=== PATIENT | female | born 1955 | race Asian ===

== ENCOUNTER 2021-05-02 09:59 | Inpatient (IN) | payer OTHER, MEDICAID ==
[~2021-05-02] VITALS: Ht 160 cm; Wt 80.9 kg
[~2021-05-02 09:59] MED LIST: ACET-1304 PO; ALBUAER3 IN; ALOG25TA PO; AML5T PO; AMLO-496 PO; ASCO10003 PO; ASPI-498 PO; ASPI1TAB91 PO; AZEL0.054 EACHEYE; CAR3125T PO; CHOL500023 PO; DEX4T PO; DOXY-286 PO; ENTE1TAB12 PO; FENO145T27 PO; FURO40TA4 PO; HYDR-4296 PO; ISO60SRT PO; ISOS1TAB28 PO; KET2TP TOP; LEVO125T7 PO; LOSA-39 PO; METF-370 PO; OMEP-263 PO; PIO30T PO; PIOG1TAB51 PO; SIMV-8 PO; TRIP2.5T9 PO; ZINC220T6 PO
[2021-05-02 10:45] LABS: Basophils # (auto) 0 10 ^3/uL (0-0.2); Basophils % (auto) 1.1 % (0.0-2.0); Eosinophils # (auto) 0.2 10 ^3/uL (0-0.8); Hematocrit 31.2 % (36.0-46.0); Hemoglobin 10.6 g/dL (12.2-16.2); Lymphocytes % (auto) 22.8 % (10.0-50.0); Mean Corpuscular Hemoglobin 29.4 pg (28.0-32.0); Mean Corpuscular Hgb Conc. 34.1 g/dL (32.0-36.0); Mean Corpuscular Volume 86.3 fL (80.0-100.0); Monocytes # (auto) 0.3 10 ^3/uL (0-1.3); Monocytes % (auto) 6.6 % (0.0-12.0); Neutrophils # (auto) 2.9 10 ^3/uL (1.6-8.6); Neutrophils % (auto) 64.5 % (37.0-80.0); Nucleated Red Blood Cells % 0.1 %; Red Blood Cells 3.61 10^6/uL (4.0-5.20); Red Cell Distribution Width 17.2 % (11.8-14.3); White Blood Cell 4.5 10^3/uL (4.4-10.8)
[2021-05-02 11:09] LABS: Albumin 2.9 g/dL (3.4-5.0); Anion Gap 6 (5-15); Blood Urea Nitrogen 22 mg/dL (7-18); Calcium 8.1 mg/dL (8.5-10.1); Carbon Dioxide 26 mmol/L (21-32); Chloride 111 mmol/L (98-107); Glucose 100 mg/dL (74-106); Potassium 3.8 mmol/L (3.5-5.1); Sodium 143 mmol/L (136-145)
[2021-05-02 11:14] LABS: Alanine Aminotransferase 12 U/L (13-56); Alkaline Phosphatase 37 U/L (45-117); Aspartate Aminotransferase 16 U/L (15-37); BUN/Creatinine Ratio 12.4; Bilirubin, Total 0.7 mg/dL (0.2-1.0); GFR African American 37 mL/min; GFR Non-African American 31 mL/min; Total Protein 7.8 g/dL (6.4-8.2)
[2021-05-02] MEDS ORDERED: SODIUM CHLORIDE 0.9% 1,000 ML IVB ONE (12:15)
[2021-05-02] MEDS ORDERED: AZITHROMYCIN 500MG/ 250ML 250 ML IV ONE (12:15)
[2021-05-02] MEDS ORDERED: cloNIDine HCL 0.1 MG TAB ONE (13:31)
[2021-05-02] MEDS ORDERED: cloNIDine HCL 0.1 MG TAB PO ONE (13:45)
[2021-05-02] MEDS ORDERED: NITROGLYCERIN 0.4 MG SL TAB SL PRN (15:15)
[2021-05-02] MEDS ORDERED: DEXTROSE (50%) 50ML SYRG IV PRN (15:15)
[2021-05-02] MEDS ORDERED: ONDANSETRON HCL 4 MG/2 ML VIAL IV PRN (15:15)
[2021-05-02] MEDS ORDERED: ACETAMINOPHEN 500 MG TAB PO PRN (15:15)
[2021-05-02] MEDS ORDERED: IPRATROPIUM BROM 0.5 MG/2.5ML INH SOL NEB PRN (15:15)
[2021-05-02] MEDS ORDERED: HYDROcodone-ACET 5/325MG TAB PO PRN (15:15)
[2021-05-02] MEDS ORDERED: ALBUTEROL SULF 2.5 MG/0.5ML(0.5%) NEB SOLN NEB PRN (15:15)
[2021-05-02] MEDS ORDERED: MORPHINE SULF INJ 2 MG/ML SYRINGE 1ML IV PRN ×2 (15:15)
[2021-05-02 15:44] VITALS: BP 160/70
[2021-05-02 17:30] VITALS: BP 193/92
[2021-05-02 17:55] VITALS: BP 193/92
[2021-05-02] MEDS: ACCU-CHEK COMFORT CURVE STRIP VI SCH ×2 (18:37→21:29)
[2021-05-02] MEDS: hydrALAZINE HCL 20 MG/ML VL IV PRN (18:38)
[2021-05-02] MEDS: InsuLIN REG 1unit/0.01ml Soln (100units/ml) SC SCH ×2 (18:46→21:45)
[2021-05-02] MEDS: ATORVASTATIN 20 MG TAB PO SCH (21:29)
[2021-05-02] MEDS: DOCUSATE SOD 100 MG CAP PO SCH (21:29)
[2021-05-02] MEDS: METOPROLOL TARTRATE 25 MG TAB PO SCH (21:37)
[2021-05-02 22:00] VITALS: BP 138/56
[2021-05-03 05:00] VITALS: BP 163/84
[2021-05-03 05:45] LABS: Basophils # (auto) 0 10 ^3/uL (0-0.2); Basophils % (auto) 0.9 % (0.0-2.0); Eosinophils # (auto) 0.2 10 ^3/uL (0-0.8); Eosinophils % (auto) 6.3 % (0.0-7.0); Hematocrit 27.9 % (36.0-46.0); Hemoglobin 9.6 g/dL (12.2-16.2); Lymphocytes # (auto) 1.2 10 ^3/uL (0.4-5.4); Lymphocytes % (auto) 30.6 % (10.0-50.0); Mean Corpuscular Hemoglobin 29.6 pg (28.0-32.0); Mean Corpuscular Hgb Conc. 34.5 g/dL (32.0-36.0); Mean Corpuscular Volume 85.9 fL (80.0-100.0); Monocytes # (auto) 0.3 10 ^3/uL (0-1.3); Monocytes % (auto) 8.3 % (0.0-12.0); Neutrophils # (auto) 2.1 10 ^3/uL (1.6-8.6); Neutrophils % (auto) 53.9 % (37.0-80.0); Red Blood Cells 3.24 10^6/uL (4.0-5.20)
[2021-05-03 06:01] LABS: BUN/Creatinine Ratio 13.8
[2021-05-03] MEDS: InsuLIN REG 1unit/0.01ml Soln (100units/ml) SC SCH ×4 (06:06→21:36)
[2021-05-03] MEDS: ACCU-CHEK COMFORT CURVE STRIP VI SCH ×4 (06:06→21:09)
[2021-05-03] MEDS: hydrALAZINE HCL 20 MG/ML VL IV PRN ×2 (06:11→18:43)
[2021-05-03 09:00] VITALS: BP 156/77
[2021-05-03] MEDS: FAMOTIDINE 20 MG TAB PO SCH (09:16)
[2021-05-03] MEDS: METOPROLOL TARTRATE 25 MG TAB PO SCH ×2 (09:16→22:00)
[2021-05-03] MEDS: DOCUSATE SOD 100 MG CAP PO SCH ×2 (09:16→21:08)
[2021-05-03] MEDS ORDERED: amLODIPine BESYLATE 5 MG TAB PO ONE (12:15)
[2021-05-03] MEDS ORDERED: DOXYCYCLINE 100 MG TAB/CAP PO ONE (12:30)
[2021-05-03] MEDS ORDERED: cefTRIAXone 1GM/50ML D5W 50 ML IV ONE (12:30)
[2021-05-03 13:00] VITALS: BP 146/76
[2021-05-03] MEDS ORDERED: IOHEXOL 350 MG/ML 100ML IJ ONE (16:04)
[2021-05-03] MEDS ORDERED: IODIXANOL 320MG/ML 100ML BTL IV ONE (16:08)
[2021-05-03 16:28] LABS: Hepatitis A Ab IgM Negative; Hepatitis B Core IgM Negative; Hepatitis C Antibody Negative (Negative)
[2021-05-03 16:40] LABS: Hepatitis B Surface Antigen Positive (Negative)
[2021-05-03 17:00] VITALS: BP 166/93
[2021-05-03] MEDS: FUROSEMIDE 20 MG/2 ML VIAL IV SCH (17:40)
[2021-05-03] MEDS ORDERED: BECL40AE11 INH (18:09)
[2021-05-03] MEDS ORDERED: HYDR50TA15 PO (18:10)
[2021-05-03] MEDS ORDERED: CARV6.2551 PO (18:11)
[2021-05-03] MEDS ORDERED: guaiFENesin-DM 100/10mg/5ml SYR PO PRN (21:00)
[2021-05-03] MEDS: ATORVASTATIN 20 MG TAB PO SCH (21:08)
[2021-05-03] MEDS: DOXYCYCLINE 100 MG TAB/CAP PO SCH (21:09)
[2021-05-03 22:00] VITALS: BP 156/77
[2021-05-04 05:00] VITALS: BP 172/85
[2021-05-04] MEDS: FUROSEMIDE 20 MG/2 ML VIAL IV SCH (06:08)
[2021-05-04] MEDS: ACCU-CHEK COMFORT CURVE STRIP VI SCH ×4 (06:08→21:25)
[2021-05-04] MEDS: LEVOTHYROXINE SODIUM 50 MCG TAB PO SCH (06:08)
[2021-05-04] MEDS: InsuLIN REG 1unit/0.01ml Soln (100units/ml) SC SCH ×4 (06:22→21:58)
[2021-05-04 06:55] VITALS: BP 159/91
[2021-05-04] MEDS ORDERED: ADENOSINE 68 MG in GIVE UN-DILUTED 0 ML IV ONE (08:30)
[2021-05-04 09:00] VITALS: BP 165/80
[2021-05-04] MEDS ORDERED: ALBUTEROL SULF 2.5 MG/0.5ML(0.5%) NEB SOLN ONE (09:08)
[2021-05-04] MEDS: ENOXAPARIN SOD 40 MG/0.4 ML SYRINGE SC SCH (09:56)
[2021-05-04] MEDS: DOCUSATE SOD 100 MG CAP PO SCH ×2 (09:56→21:25)
[2021-05-04] MEDS: cefTRIAXone 1GM/50ML D5W 50 ML IV SCH (09:56)
[2021-05-04] MEDS: DOXYCYCLINE 100 MG TAB/CAP PO SCH ×2 (09:57→21:25)
[2021-05-04] MEDS: amLODIPine BESYLATE 5 MG TAB PO SCH (09:57)
[2021-05-04] MEDS: METOPROLOL TARTRATE 25 MG TAB PO SCH ×2 (09:57→22:00)
[2021-05-04] MEDS: FAMOTIDINE 20 MG TAB PO SCH (09:57)
[2021-05-04 10:39] LABS: Basophils # (auto) 0 10 ^3/uL (0-0.2); Eosinophils # (auto) 0.2 10 ^3/uL (0-0.8); Eosinophils % (auto) 5.4 % (0.0-7.0); Hematocrit 31.2 % (36.0-46.0); Hemoglobin 10.4 g/dL (12.2-16.2); Lymphocytes # (auto) 1.2 10 ^3/uL (0.4-5.4); Mean Corpuscular Hemoglobin 28.6 pg (28.0-32.0); Mean Corpuscular Hgb Conc. 33.5 g/dL (32.0-36.0); Mean Corpuscular Volume 85.3 fL (80.0-100.0); Monocytes # (auto) 0.3 10 ^3/uL (0-1.3); Monocytes % (auto) 6.5 % (0.0-12.0); Neutrophils # (auto) 2.6 10 ^3/uL (1.6-8.6); Neutrophils % (auto) 59.1 % (37.0-80.0); Nucleated Red Blood Cells % 0.2 %; Red Blood Cells 3.65 10^6/uL (4.0-5.20); Red Cell Distribution Width 16.8 % (11.8-14.3); White Blood Cell 4.4 10^3/uL (4.4-10.8)
[2021-05-04 10:52] LABS: BUN/Creatinine Ratio 15.2; Calcium 8.4 mg/dL (8.5-10.1); Potassium 3.9 mmol/L (3.5-5.1)
[2021-05-04 13:00] VITALS: BP 147/76
[2021-05-04] MEDS ORDERED: ENOXAPARIN SOD 40 MG/0.4 ML SYRINGE SC ONE (14:00)
[2021-05-04] MEDS: hydrALAZINE HCL 25 MG TAB PO SCH ×2 (15:12→22:00)
[2021-05-04 17:00] VITALS: BP 153/79
[2021-05-04] MEDS: hydrALAZINE HCL 20 MG/ML VL IV PRN (18:35)
[2021-05-04] MEDS: ATORVASTATIN 20 MG TAB PO SCH (21:25)
[2021-05-04 22:00] VITALS: BP 157/87
[2021-05-05 05:00] VITALS: BP 170/69
[2021-05-05] MEDS: LEVOTHYROXINE SODIUM 50 MCG TAB PO SCH (05:56)
[2021-05-05] MEDS: hydrALAZINE HCL 25 MG TAB PO SCH ×3 (05:56→21:26)
[2021-05-05] MEDS: ACCU-CHEK COMFORT CURVE STRIP VI SCH ×4 (05:56→21:31)
[2021-05-05] MEDS: InsuLIN REG 1unit/0.01ml Soln (100units/ml) SC SCH ×4 (06:04→21:31)
[2021-05-05 07:42] LABS: Potassium 4.2 mmol/L (3.5-5.1)
[2021-05-05 07:49] LABS: BUN/Creatinine Ratio 17.9
[2021-05-05 09:00] VITALS: BP 158/80
[2021-05-05] MEDS: cefTRIAXone 1GM/50ML D5W 50 ML IV SCH (09:16)
[2021-05-05] MEDS: METOPROLOL TARTRATE 25 MG TAB PO SCH ×2 (09:18→21:27)
[2021-05-05] MEDS: FUROSEMIDE 20 MG/2 ML VIAL IV SCH (09:18)
[2021-05-05] MEDS: DOCUSATE SOD 100 MG CAP PO SCH ×2 (09:19→21:25)
[2021-05-05] MEDS: DOXYCYCLINE 100 MG TAB/CAP PO SCH ×2 (09:19→21:25)
[2021-05-05] MEDS: amLODIPine BESYLATE 5 MG TAB PO SCH (09:19)
[2021-05-05] MEDS: ENOXAPARIN SOD 40 MG/0.4 ML SYRINGE SC SCH (09:20)
[2021-05-05] MEDS: FAMOTIDINE 20 MG TAB PO SCH (09:20)
[2021-05-05] MEDS ORDERED: ENOXAPARIN SOD 40 MG/0.4 ML SYRINGE SC SCH (10:00)
[2021-05-05] MEDS ORDERED: SODIUM CHLORIDE 0.9% 500 ML IV ONE (10:30)
[2021-05-05 11:51] VITALS: BP 148/78
[2021-05-05] MEDS: Glucerna Carbsteady SHAKE Vanilla 8oz PO SCH ×2 (12:18→18:29)
[2021-05-05 13:00] VITALS: BP 156/74
[2021-05-05] MEDS: cloNIDine HCL 0.1 MG TAB PO PRN (16:48)
[2021-05-05 17:00] VITALS: BP 160/77
[2021-05-05] MEDS: ATORVASTATIN 20 MG TAB PO SCH (21:26)
[2021-05-05 22:56] VITALS: BP 149/69
[2021-05-05] MEDS: hydrALAZINE HCL 20 MG/ML VL IV PRN (23:21)
[2021-05-06] MEDS: LEVOTHYROXINE SODIUM 50 MCG TAB PO SCH (06:15)
[2021-05-06 06:16] LABS: Basophils # (auto) 0 10 ^3/uL (0-0.2); Basophils % (auto) 0.6 % (0.0-2.0); Eosinophils # (auto) 0.3 10 ^3/uL (0-0.8); Eosinophils % (auto) 6.6 % (0.0-7.0); Hematocrit 28.1 % (36.0-46.0); Hemoglobin 9.9 g/dL (12.2-16.2); Lymphocytes # (auto) 1.1 10 ^3/uL (0.4-5.4); Lymphocytes % (auto) 26.3 % (10.0-50.0); Mean Corpuscular Hgb Conc. 35.1 g/dL (32.0-36.0); Mean Corpuscular Volume 85.7 fL (80.0-100.0); Monocytes # (auto) 0.3 10 ^3/uL (0-1.3); Monocytes % (auto) 6.9 % (0.0-12.0); Neutrophils # (auto) 2.5 10 ^3/uL (1.6-8.6); Neutrophils % (auto) 59.6 % (37.0-80.0); Nucleated Red Blood Cells % 0.1 %; Red Blood Cells 3.28 10^6/uL (4.0-5.20); Red Cell Distribution Width 16.7 % (11.8-14.3); White Blood Cell 4.1 10^3/uL (4.4-10.8)
[2021-05-06] MEDS: ACCU-CHEK COMFORT CURVE STRIP VI SCH ×4 (06:17→21:59)
[2021-05-06] MEDS: hydrALAZINE HCL 25 MG TAB PO SCH ×3 (06:17→21:55)
[2021-05-06 06:21] VITALS: BP 160/85
[2021-05-06] MEDS: InsuLIN REG 1unit/0.01ml Soln (100units/ml) SC SCH ×4 (06:21→22:00)
[2021-05-06] MEDS: cloNIDine HCL 0.1 MG TAB PO PRN (06:28)
[2021-05-06 06:48] LABS: Potassium 4.3 mmol/L (3.5-5.1)
[2021-05-06 06:56] LABS: BUN/Creatinine Ratio 21.3; Calcium 7.8 mg/dL (8.5-10.1)
[2021-05-06] MEDS: Glucerna Carbsteady SHAKE Vanilla 8oz PO SCH ×3 (08:00→18:00)
[2021-05-06 09:00] VITALS: BP 143/69
[2021-05-06] MEDS: FAMOTIDINE 20 MG TAB PO SCH (10:58)
[2021-05-06] MEDS: DOXYCYCLINE 100 MG TAB/CAP PO SCH ×2 (10:58→21:55)
[2021-05-06] MEDS: DOCUSATE SOD 100 MG CAP PO SCH ×2 (10:58→21:55)
[2021-05-06] MEDS: ENOXAPARIN SOD 40 MG/0.4 ML SYRINGE SC SCH (11:00)
[2021-05-06] MEDS: FUROSEMIDE 20 MG/2 ML VIAL IV SCH (11:01)
[2021-05-06] MEDS: amLODIPine BESYLATE 5 MG TAB PO SCH (11:02)
[2021-05-06] MEDS: METOPROLOL TARTRATE 25 MG TAB PO SCH ×2 (11:11→21:59)
[2021-05-06] MEDS: cefTRIAXone 1GM/50ML D5W 50 ML IV SCH (11:44)
[2021-05-06 12:55] VITALS: BP 143/70
[2021-05-06 16:45] VITALS: BP 147/76
[2021-05-06] MEDS: ATORVASTATIN 20 MG TAB PO SCH (21:55)
[2021-05-06 22:00] VITALS: BP 148/86
[2021-05-07 05:00] VITALS: BP 165/80
[2021-05-07] MEDS: cloNIDine HCL 0.1 MG TAB PO PRN (05:44)
[2021-05-07] MEDS: hydrALAZINE HCL 25 MG TAB PO SCH (05:44)
[2021-05-07] MEDS: InsuLIN REG 1unit/0.01ml Soln (100units/ml) SC SCH ×2 (05:50→11:30)
[2021-05-07] MEDS: ACCU-CHEK COMFORT CURVE STRIP VI SCH ×2 (05:50→11:40)
[2021-05-07 05:56] LABS: Basophils # (auto) 0 10 ^3/uL (0-0.2); Eosinophils # (auto) 0.3 10 ^3/uL (0-0.8); Eosinophils % (auto) 7.8 % (0.0-7.0); Hematocrit 27.8 % (36.0-46.0); Hemoglobin 9.6 g/dL (12.2-16.2); Mean Corpuscular Hemoglobin 29.6 pg (28.0-32.0); Mean Corpuscular Hgb Conc. 34.7 g/dL (32.0-36.0); Mean Corpuscular Volume 85.2 fL (80.0-100.0); Monocytes # (auto) 0.2 10 ^3/uL (0-1.3); Monocytes % (auto) 6.7 % (0.0-12.0); Neutrophils # (auto) 2.1 10 ^3/uL (1.6-8.6); Neutrophils % (auto) 56.5 % (37.0-80.0); Nucleated Red Blood Cells % 0.1 %; Red Blood Cells 3.26 10^6/uL (4.0-5.20); Red Cell Distribution Width 16.4 % (11.8-14.3); White Blood Cell 3.6 10^3/uL (4.4-10.8)
[2021-05-07 06:13] LABS: Calcium 8.2 mg/dL (8.5-10.1); Potassium 4.1 mmol/L (3.5-5.1)
[2021-05-07 06:14] LABS: BUN/Creatinine Ratio 21.1
[2021-05-07] MEDS: LEVOTHYROXINE SODIUM 50 MCG TAB PO SCH (06:39)
[2021-05-07 09:00] VITALS: BP 123/58
[2021-05-07] MEDS: cefTRIAXone 1GM/50ML D5W 50 ML IV SCH (09:00)
[2021-05-07] MEDS: DOCUSATE SOD 100 MG CAP PO SCH (09:58)
[2021-05-07] MEDS: FUROSEMIDE 20 MG/2 ML VIAL IV SCH (09:58)
[2021-05-07] MEDS: Glucerna Carbsteady SHAKE Vanilla 8oz PO SCH ×2 (09:58→12:51)
[2021-05-07] MEDS: METOPROLOL TARTRATE 25 MG TAB PO SCH (09:59)
[2021-05-07] MEDS: FAMOTIDINE 20 MG TAB PO SCH (09:59)
[2021-05-07] MEDS: amLODIPine BESYLATE 5 MG TAB PO SCH (09:59)
[2021-05-07] MEDS: DOXYCYCLINE 100 MG TAB/CAP PO SCH (09:59)
[2021-05-07] MEDS: ENOXAPARIN SOD 40 MG/0.4 ML SYRINGE SC SCH (10:00)
[2021-05-07 13:00] VITALS: BP 124/64
== END 2021-05-07 13:45 | disposition home or self-care (01) | DRG 291 ==
LOC: ER 09:59 → TELE 15:15 → TELE-WESTW 17:22
PROVIDERS: ADMIT Nurse Practitioner Acute Care; ATTEND Internal Medicine Pulmonary Disease
DX: I11.0 Hypertensive heart disease with heart failure (principal); N17.0 Acute kidney failure with tubular necrosis; J96.21 Acute and chronic respiratory failure with hypoxia; I16.9 Hypertensive crisis, unspecified; E44.0 Moderate protein-calorie malnutrition; I31.3 Pericardial effusion (noninflammatory); B18.1 Chronic viral hepatitis B without delta-agent; I50.43 Acute on chronic combined systolic (congestive) and diastolic (congestive) heart failure; I25.10 Atherosclerotic heart disease of native coronary artery without angina pectoris; J84.10 Pulmonary fibrosis, unspecified; E07.9 Disorder of thyroid, unspecified; N18.32 Chronic kidney disease, stage 3b; D63.8 Anemia in other chronic diseases classified elsewhere; D50.9 Iron deficiency anemia, unspecified; Z20.822 Contact with and (suspected) exposure to COVID-19; E11.22 Type 2 diabetes mellitus with diabetic chronic kidney disease; E66.9 Obesity, unspecified; E78.5 Hyperlipidemia, unspecified; I25.2 Old myocardial infarction; Z79.4 Long term (current) use of insulin; Z68.31 Body mass index [BMI] 31.0-31.9, adult; Z79.51 Long term (current) use of inhaled steroids; Z79.899 Other long term (current) drug therapy; Z80.3 Family history of malignant neoplasm of breast; Z82.49 Family history of ischemic heart disease and other diseases of the circulatory system; Z86.16 Personal history of COVID-19; Z87.01 Personal history of pneumonia (recurrent)
CPT/HCPCS: 36415; 71046; 71250; 71275; 78452; 80048; 80053; 80061; 80074; 82962; 83036; 83605; 83735; 83880; 84439; 84443; 84484; 85025; 85049; 85379; 86141; 87040; 87426; 93005; 93017; 93306; 93970; 96365; G0378; J0153; J0696; J1815; Q9967

== ENCOUNTER → 2021-06-21 | Outpatient (CLI) | payer OTHER ==
[~2021-06-21] MED LIST changes: -AMLO-496 PO; -ASPI-498 PO; +BECL40AE11 INH; -CAR3125T PO; +CARV6.2551 PO; -HYDR-4296 PO; +HYDR50TA15 PO; -ISOS1TAB28 PO; -PIO30T PO
== END | disposition home or self-care (01) ==
LOC: LAB 08:59
PROVIDERS: ATTEND Internal Medicine Pulmonary Disease
DX: Z01.812 Encounter for preprocedural laboratory examination (principal); Z20.822 Contact with and (suspected) exposure to COVID-19
CPT/HCPCS: 36415; 87426

== ENCOUNTER 2021-10-06 07:58 | Inpatient (IN) | payer OTHER, MEDICAID ==
[~2021-10-06] VITALS: Ht 160 cm; Wt 83.3 kg
[2021-10-06 11:04] LABS: Basophils # (auto) 0 10 ^3/uL (0-0.2); Basophils % (auto) 0.6 % (0.0-2.0); Eosinophils # (auto) 0.2 10 ^3/uL (0-0.8); Eosinophils % (auto) 6.1 % (0.0-7.0); Hematocrit 31.7 % (36.0-46.0); Hemoglobin 10.3 g/dL (12.2-16.2); Lymphocytes # (auto) 0.8 10 ^3/uL (0.4-5.4); Lymphocytes % (auto) 23.3 % (10.0-50.0); Mean Corpuscular Hemoglobin 29.8 pg (28.0-32.0); Mean Corpuscular Hgb Conc. 32.4 g/dL (32.0-36.0); Monocytes # (auto) 0.2 10 ^3/uL (0-1.3); Monocytes % (auto) 5.1 % (0.0-12.0); Neutrophils # (auto) 2.1 10 ^3/uL (1.6-8.6); Neutrophils % (auto) 64.9 % (37.0-80.0); Nucleated Red Blood Cells % 0.1 %; Red Blood Cells 3.45 10^6/uL (4.0-5.20); Red Cell Distribution Width 17.2 % (11.8-14.3); White Blood Cell 3.3 10^3/uL (4.4-10.8)
[2021-10-06 11:29] LABS: Potassium 4.3 mmol/L (3.5-5.1)
[2021-10-06 11:40] LABS: Albumin 2.3 g/dL (3.4-5.0); BUN/Creatinine Ratio 9.4; Bilirubin, Total 0.5 mg/dL (0.2-1.0); Calcium 7.9 mg/dL (8.5-10.1)
[2021-10-06 14:06] LABS: Basophils # (auto) 0 10 ^3/uL (0-0.2); Basophils % (auto) 0.8 % (0.0-2.0); Eosinophils # (auto) 0.2 10 ^3/uL (0-0.8); Eosinophils % (auto) 5.9 % (0.0-7.0); Hematocrit 33.1 % (36.0-46.0); Hemoglobin 10.8 g/dL (12.2-16.2); Lymphocytes # (auto) 1.1 10 ^3/uL (0.4-5.4); Lymphocytes % (auto) 26.2 % (10.0-50.0); Mean Corpuscular Hgb Conc. 32.8 g/dL (32.0-36.0); Mean Corpuscular Volume 91.7 fL (80.0-100.0); Monocytes # (auto) 0.2 10 ^3/uL (0-1.3); Monocytes % (auto) 4.7 % (0.0-12.0); Neutrophils # (auto) 2.5 10 ^3/uL (1.6-8.6); Neutrophils % (auto) 62.4 % (37.0-80.0); Nucleated Red Blood Cells % 0.1 %; Red Blood Cells 3.61 10^6/uL (4.0-5.20); Red Cell Distribution Width 16.9 % (11.8-14.3)
[2021-10-06 14:30] LABS: Albumin 2.4 g/dL (3.4-5.0); Calcium 8.1 mg/dL (8.5-10.1); Magnesium 3.1 mg/dL (1.6-2.6); Potassium 4.3 mmol/L (3.5-5.1)
[2021-10-06 14:36] LABS: BUN/Creatinine Ratio 9.5; Bilirubin, Total 0.4 mg/dL (0.2-1.0); Total Protein 7.1 g/dL (6.4-8.2)
[2021-10-06 15:00] LABS: INR 1.11 (0.9-1.15); Partial Thromboplastin Time 28.9 sec (23.6-33.0)
[2021-10-06] MEDS ORDERED: hydrALAZINE HCL 20 MG/ML VL IV ONE ×2 (17:15→18:30)
[2021-10-06] MEDS ORDERED: MORPHINE SULFATE INJECTION 2 MG/ML SYRG IV PRN (18:45)
[2021-10-06] MEDS ORDERED: NITROGLYCERIN 0.4 MG SL TAB SL PRN (18:45)
[2021-10-06] MEDS: FUROSEMIDE 100 MG/10ML VIAL IV SCH (20:01)
[2021-10-06 22:00] VITALS: BP 142/80
[2021-10-06 22:34] VITALS: BP 142/80
[2021-10-06] MEDS ORDERED: BENZ200C64 PO (22:52)
[2021-10-06] MEDS ORDERED: FERR-20 PO (22:58)
[2021-10-06] MEDS ORDERED: ERGO400T PO (22:58)
[2021-10-06] MEDS ORDERED: ASCO500T11 PO (22:58)
[2021-10-07 05:00] VITALS: BP 175/86
[2021-10-07] MEDS: FUROSEMIDE 100 MG/10ML VIAL IV SCH (05:13)
[2021-10-07 05:19] LABS: Basophils # (auto) 0 10 ^3/uL (0-0.2); Basophils % (auto) 0.7 % (0.0-2.0); Eosinophils # (auto) 0.2 10 ^3/uL (0-0.8); Eosinophils % (auto) 6.2 % (0.0-7.0); Hemoglobin 10.4 g/dL (12.2-16.2); Lymphocytes # (auto) 0.9 10 ^3/uL (0.4-5.4); Lymphocytes % (auto) 23.2 % (10.0-50.0); Mean Corpuscular Hemoglobin 30.6 pg (28.0-32.0); Mean Corpuscular Hgb Conc. 33.6 g/dL (32.0-36.0); Mean Corpuscular Volume 90.9 fL (80.0-100.0); Monocytes # (auto) 0.2 10 ^3/uL (0-1.3); Monocytes % (auto) 5.3 % (0.0-12.0); Neutrophils # (auto) 2.5 10 ^3/uL (1.6-8.6); Neutrophils % (auto) 64.6 % (37.0-80.0); Nucleated Red Blood Cells % 0.1 %; Red Blood Cells 3.41 10^6/uL (4.0-5.20); Red Cell Distribution Width 16.9 % (11.8-14.3); White Blood Cell 3.9 10^3/uL (4.4-10.8)
[2021-10-07 05:40] LABS: Calcium 7.8 mg/dL (8.5-10.1); Potassium 3.8 mmol/L (3.5-5.1)
[2021-10-07 05:45] LABS: BUN/Creatinine Ratio 9.3
[2021-10-07] MEDS ORDERED: ASPirin 81 mg TAB PO ONE (10:45)
[2021-10-07] MEDS: BUMETANIDE 2.5mg/10ml (0.25 mg/ml) INJ IV SCH (12:20)
[2021-10-07 12:58] VITALS: BP 173/86
[2021-10-07] MEDS: METOPROLOL TARTRATE 25 MG TAB PO SCH ×2 (13:33→20:51)
[2021-10-07] MEDS ORDERED: BUMETANIDE 2.5mg/10ml (0.25 mg/ml) INJ IV SCH (18:00)
[2021-10-07] MEDS ORDERED: FUROSEMIDE 20 MG/2 ML VIAL IV SCH (18:00)
[2021-10-07 18:13] VITALS: BP 157/84
[2021-10-07 22:00] VITALS: BP 200/97
[2021-10-07] MEDS ORDERED: METOPROLOL TARTRATE 25 MG TAB PO SCH (22:00)
[2021-10-07] MEDS ORDERED: cloNIDine HCL 0.1 MG TAB PO ONE (23:00)
[2021-10-08 00:08] VITALS: BP 168/90
[2021-10-08 05:00] VITALS: BP 169/87
[2021-10-08 05:46] LABS: Basophils # (auto) 0 10 ^3/uL (0-0.2); Basophils % (auto) 0.9 % (0.0-2.0); Eosinophils # (auto) 0.3 10 ^3/uL (0-0.8); Eosinophils % (auto) 6.6 % (0.0-7.0); Hematocrit 30.5 % (36.0-46.0); Hemoglobin 10.1 g/dL (12.2-16.2); Lymphocytes # (auto) 1.3 10 ^3/uL (0.4-5.4); Lymphocytes % (auto) 28.9 % (10.0-50.0); Mean Corpuscular Hemoglobin 30.5 pg (28.0-32.0); Mean Corpuscular Volume 92.3 fL (80.0-100.0); Monocytes # (auto) 0.3 10 ^3/uL (0-1.3); Monocytes % (auto) 6.9 % (0.0-12.0); Neutrophils # (auto) 2.6 10 ^3/uL (1.6-8.6); Neutrophils % (auto) 56.7 % (37.0-80.0); Red Blood Cells 3.31 10^6/uL (4.0-5.20); Red Cell Distribution Width 17.2 % (11.8-14.3); White Blood Cell 4.5 10^3/uL (4.4-10.8)
[2021-10-08 06:21] LABS: BUN/Creatinine Ratio 10.9; Calcium 7.5 mg/dL (8.5-10.1); Potassium 4.7 mmol/L (3.5-5.1)
[2021-10-08 09:00] VITALS: BP 158/72
[2021-10-08] MEDS: METOPROLOL TARTRATE 25 MG TAB PO SCH (09:13)
[2021-10-08] MEDS: ASPirin 81 mg TAB PO SCH (09:26)
[2021-10-08] MEDS: BUMETANIDE 2.5mg/10ml (0.25 mg/ml) INJ IV SCH (09:26)
[2021-10-08] MEDS ORDERED: ALBUTEROL SULF 2.5 MG/0.5ML(0.5%) NEB SOLN NEB PRN (11:45)
[2021-10-08] MEDS ORDERED: IPRATROPIUM BROM 0.5 MG/2.5ML INH SOL NEB PRN (11:45)
[2021-10-08] MEDS: guaiFENesin-DM 100/10mg/5ml SYR PO PRN ×2 (11:54→21:38)
[2021-10-08 13:00] VITALS: BP 164/79
[2021-10-08] MEDS ORDERED: hydrALAZINE HCL 25 MG TAB PO SCH (14:00)
[2021-10-08 16:45] LABS: Protein, Urine 413.3 mg/dL (0.0-11.9)
[2021-10-08 17:00] VITALS: BP 178/85
[2021-10-08] MEDS: hydrALAZINE HCL 20 MG/ML VL IV PRN (19:10)
[2021-10-08] MEDS: hydrALAZINE HCL 25 MG TAB PO SCH (21:32)
[2021-10-08] MEDS: ATORVASTATIN 20 MG TAB PO SCH (21:33)
[2021-10-08] MEDS: CARVEDILOL 3.125 MG TAB PO SCH (21:33)
[2021-10-08 22:00] VITALS: BP 143/73
[2021-10-09] VITALS (7 sets, daily range): BP systolic 143–189; BP diastolic 70–94
[2021-10-09] MEDS: hydrALAZINE HCL 25 MG TAB PO SCH ×3 (05:04→21:13)
[2021-10-09 06:03] LABS: Albumin 2.2 g/dL (3.4-5.0); Calcium 7.7 mg/dL (8.5-10.1); Magnesium 3.1 mg/dL (1.6-2.6); Potassium 4.3 mmol/L (3.5-5.1)
[2021-10-09 06:05] LABS: Basophils # (auto) 0 10 ^3/uL (0-0.2); Basophils % (auto) 0.6 % (0.0-2.0); Eosinophils # (auto) 0.3 10 ^3/uL (0-0.8); Eosinophils % (auto) 7.8 % (0.0-7.0); Hemoglobin 9.6 g/dL (12.2-16.2); Lymphocytes # (auto) 1.1 10 ^3/uL (0.4-5.4); Monocytes # (auto) 0.3 10 ^3/uL (0-1.3); Monocytes % (auto) 6.4 % (0.0-12.0); Neutrophils # (auto) 2.4 10 ^3/uL (1.6-8.6); Neutrophils % (auto) 59.2 % (37.0-80.0); Red Blood Cells 3.15 10^6/uL (4.0-5.20)
[2021-10-09 06:06] LABS: Hematocrit 29.2 % (36.0-46.0); Mean Corpuscular Hemoglobin 30.7 pg (28.0-32.0); Mean Corpuscular Hgb Conc. 33.1 g/dL (32.0-36.0); Mean Corpuscular Volume 92.7 fL (80.0-100.0); Red Cell Distribution Width 17.3 % (11.8-14.3)
[2021-10-09 06:22] LABS: BUN/Creatinine Ratio 13.5; Bilirubin, Total 0.4 mg/dL (0.2-1.0); Total Protein 6.5 g/dL (6.4-8.2)
[2021-10-09] MEDS ORDERED: LEVOTHYROXINE SODIUM 50 MCG TAB PO SCH (07:00)
[2021-10-09] MEDS: PANTOPRAZOLE 40 MG TAB PO SCH (10:00)
[2021-10-09] MEDS ORDERED: ERGOCALCIFEROL 50,000 UNIT(1.25MG) CAP PO SCH (10:30)
[2021-10-09] MEDS ORDERED: LEVOTHYROXINE SODIUM 100 MCG/5 ML INJ IV ONE (10:30)
[2021-10-09] MEDS ORDERED: DOXYCYCLINE 100 MG TAB/CAP PO ONE (10:30)
[2021-10-09] MEDS: guaiFENesin-DM 100/10mg/5ml SYR PO PRN ×2 (10:37→21:12)
[2021-10-09] MEDS: ASPirin 81 mg TAB PO SCH (10:37)
[2021-10-09] MEDS: CHOLECALCIFEROL (VITD3) 2,000 UNIT CAP/TAB PO SCH (10:38)
[2021-10-09] MEDS: BUMETANIDE 2.5mg/10ml (0.25 mg/ml) INJ IV SCH (10:38)
[2021-10-09] MEDS: ENOXAPARIN SOD 30 MG/0.3 ML SYRINGE SC SCH (10:38)
[2021-10-09] MEDS: hydrALAZINE HCL 20 MG/ML VL IV PRN ×2 (10:40→17:57)
[2021-10-09] MEDS: CARVEDILOL 3.125 MG TAB PO SCH ×2 (10:40→21:13)
[2021-10-09] MEDS: IPRATROPIUM BROM 0.5 MG/2.5ML INH SOL NEB SCH ×3 (15:51→22:07)
[2021-10-09] MEDS: ALBUTEROL SULF 2.5 MG/0.5ML(0.5%) NEB SOLN NEB SCH ×3 (15:51→22:07)
[2021-10-09] MEDS: BUDESONIDE (INHALATION) 0.5 MG/2 ML NEB NEB SCH (18:15)
[2021-10-09] MEDS: DOXYCYCLINE 100 MG TAB/CAP PO SCH (21:13)
[2021-10-09] MEDS: ATORVASTATIN 20 MG TAB PO SCH (21:14)
[2021-10-10] MEDS: hydrALAZINE HCL 20 MG/ML VL IV PRN ×4 (00:22→23:24)
[2021-10-10 01:00] VITALS: BP 148/76
[2021-10-10] MEDS: ALBUTEROL SULF 2.5 MG/0.5ML(0.5%) NEB SOLN NEB SCH ×5 (02:00→22:38)
[2021-10-10] MEDS: IPRATROPIUM BROM 0.5 MG/2.5ML INH SOL NEB SCH ×6 (02:00→22:38)
[2021-10-10 05:00] VITALS: BP 147/70
[2021-10-10] MEDS: hydrALAZINE HCL 25 MG TAB PO SCH ×3 (05:46→22:03)
[2021-10-10] MEDS: guaiFENesin-DM 100/10mg/5ml SYR PO PRN (05:47)
[2021-10-10] MEDS: BUDESONIDE (INHALATION) 0.5 MG/2 ML NEB NEB SCH ×2 (06:09→21:04)
[2021-10-10 06:48] LABS: Basophils # (auto) 0 10 ^3/uL (0-0.2); Basophils % (auto) 0.8 % (0.0-2.0); Eosinophils # (auto) 0.3 10 ^3/uL (0-0.8); Eosinophils % (auto) 8.1 % (0.0-7.0); Hematocrit 29.3 % (36.0-46.0); Hemoglobin 9.6 g/dL (12.2-16.2); Lymphocytes # (auto) 0.9 10 ^3/uL (0.4-5.4); Lymphocytes % (auto) 25.8 % (10.0-50.0); Mean Corpuscular Hemoglobin 29.8 pg (28.0-32.0); Mean Corpuscular Hgb Conc. 32.6 g/dL (32.0-36.0); Mean Corpuscular Volume 91.2 fL (80.0-100.0); Monocytes # (auto) 0.2 10 ^3/uL (0-1.3); Monocytes % (auto) 6.4 % (0.0-12.0); Neutrophils # (auto) 2.1 10 ^3/uL (1.6-8.6); Neutrophils % (auto) 58.9 % (37.0-80.0); Nucleated Red Blood Cells % 0.1 %; Red Blood Cells 3.21 10^6/uL (4.0-5.20); Red Cell Distribution Width 16.7 % (11.8-14.3); White Blood Cell 3.6 10^3/uL (4.4-10.8)
[2021-10-10 07:03] LABS: Potassium 4.5 mmol/L (3.5-5.1)
[2021-10-10 07:13] LABS: BUN/Creatinine Ratio 14.7; Magnesium 2.3 mg/dL (1.6-2.6)
[2021-10-10 09:00] VITALS: BP 152/83
[2021-10-10] MEDS: ENOXAPARIN SOD 30 MG/0.3 ML SYRINGE SC SCH (10:20)
[2021-10-10] MEDS: LEVOTHYROXINE SODIUM 100 MCG/5 ML INJ IV SCH (10:20)
[2021-10-10] MEDS: CHOLECALCIFEROL (VITD3) 2,000 UNIT CAP/TAB PO SCH (10:20)
[2021-10-10] MEDS: PANTOPRAZOLE 40 MG TAB PO SCH (10:21)
[2021-10-10] MEDS: ASPirin 81 mg TAB PO SCH (10:21)
[2021-10-10] MEDS: DOXYCYCLINE 100 MG TAB/CAP PO SCH ×2 (10:21→22:05)
[2021-10-10] MEDS: CARVEDILOL 3.125 MG TAB PO SCH ×2 (10:21→22:04)
[2021-10-10] MEDS: BUMETANIDE 2.5mg/10ml (0.25 mg/ml) INJ IV SCH (10:22)
[2021-10-10 13:00] VITALS: BP 164/81
[2021-10-10] MEDS ORDERED: BECL80AE11 PO (15:09)
[2021-10-10] MEDS ORDERED: LEVO25CA3 PO (15:09)
[2021-10-10] MEDS ORDERED: CHOL500021 PO (15:09)
[2021-10-10] MEDS ORDERED: ALOG2.5T PO (15:09)
[2021-10-10 17:20] VITALS: BP 182/90
[2021-10-10] MEDS ORDERED: NIFEdipine ER 30 MG TAB PO ONE (18:45)
[2021-10-10 22:00] VITALS: BP 194/91
[2021-10-10] MEDS: ATORVASTATIN 20 MG TAB PO SCH (22:04)
[2021-10-11] MEDS: ALBUTEROL SULF 2.5 MG/0.5ML(0.5%) NEB SOLN NEB SCH ×5 (02:00→21:52)
[2021-10-11] MEDS: IPRATROPIUM BROM 0.5 MG/2.5ML INH SOL NEB SCH ×5 (02:00→21:51)
[2021-10-11 05:00] VITALS: BP 121/71
[2021-10-11] MEDS: hydrALAZINE HCL 25 MG TAB PO SCH ×3 (05:43→21:28)
[2021-10-11] MEDS: BUDESONIDE (INHALATION) 0.5 MG/2 ML NEB NEB SCH ×2 (06:45→19:13)
[2021-10-11 08:28] LABS: Basophils # (auto) 0 10 ^3/uL (0-0.2); Eosinophils # (auto) 0.3 10 ^3/uL (0-0.8); Eosinophils % (auto) 8.3 % (0.0-7.0); Hematocrit 31.3 % (36.0-46.0); Hemoglobin 10.3 g/dL (12.2-16.2); Lymphocytes # (auto) 0.9 10 ^3/uL (0.4-5.4); Lymphocytes % (auto) 24.9 % (10.0-50.0); Mean Corpuscular Hemoglobin 30.3 pg (28.0-32.0); Mean Corpuscular Volume 91.7 fL (80.0-100.0); Monocytes # (auto) 0.2 10 ^3/uL (0-1.3); Monocytes % (auto) 5.9 % (0.0-12.0); Neutrophils # (auto) 2.1 10 ^3/uL (1.6-8.6); Neutrophils % (auto) 59.9 % (37.0-80.0); Nucleated Red Blood Cells % 0.1 %; Red Blood Cells 3.41 10^6/uL (4.0-5.20); Red Cell Distribution Width 16.8 % (11.8-14.3); White Blood Cell 3.4 10^3/uL (4.4-10.8)
[2021-10-11 09:00] VITALS: BP 126/63
[2021-10-11 09:01] LABS: Potassium 4.4 mmol/L (3.5-5.1)
[2021-10-11 09:06] LABS: BUN/Creatinine Ratio 15.3; Calcium 8.2 mg/dL (8.5-10.1)
[2021-10-11] MEDS: DOXYCYCLINE 100 MG TAB/CAP PO SCH ×2 (10:00→21:27)
[2021-10-11] MEDS: LEVOTHYROXINE SODIUM 100 MCG/5 ML INJ IV SCH (10:55)
[2021-10-11] MEDS: PANTOPRAZOLE 40 MG TAB PO SCH (10:56)
[2021-10-11] MEDS: ASPirin 81 mg TAB PO SCH (10:56)
[2021-10-11] MEDS: ISOSORBIDE MONONITRATE ER 60 MG TAB PO SCH (10:56)
[2021-10-11] MEDS: CHOLECALCIFEROL (VITD3) 2,000 UNIT CAP/TAB PO SCH (10:56)
[2021-10-11] MEDS: ENOXAPARIN SOD 30 MG/0.3 ML SYRINGE SC SCH (10:57)
[2021-10-11] MEDS: CARVEDILOL 3.125 MG TAB PO SCH ×2 (10:57→21:28)
[2021-10-11 13:00] VITALS: BP 153/78
[2021-10-11 17:00] VITALS: BP 135/69
[2021-10-11] MEDS: ATORVASTATIN 20 MG TAB PO SCH (21:27)
[2021-10-11 22:00] VITALS: BP 150/69
[2021-10-12] MEDS: ALBUTEROL SULF 2.5 MG/0.5ML(0.5%) NEB SOLN NEB SCH ×5 (01:34→18:42)
[2021-10-12] MEDS: IPRATROPIUM BROM 0.5 MG/2.5ML INH SOL NEB SCH ×5 (01:34→18:42)
[2021-10-12 05:00] VITALS: BP 154/74
[2021-10-12] MEDS: hydrALAZINE HCL 25 MG TAB PO SCH ×2 (05:31→13:31)
[2021-10-12] MEDS: BUDESONIDE (INHALATION) 0.5 MG/2 ML NEB NEB SCH (06:11)
[2021-10-12] MEDS: hydrALAZINE HCL 20 MG/ML VL IV PRN (08:46)
[2021-10-12 09:00] VITALS: BP 186/90
[2021-10-12] MEDS: ASPirin 81 mg TAB PO SCH (09:45)
[2021-10-12] MEDS: PANTOPRAZOLE 40 MG TAB PO SCH (09:45)
[2021-10-12] MEDS: DOXYCYCLINE 100 MG TAB/CAP PO SCH (09:45)
[2021-10-12] MEDS: CHOLECALCIFEROL (VITD3) 2,000 UNIT CAP/TAB PO SCH (09:45)
[2021-10-12] MEDS: LEVOTHYROXINE SODIUM 100 MCG/5 ML INJ IV SCH (09:45)
[2021-10-12] MEDS: ISOSORBIDE MONONITRATE ER 60 MG TAB PO SCH (09:46)
[2021-10-12] MEDS: CARVEDILOL 3.125 MG TAB PO SCH (09:47)
[2021-10-12] MEDS: ENOXAPARIN SOD 30 MG/0.3 ML SYRINGE SC SCH (09:48)
[2021-10-12] MEDS ORDERED: FUROSEMIDE 20 MG TAB PO SCH (10:00)
[2021-10-12] MEDS ORDERED: NIFEdipine ER 30 MG TAB PO SCH (10:00)
[2021-10-12 10:18] LABS: Calcium 8.2 mg/dL (8.5-10.1); Potassium 4.5 mmol/L (3.5-5.1)
[2021-10-12 10:20] LABS: Basophils # (auto) 0 10 ^3/uL (0-0.2); Basophils % (auto) 0.5 % (0.0-2.0); Eosinophils # (auto) 0.3 10 ^3/uL (0-0.8); Eosinophils % (auto) 7.5 % (0.0-7.0); Hematocrit 30.5 % (36.0-46.0); Lymphocytes # (auto) 0.7 10 ^3/uL (0.4-5.4); Lymphocytes % (auto) 19.8 % (10.0-50.0); Mean Corpuscular Hgb Conc. 32.7 g/dL (32.0-36.0); Mean Corpuscular Volume 91.7 fL (80.0-100.0); Monocytes # (auto) 0.2 10 ^3/uL (0-1.3); Monocytes % (auto) 5.7 % (0.0-12.0); Neutrophils # (auto) 2.4 10 ^3/uL (1.6-8.6); Neutrophils % (auto) 66.5 % (37.0-80.0); Red Blood Cells 3.32 10^6/uL (4.0-5.20); Red Cell Distribution Width 16.9 % (11.8-14.3); White Blood Cell 3.6 10^3/uL (4.4-10.8)
[2021-10-12 10:23] LABS: BUN/Creatinine Ratio 16.2
[2021-10-12 13:00] VITALS: BP 167/84
[2021-10-12] MEDS ORDERED: LEVO125T7 PO (13:30)
[2021-10-12] MEDS ORDERED: FURO1TAB31 PO (13:30)
[2021-10-12] MEDS ORDERED: NIFE1TAB31 PO (13:30)
[2021-10-12] MEDS ORDERED: ISO60SRT PO (13:30)
[2021-10-12] MEDS ORDERED: HYDR50TA15 PO (13:30)
[2021-10-12] MEDS ORDERED: ALBUAER3 IN (13:37)
[2021-10-12] MEDS ORDERED: AZIT500T PO (13:37)
[2021-10-12 18:01] VITALS: BP 158/75
== END 2021-10-12 18:45 | disposition home or self-care (01) | DRG 280 ==
LOC: ER 07:58 → TELE 18:32 → TELE-CENTR 21:25
PROVIDERS: ADMIT Internal Medicine; ATTEND Internal Medicine
DX: I13.0 Hypertensive heart and chronic kidney disease with heart failure and stage 1 through stage 4 chronic kidney disease, or unspecified chronic kidney disease (principal); I21.A1 Myocardial infarction type 2; J18.9 Pneumonia, unspecified organism; I50.33 Acute on chronic diastolic (congestive) heart failure; N17.9 Acute kidney failure, unspecified; J44.0 Chronic obstructive pulmonary disease with (acute) lower respiratory infection; J96.11 Chronic respiratory failure with hypoxia; D63.8 Anemia in other chronic diseases classified elsewhere; Z20.822 Contact with and (suspected) exposure to COVID-19; E88.09 Other disorders of plasma-protein metabolism, not elsewhere classified; D72.819 Decreased white blood cell count, unspecified; E66.9 Obesity, unspecified; E03.9 Hypothyroidism, unspecified; N18.32 Chronic kidney disease, stage 3b; E55.9 Vitamin D deficiency, unspecified; R00.1 Bradycardia, unspecified; E11.22 Type 2 diabetes mellitus with diabetic chronic kidney disease; E78.5 Hyperlipidemia, unspecified; J20.9 Acute bronchitis, unspecified; Z80.3 Family history of malignant neoplasm of breast; Z82.49 Family history of ischemic heart disease and other diseases of the circulatory system; Z86.16 Personal history of COVID-19; Z87.01 Personal history of pneumonia (recurrent)
CPT/HCPCS: 36415; 71045; 71250; 80048; 80053; 82306; 82570; 83036; 83605; 83735; 83880; 84156; 84443; 84481; 84484; 85025; 85610; 85730; 87426; 93005; 94640; 96374; 96375; 97163; G0378; J3490

== ENCOUNTER 2021-12-27 12:04 | Inpatient (IN) | payer OTHER, MEDICAID ==
[~2021-12-27] VITALS: Ht 160 cm; Wt 74.5 kg
[~2021-12-27 12:04] MED LIST changes: -ACET-1304 PO; +ALOG2.5T PO; -ALOG25TA PO; -AML5T PO; -ASCO10003 PO; -ASPI1TAB91 PO; -AZEL0.054 EACHEYE; +AZIT500T PO; -BECL40AE11 INH; +BECL80AE11 PO; +CHOL500021 PO; -CHOL500023 PO; -DEX4T PO; -DOXY-286 PO; -ENTE1TAB12 PO; -FENO145T27 PO; +FURO1TAB31 PO; -FURO40TA4 PO; -KET2TP TOP; -LEVO125T7 PO; -LOSA-39 PO; -METF-370 PO; -OMEP-263 PO; -SIMV-8 PO; -TRIP2.5T9 PO; -ZINC220T6 PO
[2021-12-27 13:25] LABS: Basophils # (auto) 0 10 ^3/uL (0-0.2); Basophils % (auto) 0.6 % (0.0-2.0); Eosinophils # (auto) 0.4 10 ^3/uL (0-0.8); Eosinophils % (auto) 6.7 % (0.0-7.0); Hematocrit 28.9 % (36.0-46.0); Hemoglobin 9.8 g/dL (12.2-16.2); Lymphocytes # (auto) 1.2 10 ^3/uL (0.4-5.4); Lymphocytes % (auto) 22.8 % (10.0-50.0); Mean Corpuscular Hemoglobin 30.2 pg (28.0-32.0); Mean Corpuscular Hgb Conc. 33.9 g/dL (32.0-36.0); Mean Corpuscular Volume 89.1 fL (80.0-100.0); Monocytes # (auto) 0.3 10 ^3/uL (0-1.3); Monocytes % (auto) 4.8 % (0.0-12.0); Neutrophils # (auto) 3.6 10 ^3/uL (1.6-8.6); Neutrophils % (auto) 65.1 % (37.0-80.0); Red Blood Cells 3.25 10^6/uL (4.0-5.20); Red Cell Distribution Width 15.2 % (11.8-14.3); White Blood Cell 5.4 10^3/uL (4.4-10.8)
[2021-12-27 13:35] LABS: Urine Bacteria FEW /hpf (None Seen); Urine Blood TRACE /uL (Negative); Urine Hyaline Cast FEW /lpf (0 - 2); Urine Mucus FEW (None Seen); Urine Specific Gravity 1.018 (1.001-1.035); Urine WBC 3 /hpf (0 - 5)
[2021-12-27 13:42] LABS: Albumin 2.4 g/dL (3.4-5.0); Calcium 8.2 mg/dL (8.5-10.1); Potassium 4.3 mmol/L (3.5-5.1)
[2021-12-27 13:46] LABS: Bilirubin, Total 0.3 mg/dL (0.2-1.0)
[2021-12-27] MEDS ORDERED: NITROGLYCERIN 0.4 MG SL TAB SL PRN (17:00)
[2021-12-27] MEDS ORDERED: MORPHINE SULFATE INJECTION 2 MG/ML SYRG IV PRN (17:00)
[2021-12-27] MEDS ORDERED: FUROSEMIDE 40 MG/4 ML VIAL IV ONE (18:45)
[2021-12-27] MEDS ORDERED: ONDANSETRON HCL 4 MG/2 ML VIAL IV PRN (19:00)
[2021-12-27] MEDS ORDERED: ACETAMINOPHEN 325 MG TAB PO PRN (19:00)
[2021-12-27] MEDS ORDERED: SODIUM CHLORIDE 0.9% 1,000 ML IV SCH (19:00)
[2021-12-27] MEDS ORDERED: DEXTROSE (50%) 50ML SYRG IV PRN (19:30)
[2021-12-27] MEDS: HYDROcodone-ACET 5/325MG TAB PO PRN (19:59)
[2021-12-27 20:45] VITALS: BP 152/76
[2021-12-27] MEDS: ACCU-CHEK COMFORT CURVE STRIP VI SCH (21:36)
[2021-12-27] MEDS: InsuLIN REG 1unit/0.01ml Soln (100units/ml) SC SCH (21:36)
[2021-12-27 22:00] VITALS: BP 152/76
[2021-12-28] VITALS (7 sets, daily range): BP systolic 132–165; BP diastolic 63–91
[2021-12-28] MEDS: HYDROcodone-ACET 5/325MG TAB PO PRN ×2 (01:54→11:10)
[2021-12-28 05:52] LABS: Basophils # (auto) 0 10 ^3/uL (0-0.2); Basophils % (auto) 0.5 % (0.0-2.0); Eosinophils # (auto) 0.4 10 ^3/uL (0-0.8); Eosinophils % (auto) 6.8 % (0.0-7.0); Hematocrit 28.5 % (36.0-46.0); Hemoglobin 9.7 g/dL (12.2-16.2); Lymphocytes # (auto) 1.2 10 ^3/uL (0.4-5.4); Lymphocytes % (auto) 20.4 % (10.0-50.0); Mean Corpuscular Hemoglobin 30.3 pg (28.0-32.0); Mean Corpuscular Hgb Conc. 34.2 g/dL (32.0-36.0); Mean Corpuscular Volume 88.6 fL (80.0-100.0); Monocytes # (auto) 0.4 10 ^3/uL (0-1.3); Monocytes % (auto) 6.6 % (0.0-12.0); Neutrophils # (auto) 3.8 10 ^3/uL (1.6-8.6); Neutrophils % (auto) 65.7 % (37.0-80.0); Nucleated Red Blood Cells % 0.1 %; Red Blood Cells 3.21 10^6/uL (4.0-5.20); Red Cell Distribution Width 15.2 % (11.8-14.3); White Blood Cell 5.7 10^3/uL (4.4-10.8)
[2021-12-28 06:09] LABS: Albumin 2.3 g/dL (3.4-5.0); Calcium 7.6 mg/dL (8.5-10.1); Potassium 4.1 mmol/L (3.5-5.1)
[2021-12-28 06:13] LABS: Bilirubin, Total 0.4 mg/dL (0.2-1.0); CRP High Sensitivity 0.16 mg/dL (< 0.3)
[2021-12-28] MEDS: InsuLIN REG 1unit/0.01ml Soln (100units/ml) SC SCH ×3 (06:41→22:00)
[2021-12-28] MEDS: ACCU-CHEK COMFORT CURVE STRIP VI SCH ×4 (06:41→22:16)
[2021-12-28 10:36] LABS: INR 1.05 (0.9-1.15); Partial Thromboplastin Time 28.5 sec (23.6-33.0)
[2021-12-28] MEDS ORDERED: amLODIPine BESYLATE 5 MG TAB PO ONE (12:30)
[2021-12-28] MEDS ORDERED: cloNIDine HCL 0.1 MG TAB ONE (12:31)
[2021-12-28] MEDS ORDERED: ISOSORBIDE MONONITRATE ER 60 MG TAB PO ONE (12:45)
[2021-12-28] MEDS ORDERED: LEVOTHYROXINE SODIUM 25 MCG TAB PO ONE (12:45)
[2021-12-28] MEDS ORDERED: LEVOTHYROXINE SODIUM 100 MCG TAB PO ONE (12:45)
[2021-12-28] MEDS ORDERED: cloNIDine HCL 0.1 MG TAB PO ONE ×3 (12:45→13:00)
[2021-12-28 14:21] LABS: % Iron Saturation 17.3 % (15-50)
[2021-12-28] MEDS ORDERED: methylPREDNISolone SOD SUCC 40 MG/ML VL IV SCH ×2 (17:00→22:00)
[2021-12-29] VITALS (7 sets, daily range): BP systolic 120–155; BP diastolic 62–72
[2021-12-29] MEDS: LEVOTHYROXINE SODIUM 100 MCG TAB PO SCH (06:05)
[2021-12-29] MEDS: LEVOTHYROXINE SODIUM 25 MCG TAB PO SCH (06:05)
[2021-12-29 06:10] LABS: Calcium 8.4 mg/dL (8.5-10.1); Potassium 5.1 mmol/L (3.5-5.1)
[2021-12-29] MEDS: ACCU-CHEK COMFORT CURVE STRIP VI SCH ×4 (06:17→22:09)
[2021-12-29] MEDS: InsuLIN REG 1unit/0.01ml Soln (100units/ml) SC SCH ×4 (06:18→22:09)
[2021-12-29 09:06] LABS: Immunoglobulin G, Serum 1655 mg/dL (586-1602)
[2021-12-29] MEDS ORDERED: LOSARTAN POTASSIUM 50 MG TAB PO SCH (10:00)
[2021-12-29] MEDS: methylPREDNISolone SOD SUCC 40 MG/ML VL IV SCH ×2 (10:00→21:38)
[2021-12-29] MEDS: HYDROcodone-ACET 5/325MG TAB PO PRN (10:01)
[2021-12-29] MEDS: amLODIPine BESYLATE 5 MG TAB PO SCH (10:10)
[2021-12-29] MEDS: ISOSORBIDE MONONITRATE ER 60 MG TAB PO SCH (10:11)
[2021-12-29] MEDS ORDERED: FUROSEMIDE 40 MG TAB PO ONE (13:00)
[2021-12-29] MEDS ORDERED: SODIUM FERR GLUC 62.5MG/5ML 125 MG in SODIUM CHL 0.9% 100 ML IV ONE (13:00)
[2021-12-30 05:13] VITALS: BP 173/78
[2021-12-30 05:55] LABS: Calcium 7.8 mg/dL (8.5-10.1); Potassium 5.4 mmol/L (3.5-5.1)
[2021-12-30 05:57] LABS: BUN/Creatinine Ratio 19.7
[2021-12-30] MEDS: LEVOTHYROXINE SODIUM 100 MCG TAB PO SCH (06:39)
[2021-12-30] MEDS: LEVOTHYROXINE SODIUM 25 MCG TAB PO SCH (06:39)
[2021-12-30] MEDS: InsuLIN REG 1unit/0.01ml Soln (100units/ml) SC SCH (06:59)
[2021-12-30] MEDS: ACCU-CHEK COMFORT CURVE STRIP VI SCH (07:01)
[2021-12-30 09:00] VITALS: BP 148/70
[2021-12-30] MEDS: ISOSORBIDE MONONITRATE ER 60 MG TAB PO SCH (09:11)
[2021-12-30] MEDS: amLODIPine BESYLATE 5 MG TAB PO SCH (09:11)
[2021-12-30] MEDS: methylPREDNISolone SOD SUCC 40 MG/ML VL IV SCH (09:11)
[2021-12-30] MEDS ORDERED: FUROSEMIDE 40 MG TAB PO SCH (10:00)
[2021-12-30] MEDS ORDERED: AMLO-496 PO (10:50)
[2021-12-30] MEDS ORDERED: FERR-7 PO (10:51)
[2021-12-30] MEDS ORDERED: CLON0.1T PO (10:53)
[2021-12-30] MEDS ORDERED: SODIUM ZIRCONIUM CYCL 10 GM PAK PO ONE (11:00)
[2021-12-30] MEDS ORDERED: SODIUM FERR GLUC 62.5MG/5ML 125 MG in SODIUM CHL 0.9% 100 ML IV SCH (12:00)
[2021-12-30 12:01] VITALS: BP 148/70
== END 2021-12-30 13:30 | disposition home or self-care (01) | DRG 546 ==
LOC: ER 12:04 → TELE 16:52 → TELE-CENTR 20:37
PROVIDERS: ADMIT Internal Medicine; ATTEND Internal Medicine Nephrology
DX: M06.9 Rheumatoid arthritis, unspecified (principal); N17.9 Acute kidney failure, unspecified; N18.4 Chronic kidney disease, stage 4 (severe); B18.1 Chronic viral hepatitis B without delta-agent; I13.0 Hypertensive heart and chronic kidney disease with heart failure and stage 1 through stage 4 chronic kidney disease, or unspecified chronic kidney disease; I50.32 Chronic diastolic (congestive) heart failure; J96.10 Chronic respiratory failure, unspecified whether with hypoxia or hypercapnia; J84.9 Interstitial pulmonary disease, unspecified; E44.0 Moderate protein-calorie malnutrition; E86.0 Dehydration; D63.8 Anemia in other chronic diseases classified elsewhere; E03.9 Hypothyroidism, unspecified; E11.22 Type 2 diabetes mellitus with diabetic chronic kidney disease; Z20.822 Contact with and (suspected) exposure to COVID-19; R00.1 Bradycardia, unspecified; I25.10 Atherosclerotic heart disease of native coronary artery without angina pectoris; Z80.3 Family history of malignant neoplasm of breast; Z82.49 Family history of ischemic heart disease and other diseases of the circulatory system
CPT/HCPCS: 36415; 71045; 73120; 73620; 74176; 76775; 80048; 80053; 81001; 82784; 82962; 83036; 83516; 83520; 83540; 83550; 83883; 84155; 84165; 84484; 85025; 85610; 85652; 85730; 86141; 86160; 86200; 86225; 86235; 86256; 86334; 86431; 93005; 96361; 96374; 97163; G0378; J1815

== ENCOUNTER 2022-06-14 14:50 | Inpatient (IN) | payer OTHER, MEDICAID ==
[~2022-06-14] VITALS: Ht 160 cm; Wt 76.6 kg
[~2022-06-14 14:50] MED LIST changes: -ALOG2.5T PO; +AMLO-496 PO; -AZIT500T PO; -CARV6.2551 PO; +CLON0.1T PO; +FERR-7 PO; +HYDR-4902 PO; -HYDR50TA15 PO; -PIOG1TAB51 PO
[2022-06-14 15:55] LABS: Basophils # (auto) 0 10 ^3/uL (0-0.2); Basophils % (auto) 0.7 % (0.0-2.0); Eosinophils # (auto) 0.4 10 ^3/uL (0-0.8); Eosinophils % (auto) 5.7 % (0.0-7.0); Hematocrit 31.5 % (36.0-46.0); Hemoglobin 10.5 g/dL (12.2-16.2); Lymphocytes # (auto) 1.2 10 ^3/uL (0.4-5.4); Mean Corpuscular Hgb Conc. 33.2 g/dL (32.0-36.0); Mean Corpuscular Volume 87.2 fL (80.0-100.0); Monocytes # (auto) 0.4 10 ^3/uL (0-1.3); Monocytes % (auto) 5.7 % (0.0-12.0); Neutrophils # (auto) 4.7 10 ^3/uL (1.6-8.6); Neutrophils % (auto) 69.9 % (37.0-80.0); Nucleated Red Blood Cells % 0.1 %; Red Blood Cells 3.61 10^6/uL (4.0-5.20); Red Cell Distribution Width 15.2 % (11.8-14.3); White Blood Cell 6.7 10^3/uL (4.4-10.8)
[2022-06-14 16:18] LABS: Albumin 2.6 g/dL (3.4-5.0); Calcium 7.4 mg/dL (8.5-10.1); Magnesium 2.3 mg/dL (1.6-2.6); Potassium 4.5 mmol/L (3.5-5.1)
[2022-06-14 16:23] LABS: BUN/Creatinine Ratio 10.5; Bilirubin, Total 0.3 mg/dL (0.2-1.0); Total Protein 6.8 g/dL (6.4-8.2)
[2022-06-14 16:31] LABS: INR 0.96 (0.9-1.15)
[2022-06-14] MEDS ORDERED: SOD CHL 0.45% 1,000 ML IV ONE (18:30)
[2022-06-14] MEDS ORDERED: SODIUM CHLORIDE 0.9% 500 ML IV ONE (18:30)
[2022-06-14] MEDS ORDERED: NITROGLYCERIN 0.4 MG SL TAB SL PRN (18:30)
[2022-06-14] MEDS ORDERED: MORPHINE SULFATE INJ 2 MG/ml SYRG IV PRN (18:30)
[2022-06-14] MEDS ORDERED: hydrALAZINE HCL 20 MG/ML VL IV ONE (18:30)
[2022-06-14 19:28] LABS: Urine Bacteria FEW /hpf (None Seen); Urine Blood TRACE /uL (Negative); Urine Specific Gravity 1.012 (1.001-1.035); Urine WBC 1 /hpf (0 - 5)
[2022-06-14 19:36] LABS: Cholesterol 241 mg/dL (< 200); HDL Cholesterol 82 mg/dL (40-59); LDL Cholesterol 131 mg/dL (< 100); Triglycerides 305 mg/dL (< 150)
[2022-06-14 23:19] VITALS: BP 181/90
[2022-06-14] MEDS: hydrALAZINE HCL 20 MG/ML VL IV PRN (23:19)
[2022-06-15 04:46] LABS: Basophils # (auto) 0.1 10 ^3/uL (0-0.2); Basophils % (auto) 0.8 % (0.0-2.0); Eosinophils # (auto) 0.5 10 ^3/uL (0-0.8); Eosinophils % (auto) 7.4 % (0.0-7.0); Hematocrit 29.4 % (36.0-46.0); Lymphocytes # (auto) 1.4 10 ^3/uL (0.4-5.4); Lymphocytes % (auto) 23.3 % (10.0-50.0); Mean Corpuscular Hemoglobin 29.5 pg (28.0-32.0); Mean Corpuscular Volume 86.8 fL (80.0-100.0); Monocytes # (auto) 0.4 10 ^3/uL (0-1.3); Monocytes % (auto) 6.3 % (0.0-12.0); Neutrophils # (auto) 3.8 10 ^3/uL (1.6-8.6); Neutrophils % (auto) 62.2 % (37.0-80.0); Nucleated Red Blood Cells % 0.1 %; Red Blood Cells 3.39 10^6/uL (4.0-5.20); Red Cell Distribution Width 15.5 % (11.8-14.3); White Blood Cell 6.2 10^3/uL (4.4-10.8)
[2022-06-15 04:48] LABS: Albumin 2.3 g/dL (3.4-5.0); Calcium 7.3 mg/dL (8.5-10.1); Potassium 4.1 mmol/L (3.5-5.1)
[2022-06-15 04:52] LABS: BUN/Creatinine Ratio 10.6; Bilirubin, Total 0.3 mg/dL (0.2-1.0); Total Protein 6.3 g/dL (6.4-8.2)
[2022-06-15 04:54] VITALS: BP 130/82
[2022-06-15 08:30] VITALS: BP 137/86
[2022-06-15 09:00] VITALS: BP 137/86
[2022-06-15] MEDS ORDERED: ENTE1TAB PO (11:23)
[2022-06-15] MEDS ORDERED: HYDROcodone-ACET 5/325MG TAB PO PRN (12:00)
[2022-06-15] MEDS ORDERED: ISOSORBIDE MONONITRATE ER 60 MG TAB PO ONE (12:00)
[2022-06-15] MEDS ORDERED: FUROSEMIDE 40 MG/4 ML VIAL IV ONE (12:15)
[2022-06-15] MEDS: amLODIPine BESYLATE 5 MG TAB PO SCH (13:32)
[2022-06-15] MEDS ORDERED: PRE5T PO (16:46)
[2022-06-15] MEDS ORDERED: NIFE1TAB31 PO (16:46)
[2022-06-15] MEDS ORDERED: LOSA-69 PO (16:46)
[2022-06-15] MEDS ORDERED: ISOS60TA24 PO (16:46)
[2022-06-15] MEDS ORDERED: SIMV-8 PO (16:46)
[2022-06-15 17:00] VITALS: BP 172/86
[2022-06-15] MEDS: hydrALAZINE HCL 20 MG/ML VL IV PRN (17:30)
[2022-06-15] MEDS: cloNIDine HCL 0.1 MG TAB PO SCH (17:30)
[2022-06-15] MEDS ORDERED: predniSONE 5 MG TAB PO ONE (18:00)
[2022-06-15] MEDS: ATORVASTATIN 20 MG TAB PO SCH (21:35)
[2022-06-15 22:00] VITALS: BP 151/79
[2022-06-16] MEDS: hydrALAZINE HCL 20 MG/ML VL IV PRN ×3 (00:36→12:29)
[2022-06-16 05:00] VITALS: BP 164/84
[2022-06-16 07:55] LABS: BUN/Creatinine Ratio 10.9; Calcium 7.2 mg/dL (8.5-10.1); Potassium 4.4 mmol/L (3.5-5.1)
[2022-06-16 08:30] VITALS: BP 151/66
[2022-06-16 08:31] VITALS: BP 151/66
[2022-06-16] MEDS: ENTECAVIR 0.5 MG PO SCH ×2 (09:30→10:37)
[2022-06-16] MEDS: predniSONE 5 MG TAB PO SCH (10:43)
[2022-06-16] MEDS: FUROSEMIDE 40 MG/4 ML VIAL IV SCH (10:43)
[2022-06-16] MEDS: amLODIPine BESYLATE 5 MG TAB PO SCH (10:44)
[2022-06-16] MEDS: ISOSORBIDE MONONITRATE ER 60 MG TAB PO SCH (10:45)
[2022-06-16] MEDS ORDERED: guaiFENesin-DM 100/10mg/5ml SYR PO PRN (12:15)
[2022-06-16 12:44] VITALS: BP 162/74
[2022-06-16 17:28] VITALS: BP 143/68
[2022-06-16] MEDS: cloNIDine HCL 0.1 MG TAB PO SCH (18:08)
[2022-06-16] MEDS: ATORVASTATIN 20 MG TAB PO SCH (21:20)
[2022-06-16 22:00] VITALS: BP 147/77
[2022-06-17] VITALS (9 sets, daily range): BP systolic 131–177; BP diastolic 71–95
[2022-06-17] MEDS: hydrALAZINE HCL 20 MG/ML VL IV PRN (05:27)
[2022-06-17] MEDS: predniSONE 5 MG TAB PO SCH (09:39)
[2022-06-17] MEDS: ISOSORBIDE MONONITRATE ER 60 MG TAB PO SCH (09:39)
[2022-06-17] MEDS: FUROSEMIDE 40 MG/4 ML VIAL IV SCH (09:39)
[2022-06-17] MEDS: amLODIPine BESYLATE 5 MG TAB PO SCH (09:40)
[2022-06-17 09:53] LABS: BUN/Creatinine Ratio 9.8; Calcium 6.9 mg/dL (8.5-10.1); Potassium 4.5 mmol/L (3.5-5.1)
[2022-06-17 10:18] LABS: Hepatitis B Surface Antibody Negative (Negative)
[2022-06-17] MEDS ORDERED: SODIUM CHL 0.9% 1000 ML BAG XX ONE (10:45)
[2022-06-17 10:46] LABS: Hepatitis A Total Antibody Positive (Negative)
[2022-06-17 12:41] LABS: Hepatitis C Antibody Negative (Negative)
[2022-06-17] MEDS ORDERED: HEPARIN SODIUM (PORCINE) 5000 UNITS/ML 1ML VIAL ONE (15:19)
[2022-06-17] MEDS ORDERED: MIDAZOLAM HCL 2MG/2ML 2ml VIAL (1mg/ml) ONE (15:20)
[2022-06-17] MEDS ORDERED: fentaNYL CITRATE 100 MCG/2 ML VL ONE (15:20)
[2022-06-17] MEDS ORDERED: LIDOCAINE 2%HCL (LOCAL ANESTH.) INJ 20ML MDV ONE (15:20)
[2022-06-17] MEDS ORDERED: IOHEXOL 350 MG/ML 100ML IJ ONE (15:21)
[2022-06-17] MEDS: cloNIDine HCL 0.1 MG TAB PO SCH (18:00)
[2022-06-17] MEDS: ENTECAVIR 0.5 MG PO SCH (18:24)
[2022-06-17] MEDS ORDERED: EPOETIN ALFA-EPBX 10,000 UNIT/1ML VIAL SC ONE (21:00)
[2022-06-17] MEDS: ATORVASTATIN 20 MG TAB PO SCH (21:38)
[2022-06-18] MEDS: hydrALAZINE HCL 20 MG/ML VL IV PRN (04:54)
[2022-06-18 05:00] VITALS: BP 180/91
[2022-06-18 06:26] LABS: Calcium 7.4 mg/dL (8.5-10.1); Potassium 3.6 mmol/L (3.5-5.1)
[2022-06-18 06:28] LABS: Phosphorus 4.6 mg/dL (2.5-4.90)
[2022-06-18 09:00] VITALS: BP 157/72
[2022-06-18] MEDS: ISOSORBIDE MONONITRATE ER 60 MG TAB PO SCH (09:19)
[2022-06-18] MEDS: predniSONE 5 MG TAB PO SCH (09:20)
[2022-06-18] MEDS: FUROSEMIDE 40 MG/4 ML VIAL IV SCH (09:20)
[2022-06-18] MEDS: amLODIPine BESYLATE 5 MG TAB PO SCH (09:20)
[2022-06-18] MEDS ORDERED: METOPROLOL TARTRATE 25 MG TAB PO ONE (11:00)
[2022-06-18] MEDS ORDERED: LEVOTHYROXINE SODIUM 50 MCG TAB PO ONE (11:00)
[2022-06-18] MEDS: ENTECAVIR 0.5 MG PO SCH (11:00)
[2022-06-18] MEDS ORDERED: CALCITRIOL 0.25 MCG CAP PO ONE (11:15)
[2022-06-18] MEDS ORDERED: ATORVASTATIN 20 MG TAB PO ONE (11:30)
[2022-06-18 13:00] VITALS: BP 149/80
[2022-06-18 17:22] VITALS: BP 126/72
[2022-06-18] MEDS: cloNIDine HCL 0.1 MG TAB PO SCH (18:21)
[2022-06-18] MEDS: ATORVASTATIN 20 MG TAB PO SCH (21:36)
[2022-06-18] MEDS: METOPROLOL TARTRATE 25 MG TAB PO SCH (21:37)
[2022-06-18 22:00] VITALS: BP 132/60
[2022-06-19] MEDS: hydrALAZINE HCL 20 MG/ML VL IV PRN (04:38)
[2022-06-19 05:00] VITALS: BP 161/81
[2022-06-19] MEDS ORDERED: LEVOTHYROXINE SODIUM 50 MCG TAB PO SCH (07:00)
[2022-06-19 07:41] LABS: BUN/Creatinine Ratio 9.2; Calcium 6.9 mg/dL (8.5-10.1); Potassium 3.9 mmol/L (3.5-5.1)
[2022-06-19 09:32] VITALS: BP 142/88
[2022-06-19] MEDS: METOPROLOL TARTRATE 25 MG TAB PO SCH ×2 (10:00→22:15)
[2022-06-19] MEDS ORDERED: SODIUM CHL 0.9% 1000 ML BAG XX ONE (10:15)
[2022-06-19] MEDS: ISOSORBIDE MONONITRATE ER 60 MG TAB PO SCH (10:18)
[2022-06-19] MEDS: predniSONE 5 MG TAB PO SCH (10:18)
[2022-06-19] MEDS: CALCITRIOL 0.25 MCG CAP PO SCH (10:18)
[2022-06-19] MEDS: ENTECAVIR 0.5 MG PO SCH (10:19)
[2022-06-19] MEDS ORDERED: LOSARTAN POTASSIUM 25 MG TAB PO ONE (11:30)
[2022-06-19] MEDS ORDERED: FUROSEMIDE 40 MG TAB PO ONE (11:30)
[2022-06-19 12:16] VITALS: BP 130/73
[2022-06-19 16:44] VITALS: BP 142/70
[2022-06-19] MEDS: amLODIPine BESYLATE 5 MG TAB PO SCH (17:00)
[2022-06-19] MEDS ORDERED: CHOLECALCIFEROL (VITD3) 2,000 UNIT CAP/TAB PO ONE (20:45)
[2022-06-19 22:00] VITALS: BP 133/63
[2022-06-19] MEDS: SACUBITRIL-VALSARTAN 24mg/26mg TAB PO SCH (22:13)
[2022-06-19] MEDS: ATORVASTATIN 20 MG TAB PO SCH (22:14)
[2022-06-20 05:00] VITALS: BP 147/63
[2022-06-20 05:39] LABS: Basophils # (auto) 0.1 10 ^3/uL (0-0.2); Basophils % (auto) 0.7 % (0.0-2.0); Eosinophils # (auto) 0.3 10 ^3/uL (0-0.8); Eosinophils % (auto) 3.8 % (0.0-7.0); Hematocrit 34.3 % (36.0-46.0); Hemoglobin 11.3 g/dL (12.2-16.2); Lymphocytes # (auto) 2.3 10 ^3/uL (0.4-5.4); Lymphocytes % (auto) 27.1 % (10.0-50.0); Mean Corpuscular Hemoglobin 28.9 pg (28.0-32.0); Mean Corpuscular Hgb Conc. 32.8 g/dL (32.0-36.0); Mean Corpuscular Volume 88.2 fL (80.0-100.0); Monocytes # (auto) 0.6 10 ^3/uL (0-1.3); Monocytes % (auto) 6.5 % (0.0-12.0); Neutrophils # (auto) 5.4 10 ^3/uL (1.6-8.6); Neutrophils % (auto) 61.9 % (37.0-80.0); Nucleated Red Blood Cells % 0.1 %; Red Blood Cells 3.89 10^6/uL (4.0-5.20); Red Cell Distribution Width 15.6 % (11.8-14.3); White Blood Cell 8.6 10^3/uL (4.4-10.8)
[2022-06-20 06:41] LABS: INR 0.99 (0.9-1.15); Partial Thromboplastin Time 26.9 sec (24.6-33.4)
[2022-06-20] MEDS ORDERED: LEVOTHYROXINE SODIUM 50 MCG TAB PO SCH (07:00)
[2022-06-20] MEDS ORDERED: Ensure HIGH Protein Vanilla 8oz Bottle PO SCH (08:00)
[2022-06-20 08:56] VITALS: BP 134/68
[2022-06-20] MEDS: predniSONE 5 MG TAB PO SCH (09:46)
[2022-06-20] MEDS: CALCITRIOL 0.25 MCG CAP PO SCH (09:48)
[2022-06-20] MEDS: amLODIPine BESYLATE 5 MG TAB PO SCH (09:51)
[2022-06-20] MEDS ORDERED: LOSARTAN POTASSIUM 25 MG TAB PO SCH (10:00)
[2022-06-20] MEDS ORDERED: FUROSEMIDE 40 MG TAB PO SCH (10:00)
[2022-06-20] MEDS ORDERED: CHOLECALCIFEROL (VITD3) 2,000 UNIT CAP/TAB PO SCH (10:00)
[2022-06-20] MEDS: SACUBITRIL-VALSARTAN 24mg/26mg TAB PO SCH (10:41)
[2022-06-20] MEDS: METOPROLOL TARTRATE 25 MG TAB PO SCH (10:43)
[2022-06-20] MEDS: ISOSORBIDE MONONITRATE ER 60 MG TAB PO SCH (10:43)
[2022-06-20] MEDS: ENTECAVIR 0.5 MG PO SCH (10:45)
[2022-06-20] MEDS ORDERED: LEV50T PO (11:51)
[2022-06-20 13:00] VITALS: BP 121/70
[2022-06-20] MEDS ORDERED: SACU1TAB PO (13:21)
[2022-06-20 17:00] VITALS: BP 121/58
[2022-06-20 17:10] VITALS: BP 121/70
== END 2022-06-20 18:05 | disposition home or self-care (01) | DRG 291 ==
LOC: ER 14:50 → TELE 18:33 → TELE-EAST 22:47
PROVIDERS: ADMIT Registered Nurse; ATTEND Internal Medicine
PROC: 5A1D70Z Performance of Urinary Filtration, Intermittent, Less than 6 Hours Per Day (ICD-10-PCS; principal; 2022-06-17)
PROC: 0JH63XZ Insertion of Tunneled Vascular Access Device into Chest Subcutaneous Tissue and Fascia, Percutaneous Approach (ICD-10-PCS; 2022-06-17)
PROC: 02H633Z Insertion of Infusion Device into Right Atrium, Percutaneous Approach (ICD-10-PCS; 2022-06-17)
PROC: B518ZZA Fluoroscopy of Superior Vena Cava, Guidance (ICD-10-PCS; 2022-06-17)
PROC: B548ZZA Ultrasonography of Superior Vena Cava, Guidance (ICD-10-PCS; 2022-06-17)
PROC: 5A1D70Z Performance of Urinary Filtration, Intermittent, Less than 6 Hours Per Day (ICD-10-PCS; 2022-06-19)
DX: I13.2 Hypertensive heart and chronic kidney disease with heart failure and with stage 5 chronic kidney disease, or end stage renal disease (principal); E43 Unspecified severe protein-calorie malnutrition; N18.6 End stage renal disease; I50.43 Acute on chronic combined systolic (congestive) and diastolic (congestive) heart failure; N17.0 Acute kidney failure with tubular necrosis; B19.10 Unspecified viral hepatitis B without hepatic coma; D63.8 Anemia in other chronic diseases classified elsewhere; E03.9 Hypothyroidism, unspecified; E66.01 Morbid (severe) obesity due to excess calories; G51.0 Bell's palsy; Z20.822 Contact with and (suspected) exposure to COVID-19; M06.9 Rheumatoid arthritis, unspecified; E11.22 Type 2 diabetes mellitus with diabetic chronic kidney disease; F17.200 Nicotine dependence, unspecified, uncomplicated; E78.5 Hyperlipidemia, unspecified; I48.0 Paroxysmal atrial fibrillation; E55.9 Vitamin D deficiency, unspecified; I25.10 Atherosclerotic heart disease of native coronary artery without angina pectoris; J44.9 Chronic obstructive pulmonary disease, unspecified; Z80.3 Family history of malignant neoplasm of breast; Z68.23 Body mass index [BMI] 23.0-23.9, adult; Z91.19 Patient's noncompliance with other medical treatment and regimen; I25.2 Old myocardial infarction; Z82.49 Family history of ischemic heart disease and other diseases of the circulatory system; Z99.2 Dependence on renal dialysis
CPT/HCPCS: 36415; 71045; 71046; 76775; 76942; 80048; 80053; 80061; 81001; 82306; 83036; 83540; 83550; 83735; 83880; 83970; 84100; 84439; 84443; 84484; 85025; 85610; 85730; 86704; 86706; 86708; 86803; 87340; 90935; 93306; 96361; 96374; 99152; G0378; J1642; J2250

== ENCOUNTER 2022-07-18 16:09 | Emergency (ER) | payer OTHER, MEDICAID ==
[~2022-07-18] VITALS: Ht 162.6 cm; Wt 78.0 kg
[~2022-07-18 16:09] MED LIST changes: -CLON0.1T PO; +ENTE1TAB PO; -HYDR-4902 PO; +LEV50T PO; +NIFE1TAB31 PO; +PRE5T PO; +SACU1TAB PO; +SIMV-8 PO
[2022-07-18] MEDS ORDERED: AZITHROMYCIN 500MG/ 250ML 250 ML IV ONE (16:30)
[2022-07-18] MEDS ORDERED: methylPREDNISolone SOD SUCC 125 MG/2 ML VL IV ONE (16:30)
[2022-07-18 17:40] LABS: Albumin 2.8 g/dL (3.4-5.0); Calcium 7.3 mg/dL (8.5-10.1); Magnesium 2.1 mg/dL (1.6-2.6)
[2022-07-18 17:51] LABS: BUN/Creatinine Ratio 7.4; Bilirubin, Total 0.4 mg/dL (0.2-1.0); Total Protein 7.3 g/dL (6.4-8.2)
[2022-07-18 18:05] LABS: Basophils # (auto) 0 10 ^3/uL (0-0.2); Basophils % (auto) 0.3 % (0.0-2.0); Eosinophils # (auto) 0.1 10 ^3/uL (0-0.8); Eosinophils % (auto) 1.4 % (0.0-7.0); Hematocrit 31.2 % (36.0-46.0); Hemoglobin 10.2 g/dL (12.2-16.2); Lymphocytes # (auto) 0.7 10 ^3/uL (0.4-5.4); Lymphocytes % (auto) 13.2 % (10.0-50.0); Mean Corpuscular Hemoglobin 29.6 pg (28.0-32.0); Mean Corpuscular Hgb Conc. 32.8 g/dL (32.0-36.0); Mean Corpuscular Volume 90.2 fL (80.0-100.0); Monocytes # (auto) 0.3 10 ^3/uL (0-1.3); Monocytes % (auto) 5.9 % (0.0-12.0); Neutrophils # (auto) 4.1 10 ^3/uL (1.6-8.6); Neutrophils % (auto) 79.2 % (37.0-80.0); Nucleated Red Blood Cells % 0.1 %; Red Blood Cells 3.46 10^6/uL (4.0-5.20); Red Cell Distribution Width 14.8 % (11.8-14.3); White Blood Cell 5.1 10^3/uL (4.4-10.8)
[2022-07-18 19:45] VITALS: BP 179/72
== END 2022-07-18 22:46 | disposition left against medical advice (07) ==
LOC: ER 16:09
DX: U07.1 COVID-19 (principal); J96.00 Acute respiratory failure, unspecified whether with hypoxia or hypercapnia; I12.9 Hypertensive chronic kidney disease with stage 1 through stage 4 chronic kidney disease, or unspecified chronic kidney disease; E11.22 Type 2 diabetes mellitus with diabetic chronic kidney disease; N18.9 Chronic kidney disease, unspecified; E78.5 Hyperlipidemia, unspecified; E03.9 Hypothyroidism, unspecified; Z86.2 Personal history of diseases of the blood and blood-forming organs and certain disorders involving the immune mechanism; Z79.899 Other long term (current) drug therapy
CPT/HCPCS: 36415; 71045; 80053; 83605; 83735; 83880; 84484; 85025; 85379; 87040; 93005; 96365; 96375; 99285; J0456; J2930

== ENCOUNTER 2022-09-11 06:01 | Emergency (ER) | payer OTHER, MEDICAID ==
[~2022-09-11] VITALS: Ht 162.6 cm; Wt 72.7 kg
[2022-09-11 07:01] LABS: Basophils # (auto) 0 10 ^3/uL (0-0.2); Basophils % (auto) 0.7 % (0.0-2.0); Eosinophils # (auto) 0.2 10 ^3/uL (0-0.8); Hematocrit 35.2 % (36.0-46.0); Hemoglobin 11.9 g/dL (12.2-16.2); Lymphocytes # (auto) 1.3 10 ^3/uL (0.4-5.4); Lymphocytes % (auto) 22.9 % (10.0-50.0); Mean Corpuscular Hemoglobin 31.9 pg (28.0-32.0); Mean Corpuscular Hgb Conc. 33.9 g/dL (32.0-36.0); Monocytes # (auto) 0.4 10 ^3/uL (0-1.3); Monocytes % (auto) 6.7 % (0.0-12.0); Neutrophils # (auto) 3.6 10 ^3/uL (1.6-8.6); Neutrophils % (auto) 65.7 % (37.0-80.0); Red Blood Cells 3.74 10^6/uL (4.0-5.20); Red Cell Distribution Width 15.6 % (11.8-14.3); White Blood Cell 5.6 10^3/uL (4.4-10.8)
[2022-09-11 07:14] LABS: INR 1.02 (0.9-1.15); Partial Thromboplastin Time 28.4 sec (24.6-33.4)
[2022-09-11 07:34] LABS: Albumin 3.2 g/dL (3.4-5.0); BUN/Creatinine Ratio 9.4; Bilirubin, Total 0.6 mg/dL (0.2-1.0); Calcium 7.2 mg/dL (8.5-10.1); Potassium 3.8 mmol/L (3.5-5.1)
[2022-09-11] MEDS ORDERED: hydrALAZINE HCL 20 MG/ML VL IV ONE (09:00)
[2022-09-11 09:23] VITALS: BP 166/69
== END 2022-09-11 09:44 | disposition short-term general hospital (02) ==
LOC: ER 06:01
DX: I62.9 Nontraumatic intracranial hemorrhage, unspecified (principal); I12.9 Hypertensive chronic kidney disease with stage 1 through stage 4 chronic kidney disease, or unspecified chronic kidney disease; E11.22 Type 2 diabetes mellitus with diabetic chronic kidney disease; N18.9 Chronic kidney disease, unspecified; E78.5 Hyperlipidemia, unspecified; E03.9 Hypothyroidism, unspecified; Z99.2 Dependence on renal dialysis; Z86.2 Personal history of diseases of the blood and blood-forming organs and certain disorders involving the immune mechanism
CPT/HCPCS: 36415; 70450; 71045; 80053; 82962; 83880; 84484; 85025; 85610; 85730; 93005; 96374; 99285; J0360

== ENCOUNTER 2022-12-24 10:27 | Emergency (ER) | payer OTHER, MEDICAID ==
[~2022-12-24] VITALS: Ht 162.6 cm; Wt 75.0 kg
[2022-12-24 11:46] LABS: Albumin 3.4 g/dL (3.4-5.0); BUN/Creatinine Ratio 9.2; Calcium 7.1 mg/dL (8.5-10.1); Potassium 4.3 mmol/L (3.5-5.1)
[2022-12-24 11:49] LABS: Bilirubin, Total 0.5 mg/dL (0.2-1.0); Total Protein 7.8 g/dL (6.4-8.2)
[2022-12-24 13:05] LABS: Basophils # (auto) 0.1 10 ^3/uL (0-0.2); Basophils % (auto) 0.8 % (0.0-2.0); Eosinophils # (auto) 0.2 10 ^3/uL (0-0.8); Eosinophils % (auto) 3.9 % (0.0-7.0); Hematocrit 31.4 % (36.0-46.0); Hemoglobin 10.7 g/dL (12.2-16.2); Lymphocytes # (auto) 1.2 10 ^3/uL (0.4-5.4); Lymphocytes % (auto) 19.9 % (10.0-50.0); Mean Corpuscular Hemoglobin 33.8 pg (28.0-32.0); Mean Corpuscular Volume 99.6 fL (80.0-100.0); Monocytes # (auto) 0.3 10 ^3/uL (0-1.3); Neutrophils # (auto) 4.2 10 ^3/uL (1.6-8.6); Neutrophils % (auto) 70.4 % (37.0-80.0); Nucleated Red Blood Cells % 0.2 %; Red Blood Cells 3.16 10^6/uL (4.0-5.20); Red Cell Distribution Width 15.3 % (11.8-14.3)
[2022-12-24] MEDS ORDERED: FUROSEMIDE 40 MG/4 ML VIAL IV ONE (13:45)
[2022-12-24 17:56] VITALS: BP 121/63
== END 2022-12-24 17:59 | disposition home or self-care (01) ==
LOC: ER 10:27
DX: I13.0 Hypertensive heart and chronic kidney disease with heart failure and stage 1 through stage 4 chronic kidney disease, or unspecified chronic kidney disease (principal); E11.22 Type 2 diabetes mellitus with diabetic chronic kidney disease; N18.9 Chronic kidney disease, unspecified; I50.9 Heart failure, unspecified; E03.9 Hypothyroidism, unspecified; Z99.2 Dependence on renal dialysis; Z86.2 Personal history of diseases of the blood and blood-forming organs and certain disorders involving the immune mechanism
CPT/HCPCS: 36415; 71045; 80053; 83880; 84484; 85025; 93005; 96374; 99285; J1940

== ENCOUNTER → 2023-01-24 | Outpatient (CLI) | payer OTHER, MEDICAID ==
[2023-01-24 07:02] LABS: Basophils # (auto) 0 10 ^3/uL (0-0.2); Basophils % (auto) 0.7 % (0.0-2.0); Eosinophils # (auto) 0.3 10 ^3/uL (0-0.8); Eosinophils % (auto) 4.3 % (0.0-7.0); Hemoglobin 11.5 g/dL (12.2-16.2); Mean Corpuscular Hgb Conc. 33.9 g/dL (32.0-36.0); Mean Corpuscular Volume 97.1 fL (80.0-100.0); Monocytes # (auto) 0.3 10 ^3/uL (0-1.3); Monocytes % (auto) 4.9 % (0.0-12.0); Neutrophils # (auto) 3.9 10 ^3/uL (1.6-8.6); Neutrophils % (auto) 59.1 % (37.0-80.0); Nucleated Red Blood Cells % 0.1 %; White Blood Cell 6.6 10^3/uL (4.4-10.8)
[2023-01-24 07:11] LABS: Urine Bacteria NONE SEEN /hpf (None Seen); Urine Blood Negative /uL (Negative); Urine Specific Gravity 1.004 (1.001-1.035); Urine WBC 2 /hpf (0 - 5)
[2023-01-24 07:41] LABS: Albumin 3.3 g/dL (3.4-5.0); Calcium 8.1 mg/dL (8.5-10.1); Potassium 3.7 mmol/L (3.5-5.1)
[2023-01-24 07:47] LABS: BUN/Creatinine Ratio 5.9 (10.0-20.0); Bilirubin, Total 0.5 mg/dL (0.2-1.0); Total Protein 7.8 g/dL (6.4-8.2)
[2023-01-27 15:03] LABS: Hepatitis A Ab IgM Negative; Hepatitis B Core IgM Negative
[2023-01-27 15:05] LABS: Hepatitis C Antibody Negative (Negative)
== END | disposition home or self-care (01) ==
LOC: LAB 06:37
PROVIDERS: ATTEND Internal Medicine
DX: I12.0 Hypertensive chronic kidney disease with stage 5 chronic kidney disease or end stage renal disease (principal); N18.6 End stage renal disease; E03.9 Hypothyroidism, unspecified; M06.9 Rheumatoid arthritis, unspecified; E11.22 Type 2 diabetes mellitus with diabetic chronic kidney disease; B19.10 Unspecified viral hepatitis B without hepatic coma
CPT/HCPCS: 36415; 80053; 80061; 80074; 81001; 83036; 84439; 84443; 85025

== ENCOUNTER 2023-04-21 04:09 | Inpatient (IN) | payer OTHER, MEDICAID ==
[~2023-04-21] VITALS: Ht 160 cm; Wt 87.3 kg
[2023-04-21] VITALS (27 sets, daily range): BP systolic 115–193; BP diastolic 56–93
[~2023-04-21 04:09] MED LIST changes: -AMLO-496 PO; +AMLO1TAB23 PO; -SIMV-8 PO; +SIMV20TA20 PO
[2023-04-21 04:45] LABS: Basophils # (auto) 0 10 ^3/uL (0-0.2); Basophils % (auto) 0.5 % (0.0-2.0); Eosinophils # (auto) 0.2 10 ^3/uL (0-0.8); Eosinophils % (auto) 4.1 % (0.0-7.0); Hematocrit 25.8 % (36.0-46.0); Hemoglobin 8.8 g/dL (12.2-16.2); Lymphocytes % (auto) 21.1 % (10.0-50.0); Mean Corpuscular Hgb Conc. 34.1 g/dL (32.0-36.0); Monocytes # (auto) 0.2 10 ^3/uL (0-1.3); Neutrophils # (auto) 3.3 10 ^3/uL (1.6-8.6); Neutrophils % (auto) 70.3 % (37.0-80.0); Red Blood Cells 2.75 10^6/uL (4.0-5.20); Red Cell Distribution Width 15.9 % (11.8-14.3); White Blood Cell 4.7 10^3/uL (4.4-10.8)
[2023-04-21 04:56] LABS: INR 1.05 (0.9-1.15); Partial Thromboplastin Time 24.8 SEC (24.5-34.5)
[2023-04-21 05:03] LABS: Albumin 3.1 g/dL (3.4-5.0); Calcium 8.1 mg/dL (8.5-10.1); Magnesium 2.3 mg/dL (1.6-2.6); Potassium 3.7 mmol/L (3.5-5.1)
[2023-04-21 05:06] LABS: Bilirubin, Total 0.7 mg/dL (0.2-1.0); Total Protein 7.3 g/dL (6.4-8.2)
[2023-04-21] MEDS ORDERED: FUROSEMIDE 100 MG/10ML VIAL IV ONE (05:15)
[2023-04-21] MEDS ORDERED: hydrALAZINE HCL 20 MG/ML VL IV ONE (06:45)
[2023-04-21] MEDS ORDERED: MORPHINE SULFATE INJ 2 MG/ml SYRG IV PRN ×2 (07:45)
[2023-04-21] MEDS ORDERED: MAALOX PLUS or MAALOX 30 ML PO PRN (07:45)
[2023-04-21] MEDS ORDERED: NITROGLYCERIN 0.4 MG SL TAB SL PRN (07:45)
[2023-04-21] MEDS ORDERED: ONDANSETRON HCL 4 MG/2 ML VIAL IV PRN (07:45)
[2023-04-21] MEDS ORDERED: HYDROcodone-ACET 5/325MG TAB PO PRN (07:45)
[2023-04-21] MEDS ORDERED: ACETAMINOPHEN 325 MG TAB PO PRN (07:45)
[2023-04-21] MEDS ORDERED: TEMAZEPAM 15 MG CAP PO PRN (07:45)
[2023-04-21] MEDS ORDERED: ERGOCALCIFEROL 50,000 UNIT(1.25MG) CAP PO SCH (08:00)
[2023-04-21] MEDS ORDERED: NITROGLYCERIN 50MG/250ML 250 ML IV SCH (08:00)
[2023-04-21] MEDS: ENOXAPARIN SOD 30 MG/0.3 ML SYRINGE SC SCH (09:26)
[2023-04-21 11:33] LABS: Urine Bacteria NONE SEEN /hpf (None Seen); Urine Blood Negative /uL (Negative); Urine Specific Gravity 1.009 (1.001-1.035); Urine WBC 2 /hpf (0 - 5)
[2023-04-21] MEDS: SODIUM CHLOR 0.9% PF (SALINE LOCK) 10ML VIAL/SYR IV SCH ×2 (12:11→21:32)
[2023-04-21] MEDS ORDERED: hydrALAZINE HCL 20 MG/ML VL IV PRN (17:45)
[2023-04-21] MEDS: FUROSEMIDE 100 MG/10ML VIAL IV SCH (17:52)
[2023-04-21] MEDS ORDERED: cloNIDine HCL 0.1 MG TAB PO ONE (18:00)
[2023-04-21] MEDS: cloNIDine HCL 0.1 MG TAB PO SCH (21:32)
[2023-04-22] VITALS (60 sets, daily range): BP systolic 102–174; BP diastolic 47–83
[2023-04-22 05:09] LABS: Basophils # (auto) 0 10 ^3/uL (0-0.2); Basophils % (auto) 0.6 % (0.0-2.0); Eosinophils # (auto) 0.2 10 ^3/uL (0-0.8); Eosinophils % (auto) 4.1 % (0.0-7.0); Hemoglobin 8.8 g/dL (12.2-16.2); Lymphocytes # (auto) 1.2 10 ^3/uL (0.4-5.4); Lymphocytes % (auto) 26.2 % (10.0-50.0); Mean Corpuscular Hemoglobin 32.8 pg (28.0-32.0); Mean Corpuscular Hgb Conc. 31.3 g/dL (32.0-36.0); Mean Corpuscular Volume 104.8 fL (80.0-100.0); Monocytes # (auto) 0.3 10 ^3/uL (0-1.3); Monocytes % (auto) 6.9 % (0.0-12.0); Neutrophils # (auto) 2.8 10 ^3/uL (1.6-8.6); Neutrophils % (auto) 62.2 % (37.0-80.0); Nucleated Red Blood Cells % 0.3 %; Red Blood Cells 2.67 10^6/uL (4.0-5.20); Red Cell Distribution Width 16.7 % (11.8-14.3); White Blood Cell 4.5 10^3/uL (4.4-10.8)
[2023-04-22 05:11] LABS: Calcium 7.5 mg/dL (8.5-10.1)
[2023-04-22 05:16] LABS: Albumin 2.8 g/dL (3.4-5.0); BUN/Creatinine Ratio 8.6 (10.0-20.0); Bilirubin, Total 0.6 mg/dL (0.2-1.0); Total Protein 6.7 g/dL (6.4-8.2)
[2023-04-22] MEDS: SODIUM CHLOR 0.9% PF (SALINE LOCK) 10ML VIAL/SYR IV SCH ×3 (06:07→21:36)
[2023-04-22] MEDS: FUROSEMIDE 100 MG/10ML VIAL IV SCH ×2 (06:07→17:39)
[2023-04-22] MEDS: cloNIDine HCL 0.1 MG TAB PO SCH ×3 (06:07→21:39)
[2023-04-22] MEDS ORDERED: SODIUM CHL 0.9% 1000 ML BAG XX ONE (06:45)
[2023-04-22] MEDS ORDERED: ALBUMIN 25% 100 ML IV PRN (06:45)
[2023-04-22] MEDS ORDERED: LEVOTHYROXINE SODIUM 88 MCG TAB PO SCH (07:00)
[2023-04-22] MEDS: ENOXAPARIN SOD 30 MG/0.3 ML SYRINGE SC SCH (10:00)
[2023-04-22] MEDS ORDERED: NIFEdipine ER 30 MG TAB PO ONE (12:00)
[2023-04-22] MEDS: hydrALAZINE HCL 25 MG TAB PO SCH ×2 (12:24→17:39)
[2023-04-22] MEDS: CALCIUM ACETATE 667 MG CAP PO SCH ×2 (12:24→17:38)
[2023-04-22] MEDS: SEVELAMER 800 MG TAB PO SCH ×2 (12:25→17:38)
[2023-04-22] MEDS ORDERED: QVAR INHALER IN PRN (13:45)
[2023-04-22] MEDS ORDERED: EPOETIN ALFA-EPBX 10,000 UNIT/1ML VIAL SC ONE (21:00)
[2023-04-22] MEDS: HEPARIN SODIUM (PORCINE) 5000 UNITS/ML 1ML VIAL SC SCH (21:34)
[2023-04-22] MEDS: METOPROLOL TARTRATE 25 MG TAB PO SCH (21:39)
[2023-04-22] MEDS: PRAVASTATIN SODIUM 20 MG TAB PO SCH (21:45)
[2023-04-22] MEDS ORDERED: PATIENTS OWN MEDICATION PO SCH (22:00)
[2023-04-23] VITALS (12 sets, daily range): BP systolic 106–147; BP diastolic 41–95
[2023-04-23] MEDS: hydrALAZINE HCL 25 MG TAB PO SCH ×4 (00:13→18:00)
[2023-04-23 04:58] LABS: Basophils # (auto) 0 10 ^3/uL (0-0.2); Basophils % (auto) 0.4 % (0.0-2.0); Eosinophils # (auto) 0.2 10 ^3/uL (0-0.8); Eosinophils % (auto) 4.2 % (0.0-7.0); Hematocrit 25.7 % (36.0-46.0); Hemoglobin 8.8 g/dL (12.2-16.2); Lymphocytes # (auto) 1.1 10 ^3/uL (0.4-5.4); Lymphocytes % (auto) 21.8 % (10.0-50.0); Mean Corpuscular Hemoglobin 31.7 pg (28.0-32.0); Mean Corpuscular Hgb Conc. 34.4 g/dL (32.0-36.0); Mean Corpuscular Volume 92.3 fL (80.0-100.0); Monocytes # (auto) 0.2 10 ^3/uL (0-1.3); Monocytes % (auto) 4.5 % (0.0-12.0); Neutrophils # (auto) 3.5 10 ^3/uL (1.6-8.6); Neutrophils % (auto) 69.1 % (37.0-80.0); Nucleated Red Blood Cells % 0.1 %; Red Blood Cells 2.78 10^6/uL (4.0-5.20); Red Cell Distribution Width 15.3 % (11.8-14.3); White Blood Cell 5.1 10^3/uL (4.4-10.8)
[2023-04-23 05:17] LABS: Calcium 7.8 mg/dL (8.5-10.1)
[2023-04-23 05:19] LABS: BUN/Creatinine Ratio 8.1 (10.0-20.0)
[2023-04-23] MEDS: cloNIDine HCL 0.1 MG TAB PO SCH ×3 (05:47→21:07)
[2023-04-23] MEDS: FUROSEMIDE 100 MG/10ML VIAL IV SCH ×2 (05:48→18:08)
[2023-04-23] MEDS: SODIUM CHLOR 0.9% PF (SALINE LOCK) 10ML VIAL/SYR IV SCH ×3 (05:48→21:06)
[2023-04-23] MEDS: LEVOTHYROXINE SODIUM 25 MCG TAB PO SCH (06:45)
[2023-04-23] MEDS ORDERED: LEVOTHYROXINE SODIUM 88 MCG TAB PO SCH (07:00)
[2023-04-23] MEDS: SEVELAMER 800 MG TAB PO SCH ×3 (08:25→18:08)
[2023-04-23] MEDS: CALCIUM ACETATE 667 MG CAP PO SCH ×3 (08:25→18:08)
[2023-04-23] MEDS: METOPROLOL TARTRATE 25 MG TAB PO SCH ×2 (10:00→21:07)
[2023-04-23] MEDS: HEPARIN SODIUM (PORCINE) 5000 UNITS/ML 1ML VIAL SC SCH ×2 (10:04→21:11)
[2023-04-23] MEDS: predniSONE 5 MG TAB PO SCH (10:05)
[2023-04-23] MEDS: NIFEdipine ER 30 MG TAB PO SCH (10:05)
[2023-04-23] MEDS: PRAVASTATIN SODIUM 20 MG TAB PO SCH (21:08)
[2023-04-24] MEDS: hydrALAZINE HCL 25 MG TAB PO SCH ×2 (00:35→06:30)
[2023-04-24 05:00] VITALS: BP 126/54
[2023-04-24] MEDS: SODIUM CHLOR 0.9% PF (SALINE LOCK) 10ML VIAL/SYR IV SCH ×2 (06:00→15:33)
[2023-04-24] MEDS: LEVOTHYROXINE SODIUM 25 MCG TAB PO SCH (06:30)
[2023-04-24] MEDS: cloNIDine HCL 0.1 MG TAB PO SCH ×2 (06:31→13:54)
[2023-04-24] MEDS: FUROSEMIDE 100 MG/10ML VIAL IV SCH (06:31)
[2023-04-24] MEDS: SEVELAMER 800 MG TAB PO SCH ×3 (08:18→17:40)
[2023-04-24] MEDS: CALCIUM ACETATE 667 MG CAP PO SCH ×3 (08:18→17:40)
[2023-04-24] MEDS ORDERED: hydrALAZINE HCL 25 MG TAB PO PRN (08:45)
[2023-04-24 09:00] VITALS: BP 136/64
[2023-04-24] MEDS: predniSONE 5 MG TAB PO SCH (10:00)
[2023-04-24] MEDS: METOPROLOL TARTRATE 25 MG TAB PO SCH (10:00)
[2023-04-24] MEDS: HEPARIN SODIUM (PORCINE) 5000 UNITS/ML 1ML VIAL SC SCH (10:47)
[2023-04-24 13:00] VITALS: BP 148/69
[2023-04-24] MEDS: NIFEdipine ER 30 MG TAB PO SCH (15:32)
[2023-04-24 16:59] VITALS: BP 168/78
[2023-04-24 17:00] VITALS: BP 178/78
[2023-04-24 18:40] VITALS: BP 147/73
[2023-04-26] MEDS ORDERED: ENTECAVIR 0.5 MG TAB PO SCH (13:45)
== END 2023-04-24 19:00 | disposition home or self-care (01) | DRG 291 ==
LOC: ER 04:09 → EDUNIT# 04:09 → EDBD 04:09 → TELE 07:44 → ICU CENTRL 16:50 → TELE-WESTW 04-23 21:50
PROVIDERS: ADMIT Internal Medicine; ATTEND Internal Medicine
PROC: 5A1D70Z Performance of Urinary Filtration, Intermittent, Less than 6 Hours Per Day (ICD-10-PCS; principal; 2023-04-22)
DX: I13.2 Hypertensive heart and chronic kidney disease with heart failure and with stage 5 chronic kidney disease, or end stage renal disease (principal); I50.23 Acute on chronic systolic (congestive) heart failure; J96.01 Acute respiratory failure with hypoxia; N18.6 End stage renal disease; E55.9 Vitamin D deficiency, unspecified; I16.0 Hypertensive urgency; E03.9 Hypothyroidism, unspecified; Z20.822 Contact with and (suspected) exposure to COVID-19; D63.1 Anemia in chronic kidney disease; F17.200 Nicotine dependence, unspecified, uncomplicated; E11.22 Type 2 diabetes mellitus with diabetic chronic kidney disease; D64.9 Anemia, unspecified; Z99.81 Dependence on supplemental oxygen; Z99.2 Dependence on renal dialysis; Z82.49 Family history of ischemic heart disease and other diseases of the circulatory system; Z80.3 Family history of malignant neoplasm of breast
CPT/HCPCS: 36415; 71045; 80048; 80053; 81001; 82306; 82962; 83735; 83880; 84439; 84443; 84484; 85025; 85610; 85730; 87081; 87426; 87804; 90935; 93005; 93306; 96361; 96365; 96372; 96375; 97110; 97116; 97163; 97530; G0378; J1642

== ENCOUNTER → 2023-12-25 | Outpatient (CLI) | payer OTHER, MEDICAID ==
[~2023-12-25] MED LIST changes: +AMIO200T13 PO; +APIX2.5T PO; +CALC667C PO; +MET25T PO; -NIFE1TAB31 PO; +NIFE90TA75 PO; +SEVE0.8P2 PO
== END | disposition home or self-care (01) ==
LOC: LAB 11:23
DX: Z01.812 Encounter for preprocedural laboratory examination (principal)
CPT/HCPCS: 86850; 86900; 86901

== ENCOUNTER 2024-01-02 14:32 | Emergency (ER) | payer OTHER, MEDICAID ==
[~2024-01-02] VITALS: Ht 160 cm; Wt 68.8 kg
[2024-01-02 15:20] VITALS: BP 152/76; PULSE 66; RESP 18; TEMP 97.5; O2SAT 94
== END 2024-01-02 15:29 | disposition home or self-care (01) ==
LOC: ER 14:32
DX: Z48.00 Encounter for change or removal of nonsurgical wound dressing (principal); E11.22 Type 2 diabetes mellitus with diabetic chronic kidney disease; I13.2 Hypertensive heart and chronic kidney disease with heart failure and with stage 5 chronic kidney disease, or end stage renal disease; I50.9 Heart failure, unspecified; N18.6 End stage renal disease; E78.5 Hyperlipidemia, unspecified; Z77.22 Contact with and (suspected) exposure to environmental tobacco smoke (acute) (chronic)

== ENCOUNTER 2024-10-18 13:05 | Inpatient (IN) | payer OTHER, MEDICAID ==
[~2024-10-18] VITALS: Ht 160 cm; Wt 77.2 kg
[~2024-10-18 13:05] MED LIST changes: +ALBU108A5 IN; +FURO40TA4 PO; +HYDR25TA88 PO; -LEV50T PO; +LEVO-848 PO; +LEVO150T10 PO
--- NOTE | 2024-10-18 15:01 | ED.PDOC ---
Musculoskeletal HPI Comments 69 year old female presents to the ED with chief complaint of leg swelling and rash. Patient reports that she has been experiencing a red spot rash to her bilateral feet and forelegs along with associated swelling for a week. Patient relays that she had applied antibiotic ointment to the rash with no relief noted. Patient denies any numbness, weakness, erythema, warmth, N/V/D, fever, chills, or dizziness. Chief Complaint: Lower Extremity Time Seen by MD: 14:58 Primary Care Provider: MEHREEN Reviewed Notes: Nurses Notes, Medications, Allergies Allergies: Coded Allergies: NO KNOWN ALLERGIES (Unverified , 12/02/19) Home Meds Active Scripts Amiodarone HCl (Amiodarone HCl) 200 Mg Tab, 200 MG PO BID for 30 Days, #60 TAB Prov:GERALDINE LACKEY MD 05/17/23 Apixaban Base (ELIQUIS) 2.5 Mg Tab, 2.5 MG PO BID for 30 Days, #60 TAB Prov:GERALDINE LACKEY MD 05/17/23 Sacubitril-Valsartan (Entresto 24-26 mg) 1 Tab Tab, 1 TAB PO BID for 30 Days, #60 TAB 2 Refills Prov:REBEL WRAY MD 06/20/22 Levothyroxine Sodium (SYNTHROID TABLET) 50 Mcg Tb, 75 MCG PO QAM for 30 Days, #45 TAB 2 Refills Prov:JOHANA AGUILAR MD 06/20/22 Ferrous Sulfate (Iron) 325 Mg Tab, 325 MG PO DAILY for 30 Days, #30 TAB 3 Refills Prov:REBEL WRAY MD 12/30/21 Amlodipine Besylate (Amlodipine Besylate) 10 Mg Tab, 1 TAB PO DAILY for 30 Days, #30 TAB 5 Refills Prov:REBEL WRAY MD 12/30/21 Albuterol Sulfate (VENTOLIN MDI) 90 Mcg Ih, 90 MCG IN Q6HP PRN for 30 Days, #1 INH Prov:RUBEN MCDERMOTT MD 10/12/21 Isosorbide Mononitrate (Isosorbide Mononitrate ER) 60 Mg Tab, 60 MG PO DAILY for 30 Days, #30 TAB Prov:RUBEN MCDERMOTT MD 10/12/21 Furosemide (Lasix) 40 Mg Tab, 40 MG PO DAILY for 30 Days, #30 TAB Prov:RUBEN MCDERMOTT MD 10/12/21 Reported Medications Metoprolol Tartrate (Lopressor) 25 Mg Tb, 1 TAB PO BID 05/13/23 Nifedipine (Nifedipine Er) 90 Mg Tab, 1 TAB PO DAILY 05/13/23 Calcium Acetate (Phosphate Bin (Calcium Acetate) 667 Mg Cap, 2 CAP PO TID 05/13/23 Sevelamer Carbonate (Sevelamer Carbonate) 0.8 Gm Pow, 1 PKT PO TID 05/13/23 Prednisone (Prednisone) 5 Mg Tab, 5 MG PO, TAB 06/15/22 Simvastatin (Simvastatin) 20 Mg Tab, 20 MG PO HS for 30 Days 06/15/22 Entecavir (Entecavir) 1 Mg Tab, 0.5 MG PO DAILY, TAB BEFORE MEALS 06/15/22 Cholecalciferol (VITAMIN D) 5,000 Unit Tab, 5000 UNIT PO DAILY, TAB 10/10/21 Beclomethasone Dipropionate (Qvar Redihaler) 80 Mcg/Act Aer, 2 INH PO BID, AER 10/10/21 Information Source: Patient Mode of Arrival: Ambulatory Location: Bilateral Extremity Location: Leg Timing: Weeks Prehospital treatment: None Severity: Moderate Able to Move Extremity: Yes Bear Weight: Fully Pain: None Mechanism: Spontaneous Circumstances: Spontaneous Onset of Symptoms: Spontaneous Symptoms: Swelling DVT Risk Factors: CHF, DVT Last Tetanus: Unknown Past Medical History PAST MEDICAL HISTORY: Anemia, CHF, DM, ESRD, High Lipids, HTN, Liver, Thyroid Surgical History: Cholecystectomy, Surgical History (Other): Dialysis fistula [employer] History: No Pertinent [employer] History Family History Family History: Reviewed,noncontributory to illness, Family hx of HTN Social History Smoker: Secondhand Alcohol: Denies ETOH Use Drugs: Denies Drug Use Lives In: Home Constitutional: denies: chills, diaphoresis, fatigue, fever, malaise, sweats, weakness, others EENTM: denies: blurred vision, double vision, ear bleeding, ear discharge, ear drainage, ear pain, ear ringing, eye pain, eye redness, hearing loss, mouth pain , mouth swelling, nasal discharge, nose bleeding, nose congestion, nose pain, photophobia, tearing, throat pain, throat swelling, voice changes, others Respiratory: denies: cough, hemoptysis, orthopnea, SOB at rest, shortness of breath, SOB with excertion, stridor, wheezing, others Cardiovascular: reports: edema (Bilateral legs); denies: chest pain, dizzy spells, diaphoresis, Dyspnea on exertion, irregular heart beat, left arm pain, lightheadedness, palpitations, PND, syncope, others Gastrointestinal: denies: abdomen distended, abdominal pain, blood streaked bowels, constipated, diarrhea, dysphagia, difficulty swallowing, hematemesis, melena, nausea, poor appetite, poor fluid intake, rectal bleeding, rectal pain, vomiting, others Genitourinary: denies: abnormal vagina bleeding, burning, dyspareunia, dysuria, flank pain, frequency, hematuria, incontinence, pain, , vagina discharge, urgency, others Neurological: denies: dizziness, fainting, headache, left sided numbness, left sided weakness, numbness, paresthesia, pre-existing deficit, right sided numbness, right sided weakness, seizure, speech problems, tingling, tremors, we akness, others Musculoskeletal: denies: back pain, gout, joint pain, joint swelling, muscle pain, muscle stiffness, neck pain, others Integumetry: reports: others (Red spots to bilateral feet); denies: bruises, change in color, change in hair/nails, dryness, laceration, lesions, lumps, rash, wounds Allergic/Immunocompromised: denies: Difficulty Healing, Frequent Infections, Hives, Itching, others Hematologic/Lymphatic: denies: anemia, blood clots, easy bleeding, easy bruising, swollen glands, others Endocrine: denies: excessive hunger, excessive sweating, excessive thirst, excessive urination, flushing, intolerance to cold, intolerance to heat, unexplained weight gain, unexplained weight loss, others Psychiatric: denies: anxiety, bipolar disorder, depression, hopeless, panic disorder, schizophrenia, sleepless, suicidal, others All Other Systems: Reviewed and Negative Physical Exam General Appearance: Mild Distress, Moderate Distress HEENT: Normal ENT Inspection, PERRL/EOMI Neck: Full Range of Motion, Non-Tender, Normal, Normal Inspection Respiratory: Crackles, Decreased Breath Sounds, Expiration, Inspiration, No Res piratory Distress, Rales, Rhonchi Cardiovascular: No Edema, No JVD, No Murmur, No Gallop, Normal Peripheral Pulses, Regular Rate/Rhythm Breast Exam: Deferred Gastrointestinal: No Organomegaly, Non Tender, No Pulsatile Mass, Normal Bowel Sounds, Soft Genitalia: Deferred Pelvic: Deferred Rectal: Deferred Extremities: Inflammation, Leg edema, Swelling, Tender, Other (Vasculitis to both lower extremities) Neurologic: Alert, disulfurizer tender II-XII nml as Tested, No Motor Deficits, Normal Affect, Normal Mood, No Sensory Deficits Cerebellar Function: Normal Reflexes: NOT DONE Skin: Bruises, Dry, Normal Color, Rash (Vasculitis), Warm Was a procedure done? Was a procedure done?: No EKG EKG : Pulse Rate (adult): 107 [place]: RAD Cardiac Rhythm: Afib Differential Diagnosis EXT Differential Diagnosis: Cellulitis, Neurovascular injury, Other (Vasculitis to both extremities) X-Ray, Labs, Meds, VS Vital Signs Date Time Temp Pulse Resp B/P (MAP) Pulse Ox O2 Delivery O2 Flow Rate FiO2 10/18/24 13:28 97.6 98 19 122/69 (86) 94 Lab Test 10/18/24 15:39 10/18/24 15:34 Range/Units Urine Color Yellow Yellow Urine Clarity Turbid H Clear Urine pH 5.5 5.0-9.0 Urine Specific [place] 1.005 1.001-1.035 Urine Protein 1+ H Negative Urine Ketones Negative Negative Urine Blood 1+ H Negative /uL Urine Nitrite Negative Negative Urine Bilirubin Negative Negative Urine Urobilinogen Normal Negative mg/dL Urine Leukocyte Esterase 1+ Negative /uL Urine RBC 8 0 - 4 /hpf Urine WBC 5 0 - 5 /hpf Urine Squamous Epithelial Cells Mod <5 /hpf Urine Bacteria Few H None Seen /hpf Urine Glucose Normal Normal mg/dL White Blood Count 4.2 L 4.4-10.8 10^3/uL Red Blood Count 3.46 L 4.0-5.20 10^6/uL Hemoglobin 11.2 L 12.2-16.2 g/dL Hematocrit 35.3 L 36.0-46.0 % Mean Corpuscular Volume 101.9 H 80.0-100.0 fL Mean Corpuscular Hemoglobin 32.2 H 28.0-32.0 pg Mean Corpuscular Hemoglobin Concent 31.6 L 32.0-36.0 g/dL Red Cell Distribution Width 17.6 H 11.8-14.3 % Platelet Count 129 L 140-450 10^3/uL Mean Platelet Volume 9.2 6.9-10.8 fL Neutrophils (%) (Auto) 59.6 37.0-80.0 % Lymphocytes (%) (Auto) 28.2 10.0-50.0 % Monocytes (%) (Auto) 5.8 0.0-12.0 % Eosinophils (%) (Auto) 5.8 0.0-7.0 % Basophils (%) (Auto) 0.6 0.0-2.0 % Neutrophils # (Auto) 2.5 1.6-8.6 10 ^3/uL Lymphocytes # (Auto) 1.2 0.4-5.4 10 ^3/uL Monocytes # (Auto) 0.2 0-1.3 10 ^3/uL Eosinophils # (Auto) 0.2 0-0.8 10 ^3/uL Basophils # (Auto) 0 0-0.2 10 ^3/uL Nucleated Red Blood Cells 0.1 % Prothrombin Time 11.5 9.3-11.8 sec Prothrombin Time INR 1.09 0.9-1.15 Activated Partial Thromboplast Time 21.6 L 24.5-34.5 SEC Sodium Level 141 136-145 mmol/L Potassium Level 3.8 3.5-5.1 mmol/L Chloride Level 103 98-107 mmol/L Carbon Dioxide Level 29 20-31 mmol/L Anion Gap 9 5-15 Blood Urea Nitrogen 19 9-23 mg/dL Creatinine 4.38 H 0.550-1.02 mg/dL Glomerular Filtration Rate Calc 10 >90 mL/min BUN/Creatinine Ratio 4.3 L 10.0-20.0 Serum Glucose 95 74-106 mg/dL Calcium Level 9.0 8.7-10.4 mg/dL Magnesium Level 1.8 1.6-2.6 mg/dL Total Bilirubin 0.6 0.2-1.0 mg/dL Aspartate Amino Transferase (AST) 15 13-40 U/L Alanine Aminotransferase (ALT) 13 7-40 U/L Alkaline Phosphatase 58 46-116 U/L Troponin I High Sensitivity 29 </=34 ng/L Total Protein 7.8 5.7-8.2 g/dL Albumin 4.1 3.2-4.8 g/dL Chest XR: FINDINGS: Lines and Tubes: None Lungs: There are likely interstitial changes in the lungs related to interstitial edema. Pleura: No effusion. No pneumothorax. Cardiomediastinal contours:Moderate cardiomegaly. Pulmonary vasculature: There is prominence of the central pulmonary vasculature with cephalized pulmonary vascular flow. Bones: No acute osseous abnormality. IMPRESSION: 1. Moderate cardiomegaly with pulmonary vascular congestion and likely interstitial edema. X-Ray, Labs, Meds, VS Comment Course in the emergency department eventful patient came in complaining of lower extremity swelling with a rash not painful not itching Chest x-ray shows pulmonary vascular congestion with cardiomegaly and pulmonary edema EKG shows atrial fibrillation at 1:07 a.m. with a right axis deviation CBC 4200 with 59.6% neutrophils H&H 11 and 35 with microcytosis Urine shows 1+ protein 1+ blood bacteria 1+ leukocyte esterase INR 1.09 CMP GFR at 10 patient is on dialysis Magnesium 1.8 Troponin 29 Patient will be admitted for further care Time of 1ST Reevaluation: 15:58 Reevaluation 1ST: Unchanged Patient Education/Counseling: Diagnosis, Treatment Family Education/Counseling: No Family Present Additional Information - I reviewed the following notes from patient's past medical encounters: 01/02/24 for fistula wound recheck - The following tests were ordered, and results were reviewed by me: CXR, EKG, Magnesium, UA, PTPTT, CMP, CBC, Troponin - I reviewed and agreed with the following test results read by other provider: Chest XR - I discussed treatments and results with medical personnel. Departure 1 Departure Time of Disposition: 17:19 Impression: Primary Impression: Acute exacerbation of CHF (congestive heart failure) Qualified Codes: I50.43 - Acute on chronic combined systolic (congestive) and diastolic (congestive) heart failure Additional Impressions: Chronic kidney disease on chronic dialysis Fluid overload Qualified Codes: E87.70 - Fluid overload, unspecified UTI (urinary tract infection) Qualified Codes: N30.01 - Acute cystitis with hematuria Vasculitic ulcer of right lower extremity, limited to breakdown of skin Atrial fibrillation Qualified Codes: I48.11 - Longstanding persistent atrial fibrillation Disposition: ADMITTED INPATIENT Admit to: Tele Condition: Serious Critical Care Note Critical Care Time?: No Stability Stability form required: Yes Unstable for transfer: Telemetry monitoring (Telemetry monitoring required), Requires medication (Requires Med for stabilization) Heart Score Heart Score: Heart Score Response (Comments) Value History Moderate Suspicious 1 EKG Repolarization Disturb 1 Age >65 2 Risk Factors >3 or Hx ASHD 2 Troponin Normal limit 0 Total 6 I personally scribed for DARIN BERGER MD ([email or web address]) on 10/18/24 at 15:01. Electronically submitted by Seth Bhardwaj ([email or web address]). I personally scribed for DARIN BERGER MD ([email or web address]) on 10/18/24 at 15:37. Electronically submitted by Seth Bhardwaj ([email or web address]). DARIN BERGER MD Oct 18, 2024 15:01
[2024-10-18] MEDS: SODIUM CHLORIDE 0.9% 1,000 ML IV ONE (15:12)
--- NOTE | 2024-10-18 15:18 | DVH ---
EXAM: XY CHEST TWO VIEWS ROUTINE CLINICAL HISTORY: sob chf COMPARISON: 05/16/2023 TECHNIQUE: Frontal and lateral view of the chest was obtained FINDINGS: Lines and Tubes: None Lungs: There are likely interstitial changes in the lungs related to interstitial edema. Pleura: No effusion. No pneumothorax. Cardiomediastinal contours:Moderate cardiomegaly. Pulmonary vasculature: There is prominence of the central pulmonary vasculature with cephalized pulm onary vascular flow. Bones: No acute osseous abnormality. IMPRESSION: 1. Moderate cardiomegaly with pulmonary vascular congestion and likely interstitial edema. HS:Y
[2024-10-18 15:50] LABS: Basophils # (auto) 0 10 ^3/uL (0-0.2); Eosinophils # (auto) 0.2 10 ^3/uL (0-0.8); Lymphocytes # (auto) 1.2 10 ^3/uL (0.4-5.4); Mean Corpuscular Volume 101.9 fL (80.0-100.0); Neutrophils % (auto) 59.6 % (37.0-80.0); Nucleated Red Blood Cells % 0.1 %
[2024-10-18 15:52] LABS: Basophils % (auto) 0.6 % (0.0-2.0); Eosinophils % (auto) 5.8 % (0.0-7.0); Hematocrit 35.3 % (36.0-46.0); Hemoglobin 11.2 g/dL (12.2-16.2); Lymphocytes % (auto) 28.2 % (10.0-50.0); Mean Corpuscular Hemoglobin 32.2 pg (28.0-32.0); Mean Corpuscular Hgb Conc. 31.6 g/dL (32.0-36.0); Monocytes # (auto) 0.2 10 ^3/uL (0-1.3); Monocytes % (auto) 5.8 % (0.0-12.0); Neutrophils # (auto) 2.5 10 ^3/uL (1.6-8.6); Platelet Count (auto) 129 10^3/uL (140-450); Red Blood Cells 3.46 10^6/uL (4.0-5.20); Red Cell Distribution Width 17.6 % (11.8-14.3); White Blood Cell 4.2 10^3/uL (4.4-10.8)
[2024-10-18 16:02] LABS: Alanine Aminotransferase 13 U/L (7-40); Albumin 4.1 g/dL (3.2-4.8); Alkaline Phosphatase 58 U/L (46-116); Anion Gap 9 (5-15); Aspartate Aminotransferase 15 U/L (13-40); BUN/Creatinine Ratio 4.3 (10.0-20.0); Blood Urea Nitrogen 19 mg/dL (9-23); Carbon Dioxide 29 mmol/L (20-31); Chloride 103 mmol/L (98-107); Glucose 95 mg/dL (74-106); Magnesium 1.8 mg/dL (1.6-2.6); Potassium 3.8 mmol/L (3.5-5.1); Sodium 141 mmol/L (136-145)
[2024-10-18 16:03] LABS: Bilirubin, Total 0.6 mg/dL (0.2-1.0); Total Protein 7.8 g/dL (5.7-8.2)
[2024-10-18 16:04] LABS: INR 1.09 (0.9-1.15); Partial Thromboplastin Time 21.6 SEC (24.5-34.5); Prothrombin Time 11.5 sec (9.3-11.8)
[2024-10-18 16:19] LABS: Urine Bacteria FEW /hpf (None Seen); Urine Blood 1+ /uL (Negative); Urine Clarity Turbid (Clear); Urine Color Yellow (Yellow); Urine Protein, UAD 1+ (Negative); Urine Specific Gravity 1.005 (1.001-1.035); Urine Urobilinogen Normal (Negative); Urine WBC 5 /hpf (0 - 5); Urine pH 5.5 (5.0-9.0)
[2024-10-18] MEDS: cefTRIAXone 1GM/50ML D5W 50 ML IV ONE (17:31)
[2024-10-18] MEDS: DexAMETHasone SOD PHOS 4 MG/1ML SDV INJ IV ONE (17:31)
[2024-10-18] MEDS: FUROSEMIDE 20 MG/2 ML VIAL IV ONE (17:37)
--- NOTE | 2024-10-18 19:11 | ECG ---
[facility] Test Date: 2024-10-18 Test Time: 17:14:14 Pat Name: [address] Department: ER Room: [address] [place] [address] Gender: F [employer] Administrator: DONALD : 1955 Requested By: DARIN BERGER Order Number: [id number] Reading MD: Nasir Handy Measurements Intervals [place] Rate: 107 P: 0 WA: 0 QRS: 127 QRSD: 98 T: 28 QT: 384 QTc: 513 Interpretive Statements Atrial fibrillation Probable right ventricular hypertrophy Prolonged QT interval Electronically Signed On 10-19-2024 13:11:54 PST by Nasir Handy Please click the below link to view image of tracing.
[2024-10-18] MEDS ORDERED: HYDROcodone-ACET 5/325MG TAB PO PRN (20:15)
[2024-10-18] MEDS ORDERED: MORPHINE SULFATE INJ 2 MG/ml SYRG IV PRN (20:15)
[2024-10-18] MEDS ORDERED: ACETAMINOPHEN 325 MG TAB PO PRN (20:15)
[2024-10-18] MEDS ORDERED: ONDANSETRON HCL 4 MG/2 ML VIAL IV PRN (20:15)
[2024-10-18] MEDS ORDERED: NITROGLYCERIN 0.4 MG SL TAB SL PRN (20:15)
[2024-10-18 23:00] VITALS: PULSE 107; RESP 13; O2SAT 99
[2024-10-18] MEDS: METOPROLOL TARTRATE 25 MG TAB PO SCH (23:08)
[2024-10-18] MEDS: APIXABAN 2.5 MG TAB PO SCH (23:08)
[2024-10-18] MEDS: SACUBITRIL-VALSARTAN 24mg/26mg TAB PO SCH (23:08)
[2024-10-18] MEDS: hydrALAZINE HCL 25 MG TAB PO SCH (23:09)
[2024-10-19 04:46] LABS: Chloride 104 mmol/L (98-107); Potassium 3.9 mmol/L (3.5-5.1); Sodium 140 mmol/L (136-145)
[2024-10-19 04:47] LABS: Anion Gap 8 (5-15); Carbon Dioxide 28 mmol/L (20-31)
[2024-10-19 04:52] LABS: BUN/Creatinine Ratio 4.7 (10.0-20.0)
--- NOTE | 2024-10-19 05:04 | DVHHP2 ---
History of Present Illness Reason for Visit: Lower extremity swelling History of Present Illness 69-year-old female presents for evaluation of lower extremity swelling. Patient reports a one-week history of worsening bilateral lower extremity swelling with shortness for breath. She has also noticed what seems to be a rash on bilateral lower extremities. Pain or itchiness. No fever or chills. No other acute complaints reported. Past Medical History End-stage renal disease, diabetes mellitus, hypertension, thyroid, CHF Past Surgical History , cholecystectomy in AV fistula Family History Noncontributory Smoke: No ALCOHOL: none Drugs: None Lives: with Family Review of Systems Review of Systems Review of systems are currently negative otherwise addressed in HPI. Allergies: Coded Allergies: NO KNOWN ALLERGIES (Unverified , 12/02/19) Medications Current Medications Medications Dose Ordered Sig/Iggy Route Start Time Stop Time Status Last Admin Dose Admin Furosemide 40 mg DAILY PO 10/19/24 10:00 Ceftriaxone Sodium 50 ml @ 100 mls/hr DAILY@09 IV 10/19/24 09:00 Metoprolol Tartrate 25 mg BID PO 10/18/24 22:00 10/18/24 23:08 25 MG Hydralazine HCl 25 mg Q8HR PO 10/18/24 22:00 10/18/24 23:09 25 MG Calcium Acetate 667 mg TIDWMEALS PO 10/19/24 08:00 Nifedipine 60 mg DAILY PO 10/19/24 10:00 Levothyroxine Sodium 75 mcg QAM@0600 PO 10/19/24 06:00 Sacubitril/ Valsartan 1 tab BID PO 10/18/24 22:00 10/18/24 23:08 1 TAB Apixaban 2.5 mg BID PO 10/18/24 22:00 10/18/24 23:08 2.5 MG Amiodarone HCl 200 mg DAILY PO 10/19/24 10:00 Acetaminophen/ Hydrocodone Bitart 1 tab Q4HP PRN PO 10/18/24 20:15 Ondansetron HCl 4 mg Q4HP PRN IV 10/18/24 20:15 Acetaminophen 650 mg Q6HP PRN PO 10/18/24 20:15 Nitroglycerin 0.4 mg Q5MINP PRN SL 10/18/24 20:15 Morphine Sulfate 2 mg Q30M PRN IV 10/18/24 20:15 Exam Vital Signs Vital Signs Date Time Temp Pulse Resp B/P (MAP) Pulse Ox O2 Delivery O2 Flow Rate FiO2 10/19/24 01:00 92 18 140/68 (92) 95 10/18/24 23:00 Room Air* 0 21 10/18/24 13:28 97.6 Exam Gen: 69-year-old female mild distress Skin: Warm, dry, normal color and texture, extremity petechial rash HEENT: Normocephalic atraumatic, mucous membranes moist and pink. Neck: Cervical and supraclavicular nodes normal without enlargement, trachea is midline, thyroid gland is normal without masses. Pulmonary: Clear to auscultation and percussion bilaterally. Cardiac: Regular rate and rhythm. No murmur Abdomen: Soft, nontender, nondistended, bowel sounds present all 4 quadrants, no guarding, no rigidity, no organomegaly. Extremities: No cyanosis, clubbing, no edema Neuro: Cranial nerves II through XII grossly intact, normal affect and speech, no focal motor deficits. Labs/Xrays ORDERING PHYSICIAN: DARIN BERGER MD PROCEDURE(s): CXR2 - CHEST TWO VIEWS ROUTINE REASON: sob chf ORDER NUMBER(s): [id number], ACCESSION NUMBER(s): [id number] EXAM: XY CHEST TWO VIEWS ROUTINE CLINICAL HISTORY: sob chf COMPARISON: 05/16/2023 TECHNIQUE: Frontal and lateral view of the chest was obtained FINDINGS: Lines and Tubes: None Lungs: There are likely interstitial changes in the lungs related to interstitial edema. Pleura: No effusion. No pneumothorax. Cardiomediastinal contours:Moderate cardiomegaly. Pulmonary vasculature: There is prominence of the central pulmonary vasculature with cephalized pulmonary vascular flow. Bones: No acute osseous abnormality. IMPRESSION: 1. Moderate cardiomegaly with pulmonary vascular congestion and likely interstitial edema. HS:Y Labs Test 10/19/24 04:05 10/19/24 01:25 10/18/24 15:39 10/18/24 15:34 Range/Units B-Type Natriuretic Peptide 1409.47 0-100 pg/mL Urine Color Yellow Yellow Urine Clarity Turbid H Clear Urine pH 5.5 5.0-9.0 Urine Specific [place] 1.005 1.001-1.035 Urine Protein 1+ H Negative Urine Ketones Negative Negative Urine Blood 1+ H Negative /uL Urine Nitrite Negative Negative Urine Bilirubin Negative Negative Urine Urobilinogen Normal Negative mg/dL Urine Leukocyte Esterase 1+ Negative /uL Urine RBC 8 0 - 4 /hpf Urine WBC 5 0 - 5 /hpf Urine Squamous Epithelial Cells Mod <5 /hpf Urine Bacteria Few H None Seen /hpf Urine Glucose Normal Normal mg/dL White Blood Count 4.2 L 4.4-10.8 10^3/uL Red Blood Count 3.46 L 4.0-5.20 10^6/uL Hemoglobin 11.2 L 12.2-16.2 g/dL Hematocrit 35.3 L 36.0-46.0 % Mean Corpuscular Volume 101.9 H 80.0-100.0 fL Mean Corpuscular Hemoglobin 32.2 H 28.0-32.0 pg Mean Corpuscular Hemoglobin Concent 31.6 L 32.0-36.0 g/dL Red Cell Distribution Width 17.6 H 11.8-14.3 % Platelet Count 129 L 140-450 10^3/uL Mean Platelet Volume 9.2 6.9-10.8 fL Neutrophils (%) (Auto) 59.6 37.0-80.0 % Lymphocytes (%) (Auto) 28.2 10.0-50.0 % Monocytes (%) (Auto) 5.8 0.0-12.0 % Eosinophils (%) (Auto) 5.8 0.0-7.0 % Basophils (%) (Auto) 0.6 0.0-2.0 % Neutrophils # (Auto) 2.5 1.6-8.6 10 ^3/uL Lymphocytes # (Auto) 1.2 0.4-5.4 10 ^3/uL Monocytes # (Auto) 0.2 0-1.3 10 ^3/uL Eosinophils # (Auto) 0.2 0-0.8 10 ^3/uL Basophils # (Auto) 0 0-0.2 10 ^3/uL Nucleated Red Blood Cells 0.1 % Prothrombin Time 11.5 9.3-11.8 sec Prothrombin Time INR 1.09 0.9-1.15 Activated Partial Thromboplast Time 21.6 L 24.5-34.5 SEC Magnesium Level 1.8 1.6-2.6 mg/dL Total Bilirubin 0.6 0.2-1.0 mg/dL Aspartate Amino Transferase (AST) 15 13-40 U/L Alanine Aminotransferase (ALT) 13 7-40 U/L Alkaline Phosphatase 58 46-116 U/L Troponin I High Sensitivity 29 </=34 ng/L Total Protein 7.8 5.7-8.2 g/dL Albumin 4.1 3.2-4.8 g/dL Assessment/Plan Assessment/Plan Assessment Acute on chronic congestive heart failure End-stage renal disease, dialysis dependent Urinary tract infection History of AFib with secondary coagulopathy Plan The patient to telemetry to the hospitalist Echocardiogram IV Lasix Resume home medications Continue treatment per orders. Plan discussed with: Patient My Orders Orders - JOHANA RESENDEZ Procedure Category Date Status Time Furosemide Tablet PHA 10/19/24 In Process (Lasix Tablet) 10:00 Ceftriaxone 1gm/50ml PHA 10/19/24 In Process D5w (Rocephin) 09:00 Metoprolol Tartrate PHA 10/18/24 In Process Tablet (Lopressor Ta 22:00 Hydralazine Hcl PHA 10/18/24 In Process Tablet (Apresoline 22:00 Calcium Acetate PHA 10/19/24 In Process Capsule (Phoslo 08:00 Nifedipine Er PHA 10/19/24 In Process (Procardia Xl 10:00 Levothyroxine Tablet PHA 10/19/24 In Process (Synthroid Tablet) 06:00 Sacubitril-Valsartan PHA 10/18/24 In Process (Entresto 24-26 Mg 22:00 Apixaban (Eliquis) PHA 10/18/24 In Process 22:00 Amiodarone Tablet PHA 10/19/24 In Process (Cordarone Tablet) 10:00 *Dr. [facility] CONS 10/18/24 Transmitted -[place] 20:01 Basic Metabolic Panel LAB 10/19/24 In Process 04:00 Admit ADMIT 10/18/24 Transmitted 20:01 Renal DIET 10/19/24 Transmitted Standard(2gna,3gk,Lopho) Breakfast Hydrocodone-Acet PHA 10/18/24 In Process 5/325mg Tab ([place] 20:15 Ondansetron Hcl PHA 10/18/24 In Process (Zofran) 20:15 Echo 2d Mode Cardiac US 10/18/24 Logged DOP 20:01 Condition: Fair [facility] 10/18/24 In Process 20:01 Acetaminophen Tablet PHA 10/18/24 In Process (Tylenol Tablet) 20:15 Bedrest With Bathroom [facility] 10/18/24 In Process Privileg 20:01 Nitroglycerin PHA 10/18/24 In Process Sublingual (Ntrostat 20:15 Morphine Sulfate PHA 10/18/24 In Process Injection 20:15 Stat Ekg For Chest [facility] 10/18/24 In Process Pain 20:01 Notify Md Of Changes [facility] 10/18/24 In Process From Base 20:01 Medical Director For [facility] 10/18/24 In Process 24 Hours 20:01 Emergency Dysrhythmia [facility] 10/18/24 In Process Protocol 20:01 Rhythm Strips Once [facility] 10/18/24 In Process Every Shift 20:01 Oxygen By Nasal RT 10/18/24 Transmitted Cannula 20:01 Furosemide Injection PHA 10/19/24 Verified (Lasix Injection) 06:00 Date of Service: Oct 18, 2024 Billing Provider: JOHANA RESENDEZ Common Visit Codes: [id number] INP/OBS CARE (HIGH) JOHANA RESENDEZ Oct 19, 2024 05:04
[2024-10-19 05:05] LABS: Blood Urea Nitrogen 25 mg/dL (9-23); Glucose 131 mg/dL (74-106)
[2024-10-19] MEDS: FUROSEMIDE 20 MG/2 ML VIAL IV SCH (07:05)
[2024-10-19] MEDS: LEVOTHYROXINE SODIUM 25 MCG TAB PO SCH (07:06)
[2024-10-19 08:00] VITALS: PULSE 96; RESP 15; O2SAT 99
[2024-10-19] MEDS: SEVELAMER 800 MG TAB PO SCH (08:44)
[2024-10-19] MEDS: CALCIUM ACETATE 667 MG CAP PO SCH (08:45)
[2024-10-19] MEDS: cefTRIAXone 1GM/50ML D5W 50 ML IV SCH (08:52)
[2024-10-19] MEDS ORDERED: FUROSEMIDE 40 MG TAB PO SCH (10:00)
[2024-10-19] MEDS: AMIODARONE HCL 200 MG TAB PO SCH (10:18)
[2024-10-19] MEDS: NIFEdipine ER 30 MG TAB PO SCH (10:19)
--- NOTE | 2024-10-19 10:32 | DVHINCON2 ---
Date of service: Oct 19, 2024 Reason for Consultation End-stage renal disease History of Present Illness 69-year-old female past medical history of end-stage renal disease on hemodialysis, hypertension, congestive heart failure reports she went to hemodialysis treatment as per schedule yesterday and noticed she was developing a rash on her bilateral lower extremities. She attempted to wipe some lotion on the rash and reports that admitted worse. She presents to the hospital complaining of rash redness and swelling of her lower extremities. Past Surgical History avf Allergies: Coded Allergies: NO KNOWN ALLERGIES (Unverified , 12/02/19) Home Meds Active Scripts Amiodarone HCl (Amiodarone HCl) 200 Mg Tab, 200 MG PO BID for 30 Days, #60 TAB Prov:GERALDINE LACKEY MD 05/17/23 Apixaban Base (ELIQUIS) 2.5 Mg Tab, 2.5 MG PO BID for 30 Days, #60 TAB Prov:GERALDINE LACKEY MD 05/17/23 Sacubitril-Valsartan (Entresto 24-26 mg) 1 Tab Tab, 1 TAB PO BID for 30 Days, #60 TAB 2 Refills Prov:REBEL WRAY MD 06/20/22 Levothyroxine Sodium (SYNTHROID TABLET) 50 Mcg Tb, 75 MCG PO QAM for 30 Days, #45 TAB 2 Refills Prov:JOHANA AGUILAR MD 06/20/22 Ferrous Sulfate (Iron) 325 Mg Tab, 325 MG PO DAILY for 30 Days, #30 TAB 3 Refills Prov:REBEL WRAY MD 12/30/21 Amlodipine Besylate (Amlodipine Besylate) 10 Mg Tab, 1 TAB PO DAILY for 30 Days, #30 TAB 5 Refills Prov:REBEL WRAY MD 12/30/21 Albuterol Sulfate (VENTOLIN MDI) 90 Mcg Ih, 90 MCG IN Q6HP PRN for 30 Days, #1 INH Prov:RUBEN MCDERMOTT MD 10/12/21 Isosorbide Mononitrate (Isosorbide Mononitrate ER) 60 Mg Tab, 60 MG PO DAILY for 30 Days, #30 TAB Prov:RUBEN MCDERMOTT MD 10/12/21 Furosemide (Lasix) 40 Mg Tab, 40 MG PO DAILY for 30 Days, #30 TAB Prov:RUBEN MCDERMOTT MD 10/12/21 Reported Medications Metoprolol Tartrate (Lopressor) 25 Mg Tb, 1 TAB PO BID 05/13/23 Nifedipine (Nifedipine Er) 90 Mg Tab, 1 TAB PO DAILY 05/13/23 Calcium Acetate (Phosphate Bin (Calcium Acetate) 667 Mg Cap, 2 CAP PO TID 05/13/23 Sevelamer Carbonate (Sevelamer Carbonate) 0.8 Gm Pow, 1 PKT PO TID 05/13/23 Prednisone (Prednisone) 5 Mg Tab, 5 MG PO, TAB 06/15/22 Simvastatin (Simvastatin) 20 Mg Tab, 20 MG PO HS for 30 Days 06/15/22 Entecavir (Entecavir) 1 Mg Tab, 0.5 MG PO DAILY, TAB BEFORE MEALS 06/15/22 Cholecalciferol (VITAMIN D) 5,000 Unit Tab, 5000 UNIT PO DAILY, TAB 10/10/21 Beclomethasone Dipropionate (Qvar Redihaler) 80 Mcg/Act Aer, 2 INH PO BID, AER 10/10/21 Current Medications Current Medications Medications (Trade) Dose Ordered Sig/Iggy Route PRN Reason Start Time Stop Time Status Last Admin Furosemide (Lasix Tablet) 40 mg DAILY PO 10/19/24 10:00 10/19/24 05:01 DC Ceftriaxone Sodium 50 ml @ 100 mls/hr DAILY@09 IV 10/19/24 09:00 10/19/24 08:52 Metoprolol Tartrate (Lopressor Tablet) 25 mg BID PO 10/18/24 22:00 10/19/24 10:18 Hydralazine HCl (Apresoline Tablet) 25 mg Q8HR PO 10/18/24 22:00 10/19/24 07:06 Calcium Acetate (Phoslo Capsule) 667 mg TIDWMEALS PO 10/19/24 08:00 10/19/24 08:45 Nifedipine (Procardia Xl (Time-Release)) 60 mg DAILY PO 10/19/24 10:00 10/19/24 10:19 Levothyroxine Sodium (Synthroid Tablet) 75 mcg QAM@0600 PO 10/19/24 06:00 10/19/24 07:06 Sacubitril/ Valsartan (Entresto 24-26 Mg tab) 1 tab BID PO 10/18/24 22:00 10/19/24 10:19 Apixaban (Eliquis) 2.5 mg BID PO 10/18/24 22:00 10/19/24 10:16 Amiodarone HCl (Cordarone Tablet) 200 mg DAILY PO 10/19/24 10:00 10/19/24 10:18 Acetaminophen/ Hydrocodone Bitart ([place] 5/325MG Tab) 1 tab Q4HP PRN PO MODERATE PAIN (4-6 PAIN SCALE) 10/18/24 20:15 Ondansetron HCl (Zofran) 4 mg Q4HP PRN IV NAUSEA / VOMITING 10/18/24 20:15 Acetaminophen (Tylenol Tablet) 650 mg Q6HP PRN PO PAIN SCALE 1-3 OR TEMP>100.4 10/18/24 20:15 Nitroglycerin (Ntrostat Sublingual) 0.4 mg Q5MINP PRN SL FOR CHEST PAIN 10/18/24 20:15 Morphine Sulfate 2 mg Q30M PRN IV FOR CHEST PAIN 10/18/24 20:15 Furosemide (Lasix Injection) 20 mg BIDD IV 10/19/24 06:00 10/19/24 07:05 Sevelamer HCl (Renagel) 800 mg TIDWM PO 10/19/24 08:00 10/19/24 08:44 Atorvastatin Calcium (Lipitor) 10 mg HS PO 10/19/24 22:00 Family History: FH: HTN (hypertension) G8 FATHER FH: breast cancer G8 MOTHER FH: breast cancer G8 MOTHER Hypercholesterolemia G8 MOTHER G8 FATHER Review of Systems Lower extremity rash and swelling H&P Exam Vital Signs/I&O Vital Sign Date Time Temp Pulse Resp B/P (MAP) Pulse Ox O2 Delivery O2 Flow Rate FiO2 10/19/24 10:19 123/82 10/19/24 10:18 79 10/19/24 09:08 15 99 10/19/24 08:00 Room Air* 0 21 10/18/24 13:28 97.6 Intake and Output 10/18/24 10/19/24 19:00 07:00 Intake Total 50 ml Balance 50 ml Intake IV Total 50 ml Physical Exam Elderly female Not in overt distress Abdomen is soft Bilateral pulmonary congestion with rales Right arm AV fistula Bilateral 2+ pitting edema at the shins with petechial rash Labs/Diagnostic Data Labs/Diagnostic Data Laboratory Tests Test 10/19/24 04:05 10/19/24 01:25 10/18/24 15:39 10/18/24 15:34 Range/Units Sodium Level 140 141 136-145 mmol/L Potassium Level 3.9 3.8 3.5-5.1 mmol/L Chloride Level 104 103 98-107 mmol/L Carbon Dioxide Level 28 29 20-31 mmol/L Anion Gap 8 9 5-15 Blood Urea Nitrogen 25 H 19 9-23 mg/dL Creatinine 5.32 H 4.38 H 0.550-1.02 mg/dL Glomerular Filtration Rate Calc 8 10 >90 mL/min BUN/Creatinine Ratio 4.7 L 4.3 L 10.0-20.0 Serum Glucose 131 H 95 74-106 mg/dL Calcium Level 9.0 9.0 8.7-10.4 mg/dL B-Type Natriuretic Peptide 1409.47 0-100 pg/mL Urine Color Yellow Yellow Urine Clarity Turbid H Clear Urine pH 5.5 5.0-9.0 Urine Specific [place] 1.005 1.001-1.035 Urine Protein 1+ H Negative Urine Ketones Negative Negative Urine Blood 1+ H Negative /uL Urine Nitrite Negative Negative Urine Bilirubin Negative Negative Urine Urobilinogen Normal Negative mg/dL Urine Leukocyte Esterase 1+ Negative /uL Urine RBC 8 0 - 4 /hpf Urine WBC 5 0 - 5 /hpf Urine Squamous Epithelial Cells Mod <5 /hpf Urine Bacteria Few H None Seen /hpf Urine Glucose Normal Normal mg/dL White Blood Count 4.2 L 4.4-10.8 10^3/uL Red Blood Count 3.46 L 4.0-5.20 10^6/uL Hemoglobin 11.2 L 12.2-16.2 g/dL Hematocrit 35.3 L 36.0-46.0 % Mean Corpuscular Volume 101.9 H 80.0-100.0 fL Mean Corpuscular Hemoglobin 32.2 H 28.0-32.0 pg Mean Corpuscular Hemoglobin Concent 31.6 L 32.0-36.0 g/dL Red Cell Distribution Width 17.6 H 11.8-14.3 % Platelet Count 129 L 140-450 10^3/uL Mean Platelet Volume 9.2 6.9-10.8 fL Neutrophils (%) (Auto) 59.6 37.0-80.0 % Lymphocytes (%) (Auto) 28.2 10.0-50.0 % Monocytes (%) (Auto) 5.8 0.0-12.0 % Eosinophils (%) (Auto) 5.8 0.0-7.0 % Basophils (%) (Auto) 0.6 0.0-2.0 % Neutrophils # (Auto) 2.5 1.6-8.6 10 ^3/uL Lymphocytes # (Auto) 1.2 0.4-5.4 10 ^3/uL Monocytes # (Auto) 0.2 0-1.3 10 ^3/uL Eosinophils # (Auto) 0.2 0-0.8 10 ^3/uL Basophils # (Auto) 0 0-0.2 10 ^3/uL Nucleated Red Blood Cells 0.1 % Prothrombin Time 11.5 9.3-11.8 sec Prothrombin Time INR 1.09 0.9-1.15 Activated Partial Thromboplast Time 21.6 L 24.5-34.5 SEC Magnesium Level 1.8 1.6-2.6 mg/dL Total Bilirubin 0.6 0.2-1.0 mg/dL Aspartate Amino Transferase (AST) 15 13-40 U/L Alanine Aminotransferase (ALT) 13 7-40 U/L Alkaline Phosphatase 58 46-116 U/L Troponin I High Sensitivity 29 </=34 ng/L Total Protein 7.8 5.7-8.2 g/dL Albumin 4.1 3.2-4.8 g/dL Assessment End-stage renal disease on hemodialysis Fluid overload hypervolemia Petechial rash on bilateral lower extremities with pulmonary edema Low-salt diet Recommend send vasculitis workup previously had positive anti-ccp AB which could be related to an autoimmune disorder cysts specifically rheumatoid. Send serologies rule out allergic reaction or drug allergy Hemodialysis treatment we will be initiated when available based on her respiratory needs Plan discussed with: Patient DHEERAJ DAI MD Oct 19, 2024 10:32
[2024-10-19 11:46] LABS: Erythrocyte Sedimentation Rate 48 mm/hr (0-20)
--- NOTE | 2024-10-19 12:41 | DVHPNRES ---
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 Swelling has started since 1 week, is bilateral and has been worsened. Patient also complained of shortness of breaths and bilateral lower petechial rashes. PMHx: diabetes mellitus type 2, hypertension, hypothyroidism, CHF, ESRD on maintenance hemodialysis, stroke, hepatitis-B, post COVID lung fibrosis on home oxygen, AFib PSHx: , cholecystectomy, av fistula for HD Family history: Noncontributory Social history: Patient denies smoking, alcohol and any drug use. Patient is doing with the son at home. Home medication: Amiodarone, amlodipine, apixaban, Lasix 40, metoprolol, nifedipine, Entresto, simvastatin, supplement, and and inhalers as needed Allergic history: Noncontributory Today, patient seen and examined at the bedside. Patient still has shortness of breath. Objective vital signs Vital Sign Date Time Temp Pulse Resp B/P (MAP) Pulse Ox O2 Delivery O2 Flow Rate FiO2 10/19/24 10:19 123/82 10/19/24 10:18 79 10/19/24 09:08 15 99 10/19/24 08:00 Room Air* 0 21 10/18/24 13:28 97.6 Total Intake and Output 10/18/24 10/18/24 10/19/24 15:00 23:00 07:00 Intake Total 50 ml Balance 50 ml medications Current Medications Medications Dose Ordered Sig/Iggy Route Start Time Stop Time Status Last Admin Dose Admin Ceftriaxone Sodium 50 ml @ 100 mls/hr DAILY@09 IV 10/19/24 09:00 10/19/24 08:52 100 MLS/HR Metoprolol Tartrate 25 mg BID PO 10/18/24 22:00 10/19/24 10:18 25 MG Hydralazine HCl 25 mg Q8HR PO 10/18/24 22:00 10/19/24 07:06 25 MG Calcium Acetate 667 mg TIDWMEALS PO 10/19/24 08:00 10/19/24 08:45 667 MG Nifedipine 60 mg DAILY PO 10/19/24 10:00 10/19/24 10:19 60 MG Levothyroxine Sodium 75 mcg QAM@0600 PO 10/19/24 06:00 10/19/24 07:06 75 MCG Sacubitril/ Valsartan 1 tab BID PO 10/18/24 22:00 10/19/24 10:19 1 TAB Apixaban 2.5 mg BID PO 10/18/24 22:00 10/19/24 10:16 2.5 MG Amiodarone HCl 200 mg DAILY PO 10/19/24 10:00 10/19/24 10:18 200 MG Acetaminophen/ Hydrocodone Bitart 1 tab Q4HP PRN PO 10/18/24 20:15 Ondansetron HCl 4 mg Q4HP PRN IV 10/18/24 20:15 Acetaminophen 650 mg Q6HP PRN PO 10/18/24 20:15 Nitroglycerin 0.4 mg Q5MINP PRN SL 10/18/24 20:15 Morphine Sulfate 2 mg Q30M PRN IV 10/18/24 20:15 Furosemide 20 mg BIDD IV 10/19/24 06:00 10/19/24 07:05 20 MG Sevelamer HCl 800 mg TIDWM PO 10/19/24 08:00 10/19/24 08:44 800 MG Atorvastatin Calcium 10 mg HS PO 10/19/24 22:00 Examination General Appearance: Alert, Oriented X3, Cooperative, No acute distress HEENT: Atraumatic, PERRLA, EOMI, Mucous membrane moist/pink Respiratory: Bilateral lower zone crepitation Cardiovascular: Regular rate, Normal S1, Normal S2, No murmurs, no chest wall tenderness Abdominal: Normal bowel sounds, Soft, No tenderness, No hepatospenomegaly, No masses Extremities: Bilateral lower limb 2+ pedal edema Skin: Bilateral lower limb petechial rashes Neuro: Normal gait, Normal speech, Strength at 5/5 X4 ext, Normal tone, Sensation intact, Cranial nerves 3-12 NL, Reflexes 2+ Psych/Mental Status: Mental status NL, Mood NL laboratory and microbiology Laboratory Tests 10/19/24 04:05 10/18/24 15:34 Test 10/19/24 04:05 Range/Units Serum Glucose 131 H 74-106 mg/dL Labs and/or images reviewed: Labs reviewed by me, Image(s) reviewed by me Problem List/Assessment/Plan Problem List/Assessment/Plan #Acute on chronic systolic heart failure #Acute on chronic hypoxic respiratory failure, likely due to heart failure # lung fibrosis, due to status post COVID Patient is on nasal cannula 3.5 L, maintaining saturation at 93 Chest x-ray shows cardiomegaly, with prominent pulmonary vessels Echo shows moderately severely reduced left ventricular systolic function estimated ejection fraction of 35-30%, there is global wall hypokinesia. Injection Lasix 40 mg b.i.d. Continue metoprolol, sacubitril # atrial fibrillation Continue Eliquis 2.5 mg b.i.d., and amiodarone 200 mg daily # Sepsis, likely due to UTI # UTI, undetermined location WBCs decreased at 4.2, and heart rate is increased Urinalysis shows UTI picture Urine culture IV ceftriaxone #ESRD, on maintenance hemodialysis Last HD was yesterday Nephrology is on the board Continue sevelamer # hypertension Continue metoprolol and nifedipine # hyperlipidemia Continue atorvastatin 10 mg daily #Mild anemia, likely due to ESRD #Petechial rashes Patient's there was numerous petechial rashes on bilateral lower limb Coagulation profile shows PT at 11.5, INR 109, APTT 21.6 DIET: Renal diet DVT PROPHYLAXIS: Patient was on Eliquis BOWEL REGIMEN:Docusate 100 mg as needed CODE STATUS: Goal of care discussed for more than 25 minutes with the patient, full code DISPOSITION: Telemetry Patient's status discussed with the patient and son on the phone. Case discussed with Dr. Mcbride critical care time 39 mins Plan discussed with: Patient, Other (RN) My Orders My Orders Orders - ALEJANDRINA SPAIN Procedure Category Date Status Time Sevelamer (Renagel) PHA 10/19/24 In Process 08:00 Atorvastatin (Lipitor) PHA 10/19/24 In Process 22:00 Date of Service: Oct 19, 2024 Billing Provider: GERALDINE MCBRIDE MD Common Visit Codes: [id number] CARE 30-74 MIN ALEJANDRINA SPAIN Oct 19, 2024 12:40 GERALDINE MCBRIDE MD Oct 19, 2024 17:30
[2024-10-19] MEDS: FUROSEMIDE 20 MG/2 ML VIAL IV ONE (13:00)
--- NOTE | 2024-10-19 13:15 | DVHSR ---
APPROVED REPORT EXAM: Two-dimensional and M-mode echocardiogram with Doppler and color Doppler. Blood Pressure: 133/82 mmHg INDICATION EF RISK FACTORS Height: 63, Weight: 217 DIMENSIONS LVDd5.5 (3.8-5.7cm)LA (2D)4.9 (1.9-4.0cm)Aortic Root3.4 (2.0-3.7cm) LVDs3.9 (2.5-4.0cm)LA (MM) (1.9-4.0cm)Aortic Cusp Exc1.4 (1.5-2.0cm) EF (%) 54. (55-70%)Rt. Atrium4.4 (1.9-4.0cm)Asc. Aorta cm IVSd1.3 (0.7-1.1cm)RV (D) (1.8-2.4cm) PWd1.3 (0.7-1.1cm) Mitral Valve MitralMitral Stenosis E wave1.47m/sMV Mean GR.mmHg A wavem/sMV Peak GR.125mmHg E/A ratio0.02D MVAcm2 DECEL TimemsPRESS 1/2 Pygb11rs IVRTmsDop MVA3.50cm2 Aortic Valve Aortic ValveAortic Stenosis V10.83m/Brandee Mean GR.4mmHg V21.45m/Brandee Peak GR.8mmHg LVOT Diameter2.1 (1.8-2.4cm)Doppler AVA1.98cm2 Pulmonic Valve V20.92m/s Tricuspid Valve TR Velocity3.30m/s [id number] Conclusion Moderately severely reduced left ventricular systolic function estimated ejection fraction of 35-30%, there is global wall hypokinesia. Normal right ventricular size and dimension. Normal right ventricular systolic function. Moderately severely elevated right ventricular systolic pressure at 58 mm of mercury Moderately dilated right and left atria. The aortic valve is mildly thickened and sclerotic. There is moderate mitral valve regurgitation. There is bwen-hv-qhnuungt tricuspid valve regurgitation. There is mild pulmonary valve regurgitation. There is a small pericardial effusion.
[2024-10-19 16:26] VITALS: BP 137/79; PULSE 90; RESP 20; TEMP 97.8; O2SAT 94
[2024-10-19 16:31] VITALS: BP 137/79; PULSE 90; RESP 20; TEMP 97.8; O2SAT 94
[2024-10-19] MEDS ORDERED: ENTE1TAB12 PO (16:49)
[2024-10-19] MEDS: FUROSEMIDE 40 MG/4 ML VIAL IV SCH (17:49)
[2024-10-19 20:00] VITALS: PULSE 102; PULSE 72; RESP 20; O2SAT 94
[2024-10-19] MEDS: ATORVASTATIN 20 MG TAB PO SCH (20:58)
[2024-10-19 21:00] VITALS: BP 180/108; PULSE 78; RESP 18; TEMP 98.2; O2SAT 94
[2024-10-20 01:00] VITALS: BP 118/70; PULSE 74; RESP 20; TEMP 98; O2SAT 98
[2024-10-20 05:00] VITALS: BP 120/74; PULSE 76; RESP 18; TEMP 98.4; O2SAT 99
[2024-10-20 07:51] LABS: Basophils # (auto) 0 10 ^3/uL (0-0.2); Basophils % (auto) 0.6 % (0.0-2.0); Eosinophils # (auto) 0.3 10 ^3/uL (0-0.8); Eosinophils % (auto) 6.5 % (0.0-7.0); Hematocrit 34.6 % (36.0-46.0); Hemoglobin 11.2 g/dL (12.2-16.2); Lymphocytes # (auto) 1.8 10 ^3/uL (0.4-5.4); Lymphocytes % (auto) 35.3 % (10.0-50.0); Mean Corpuscular Hemoglobin 32.5 pg (28.0-32.0); Mean Corpuscular Hgb Conc. 32.3 g/dL (32.0-36.0); Mean Corpuscular Volume 100.7 fL (80.0-100.0); Monocytes # (auto) 0.3 10 ^3/uL (0-1.3); Monocytes % (auto) 6.3 % (0.0-12.0); Neutrophils # (auto) 2.6 10 ^3/uL (1.6-8.6); Neutrophils % (auto) 51.3 % (37.0-80.0); Nucleated Red Blood Cells % 0.2 %; Platelet Count (auto) 134 10^3/uL (140-450); Red Blood Cells 3.44 10^6/uL (4.0-5.20); Red Cell Distribution Width 16.9 % (11.8-14.3)
[2024-10-20 07:57] LABS: Anion Gap 11 (5-15); Carbon Dioxide 24 mmol/L (20-31); Chloride 103 mmol/L (98-107); Potassium 4.5 mmol/L (3.5-5.1); Sodium 138 mmol/L (136-145)
[2024-10-20 08:02] LABS: Calcium 8.5 mg/dL (8.7-10.4)
[2024-10-20 08:03] LABS: BUN/Creatinine Ratio 4.8 (10.0-20.0); Glucose 102 mg/dL (74-106)
[2024-10-20 08:07] LABS: Complement C3 72 mg/dL (82-167); Rheumatoid Arthritis Factor 269.2 IU/mL (<14.0)
[2024-10-20 08:10] LABS: Blood Urea Nitrogen 33 mg/dL (9-23)
[2024-10-20] MEDS: SODIUM CHL 0.9% 1000 ML BAG XX ONE (08:40)
[2024-10-20 09:00] VITALS: BP 113/68; PULSE 76; RESP 19; TEMP 97.4; O2SAT 91
--- NOTE | 2024-10-20 11:43 | DVHPN2 ---
Progress Note Date Seen: Oct 20, 2024 Has the PT tested + for MRSA If YES, has PT been informed?: No Medical Necessity Reason Pt with a Central, PICC or Fol: No Subjective Patient reports: No new complaints Other Systems: Patient seen and examined by myself today in follow-up Objective vital signs Vital Sign Date Time Temp Pulse Resp B/P (MAP) Pulse Ox O2 Delivery O2 Flow Rate FiO2 10/20/24 10:52 113/68 10/20/24 10:52 76 10/20/24 09:00 97.4 19 91 97.4 10/20/24 08:00 Nasal Cannula* 2 28 Total Intake and Output 10/19/24 10/19/24 10/20/24 15:00 23:00 07:00 Intake Total 0 ml 200 ml Balance 0 ml 200 ml medications Current Medications Medications Dose Ordered Sig/Iggy Route Start Time Stop Time Status Last Admin Dose Admin Ceftriaxone Sodium 50 ml @ 100 mls/hr DAILY@09 IV 10/19/24 09:00 10/20/24 09:04 100 MLS/HR Metoprolol Tartrate 25 mg BID PO 10/18/24 22:00 10/20/24 10:52 25 MG Hydralazine HCl 25 mg Q8HR PO 10/18/24 22:00 10/20/24 05:03 25 MG Calcium Acetate 667 mg TIDWMEALS PO 10/19/24 08:00 10/20/24 09:03 667 MG Nifedipine 60 mg DAILY PO 10/19/24 10:00 10/20/24 10:52 60 MG Levothyroxine Sodium 75 mcg QAM@0600 PO 10/19/24 06:00 10/20/24 05:03 75 MCG Sacubitril/ Valsartan 1 tab BID PO 10/18/24 22:00 10/20/24 10:51 1 TAB Apixaban 2.5 mg BID PO 10/18/24 22:00 10/20/24 10:51 2.5 MG Amiodarone HCl 200 mg DAILY PO 10/19/24 10:00 10/20/24 10:50 200 MG Acetaminophen/ Hydrocodone Bitart 1 tab Q4HP PRN PO 10/18/24 20:15 Ondansetron HCl 4 mg Q4HP PRN IV 10/18/24 20:15 Acetaminophen 650 mg Q6HP PRN PO 10/18/24 20:15 Nitroglycerin 0.4 mg Q5MINP PRN SL 10/18/24 20:15 Morphine Sulfate 2 mg Q30M PRN IV 10/18/24 20:15 Sevelamer HCl 800 mg TIDWM PO 10/19/24 08:00 10/20/24 09:04 800 MG Atorvastatin Calcium 10 mg HS PO 10/19/24 22:00 10/19/24 20:58 10 MG Furosemide 40 mg BIDD IV 10/19/24 18:00 10/20/24 05:04 40 MG Examination: LUNGS:Normal, CVS:Normal, MSK:Normal laboratory and microbiology Laboratory Tests 10/20/24 06:32 Test 10/20/24 06:32 Range/Units Serum Glucose 102 74-106 mg/dL Problem List/Assessment/Plan Problem List/Assessment/Plan End-stage renal disease hemodialysis Congestive heart failure, ejection fraction 35% Hepatitis B surface antigen positive Anemia of chronic kidney disease, we will compensated Recommendations Patient has schedule chair time at her clinic for hemodialysis tomorrow Patient wanted to go home Patient is cleared from Nephrology for discharge follow-up outpatient schedule tomorrow for hemodialysis I discussed the plan of care with the patient, her son and the primary nurse at the bedside Plan discussed with: Patient YANETH DE LEÓN MD Oct 20, 2024 11:43
[2024-10-20 13:00] VITALS: BP 119/70; PULSE 96; RESP 19; TEMP 97.4; O2SAT 91
[2024-10-20] MEDS ORDERED: CEPH500C PO (14:52)
--- NOTE | 2024-10-20 15:43 | DVHDSRES ---
Discharge Summary Date of Admission Resident Creating Document: ALEJANDRINA SPAIN RESDIENT Oct 18, 2024 at 20:01 Date of Discharge: Oct 20, 2024 Admitting Diagnosis SOB and pedel edema Labs/Diagnostic Data: Laboratory Results Test 10/20/24 06:32 10/19/24 16:50 10/19/24 10:28 10/19/24 01:25 White Blood Count 5.0 10^3/uL (4.4-10.8) Red Blood Count 3.44 10^6/uL (4.0-5.20) Hemoglobin 11.2 g/dL (12.2-16.2) Hematocrit 34.6 % (36.0-46.0) Mean Corpuscular Volume 100.7 fL (80.0-100.0) Mean Corpuscular Hemoglobin 32.5 pg (28.0-32.0) Mean Corpuscular Hemoglobin Concent 32.3 g/dL (32.0-36.0) Red Cell Distribution Width 16.9 % (11.8-14.3) Platelet Count 134 10^3/uL (140-450) Mean Platelet Volume 9.1 fL (6.9-10.8) Neutrophils (%) (Auto) 51.3 % (37.0-80.0) Lymphocytes (%) (Auto) 35.3 % (10.0-50.0) Monocytes (%) (Auto) 6.3 % (0.0-12.0) Eosinophils (%) (Auto) 6.5 % (0.0-7.0) Basophils (%) (Auto) 0.6 % (0.0-2.0) Neutrophils # (Auto) 2.6 10 ^3/uL (1.6-8.6) Lymphocytes # (Auto) 1.8 10 ^3/uL (0.4-5.4) Monocytes # (Auto) 0.3 10 ^3/uL (0-1.3) Eosinophils # (Auto) 0.3 10 ^3/uL (0-0.8) Basophils # (Auto) 0 10 ^3/uL (0-0.2) Nucleated Red Blood Cells 0.2 % Sodium Level 138 mmol/L (136-145) Potassium Level 4.5 mmol/L (3.5-5.1) Chloride Level 103 mmol/L (98-107) Carbon Dioxide Level 24 mmol/L (20-31) Anion Gap 11 (5-15) Blood Urea Nitrogen 33 mg/dL (9-23) Creatinine 6.90 mg/dL (0.550-1.02) Glomerular Filtration Rate Calc 6 mL/min (>90) BUN/Creatinine Ratio 4.8 (10.0-20.0) Serum Glucose 102 mg/dL (74-106) Calcium Level 8.5 mg/dL (8.7-10.4) Erythrocyte Sedimentation Rate 48 mm/hr (0-20) Rheumatoid Factor 269.2 IU/mL (<14.0) Anti-Nuclear Antibody Comment Comment (.) Complement C3 72 mg/dL (82-167) Complement C4 7 mg/dL (12-38) B-Type Natriuretic Peptide 1409.47 pg/mL (0-100) Test 10/18/24 15:39 10/18/24 15:34 Urine Color Yellow (Yellow) Urine Clarity Turbid (Clear) Urine pH 5.5 (5.0-9.0) Urine Specific [place] 1.005 (1.001-1.035) Urine Protein 1+ (Negative) Urine Ketones Negative (Negative) Urine Blood 1+ /uL (Negative) Urine Nitrite Negative (Negative) Urine Bilirubin Negative (Negative) Urine Urobilinogen Normal mg/dL (Negative) Urine Leukocyte Esterase 1+ /uL (Negative) Urine RBC 8 /hpf (0 - 4) Urine WBC 5 /hpf (0 - 5) Urine Squamous Epithelial Cells Mod /hpf (<5) Urine Bacteria Few /hpf (None Seen) Urine Glucose Normal mg/dL (Normal) Prothrombin Time 11.5 sec (9.3-11.8) Prothrombin Time INR 1.09 (0.9-1.15) Activated Partial Thromboplast Time 21.6 SEC (24.5-34.5) Magnesium Level 1.8 mg/dL (1.6-2.6) Total Bilirubin 0.6 mg/dL (0.2-1.0) Aspartate Amino Transferase (AST) 15 U/L (13-40) Alanine Aminotransferase (ALT) 13 U/L (7-40) Alkaline Phosphatase 58 U/L (46-116) Troponin I High Sensitivity 29 ng/L (</=34) Total Protein 7.8 g/dL (5.7-8.2) Albumin 4.1 g/dL (3.2-4.8) Other Laboratory Tests 10/20/24 06:32 Brief Hx & Hospital Course: The patient is a 69-year-old female with a past medical history of diabetes mellitus type 2, hypertension, hypothyroidism, CHF, ESRD on maintenance hemodialysis, stroke, hepatitis B, post-COVID lung fibrosis on home oxygen, and [place] status post PCI. She presented to the hospital with shortness of breath and bilateral lower limb swelling, which started a week ago and has worsened. She also reported bilateral lower petechial rashes. Her surgical history includes a , cholecystectomy, and AV fistula for hemodialysis. She denies smoking, alcohol, and drug use and lives with her son. Her home medications include amiodarone, amlodipine, apixaban, Lasix 40, metoprolol, nifedipine, Entresto, simvastatin, supplements, and inhalers as needed. Chest x-ray was showing, diffuse bilateral homogeneous opacities. Echocardiogram was showing Moderately severely reduced left ventricular systolic function estimated ejection fraction of 35-30%, there is global wall hypokinesia. . On physical examination there was bilateral pedal edema and crypts on chest auscultation. The patient was put on acute on chronic heart failure treatment protocol. The patient was diuresed, and hemodialysis was performed. Home medication was continued. On 10/20/2024, the patient was feeling better, shortness of breath and bilateral pedal edema had improved, discharge plan discussed with the patient and the patient was discharged. Discharge plan: Follow up with the PCP within 1 week after discharge. Follow up with the discharge Clinic within a week after discharge. Follow up with the have Nephrology on outpatient basis Consults/Reason for consult Nephrology: HD Operations or Procedures [address] [address] Ph: [phone] DIAGNOSTIC IMAGING Diagnostic Imaging Report : [id number] Signed PATIENT: ROBINSON LANE ACCT: [id number] UNIT: [id number] : 1955 LOC: ER ROOM / BED: / AGE / SEX: 69 / F ADM STATUS: REG ER SERVICE 2073 ORDERING PHYSICIAN: DARIN BERGER MD PROCEDURE(s): CXR2 - CHEST TWO VIEWS ROUTINE REASON: sob chf ORDER NUMBER(s): [id number], ACCESSION NUMBER(s): [id number] EXAM: XY CHEST TWO VIEWS ROUTINE CLINICAL HISTORY: sob chf COMPARISON: 05/16/2023 TECHNIQUE: Frontal and lateral view of the chest was obtained FINDINGS: Lines and Tubes: None Lungs: There are likely interstitial changes in the lungs related to interstitial edema. Pleura: No effusion. No pneumothorax. Cardiomediastinal contours:Moderate cardiomegaly. Pulmonary vasculature: There is prominence of the central pulmonary vasculature with cephalized pulmonary vascular flow. Bones: No acute osseous abnormality. IMPRESSION: 1. Moderate cardiomegaly with pulmonary vascular congestion and likely interstitial edema. HS:Y ATED BY: COLTON COTTRELL MD DICTATED DATE/TIME: 10/18/241517 SIGNED BY: COLTON COTTRELL MD SIGNED DATE/TIME: 10/18/241517 CC: Condition at Discharge: Good Final Diagnosis/Problems List Acute on chronic systolic heart failure Acute on chronic hypoxic respiratory failure, likely due to heart failure lung fibrosis, due to status post COVID atrial fibrillation Sepsis, likely due to UTI UTI, undetermined location ESRD, on maintenance hemodialysis hypertension Continue metoprolol and nifedipine hyperlipidemia Mild anemia, likely due to ESRD Petechial rashes due to possible Vasculitic ulcer of right lower extremity, limited to breakdown of skin Hepatitis B surface antigen positive Fluid overload Discharge Disposition: Home Discharge Instruct/Medications Diet: Consistent carbohydrate Activity: No Restrictions, As Tolerated Follow Up/Referral: Follow up with the PCP within 1 week of the discharge Follow up with the discharge Clinic within 1 week to discharge Follow up with the Nephrology, on outpatient basis Follow up with the Cardiology, on outpatient basis Medications: Keflex 500 mg b.i.d. for 7 Discharge Statement: "Patient was advised to return to the ER or call 911 if any headaches, dizziness, shortness of breath, chest pain, abdominal pain, bleeding, fevers, or worsening of medical condition. Patient was counseled about treatment plan, medications, possible side effects, patientverbalized understanding. All questions were answered to the best of my ability. This discharge took greater then 30 minutes in planning, reviewing documentation, counseling the patient, and discussing with other team members." ASSESSMENT ASSESSMENT Assessment Acute on chronic systolic heart failure Acute on chronic hypoxic respiratory failure Lung fibrosis, status post COVID 19 Atrial fibrillation Sepsis, likely due to UTI UTI Date of Service: Oct 20, 2024 Billing Provider: GERALDINE LACKEY MD Common Visit Codes: 56904-ACE/OBS DISCH DAY >30min ALEJANDRINA SPAIN RESDIENT Oct 20, 2024 15:43 GERALDINE LACKEY MD Oct 20, 2024 22:39
[2024-10-21 10:34] LABS: Hepatitis A Ab IgM Negative; Hepatitis B Core IgM Negative (Negative)
[2024-10-21 10:38] LABS: Hepatitis B Surface Antigen Positive (Negative); Hepatitis C Antibody Negative (Negative)
[2024-10-21 12:06] LABS: Anti-Centromere B Antibody <0.2 AI (0.0-0.9); Anti-Jo-1 Antibody <0.2 AI (0.0-0.9); Anti-dsDNA Antibody 1 IU/mL (0-9); Antichromatin Antibody 0.3 AI (0.0-0.9); Antiscleroderma-70 Antibody <0.2 AI (0.0-0.9); RNP Antibody 0.8 AI (0.0-0.9); Sjogren's Anti-SS-A Antibody 1.7 AI (0.0-0.9); Sjogren's Anti-SS-B Antibody <0.2 AI (0.0-0.9); Smith Antibody 0.2 AI (0.0-0.9)
[2024-10-21 19:06] LABS: Cytoplasmic (C-ANCA) <1:20 titer (Neg:<1:20); Perinuclear (P-ANCA) <1:20 titer (Neg:<1:20)
[2024-10-22 11:06] LABS: Antimyeloperoxidase (MPO) Ab <0.2 units (0.0-0.9); Antiproteinase 3 (PR-3) Ab <0.2 units (0.0-0.9)
== END 2024-10-20 15:45 | disposition home or self-care (01) | DRG 871 ==
LOC: ER 13:05 → TELE 20:01 → TELE-WESTW 10-19 16:14
PROVIDERS: ADMIT Internal Medicine; ATTEND Internal Medicine
DX: A41.9 Sepsis, unspecified organism (principal); I50.23 Acute on chronic systolic (congestive) heart failure; J96.21 Acute and chronic respiratory failure with hypoxia; N18.6 End stage renal disease; I13.2 Hypertensive heart and chronic kidney disease with heart failure and with stage 5 chronic kidney disease, or end stage renal disease; D68.9 Coagulation defect, unspecified; N39.0 Urinary tract infection, site not specified; L97.911 Non-pressure chronic ulcer of unspecified part of right lower leg limited to breakdown of skin; E11.22 Type 2 diabetes mellitus with diabetic chronic kidney disease; F17.200 Nicotine dependence, unspecified, uncomplicated; E78.5 Hyperlipidemia, unspecified; I48.91 Unspecified atrial fibrillation; E03.9 Hypothyroidism, unspecified; D63.1 Anemia in chronic kidney disease; R23.3 Spontaneous ecchymoses; Z99.2 Dependence on renal dialysis; Z90.49 Acquired absence of other specified parts of digestive tract; Z82.49 Family history of ischemic heart disease and other diseases of the circulatory system; Z80.3 Family history of malignant neoplasm of breast; Z98.61 Coronary angioplasty status
CPT/HCPCS: 36415; 71046; 80048; 80053; 80074; 81001; 83516; 83520; 83735; 83880; 84484; 85025; 85610; 85652; 85730; 86160; 86225; 86235; 86256; 86431; 93005; 93306; G0378; J1100

== ENCOUNTER 2025-05-09 10:55 | Inpatient (IN) | payer OTHER, MEDICAID ==
[~2025-05-09] VITALS: Ht 160 cm; Wt 81.9 kg
[2025-05-09] VITALS (7 sets, daily range): BP systolic 109–117; BP diastolic 72–76; PULSE 76–96; RESP 15–22; TEMP 98–98.3; O2SAT 95–100
[~2025-05-09 10:55] MED LIST changes: -ALBUAER3 IN; +CEPH500C PO; -ENTE1TAB PO; +ENTE1TAB12 PO; -FURO1TAB31 PO; -LEVO-848 PO
--- NOTE | 2025-05-09 11:10 | ECG ---
[facility] Test Date: 2025-05-09 Test Time: 10:58:56 Pat Name: ROBINSON LANE Department: ER Room: [address] [place] [address] Gender: F Delivery Technician: KASH : 1955 Requested By: CLIFFORD BIRD Order Number: [id number] Reading MD: Nasir Handy Measurements Intervals [place] Rate: 79 P: 0 [place]: 0 QRS: 117 QRSD: 93 T: 109 QT: 521 QTc: 598 Interpretive Statements Atrial fibrillation Ventricular premature complex Right axis deviation Nonspecific T abnrm, anterolateral leads Prolonged QT interval Electronically Signed On 05-09-2025 19:36:20 PDT by Nasir Handy Please click the below link to view image of tracing.
--- NOTE | 2025-05-09 11:12 | ED.PDOC ---
History of Present Illness HPI Comments 70-year-old female brought in by ambulance with prior medical history of anemia, CHF, diabetes, ESRD(Friday, Friday, Friday), high lipids, hypertension, liver disease, thyroid; surgical history of cholecystectomy, , dialysis fistula and a chief complaint of chest pain. EMS report on picking up the patient at her dialysis center with 50 minutes left of her treatment, the worker's informed EMS that she was over by 6 kg. The patient informed EMS that she had a 5/10 left-sided chest pain which was intermittent since yesterday. She was given 324 mg of aspirin EN route. In the ED patient has no current pain. Denies chills, fever, N/V/D. No other associated symptoms, modifiers, recent injuries or sick contacts present at this time. Time Seen by MD: 11:10 Primary Care Provider: MEHREEN Reviewed Notes: Nurses Notes, Medications, Allergies Allergies: Coded Allergies: NO KNOWN ALLERGIES (Unverified , 12/02/19) Home Meds Active Scripts Cephalexin Monohydrate (Cephalexin) 500 Mg Cap, 500 MG PO BID for 7 Days, #14 CAP Prov:DEAN MASTERS RESIDENT 10/20/24 Amiodarone HCl (Amiodarone HCl) 200 Mg Tab, 200 MG PO BID for 30 Days, #60 TAB Prov:GERALDINE LACKEY MD 05/17/23 Apixaban Base (ELIQUIS) 2.5 Mg Tab, 2.5 MG PO BID for 30 Days, #60 TAB Prov:GERALDINE LACKEY MD 05/17/23 Sacubitril-Valsartan (Entresto 24-26 mg) 1 Tab Tab, 1 TAB PO BID for 30 Days, #60 TAB 2 Refills Prov:REBEL WRAY MD 06/20/22 Ferrous Sulfate (Iron) 325 Mg Tab, 325 MG PO DAILY for 30 Days, #30 TAB 3 Refills Prov:REBEL WRAY MD 12/30/21 Amlodipine Besylate (Amlodipine Besylate) 10 Mg Tab, 1 TAB PO DAILY for 30 Days, #30 TAB 5 Refills Prov:REBEL WRAY MD 12/30/21 Isosorbide Mononitrate (Isosorbide Mononitrate ER) 60 Mg Tab, 60 MG PO DAILY for 30 Days, #30 TAB Prov:RUBEN MCDERMOTT MD 10/12/21 Reported Medications Furosemide (Furosemide) 40 Mg Tab, 1 TAB PO DAILY for 90 Days, #90 10/19/24 Levothyroxine Sodium (Levothyroxine Sodium) 150 Mcg Tab, 1 TAB PO DAILY for 90 Days, #90 10/19/24 Hydralazine Hcl (Hydralazine Hcl) 25 Mg Tab, 1 TAB PO QID for 90 Days, #360 10/19/24 Albuterol Sulfate (Albuterol Sulfate Hfa) 108 Mcg/Act Aer, 108 MCG IN UD for 90 Days, #25.5 10/19/24 Entecavir Monohydrate (Entecavir) 0.5 Mg Tab, 1 TAB PO DAILY for 90 Days, #90 BEFORE MEALS 10/19/24 Metoprolol Tartrate (Lopressor) 25 Mg Tb, 1 TAB PO BID for 90 Days, #180 05/13/23 Nifedipine (Nifedipine Er) 90 Mg Tab, 1 TAB PO DAILY for 90 Days, #90 05/13/23 Calcium Acetate (Phosphate Bin (Calcium Acetate) 667 Mg Cap, 2 CAP PO TID for 30 Days, #270 05/13/23 Sevelamer Carbonate (Sevelamer Carbonate) 0.8 Gm Pow, 1 PKT PO TID 05/13/23 Prednisone (Prednisone) 5 Mg Tab, 5 MG PO, TAB 06/15/22 Simvastatin (Simvastatin) 20 Mg Tab, 20 MG PO HS for 30 Days 06/15/22 Cholecalciferol (VITAMIN D) 5,000 Unit Tab, 5000 UNIT PO DAILY, TAB 10/10/21 Beclomethasone Dipropionate (Qvar Redihaler) 80 Mcg/Act Aer, 2 INH PO BID, AER 10/10/21 Information Source: Patient, Emergency Med Personnel Mode of Arrival: EMS Severity: Moderate Timing: Hours Duration: Intermittent, Hours Prehospital treatment: None Past Medical History PAST MEDICAL HISTORY: Anemia, CHF, DM, ESRD (M, W, F), High Lipids, HTN, Liver (Disease), Thyroid (Hyper) Surgical History: Cholecystectomy, Surgical History (Other): Dialysis fistula INTELLIGENCE RESEARCH SPECIALIST History: No Pertinent INTELLIGENCE RESEARCH SPECIALIST History Family History Family History: Reviewed,noncontributory to illness, Unknown, Family hx of HTN Social History Smoker: Unknown Alcohol: Denies ETOH Use Drugs: Denies Drug Use Lives In: Home Constitutional: denies: chills, diaphoresis, fatigue, fever, malaise, sweats, weakness, others EENTM: denies: blurred vision, double vision, ear bleeding, ear discharge, ear drainage, ear pain, ear ringing, eye pain, eye redness, hearing loss, mouth pain, mouth swelling, nasal discharge, nose bleeding, nose congestion, nose p ain, photophobia, tearing, throat pain, throat swelling, voice changes, others Respiratory: denies: cough, hemoptysis, orthopnea, SOB at rest, shortness of breath, SOB with excertion, stridor, wheezing, others Cardiovascular: reports: chest pain; denies: dizzy spells, diaphoresis, Dyspnea on exertion, edema, irregular heart beat, left arm pain, lightheadedness, palpitations, PND, syncope, others Gastrointestinal: denies: abdomen distended, abdominal pain, blood streaked bowels, constipated, diarrhea, dysphagia, difficulty swallowing, hematemesis, melena, nausea, poor appetite, poor fluid intake, rectal bleeding, rectal pain, vomiting, others Genitourinary: denies: abnormal vagina bleeding, burning, dyspareunia, dysuria, flank pain, frequency, hematuria, incontinence, pain, , vagina discharge, urgency, others Neurological: denies: dizziness, fainting, headache, left sided numbness, left sided weakness, numbness, paresthesia, pre-existing deficit, right sided numbness, right sided weakness, seizure, speech problems, tingling, tremors, weakness, others Musculoskeletal: denies: back pain, gout, joint pain, joint swelling, muscle pain, muscle stiffness, neck pain, others Integumetry: denies: bruises, change in color, change in hair/nails, dryness, laceration, lesions, lumps, rash, wounds, others Allergic/Immunocompromised: denies: Difficulty Healing, Frequent Infections, Hives, Itching, others Hematologic/Lymphatic: denies: anemia, blood clots, easy bleeding, easy bruising, swollen glands, others Endocrine: denies: excessive hunger, excessive sweating, excessive thirst, excessive urination, flushing, intolerance to cold, intolerance to heat, unexpl ained weight gain, unexplained weight loss, others Psychiatric: denies: anxiety, bipolar disorder, depression, hopeless, panic disorder, schizophrenia, sleepless, suicidal, others All Other Systems: Reviewed and Negative Physical Exam General Appearance: No Apparent Distress, Normal HEENT: Normal ENT Inspection, Pharynx Normal, TMs Normal Neck: Full Range of Motion, Non-Tender, Normal, Normal Inspection Respiratory: Chest Non-Tender, Lungs Clear, No Accessory Muscle Use, No Respiratory Distress, Normal Breath Sounds Cardiovascular: No Edema, No JVD, No Murmur, No Gallop, Normal Peripheral Pulses, Regular Rate/Rhythm Breast Exam: Deferred Gastrointestinal: No Organomegaly, Non Tender, No Pulsatile Mass, Normal Bowel Sounds, Soft, Other (Abdomen distention) Genitalia: Deferred Pelvic: Deferred Rectal: Deferred Extremities: No calf tenderness, Normal capillary refill, Normal inspection, Normal range of motion, Non-tender, No pedal edema Musculoskeletal : Location: Left Extremity Location: Chest Apperance: Tenderness: Moderate Neurologic: Alert, java j2ee architect II-XII nml as Tested, No Motor Deficits, Normal Affect, Normal Mood, No Sensory Deficits Cerebellar Function: Normal Reflexes: Normal Skin: Dry, Normal Color, Warm Lymphatic: No Adenopathy Was a procedure done? Was a procedure done?: No Differential Dx Considerations may include: acs, pe, ptx, pneumonia, pleurisy X-Ray, Labs, Meds, VS Vital Signs Date Time Temp Pulse Resp B/P (MAP) Pulse Ox O2 Delivery O2 Flow Rate FiO2 05/09/25 12:23 81 05/09/25 11:56 86 05/09/25 11:15 98.2 78 17 111/82 (92) 97 98.2 05/09/25 11:15 78 17 97 Nasal Cannula* 2 28 05/09/25 11:04 98.2 80 16 131/81 (98) 100 98.2 05/09/25 10:58 79 Lab Test 05/09/25 13:14 05/09/25 11:18 Range/Units Troponin I High Sensitivity Pending 27 </=34 ng/L Sodium Level 141 136-145 mmol/L Potassium Level 3.7 3.5-5.1 mmol/L Chloride Level 102 98-107 mmol/L Carbon Dioxide Level 32 H 20-31 mmol/L Anion Gap 7 5-15 Blood Urea Nitrogen 13 9-23 mg/dL Creatinine 3.28 H 0.550-1.02 mg/dL Glomerular Filtration Rate Calc 15 >90 mL/min BUN/Creatinine Ratio 4.0 L 10.0-20.0 Serum Glucose 80 74-106 mg/dL Calcium Level 9.7 8.7-10.4 mg/dL Time of 1ST Reevaluation: 11:40 Reevaluation 1ST: Unchanged Time of 2ND Reevaluation: 13:40 Reevaluation 2ND: Improved Patient Education/Counseling: Diagnosis, Treatment, Prognosis, Need For Follow Up Family Education/Counseling: No Family Present Comments pt has concerning symptoms for ACS. pt will be admitted for further workup SEPSIS Sepsis Screen Physician Orders Chest Portable (05/09/25 11:08) Troponin-I Hs (05/09/25 12:08) Troponin-I Hs (05/09/25 14:08) Electrocardigram (05/09/25 14:08) Complete Blood Count (05/09/25 13:39) Vital Signs Date Time Temp Pulse Resp B/P (MAP) Pulse Ox O2 Delivery O2 Flow Rate FiO2 05/09/25 12:23 81 05/09/25 11:56 86 05/09/25 11:15 98.2 78 17 111/82 (92) 97 98.2 05/09/25 11:15 78 17 97 Nasal Cannula* 2 28 05/09/25 11:04 98.2 80 16 131/81 (98) 100 98.2 05/09/25 10:58 79 Departure 1 Departure Time of Disposition: 13:41 Impression: Primary Impression: Unstable angina Additional Impression: Chronic renal failure Qualified Codes: N18.5 - Chronic kidney disease, stage 5 Disposition: 09 ADMITTED INPATIENT Admit to: Tele Condition: Serious Discharged With: Self Critical Care Note Critical Care Time?: Yes (55 min-critical care time only) Critical care comment: Due to concerns for patients condition deteriorating, the care required my highest level of attention and readiness to intervene. I assessed the patient, reviewed the medical records, ordered the appropriate tests and treatments, then reassessed for results and responsiveness. I communicated with medical personnel and consultants and formulated a plan of care. Total critical care time excludes any procedures Stability Stability form required: No Heart Score Heart Score: Heart Score Response (Comments) Value History Highly Suspicious 2 EKG Repolarization Disturb 1 Age >65 2 Risk Factors >3 or Hx ASHD 2 Troponin Normal limit 0 Total 7 I personally scribed for CLIFFORD BIRD MD ([email or web address]) on 05/09/25 at 11:12. Electronically submitted by Nas Edwards ([email or web address]). CLIFFORD BIRD MD May 09, 2025 11:12
--- NOTE | 2025-05-09 11:36 | DVH ---
CHEST RADIOGRAPH Indication: cp Technique: Single frontal view of the chest was obtained COMPARISON: XY CHEST XRAY 1 VIEW on DOS: 05/16/23, XY CHEST XRAY 1 VIEW on DOS: 05/13/23, XY CHEST PORT ABLE on DOS: 04/23/23, XY CHEST PORTABLE on DOS: 04/21/23, XY CHEST PORTABLE on DOS: 12/24/22 FINDINGS: Lines and Tubes: None Lungs: Congestion Pleura: No effusion. No pneumothorax. Cardiomediastinal contours: Cardiomegaly Bones: Unremarkable IMPRESSION: Pulmonary vascular congestion
[2025-05-09 11:47] LABS: Chloride 102 mmol/L (98-107); Potassium 3.7 mmol/L (3.5-5.1); Sodium 141 mmol/L (136-145)
[2025-05-09 11:48] LABS: Anion Gap 7 (5-15)
[2025-05-09 11:49] LABS: Calcium 9.7 mg/dL (8.7-10.4); Carbon Dioxide 32 mmol/L (20-31)
[2025-05-09 11:53] LABS: BUN/Creatinine Ratio 4.0 (10.0-20.0); Blood Urea Nitrogen 13 mg/dL (9-23); Glucose 80 mg/dL (74-106)
--- NOTE | 2025-05-09 11:58 | ECG ---
[facility] Test Date: 2025-05-09 Test Time: 11:56:03 Pat Name: ROBINSON [address] Department: ER Room: [address] [place] [address] Gender: F Vamp Creaser: KASH : 1955 Requested By: CLIFFORD BIRD Order Number: [id number] Reading MD: Nasir Handy Measurements Intervals [place] Rate: 86 P: 0 [place]: 0 QRS: 106 QRSD: 91 T: 0 QT: 531 QTc: 636 Interpretive Statements Atrial fibrillation Ventricular premature complex Right axis deviation Borderline repolarization abnormality Prolonged QT interval Electronically Signed On 05-09-2025 19:37:13 PDT by Nasir Handy Please click the below link to view image of tracing.
[2025-05-09 14:05] LABS: Hematocrit 34.0 % (36.0-46.0); Hemoglobin 11.2 g/dL (12.2-16.2); Mean Corpuscular Hemoglobin 32.8 pg (28.0-32.0); Mean Corpuscular Volume 99.5 fL (80.0-100.0); Nucleated Red Blood Cells % 0.3 %
[2025-05-09] MEDS ORDERED: DEXTROSE (50%) 50ML SYRG IV PRN (15:00)
[2025-05-09] MEDS ORDERED: ACETAMINOPHEN 325 MG TAB PO PRN (15:00)
[2025-05-09] MEDS ORDERED: hydrALAZINE HCL 20 MG/ML VL IV PRN (15:00)
[2025-05-09] MEDS ORDERED: ONDANSETRON HCL 4 MG/2 ML VIAL IV PRN (15:00)
[2025-05-09] MEDS ORDERED: ALBUTEROL SULF 2.5 MG/0.5ML(0.5%) NEB SOLN NEB PRN (15:15)
--- NOTE | 2025-05-09 16:06 | ECG ---
[facility] Test Date: 2025-05-09 Test Time: 14:01:00 Pat Name: [address] Department: ER Room: [address] [place] [address] Gender: F Digital Media Manager: ARABELLA : 1955 Requested By: CLIFFORD BIRD Order Number: [id number] Reading MD: Nasir Handy Measurements Intervals [place] Rate: 80 P: 0 [place]: 0 QRS: 123 QRSD: 105 T: 105 QT: 501 QTc: 579 Interpretive Statements Atrial fibrillation Ventricular premature complex Left posterior fascicular block Low voltage, precordial leads Abnormal R-wave progression, late transition Nonspecific T abnormalities, lateral leads Prolonged QT interval Electronically Signed On 05-09-2025 19:38:14 PDT by Nasir Handy Please click the below link to view image of tracing.
--- NOTE | 2025-05-09 16:10 | DVHHP2 ---
History of Present Illness Reason for Visit: Unstable angina History of Present Illness The patient is a 70-year-old female with multiple past medical history including anemia, CHF, DM, end-stage renal disease on hemodialysis M-W-F, and hypertension who presented to [facility] with complaint of chest pain. As reported by EMS, patient experienced symptoms at the dialysis center with 50 minutes left of her treatment session, left-sided chest pain, rating intermittent pain 5/10 numeric scale. Patient was seen and evaluated in the ED, laboratory data shows WBC 4.2, hemoglobin 11.2, hematocrit 34.0, platelets 127, sodium 141, potassium 3.7, BUN 13, creatinine 3.28, glucose 80, calcium 9.7, troponin 25, blood pressure 112/82, heart rate 86, temperature 98.2 F, O2 saturation 97% on room air. Chest x-ray revealing pulmonary vascular congestion. Please see medication orders section in the computer. On my assessment, patient denied chest pain at this moment, no dizziness, no headache, no diaphoresis, no shortness of breath, no nausea, no vomiting, no fever, no chills. Patient was admitted for further evaluation and medical management. Past Medical History Anemia, CHF, DM, ESRD (M, W, F), High Lipids, HTN, Liver (Disease), Thyroid (Hyper) Past Surgical History Cholecystectomy, , Dialysis fistula Family History Reviewed, noncontributory to the management of this case. Past Social History The patient lives at home, denies smoking, alcohol or illicit drugs abuse. Review of Systems Constitutional: Yes: Weakness; No: Fever, Chills, Sweats, Malaise, Other Eyes: No: Pain, Vision change, Conjunctivae inflammation, Eyelid inflammation, Other, Redness ENT: No: Ear pain, Ear discharge, Nose pain, Nose discharge, Nose congestion, Mouth pain, Mouth swelling, Throat pain, Throat swelling, Other Respiratory: No: Cough, Dry, Shortness of breath, SOB with excertion, Wheezing, Hemoptysis, Pleuritic Pain, Sputum, Wheezing, Other Cardiovascular: Chest Pain; No: Palpitations, Orthopnea, Paroxysmal Noc. Dyspnea, Edema, Lt Headedness, Other Gastrointestinal: No: Nausea, Vomiting, Abdominal Pain, Diarrhea, Constipation, Melena, Hematochezia, Other Genitourinary: No Dysuria, No Frequency, No Incontinence, No Hematuria, No Retention; Other (On hemodialysis) Musculoskeletal: other (Right upper extremity AV fistula); No: neck pain, shoulder pain, arm pain, back pain, hand pain, leg pain, foot pain Skin: No: Rash, Lesions, Jaundice, Bruising, Other Neurological: No: Weakness, Numbness, Incoordination, Change in speech, Confusion, Seizures, Other Allergies: Coded Allergies: NO KNOWN ALLERGIES (Unverified , 12/02/19) Medications Current Medications Medications Dose Ordered Sig/Iggy Route Start Time Stop Time Status Last Admin Dose Admin Aspirin 81 mg DAILY PO 05/10/25 10:00 UNV Atorvastatin Calcium 10 mg HS PO 05/09/25 22:00 UNV Amlodipine Besylate 5 mg DAILY PO 05/10/25 10:00 UNV Hydralazine HCl 10 mg Q6HP PRN IV 05/09/25 15:00 UNV Multivit/Ca Carb/ B Cmplx/FA/Prenat 1 tab DAILY PO 05/10/25 10:00 UNV Sevelamer HCl 800 mg TIDWM PO 05/09/25 18:00 UNV Famotidine 20 mg DAILY IV 05/10/25 10:00 UNV Levothyroxine Sodium 150 mcg QAM@0600 PO 05/10/25 06:00 UNV Diagnostic Test (Pha) 1 strip ACHS 05/09/25 17:00 UNV Insulin Human Regular ACHS SC 05/09/25 17:00 UNV Dextrose 50 ml UD PRN IV 05/09/25 15:00 UNV Sodium Chloride 10 ml Q8HR IV 05/09/25 22:00 UNV Acetaminophen/ Hydrocodone Bitart 1 tab Q4HP PRN PO 05/09/25 15:00 UNV Ondansetron HCl 4 mg Q4HP PRN IV 05/09/25 15:00 UNV Docusate Sodium 100 mg BIDPRN PRN PO 05/09/25 15:00 UNV Acetaminophen 650 mg Q6HP PRN PO 05/09/25 15:00 UNV Albuterol 2.5 mg Q4HPRN PRN NEB 05/09/25 15:15 UNV Exam Vital Signs Vital Signs Date Time Temp Pulse Resp B/P (MAP) Pulse Ox O2 Delivery O2 Flow Rate FiO2 05/09/25 15:31 100 Nasal Cannula* 2 28 7/14/25 15:23 98.3 76 15 117/72 98.3 General Appearance: Alert, Oriented X3, Cooperative, No acute distress HEENT: Atraumatic, PERRLA, EOMI, Mucous membr. moist/pink Respiratory: Normal air movement, Other (Diminished breath sounds) Cardiovascular: Regular rate, Normal S1, Normal S2, No murmurs Abdominal: Normal bowel sounds, Soft, No tenderness, No hepatospenomegaly, No masses Extremities: No clubbing, No cyanosis, No edema, Normal pulses, No tenderness/swelling, Other (Right upper extremity AV fistula) Skin: No rashes, No significant lesion Neuro: Normal speech, Normal tone, Sensation intact, Cranial nerves 3-12 NL, Reflexes 2+, Other (Generalized weakness) Psych/Mental Status: Mental status NL, Mood NL Labs/Xrays Labs Test 05/09/25 15:20 05/09/25 11:18 Range/Units Troponin I High Sensitivity 27 </=34 ng/L White Blood Count 4.2 L 4.4-10.8 10^3/uL Red Blood Count 3.42 L 4.0-5.20 10^6/uL Hemoglobin 11.2 L 12.2-16.2 g/dL Hematocrit 34.0 L 36.0-46.0 % Mean Corpuscular Volume 99.5 80.0-100.0 fL Mean Corpuscular Hemoglobin 32.8 H 28.0-32.0 pg Mean Corpuscular Hemoglobin Concent 32.9 32.0-36.0 g/dL Red Cell Distribution Width 18.4 H 11.8-14.3 % Platelet Count 127 L 140-450 10^3/uL Mean Platelet Volume 9.3 6.9-10.8 fL Neutrophils (%) (Auto) 52.0 37.0-80.0 % Lymphocytes (%) (Auto) 35.7 10.0-50.0 % Monocytes (%) (Auto) 6.5 0.0-12.0 % Eosinophils (%) (Auto) 4.7 0.0-7.0 % Basophils (%) (Auto) 1.1 0.0-2.0 % Neutrophils # (Auto) 2.2 1.6-8.6 10 ^3/uL Lymphocytes # (Auto) 1.5 0.4-5.4 10 ^3/uL Monocytes # (Auto) 0.3 0-1.3 10 ^3/uL Eosinophils # (Auto) 0.2 0-0.8 10 ^3/uL Basophils # (Auto) 0 0-0.2 10 ^3/uL Nucleated Red Blood Cells 0.3 % Sodium Level 141 136-145 mmol/L Potassium Level 3.7 3.5-5.1 mmol/L Chloride Level 102 98-107 mmol/L Carbon Dioxide Level 32 H 20-31 mmol/L Anion Gap 7 5-15 Blood Urea Nitrogen 13 9-23 mg/dL Creatinine 3.28 H 0.550-1.02 mg/dL Glomerular Filtration Rate Calc 15 >90 mL/min BUN/Creatinine Ratio 4.0 L 10.0-20.0 Serum Glucose 80 74-106 mg/dL Calcium Level 9.7 8.7-10.4 mg/dL Thyroid Stimulating Hormone (TSH) 138.60 H 0.55-4.78 uIU/mL PATIENT: ARIANA,ROBINSON T ACCT: [id number] UNIT: [id number] : 1955 LOC: ER ROOM / BED: / AGE / SEX: 70 / F ADM STATUS: REG ER SERVICE 1108 ORDERING PHYSICIAN: CLIFFORD BIRD MD PROCEDURE(s): CXRP - CHEST PORTABLE REASON: cp ORDER NUMBER(s): [id number], ACCESSION NUMBER(s): [id number] CHEST RADIOGRAPH Indication: cp Technique: Single frontal view of the chest was obtained COMPARISON: XY CHEST XRAY 1 VIEW on DOS: 05/16/23, XY CHEST XRAY 1 VIEW on DOS: 05/13/23, XY CHEST PORTABLE on DOS: 04/23/23, XY CHEST PORTABLE on DOS: 04/21/23, X Y CHEST PORTABLE on DOS: 12/24/22 FINDINGS: Lines and Tubes: None Lungs: Congestion Pleura: No effusion. No pneumothorax. Cardiomediastinal contours: Cardiomegaly Bones: Unremarkable IMPRESSION: Pulmonary vascular congestion SEPSIS Sepsis Screen Date sepsis recognized/suspect: May 09, 2025 Time Sepsis recognized/suspect: 111 Recent Procedure: No On Antibiotic Therapy: No Respiratory Rate >20: No Heart Rate >90: No Temp<36 C (96.8 F) or >38.3 C: No SBP <90 or MAP <65 mmHG: No New Acute Mental Status Change: No Is the patient on CPAP, BIPAP,: No Physician Orders Chest Portable (05/09/25 11:08) Aspirin Tablet (05/10/25 10:00) Atorvastatin (Lipitor) (05/09/25 22:00) Amlodipine Tablet (Norvasc Tablet) (05/10/25 10:00) Hydralazine Injection (Apresoline Inject (05/09/25 15:00) B-Complex W/ C & Folic Tablet (Nephro-Vi (05/10/25 10:00) Sevelamer (Renagel) (05/09/25 18:00) Famotidine Injection (Pepcid Injection) (05/10/25 10:00) Levothyroxine Tablet (Synthroid Tablet) (05/10/25 06:00) *[facility] (05/09/25 14:59) Glucose Blood (Accu-Chek Comfort Curve T (05/09/25 17:00) Insulin R (Human) (Insulin R) (05/09/25 17:00) Dextrose 50% Syringe (05/09/25 15:00) Allergies (05/09/25 14:59) Code Status (05/09/25:59) Renal Standard(2gna,3gk,Lopho) (05/09/25 Dinner) Sodium Chloride Lock (Saline Lock Ns) (05/09/25 22:00) Oxygen Per Hour (05/09/25 14:59) Hydrocodone-Acet 5/325mg Tab ([place] 5/32 (05/09/25 15:00) Ondansetron Hcl (Zofran) (05/09/25 15:00) Docusate Sodium Capsule (Colace Capsule) (05/09/25 15:00) Fall Risk Precautions In Place QSHIFT (05/09/25 14:59) Complete Blood Count (05/10/25 04:00) Comprehensive Metabolic Panel (05/10/25 04:00) Condition: Serious (05/09/25 14:59) Acetaminophen Tablet (Tylenol Tablet) (05/09/25 15:00) Maintain Bed Rest (05/09/25 14:59) Sequential Compression Device (05/09/25 ) Albuterol Medneb (Ventolin Medneb) (05/09/25 15:15) Vital Signs Date Time Temp Pulse Resp B/P (MAP) Pulse Ox O2 Delivery O2 Flow Rate FiO2 05/09/25 15:31 100 Nasal Cannula* 2 28 05/09/25 15:31 100 Nasal Cannula 2.0 05/09/25 15:23 98.3 76 15 117/72 100 2.0 28 98.3 05/09/25 14:01 80 05/09/25 14:00 98.3 76 15 117/72 (87) 100 98.3 05/09/25 12:23 81 05/09/25 12:00 97.0 74 19 112/72 (85) 100 97.0 05/09/25 11:56 86 05/09/25 11:15 98.2 78 17 111/82 (92) 97 98.2 05/09/25 11:15 78 17 97 Nasal Cannula* 2 28 05/09/25 11:04 98.2 80 16 131/81 (98) 100 98.2 05/09/25 10:58 79 Laboratory Tests Test 05/09/25 11:18 White Blood Count 4.2 10^3/uL (4.4-10.8) L Assessment/Plan Assessment/Plan Unstable angina Pancytopenia Chronic renal failure Chronic kidney disease, stage 5 Generalized weakness Anemia of chronic disease End-stage renal disease on hemodialysis Plan 1. Admit to telemetry unit 2. Breathing treatment 3. Pain control management 4. Management of fluids and electrolytes 5. Consultation for Nephrology 6. Diagnostic tests chest x-ray 7. DVT prophylaxis-on aspirin 8. Repeat labs CBC, CMP in a.m. 9. Continue with current medical management 10. Treatment plan discussed with patient and RN. Patient verbalized understanding. Plan discussed with: Patient, Other (RN) My Orders Orders - GISSELL MEDINA DNP Procedure Category Date Status Time Aspirin Tablet PHA 05/10/25 Logged 10:00 Atorvastatin (Lipitor) PHA 05/09/25 Logged 22:00 Amlodipine Tablet PHA 05/10/25 Logged (Norvasc Tablet) 10:00 Hydralazine Injection PHA 05/09/25 Logged (Apresoline Inject 15:00 B-Complex W/ C & PHA 05/10/25 Logged Folic Tablet 10:00 Sevelamer (Renagel) PHA 05/09/25 Logged 18:00 Famotidine Injection PHA 05/10/25 Logged (Pepcid Injection) 10:00 Levothyroxine Tablet PHA 05/10/25 Logged (Synthroid Tablet) 06:00 *Dr. Juan Diego Rowell CONS 05/09/25 Transmitted -[place] 14:59 Glucose Blood PHA 05/09/25 Logged (Accu-Chek Comfort 17:00 Insulin R (Human) PHA 05/09/25 Logged (Insulin R) 17:00 Dextrose 50% Syringe PHA 05/09/25 Logged 15:00 Allergies AMINATA 05/09/25 In Process 14:59 Code Status CODE 05/09/25 Transmitted 14:59 Renal DIET 05/09/25 Transmitted Standard(2gna,3gk,Lopho) Dinner Sodium Chloride Lock PHA 05/09/25 Logged (Saline Lock Ns) 22:00 Oxygen Per Hour RT 05/09/25 Transmitted 14:59 Hydrocodone-Acet PHA 05/09/25 Logged 5/325mg Tab ([place] 15:00 Ondansetron Hcl PHA 05/09/25 Logged (Zofran) 15:00 Docusate Sodium PHA 05/09/25 Logged Capsule (Colace 15:00 Fall Risk Precautions AMINATA 05/09/[address] 14:59 Complete Blood Count LAB 05/10/25 Verified 04:00 Comprehensive LAB 05/10/25 Verified Metabolic Panel 04:00 Condition: Serious AMINATA 05/09/25 In Process 14:59 Acetaminophen Tablet PHA 05/09/25 Logged (Tylenol Tablet) 15:00 Maintain Bed Rest AMINATA 05/09/25 In Process 14:59 Sequential AMINATA 05/09/25 In Process Compression Device Albuterol Medneb PHA 05/09/25 Logged (Ventolin Medneb) 15:15 Problem List: (1) Unstable angina (2) Pancytopenia (3) Chronic renal failure (4) Chronic kidney disease, stage 5 (5) Generalized weakness (6) Anemia of chronic disease (7) End-stage renal disease on hemodialysis Date of Service: May 09, 2025 Billing Provider: GISSELL MEDINA DNP Common Visit Codes: 23388-PHHGESB INP/OBS CARE (HIGH) GISSELL MEDINA DNP May 09, 2025 16:10
[2025-05-09] MEDS ORDERED: NITROGLYCERIN 0.4 MG SL TAB SL PRN (16:15)
[2025-05-09] MEDS ORDERED: MORPHINE SULFATE INJ 2 MG/ml SYRG IV PRN (16:15)
[2025-05-09] MEDS: InsuLIN REG 1unit/0.01ml Soln (100units/ml) SC SCH (16:53)
[2025-05-09] MEDS: ACCU-CHEK COMFORT CURVE STRIP VI SCH (16:54)
[2025-05-09] MEDS: SEVELAMER 800 MG TAB PO SCH (17:44)
[2025-05-09] MEDS: SODIUM CHLOR 0.9% PF (SALINE LOCK) 10ML VIAL/SYR IV SCH (23:35)
[2025-05-09] MEDS: ATORVASTATIN 20 MG TAB PO SCH (23:36)
[2025-05-10] VITALS (10 sets, daily range): BP systolic 113–133; BP diastolic 71–86; PULSE 91–126; RESP 16–20; TEMP 97.9–98.7; O2SAT 92–99
[2025-05-10] MEDS: LEVOTHYROXINE SODIUM 50 MCG TAB PO SCH (06:18)
[2025-05-10 07:23] LABS: Hematocrit 32.5 % (36.0-46.0); Hemoglobin 10.6 g/dL (12.2-16.2); Mean Corpuscular Hemoglobin 32.4 pg (28.0-32.0); Mean Corpuscular Volume 99.6 fL (80.0-100.0); Nucleated Red Blood Cells % 0.2 %
[2025-05-10 07:42] LABS: Anion Gap 10 (5-15); BUN/Creatinine Ratio 4.8 (10.0-20.0); Blood Urea Nitrogen 23 mg/dL (9-23); Calcium 9.5 mg/dL (8.7-10.4); Carbon Dioxide 28 mmol/L (20-31); Chloride 101 mmol/L (98-107); Glucose 102 mg/dL (74-106); Potassium 4.1 mmol/L (3.5-5.1); Sodium 139 mmol/L (136-145); Total Protein 6.9 g/dL (5.7-8.2)
[2025-05-10 07:43] LABS: Albumin 3.6 g/dL (3.2-4.8)
[2025-05-10 07:44] LABS: Bilirubin, Total 0.7 mg/dL (0.2-1.0)
[2025-05-10 07:45] LABS: Alkaline Phosphatase 33 U/L (46-116)
[2025-05-10 07:46] LABS: Alanine Aminotransferase < 9 U/L (7-40)
[2025-05-10] MEDS: B-COMPLEX W/ C & FOLIC ACID(NEPHROVITE TAB) PO SCH (08:32)
[2025-05-10] MEDS: FAMOTIDINE (10MG/ML) 2ML VL IV SCH (08:33)
[2025-05-10] MEDS: HYDROcodone-ACET 5/325MG TAB PO PRN (08:41)
[2025-05-10] MEDS ORDERED: SODIUM CHL 0.9% 1000 ML BAG XX ONE (10:00)
--- NOTE | 2025-05-10 10:40 | DVHINCON2 ---
Date of service: May 10, 2025 Reason for Consultation End-stage renal disease History of Present Illness 70-year-old [place] female with past medical history of congestive heart failure, hepatitis-B, afib, CVA and end-stage renal disease on hemodialysis presents to the hospital after dialysis complaining of chest pain. Patient did not complete dialysis due to chest pain. She was sent to the hospital for this reason admitted. Notable findings on chest x-ray shows pulmonary vascular congestion Past Medical History CVA afib CHF ESRD Past Surgical History AVF Allergies: Coded Allergies: NO KNOWN ALLERGIES (Unverified , 12/02/19) Home Meds Active Scripts Cephalexin Monohydrate (Cephalexin) 500 Mg Cap, 500 MG PO BID for 7 Days, #14 CAP Prov:DEAN MASTERS 10/20/24 Amiodarone HCl (Amiodarone HCl) 200 Mg Tab, 200 MG PO BID for 30 Days, #60 TAB Prov:GERALDINE LACKEY MD 05/17/23 Apixaban Base (ELIQUIS) 2.5 Mg Tab, 2.5 MG PO BID for 30 Days, #60 TAB Prov:GERALDINE LACKEY MD 05/17/23 Sacubitril-Valsartan (Entresto 24-26 mg) 1 Tab Tab, 1 TAB PO BID for 30 Days, #60 TAB 2 Refills Prov:REBEL WRAY MD 06/20/22 Ferrous Sulfate (Iron) 325 Mg Tab, 325 MG PO DAILY for 30 Days, #30 TAB 3 Refills Prov:REBEL WRAY MD 12/30/21 Amlodipine Besylate (Amlodipine Besylate) 10 Mg Tab, 1 TAB PO DAILY for 30 Days, #30 TAB 5 Refills Prov:REBEL WRAY MD 12/30/21 Isosorbide Mononitrate (Isosorbide Mononitrate ER) 60 Mg Tab, 60 MG PO DAILY for 30 Days, #30 TAB Prov:RUBEN MCDERMOTT MD 10/12/21 Reported Medications Furosemide (Furosemide) 40 Mg Tab, 1 TAB PO DAILY for 90 Days, #90 10/19/24 Levothyroxine Sodium (Levothyroxine Sodium) 150 Mcg Tab, 1 TAB PO DAILY for 90 Days, #90 12/24/24 Hydralazine Hcl (Hydralazine Hcl) 25 Mg Tab, 1 TAB PO QID for 90 Days, #360 10/19/24 Albuterol Sulfate (Albuterol Sulfate Hfa) 108 Mcg/Act Aer, 108 MCG IN UD for 90 Days, #25.5 10/19/24 Entecavir Monohydrate (Entecavir) 0.5 Mg Tab, 1 TAB PO DAILY for 90 Days, #90 BEFORE MEALS 10/19/24 Metoprolol Tartrate (Lopressor) 25 Mg Tb, 1 TAB PO BID for 90 Days, #180 05/13/23 Nifedipine (Nifedipine Er) 90 Mg Tab, 1 TAB PO DAILY for 90 Days, #90 05/13/23 Calcium Acetate (Phosphate Bin (Calcium Acetate) 667 Mg Cap, 2 CAP PO TID for 30 Days, #270 05/13/23 Sevelamer Carbonate (Sevelamer Carbonate) 0.8 Gm Pow, 1 PKT PO TID 05/13/23 Prednisone (Prednisone) 5 Mg Tab, 5 MG PO, TAB 06/15/22 Simvastatin (Simvastatin) 20 Mg Tab, 20 MG PO HS for 30 Days 06/15/22 Cholecalciferol (VITAMIN D) 5,000 Unit Tab, 5000 UNIT PO DAILY, TAB 10/10/21 Beclomethasone Dipropionate (Qvar Redihaler) 80 Mcg/Act Aer, 2 INH PO BID, AER 10/10/21 Current Medications Current Medications Medications (Trade) Dose Ordered Sig/Iggy Route PRN Reason Start Time Stop Time Status Last Admin Aspirin 81 mg DAILY PO 05/10/25 10:00 05/10/25 08:33 Atorvastatin Calcium (Lipitor) 10 mg HS PO 05/09/25 22:00 05/09/25 23:36 Amlodipine Besylate (Norvasc Tablet) 5 mg DAILY PO 05/10/25 10:00 05/10/25 08:33 Hydralazine HCl (Apresoline Injection) 10 mg Q6HP PRN IV SBP>150 05/09/25 15:00 Multivit/Ca Carb/ B Cmplx/FA/Prenat (Nephro-Nick Tablet) 1 tab DAILY PO 05/10/25 10:00 05/10/25 08:32 Sevelamer HCl (Renagel) 800 mg TIDWM PO 05/09/25 18:00 05/10/25 08:33 Famotidine (Pepcid Injection) 20 mg DAILY IV 05/10/25 10:00 05/10/25 08:33 Levothyroxine Sodium (Synthroid Tablet) 150 mcg QAM@0600 PO 05/10/25 06:00 05/10/25 06:18 Diagnostic Test (Pha) (Accu-Chek Comfort Curve T) 1 strip ACHS 05/09/25 17:00 05/10/25 06:18 Insulin Human Regular (InsuLIN R) ACHS SC 05/09/25 17:00 Dextrose 50 ml UD PRN IV Blood Sugar LESS THAN 60 05/09/25 15:00 Sodium Chloride (Saline Lock Ns) 10 ml Q8HR IV 05/09/25 22:00 05/10/25 06:18 Acetaminophen/ Hydrocodone Bitart ([place] 5/325MG Tab) 1 tab Q4HP PRN PO MODERATE PAIN (4-6 PAIN SCALE) 05/09/25 15:00 05/10/25 08:41 Ondansetron HCl (Zofran) 4 mg Q4HP PRN IV NAUSEA / VOMITING 05/09/25 15:00 Docusate Sodium (Colace Capsule) 100 mg BIDPRN PRN PO FOR CONSTIPATION 05/09/25 15:00 Acetaminophen (Tylenol Tablet) 650 mg Q6HP PRN PO PAIN SCALE 1-3 OR TEMP>100.4 05/09/25 15:00 Albuterol (Ventolin Medneb) 2.5 mg Q4HPRN PRN NEB SHORTNESS OF BREATH 05/09/25 15:15 Nitroglycerin (Ntrostat Sublingual) 0.4 mg Q5MINP PRN SL FOR CHEST PAIN 05/09/25 16:15 Morphine Sulfate 2 mg Q30M PRN IV FOR CHEST PAIN 05/09/25 16:15 Family History: FH: HTN (hypertension) G8 FATHER FH: breast cancer G8 MOTHER FH: breast cancer G8 MOTHER Hypercholesterolemia G8 MOTHER G8 FATHER Review of Systems Chest pain H&P Exam Vital Signs/I&O Vital Sign Date Time Temp Pulse Resp B/P (MAP) Pulse Ox O2 Delivery O2 Flow Rate FiO2 05/10/25 09:00 98.2 92 18 113/83 (93) 93 98.2 05/10/25 06:55 Nasal Cannula* 2 28 Intake and Output 05/09/25 05/10/25 19:00 07:00 Intake Total 300 ml Balance 300 ml Intake Oral 300 ml Physical Exam Elderly [place] female Mildly in distress Seated upright in the chair position in bed Bilateral crackles Right arm AV fistula 1+ ankle edema Labs/Diagnostic Data Labs/Diagnostic Data Laboratory Tests Test 05/10/25 06:08 05/10/25 05:57 05/09/25 23:10 05/09/25 15:20 Range/Units POC Glucose 100 128 H 70-106 mg/dl White Blood Count 4.2 L 4.4-10.8 10^3/uL Red Blood Count 3.26 L 4.0-5.20 10^6/uL Hemoglobin 10.6 L 12.2-16.2 g/dL Hematocrit 32.5 L 36.0-46.0 % Mean Corpuscular Volume 99.6 80.0-100.0 fL Mean Corpuscular Hemoglobin 32.4 H 28.0-32.0 pg Mean Corpuscular Hemoglobin Concent 32.5 32.0-36.0 g/dL Red Cell Distribution Width 18.2 H 11.8-14.3 % Platelet Count 118 L 140-450 10^3/uL Mean Platelet Volume 9.6 6.9-10.8 fL Neutrophils (%) (Auto) 61.0 37.0-80.0 % Lymphocytes (%) (Auto) 24.1 10.0-50.0 % Monocytes (%) (Auto) 7.6 0.0-12.0 % Eosinophils (%) (Auto) 6.0 0.0-7.0 % Basophils (%) (Auto) 1.3 0.0-2.0 % Neutrophils # (Auto) 2.6 1.6-8.6 10 ^3/uL Lymphocytes # (Auto) 1.0 0.4-5.4 10 ^3/uL Monocytes # (Auto) 0.3 0-1.3 10 ^3/uL Eosinophils # (Auto) 0.3 0-0.8 10 ^3/uL Basophils # (Auto) 0.1 0-0.2 10 ^3/uL Nucleated Red Blood Cells 0.2 % Sodium Level 139 136-145 mmol/L Potassium Level 4.1 3.5-5.1 mmol/L Chloride Level 101 98-107 mmol/L Carbon Dioxide Level 28 20-31 mmol/L Anion Gap 10 5-15 Blood Urea Nitrogen 23 # 9-23 mg/dL Creatinine 4.76 #H 0.550-1.02 mg/dL Glomerular Filtration Rate Calc 9 >90 mL/min BUN/Creatinine Ratio 4.8 L 10.0-20.0 Serum Glucose 102 74-106 mg/dL Calcium Level 9.5 8.7-10.4 mg/dL Total Bilirubin 0.7 0.2-1.0 mg/dL Aspartate Amino Transferase (AST) 13 13-40 U/L Alanine Aminotransferase (ALT) < 9 7-40 U/L Alkaline Phosphatase 33 L 46-116 U/L Total Protein 6.9 5.7-8.2 g/dL Albumin 3.6 3.2-4.8 g/dL Troponin I High Sensitivity 27 </=34 ng/L Test 05/09/25 13:14 05/09/25 11:18 Range/Units Troponin I High Sensitivity 25 27 </=34 ng/L White Blood Count 4.2 L 4.4-10.8 10^3/uL Red Blood Count 3.42 L 4.0-5.20 10^6/uL Hemoglobin 11.2 L 12.2-16.2 g/dL Hematocrit 34.0 L 36.0-46.0 % Mean Corpuscular Volume 99.5 80.0-100.0 fL Mean Corpuscular Hemoglobin 32.8 H 28.0-32.0 pg Mean Corpuscular Hemoglobin Concent 32.9 32.0-36.0 g/dL Red Cell Distribution Width 18.4 H 11.8-14.3 % Platelet Count 127 L 140-450 10^3/uL Mean Platelet Volume 9.3 6.9-10.8 fL Neutrophils (%) (Auto) 52.0 37.0-80.0 % Lymphocytes (%) (Auto) 35.7 10.0-50.0 % Monocytes (%) (Auto) 6.5 0.0-12.0 % Eosinophils (%) (Auto) 4.7 0.0-7.0 % Basophils (%) (Auto) 1.1 0.0-2.0 % Neutrophils # (Auto) 2.2 1.6-8.6 10 ^3/uL Lymphocytes # (Auto) 1.5 0.4-5.4 10 ^3/uL Monocytes # (Auto) 0.3 0-1.3 10 ^3/uL Eosinophils # (Auto) 0.2 0-0.8 10 ^3/uL Basophils # (Auto) 0 0-0.2 10 ^3/uL Nucleated Red Blood Cells 0.3 % Sodium Level 141 136-145 mmol/L Potassium Level 3.7 3.5-5.1 mmol/L Chloride Level 102 98-107 mmol/L Carbon Dioxide Level 32 H 20-31 mmol/L Anion Gap 7 5-15 Blood Urea Nitrogen 13 9-23 mg/dL Creatinine 3.28 H 0.550-1.02 mg/dL Glomerular Filtration Rate Calc 15 >90 mL/min BUN/Creatinine Ratio 4.0 L 10.0-20.0 Serum Glucose 80 74-106 mg/dL Calcium Level 9.7 8.7-10.4 mg/dL Thyroid Stimulating Hormone (TSH) 138.60 H 0.55-4.78 uIU/mL Assessment Admitted for chest pain after dialysis End-stage renal disease Hypertension Congestive heart failure EF 35% in 2023 Hepatitis-B hx AFIB Hd today for more fluid removal fluid restriction rec repeat Echo trops neg this admission needs fluid med reconciliation Plan discussed with: Patient DHEERAJ DAI MD May 10, 2025 10:40
[2025-05-10] MEDS: CALCIUM ACETATE 667 MG CAP PO SCH (12:24)
--- NOTE | 2025-05-10 18:31 | DVHPN2 ---
Subjective No chest pain Reviewed: H&P, Labs Changes from previous H/P or p: No Changes Eyes: No Pain, No Vision change, No Conjunctivae inflammation, No Eyelid inflammation, No Other, No Redness ENT: No Ear pain, No Ear discharge, No Nose pain, No Nose discharge, No Nose congestion, No Mouth pain, No Mouth swelling, No Throat pain, No Throat swelling, No Other Cardiovascular: Chest Pain; No Palpitations, No Orthopnea, No Paroxysmal Noc. Dyspnea, No Edema, No Lt Headedness, No Other Respiratory: No Cough, No Dry, No Shortness of breath, No SOB with excertion, No Wheezing, No Hemoptysis, No Pleuritic Pain, No Sputum, No Other Gastrointestinal: No Nausea, No Vomiting, No Abdominal Pain, No Diarrhea, No Constipation, No Melena, No Hematochezia, No Other Genitourinary: No Dysuria, No Frequency, No Incontinence, No Hematuria, No Retention; Other (On hemodialysis) Musculoskeletal: other (Right upper extremity AV fistula); No neck pain, No shoulder pain, No arm pain, No back pain, No hand pain, No leg pain, No foot pain Skin: No Rash, No Lesions, No Jaundice, No Bruising, No Other Objective Vitals Vital Signs Date Time Temp Pulse Resp B/P (MAP) Pulse Ox O2 Delivery O2 Flow Rate FiO2 05/10/25 17:00 98.3 110 20 116/72 (87) 95 98.3 05/10/25 08:00 Nasal Cannula* 2 28 Intake/Output Intake and Output 05/10/25 07:00 Intake Total 300 ml Balance 300 ml Intake Oral 300 ml General Appearance: Alert, Oriented X3, Cooperative HEENT: Atraumatic Lungs: Clear to auscultation Cardiovascular: Regular rate, Normal S1, Normal S2 Abdomen: Normal bowel sounds Medications Current Medications Medications Dose Ordered Sig/Iggy Route Start Time Stop Time Status Last Admin Dose Admin Aspirin 81 mg DAILY PO 05/10/25 10:00 05/10/25 08:33 81 MG Atorvastatin Calcium 10 mg HS PO 05/09/25 22:00 05/09/25 23:36 10 MG Amlodipine Besylate 5 mg DAILY PO 05/10/25 10:00 05/10/25 08:33 5 MG Hydralazine HCl 10 mg Q6HP PRN IV 05/09/25 15:00 Multivit/Ca Carb/ B Cmplx/FA/Prenat 1 tab DAILY PO 05/10/25 10:00 05/10/25 08:32 1 TAB Famotidine 20 mg DAILY IV 05/10/25 10:00 05/10/25 08:33 20 MG Levothyroxine Sodium 150 mcg QAM@0600 PO 05/10/25 06:00 05/10/25 06:18 150 MCG Diagnostic Test (Pha) 1 strip ACHS 05/09/25 17:00 05/10/25 17:00 1 STRIP Insulin Human Regular ACHS SC 05/09/25 17:00 Dextrose 50 ml UD PRN IV 05/09/25 15:00 Sodium Chloride 10 ml Q8HR IV 05/09/25 22:00 05/10/25 14:00 10 ML Acetaminophen/ Hydrocodone Bitart 1 tab Q4HP PRN PO 05/09/25 15:00 05/10/25 08:41 1 TAB Ondansetron HCl 4 mg Q4HP PRN IV 05/09/25 15:00 Docusate Sodium 100 mg BIDPRN PRN PO 05/09/25 15:00 Acetaminophen 650 mg Q6HP PRN PO 05/09/25 15:00 Albuterol 2.5 mg Q4HPRN PRN NEB 05/09/25 15:15 Nitroglycerin 0.4 mg Q5MINP PRN SL 05/09/25 16:15 Morphine Sulfate 2 mg Q30M PRN IV 05/09/25 16:15 Furosemide 40 mg DAILY PO 05/11/25 10:00 Hydralazine HCl 25 mg QID PO 05/10/25 18:00 Metoprolol Tartrate 25 mg BID PO 05/10/25 22:00 Ferrous Sulfate 325 mg DAILY PO 05/11/25 10:00 Levothyroxine Sodium 150 mcg QAM PO 05/11/25 07:00 UNV Nifedipine 90 mg DAILY PO 05/11/25 10:00 Future Hold Laboratory Results Laboratory Tests 05/10/25 05:57 Chemistry Test 05/10/25 05:57 Albumin 3.6 g/dL (3.2-4.8) Calcium Level 9.5 mg/dL (8.7-10.4) Phosphorus Level 2.8 mg/dL (2.4-5.1) Total Protein 6.9 g/dL (5.7-8.2) Cardiac Markers Test 05/10/25 05:57 B-Type Natriuretic Peptide 1787.47 pg/mL (0-100) LFT Test 05/10/25 05:57 Alanine Aminotransferase (ALT) < 9 U/L (7-40) Alkaline Phosphatase 33 U/L (46-116) L Aspartate Amino Transferase (AST) 13 U/L (13-40) Total Bilirubin 0.7 mg/dL (0.2-1.0) Assessment/Plan Assessment/Plan Unstable angina Pancytopenia Chronic renal failure Chronic kidney disease, stage 5 Generalized weakness Anemia of chronic disease End-stage renal disease on hemodialysis Echo pending Nephrology consulted Plan discussed with: Patient My Orders Orders - ELI GREER MD Procedure Category Date Status Time Pt Request For Service PT 05/10/25 Logged 11:01 Furosemide Tablet PHA 05/11/25 In Process (Lasix Tablet) 10:00 Hydralazine Hcl PHA 05/10/25 In Process Tablet (Apresoline 18:00 Metoprolol Tartrate PHA 05/10/25 In Process Tablet (Lopressor Ta 22:00 Ferrous Sulfate Tablet PHA 05/11/25 In Process 10:00 Nifedipine Er PHA 05/11/25 In Process (Procardia Xl 10:00 * Ux Design Lead CONS 05/10/25 Transmitted Consult Date of Service: May 10, 2025 Billing Provider: ELI GREER MD Common Visit Codes: [id number] INP/OBS CARE(HIGH) ELI GREER MD May 10, 2025 18:31
[2025-05-10] MEDS: METOPROLOL TARTRATE 25 MG TAB PO SCH (21:04)
[2025-05-11] VITALS (9 sets, daily range): BP systolic 95–137; BP diastolic 64–89; PULSE 77–105; RESP 18–19; TEMP 97.4–98.6; O2SAT 90–98
--- NOTE | 2025-05-11 01:26 | DVHSR ---
APPROVED REPORT EXAM: Two-dimensional and M-mode echocardiogram with Doppler and color Doppler. Blood Pressure: 113/83 mmHg INDICATION Heart Failure RISK FACTORS Height: 5'3", Weight: 179 DIMENSIONS LVDd5.0 (3.8-5.7cm)LA (2D)5.5 (1.9-4.0cm)Aortic Root3.2 (2.0-3.7cm) LVDs3.9 (2.5-4.0cm)LA (MM) (1.9-4.0cm)Aortic Cusp Exc1.9 (1.5-2.0cm) EF (%) 45.0 (55-70%)Rt. Atrium6.2 (1.9-4.0cm)Asc. Aorta3.5 cm IVSd1.3 (0.7-1.1cm)RV (D)4.9 (1.8-2.4cm) PWd1.4 (0.7-1.1cm) Mitral Valve MitralMitral Stenosis E/A ratio0.02D MVAcm2 Aortic Valve Aortic ValveAortic Stenosis V10.79m/Brandee Mean GR.3mmHg V21.12m/Brandee Peak GR.5mmHg LVOT Diameter2.1 (1.8-2.4cm)Doppler AVA2.44cm2 Pulmonic Valve V20.81m/s Tricuspid Valve TR Velocity2.58m/s [id number] Conclusion DILATED LV GLOBAL LV HYPOKINESIS LV EF IN RANGE OF ONLY 30% MODERATELY DILATED RV,RA SIGNIFICANTLY DILATED LA DYSKINESIS OF IVS MILD POSTERIOR PERICARDIAL EFFUSION SEVERE MR MODERATE DEGREE TR MODERATE DEGREE PULMONARY HYPERTENSION STUDY SUGGEST END STAGE DILATED CARDIOMYOPATHY
[2025-05-11] MEDS ORDERED: LEVOTHYROXINE SODIUM 50 MCG TAB PO SCH (07:00)
[2025-05-11 07:03] LABS: Chloride 100 mmol/L (98-107); Potassium 3.7 mmol/L (3.5-5.1); Sodium 139 mmol/L (136-145)
[2025-05-11 07:04] LABS: Anion Gap 9 (5-15); Carbon Dioxide 30 mmol/L (20-31)
[2025-05-11 07:05] LABS: Calcium 9.4 mg/dL (8.7-10.4)
[2025-05-11 07:09] LABS: BUN/Creatinine Ratio 4.8 (10.0-20.0); Blood Urea Nitrogen 19 mg/dL (9-23); Glucose 91 mg/dL (74-106)
[2025-05-11] MEDS: FERROUS SULFATE 325mg EC TAB PO SCH (09:40)
[2025-05-11] MEDS: FUROSEMIDE 40 MG TAB PO SCH (09:42)
[2025-05-11] MEDS: ALBUMIN 25% 100 ML IV PRN (10:45)
[2025-05-11] MEDS: SODIUM CHL 0.9% 1000 ML BAG XX ONE (10:45)
[2025-05-11 11:10] LABS: Hepatitis C Antibody Negative (Negative)
[2025-05-11 11:11] LABS: Hepatitis B Surface Antigen Positive (Negative)
--- NOTE | 2025-05-11 12:31 | DVHPN2 ---
Subjective No chest pain Reviewed: H&P, Labs Changes from previous H/P or p: No Changes Eyes: No Pain, No Vision change, No Conjunctivae inflammation, No Eyelid inflammation, No Other, No Redness ENT: No Ear pain, No Ear discharge, No Nose pain, No Nose discharge, No Nose congestion, No Mouth pain, No Mouth swelling, No Throat pain, No Throat swelling, No Other Cardiovascular: Chest Pain; No Palpitations, No Orthopnea, No Paroxysmal Noc. Dyspnea, No Edema, No Lt Headedness, No Other Respiratory: No Cough, No Dry, No Shortness of breath, No SOB with excertion, No Wheezing, No Hemoptysis, No Pleuritic Pain, No Sputum, No Other Gastrointestinal: No Nausea, No Vomiting, No Abdominal Pain, No Diarrhea, No Constipation, No Melena, No Hematochezia, No Other Genitourinary: No Dysuria, No Frequency, No Incontinence, No Hematuria, No Retention; Other (On hemodialysis) Musculoskeletal: other (Right upper extremity AV fistula); No neck pain, No shoulder pain, No arm pain, No back pain, No hand pain, No leg pain, No foot pain Skin: No Rash, No Lesions, No Jaundice, No Bruising, No Other Objective Vitals Vital Signs Date Time Temp Pulse Resp B/P (MAP) Pulse Ox O2 Delivery O2 Flow Rate FiO2 05/11/25 11:34 127/68 05/11/25 10:42 98 05/11/25 08:54 98.1 19 98 98.1 05/11/25 08:30 Nasal Cannula 2.0 05/11/25 08:30 28 Intake/Output Intake and Output 05/11/25 07:00 Intake Total 1640 ml Output Total 0 ml Balance 1640 ml Intake Oral 1640 ml Output Urine Total 0 ml General Appearance: Alert, Oriented X3, Cooperative HEENT: Atraumatic Lungs: Clear to auscultation Cardiovascular: Regular rate, Normal S1, Normal S2 Abdomen: Normal bowel sounds Medications Current Medications Medications Dose Ordered Sig/Iggy Route Start Time Stop Time Status Last Admin Dose Admin Aspirin 81 mg DAILY PO 05/10/25 10:00 05/11/25 09:40 81 MG Atorvastatin Calcium 10 mg HS PO 05/09/25 22:00 05/09/25 23:36 10 MG Amlodipine Besylate 5 mg DAILY PO 05/10/25 10:00 05/10/25 08:33 5 MG Hydralazine HCl 10 mg Q6HP PRN IV 05/09/25 15:00 Multivit/Ca Carb/ B Cmplx/FA/Prenat 1 tab DAILY PO 05/10/25 10:00 05/11/25 09:39 1 TAB Famotidine 20 mg DAILY IV 05/10/25 10:00 05/11/25 09:41 20 MG Levothyroxine Sodium 150 mcg QAM@0600 PO 05/10/25 06:00 05/11/25 06:16 150 MCG Diagnostic Test (Pha) 1 strip ACHS 05/09/25 17:00 05/11/25 11:41 1 STRIP Insulin Human Regular ACHS SC 05/09/25 17:00 Dextrose 50 ml UD PRN IV 05/09/25 15:00 Sodium Chloride 10 ml Q8HR IV 05/09/25 22:00 05/11/25 06:16 10 ML Acetaminophen/ Hydrocodone Bitart 1 tab Q4HP PRN PO 05/09/25 15:00 05/11/25 09:40 1 TAB Ondansetron HCl 4 mg Q4HP PRN IV 05/09/25 15:00 Docusate Sodium 100 mg BIDPRN PRN PO 05/09/25 15:00 Acetaminophen 650 mg Q6HP PRN PO 05/09/25 15:00 Albuterol 2.5 mg Q4HPRN PRN NEB 05/09/25 15:15 Nitroglycerin 0.4 mg Q5MINP PRN SL 05/09/25 16:15 Morphine Sulfate 2 mg Q30M PRN IV 05/09/25 16:15 Furosemide 40 mg DAILY PO 05/11/25 10:00 Hydralazine HCl 25 mg QID PO 05/10/25 18:00 Metoprolol Tartrate 25 mg BID PO 05/10/25 22:00 05/11/25 09:42 25 MG Ferrous Sulfate 325 mg DAILY PO 05/11/25 10:00 05/11/25 09:40 325 MG Levothyroxine Sodium 150 mcg QAM PO 05/11/25 07:00 UNV Nifedipine 90 mg DAILY PO 05/11/25 10:00 Hold Albumin Human 100 ml @ 100 mls/hr PRN PRN IV 05/11/25 08:15 05/11/25 23:59 Laboratory Results Laboratory Tests 05/10/25 05:57 05/11/25 05:56 Chemistry Test 05/11/25 05:56 Calcium Level 9.4 mg/dL (8.7-10.4) Phosphorus Level 1.8 mg/dL (2.4-5.1) L Assessment/Plan Assessment/Plan Unstable angina Pancytopenia Chronic renal failure Chronic kidney disease, stage 5 Generalized weakness Anemia of chronic disease End-stage renal disease on hemodialysis Echo with EF 30% Nephrology consulted continue HD today Dispo: Possible DC tomorrow Plan discussed with: Patient My Orders Orders - ELI GREER MD Procedure Category Date Status Time Furosemide Tablet PHA 05/11/25 In Process (Lasix Tablet) 10:00 Hydralazine Hcl PHA 05/10/25 In Process Tablet (Apresoline 18:00 Metoprolol Tartrate PHA 05/10/25 In Process Tablet (Lopressor Ta 22:00 Ferrous Sulfate Tablet PHA 05/11/25 In Process 10:00 Nifedipine Er PHA 05/11/25 In Process (Procardia Xl 10:00 * Medical Lab Specialist CONS 05/10/25 Transmitted Consult Abdomen Limited US 05/11/25 Logged 10:19 Abg W/ Co-Ox RT 05/11/25 Logged 10:44 Date of Service: May 11, 2025 Billing Provider: ELI GREER MD Common Visit Codes: [id number] INP/OBS CARE(HIGH) ELI GREER MD May 11, 2025 12:31
--- NOTE | 2025-05-11 13:30 | DVHPN2 ---
Progress Note Date Seen: May 11, 2025 Medical Necessity Reason Pt with a Central, PICC or Fol: No Subjective Patient reports: Feels better Objective vital signs Vital Sign Date Time Temp Pulse Resp B/P (MAP) Pulse Ox O2 Delivery O2 Flow Rate FiO2 05/11/25 11:34 127/68 05/11/25 10:42 98 05/11/25 08:54 98.1 19 98 98.1 05/11/25 08:30 Nasal Cannula 2.0 05/11/25 08:30 28 Total Intake and Output 05/10/25 05/10/25 05/11/25 15:00 23:00 07:00 Intake Total 1540 ml 100 ml Output Total 0 ml Balance 1540 ml 100 ml medications Current Medications Medications Dose Ordered Sig/Iggy Route Start Time Stop Time Status Last Admin Dose Admin Aspirin 81 mg DAILY PO 05/10/25 10:00 05/11/25 09:40 81 MG Atorvastatin Calcium 10 mg HS PO 05/09/25 22:00 05/09/25 23:36 10 MG Amlodipine Besylate 5 mg DAILY PO 05/10/25 10:00 05/10/25 08:33 5 MG Hydralazine HCl 10 mg Q6HP PRN IV 05/09/25 15:00 Multivit/Ca Carb/ B Cmplx/FA/Prenat 1 tab DAILY PO 05/10/25 10:00 05/11/25 09:39 1 TAB Famotidine 20 mg DAILY IV 05/10/25 10:00 05/11/25 09:41 20 MG Levothyroxine Sodium 150 mcg QAM@0600 PO 05/10/25 06:00 05/11/25 06:16 150 MCG Diagnostic Test (Pha) 1 strip ACHS 05/09/25 17:00 05/11/25 11:41 1 STRIP Insulin Human Regular ACHS SC 05/09/25 17:00 Dextrose 50 ml UD PRN IV 05/09/25 15:00 Sodium Chloride 10 ml Q8HR IV 05/09/25 22:00 05/11/25 06:16 10 ML Acetaminophen/ Hydrocodone Bitart 1 tab Q4HP PRN PO 05/09/25 15:00 05/11/25 09:40 1 TAB Ondansetron HCl 4 mg Q4HP PRN IV 05/09/25 15:00 Docusate Sodium 100 mg BIDPRN PRN PO 05/09/25 15:00 Acetaminophen 650 mg Q6HP PRN PO 05/09/25 15:00 Albuterol 2.5 mg Q4HPRN PRN NEB 05/09/25 15:15 Nitroglycerin 0.4 mg Q5MINP PRN SL 05/09/25 16:15 Morphine Sulfate 2 mg Q30M PRN IV 05/09/25 16:15 Furosemide 40 mg DAILY PO 05/11/25 10:00 Hydralazine HCl 25 mg QID PO 05/10/25 18:00 Metoprolol Tartrate 25 mg BID PO 05/10/25 22:00 05/11/25 09:42 25 MG Ferrous Sulfate 325 mg DAILY PO 05/11/25 10:00 05/11/25 09:40 325 MG Levothyroxine Sodium 150 mcg QAM PO 05/11/25 07:00 UNV Nifedipine 90 mg DAILY PO 05/11/25 10:00 Hold Albumin Human 100 ml @ 100 mls/hr PRN PRN IV 05/11/25 08:15 05/11/25 23:59 Examination: GENERAL:Normal, LUNGS:Abnormal, CVS:Abnormal laboratory and microbiology Laboratory Tests 05/11/25 05:56 05/10/25 05:57 Test 05/11/25 05:56 Range/Units Serum Glucose 91 74-106 mg/dL Problem List/Assessment/Plan Problem List/Assessment/Plan Admitted for chest pain after dialysis End-stage renal disease Hypertension unstable angina Dilated cardiomyopathy with EF 30% Hepatitis-B hx AFIB s/p HD yesterday 3L removed obtain CXR tomorrow am Hd today for more fluid removal, given poor cardiac function will rec frequent HD treatments with low goals to increase tolerability fluid restriction trops neg this admission Plan discussed with: Patient My Orders My Orders Orders - DHEERAJ DAI MD Procedure Category Date Status Time Hemodialysis Orders ORDERS 05/11/25 Transmitted 08:02 Albumin 25% (Albutein) PHA 05/11/25 In Process 08:15 Total Time (mins): 34 DHEERAJ DAI MD May 11, 2025 13:30
[2025-05-11 14:53] LABS: Base Excess 4.0 mmol/L (-2.0-3.0)
--- NOTE | 2025-05-11 15:02 | DVH ---
INDICATION: abdominal distention / pain TECHNIQUE: Multiple real-time sonographic images were obtained of the right upper quadrant. COMPARISON: KIDUS on DOS: 06/19/22 FINDINGS: The liver demonstrates coarsened echotexture without focal mass lesions. The liver measures 20 cm. The common duct measures 10 mm and is mildly dilated. Gallbladder is surgically absent. The right kidney measures 8.3 cm. The right kidney is small in size. There is increased echogenicity of the right kidney suggestive of chronic medical renal disease. The pancreas is not well visualized due to overlying bowel gas. IMPRESSION: Hepatic cirrhosis with small volume ascites. Status post cholecystectomy. Mild extrahepatic biliary ductal dilatation measuring 10 mm which may be related to post reservoir effect given post cholecystectomy state. Correlate with bilirubin. Echogenic atrophic right kidney suggestive of chronic medical renal disease. No hydronephrosis.
[2025-05-12] VITALS (8 sets, daily range): BP systolic 98–114; BP diastolic 68–87; PULSE 77–108; RESP 14–20; TEMP 97.5–98.6; O2SAT 90–98
--- NOTE | 2025-05-12 05:22 | DVH ---
CHEST RADIOGRAPH Indication: CHF Technique: Single frontal view of the chest was obtained COMPARISON: XY CHEST PORTABLE on DOS: 05/09/25, XY CHEST XRAY 1 VIEW on DOS: 05/16/23, XY CHEST XRAY 1 VIEW on DOS: 05/13/23, XY CHEST PORTABLE on DOS: 04/23/23, XY CHEST PORTABLE on DOS: 04/21/23 FINDINGS: Lines and Tubes: None Lungs: Stable diffuse increased prominence of the pulmonary vasculature and interstitium. Mild focal pulmonary airspace disease within the right mid lung zone. Probable small bilateral pleural effusions . No pneumothorax. Cardiomediastinal contours: Cardiomegaly. Bones: Unremarkable IMPRESSION: 1. New mild focal pulmonary airspace disease within the right middle lung zone. 2. Cardiomegaly, small bilateral pleural effusions and diffuse increased prominence of the pulmonary vasculature and interstitium.
--- NOTE | 2025-05-12 14:58 | DVHPN2 ---
Progress Note Date Seen: May 12, 2025 Medical Necessity Reason Pt with a Central, PICC or Fol: No Subjective Patient reports: Feels better Objective vital signs Vital Sign Date Time Temp Pulse Resp B/P (MAP) Pulse Ox O2 Delivery O2 Flow Rate FiO2 05/12/25 12:30 97.6 77 14 98/68 (78) 96 97.6 05/12/25 08:00 Nasal Cannula* 2 28 Total Intake and Output 05/11/25 05/11/25 05/12/25 15:00 23:00 07:00 Intake Total 760 ml 440 ml Balance 760 ml 440 ml medications Current Medications Medications Dose Ordered Sig/Iggy Route Start Time Stop Time Status Last Admin Dose Admin Aspirin 81 mg DAILY PO 05/10/25 10:00 05/12/25 08:34 81 MG Atorvastatin Calcium 10 mg HS PO 05/09/25 22:00 05/11/25 21:20 10 MG Amlodipine Besylate 5 mg DAILY PO 05/10/25 10:00 05/12/25 08:35 5 MG Hydralazine HCl 10 mg Q6HP PRN IV 05/09/25 15:00 Multivit/Ca Carb/ B Cmplx/FA/Prenat 1 tab DAILY PO 05/10/25 10:00 05/12/25 08:34 1 TAB Famotidine 20 mg DAILY IV 05/10/25 10:00 05/12/25 08:35 20 MG Levothyroxine Sodium 150 mcg QAM@0600 PO 05/10/25 06:00 05/12/25 06:25 150 MCG Diagnostic Test (Pha) 1 strip ACHS 05/09/25 17:00 05/12/25 11:43 1 STRIP Insulin Human Regular ACHS SC 05/09/25 17:00 Dextrose 50 ml UD PRN IV 05/09/25 15:00 Sodium Chloride 10 ml Q8HR IV 05/09/25 22:00 05/12/25 13:48 10 ML Acetaminophen/ Hydrocodone Bitart 1 tab Q4HP PRN PO 05/09/25 15:00 05/11/25 09:40 1 TAB Ondansetron HCl 4 mg Q4HP PRN IV 05/09/25 15:00 Docusate Sodium 100 mg BIDPRN PRN PO 05/09/25 15:00 Acetaminophen 650 mg Q6HP PRN PO 05/09/25 15:00 Nitroglycerin 0.4 mg Q5MINP PRN SL 05/09/25 16:15 Morphine Sulfate 2 mg Q30M PRN IV 05/09/25 16:15 Furosemide 40 mg DAILY PO 05/11/25 10:00 05/12/25 08:34 40 MG Hydralazine HCl 25 mg QID PO 05/10/25 18:00 Metoprolol Tartrate 25 mg BID PO 05/10/25 22:00 05/12/25 08:35 25 MG Ferrous Sulfate 325 mg DAILY PO 05/11/25 10:00 05/12/25 08:34 325 MG Levothyroxine Sodium 150 mcg QAM PO 05/11/25 07:00 UNV Nifedipine 90 mg DAILY PO 05/11/25 10:00 Hold Examination: GENERAL:Normal, CVS:Normal laboratory and microbiology Laboratory Tests 05/11/25 05:56 05/10/25 05:57 Test 05/11/25 05:56 Range/Units Serum Glucose 91 74-106 mg/dL Problem List/Assessment/Plan Problem List/Assessment/Plan Admitted for chest pain after dialysis End-stage renal disease Hypertension unstable angina Dilated cardiomyopathy with EF 30% Hepatitis-B hx AFIB CXR today still shows congestion HD today ended early after less than 1L net removed due to patient movement fluid restriction trops neg this admission if DC advise patient to come to dialysis unit tomorrow Plan discussed with: Patient My Orders My Orders Orders - DHEERAJ DAI MD Procedure Category Date Status Time Hemodialysis Orders ORDERS 05/12/25 Transmitted 12:15 Total Time (mins): 26 DHEERAJ DAI MD May 12, 2025 14:58
--- NOTE | 2025-05-12 23:31 | DVHPN2 ---
Subjective No chest pain Reviewed: H&P, Labs Changes from previous H/P or p: No Changes Eyes: No Pain, No Vision change, No Conjunctivae inflammation, No Eyelid inflammation, No Other, No Redness ENT: No Ear pain, No Ear discharge, No Nose pain, No Nose discharge, No Nose congestion, No Mouth pain, No Mouth swelling, No Throat pain, No Throat swelling, No Other Cardiovascular: Chest Pain; No Palpitations, No Orthopnea, No Paroxysmal Noc. Dyspnea, No Edema, No Lt Headedness, No Other Respiratory: No Cough, No Dry, No Shortness of breath, No SOB with excertion, No Wheezing, No Hemoptysis, No Pleuritic Pain, No Sputum, No Other Gastrointestinal: No Nausea, No Vomiting, No Abdominal Pain, No Diarrhea, No Constipation, No Melena, No Hematochezia, No Other Genitourinary: No Dysuria, No Frequency, No Incontinence, No Hematuria, No Retention; Other (On hemodialysis) Musculoskeletal: other (Right upper extremity AV fistula); No neck pain, No shoulder pain, No arm pain, No back pain, No hand pain, No leg pain, No foot pain Skin: No Rash, No Lesions, No Jaundice, No Bruising, No Other Objective Vitals Vital Signs Date Time Temp Pulse Resp B/P (MAP) Pulse Ox O2 Delivery O2 Flow Rate FiO2 05/12/25 22:05 97 103/76 05/12/25 21:00 97.5 20 96 97.5 05/12/25 20:00 Nasal Cannula* 2 28 Intake/Output Intake and Output 05/12/25 07:00 Intake Total 1200 ml Balance 1200 ml Intake Oral 1200 ml # Voids 1 General Appearance: Alert, Oriented X3, Cooperative HEENT: Atraumatic Lungs: Clear to auscultation Cardiovascular: Regular rate, Normal S1, Normal S2 Abdomen: Normal bowel sounds Medications Current Medications Medications Dose Ordered Sig/Iggy Route Start Time Stop Time Status Last Admin Dose Admin Aspirin 81 mg DAILY PO 05/10/25 10:00 05/12/25 08:34 81 MG Atorvastatin Calcium 10 mg HS PO 05/09/25 22:00 05/12/25 22:06 10 MG Amlodipine Besylate 5 mg DAILY PO 05/10/25 10:00 05/12/25 08:35 5 MG Hydralazine HCl 10 mg Q6HP PRN IV 05/09/25 15:00 Multivit/Ca Carb/ B Cmplx/FA/Prenat 1 tab DAILY PO 05/10/25 10:00 05/12/25 08:34 1 TAB Famotidine 20 mg DAILY IV 05/10/25 10:00 05/12/25 08:35 20 MG Levothyroxine Sodium 150 mcg QAM@0600 PO 05/10/25 06:00 05/12/25 06:25 150 MCG Diagnostic Test (Pha) 1 strip ACHS 05/09/25 17:00 05/12/25 22:10 1 STRIP Insulin Human Regular ACHS SC 05/09/25 17:00 05/12/25 22:26 2 UNITS Dextrose 50 ml UD PRN IV 05/09/25 15:00 Sodium Chloride 10 ml Q8HR IV 05/09/25 22:00 05/12/25 22:08 10 ML Acetaminophen/ Hydrocodone Bitart 1 tab Q4HP PRN PO 05/09/25 15:00 05/11/25 09:40 1 TAB Ondansetron HCl 4 mg Q4HP PRN IV 05/09/25 15:00 Docusate Sodium 100 mg BIDPRN PRN PO 05/09/25 15:00 Acetaminophen 650 mg Q6HP PRN PO 05/09/25 15:00 Nitroglycerin 0.4 mg Q5MINP PRN SL 05/09/25 16:15 Morphine Sulfate 2 mg Q30M PRN IV 05/09/25 16:15 Furosemide 40 mg DAILY PO 05/11/25 10:00 05/12/25 08:34 40 MG Hydralazine HCl 25 mg QID PO 05/10/25 18:00 Metoprolol Tartrate 25 mg BID PO 05/10/25 22:00 05/12/25 22:05 25 MG Ferrous Sulfate 325 mg DAILY PO 05/11/25 10:00 05/12/25 08:34 325 MG Levothyroxine Sodium 150 mcg QAM PO 05/11/25 07:00 UNV Nifedipine 90 mg DAILY PO 05/11/25 10:00 Hold Laboratory Results Laboratory Tests 05/10/25 05:57 05/11/25 05:56 Assessment/Plan Assessment/Plan Unstable angina Pancytopenia Chronic renal failure Chronic kidney disease, stage 5 Generalized weakness Anemia of chronic disease End-stage renal disease on hemodialysis Echo with EF 30% Nephrology consulted continue HD today Dispo: Possible DC tomorrow Plan discussed with: Patient My Orders Orders - ELI GREER MD Procedure Category Date Status Time * Roll Up Operator CONS 05/12/25 Transmitted Consult Date of Service: May 12, 2025 Billing Provider: ELI GREER MD Common Visit Codes: [id number] INP/OBS CARE(HIGH) ELI GREER MD May 12, 2025 23:31
[2025-05-13] VITALS (8 sets, daily range): BP systolic 90–122; BP diastolic 42–94; PULSE 70–113; RESP 15–22; TEMP 97.5–97.8; O2SAT 90–99
[2025-05-13] MEDS: DOCUSATE SOD 100 MG CAP PO PRN (09:39)
--- NOTE | 2025-05-13 12:06 | DVHPN2 ---
Progress Note Date Seen: May 13, 2025 Medical Necessity Reason Pt with a Central, PICC or Fol: No Objective vital signs Vital Sign Date Time Temp Pulse Resp B/P (MAP) Pulse Ox O2 Delivery O2 Flow Rate FiO2 05/13/25 09:41 109/70 05/13/25 09:40 113 05/13/25 09:00 97.6 22 92 97.6 05/12/25 20:00 Nasal Cannula* 2 28 Total Intake and Output 05/12/25 05/12/25 05/13/25 15:00 23:00 07:00 Intake Total 650 ml Balance 650 ml medications Current Medications Medications Dose Ordered Sig/Iggy Route Start Time Stop Time Status Last Admin Dose Admin Aspirin 81 mg DAILY PO 05/10/25 10:00 05/13/25 09:38 81 MG Atorvastatin Calcium 10 mg HS PO 05/09/25 22:00 05/12/25 22:06 10 MG Amlodipine Besylate 5 mg DAILY PO 05/10/25 10:00 05/13/25 09:41 5 MG Hydralazine HCl 10 mg Q6HP PRN IV 05/09/25 15:00 Multivit/Ca Carb/ B Cmplx/FA/Prenat 1 tab DAILY PO 05/10/25 10:00 05/13/25 09:38 1 TAB Famotidine 20 mg DAILY IV 05/10/25 10:00 05/13/25 09:38 20 MG Levothyroxine Sodium 150 mcg QAM@0600 PO 05/10/25 06:00 05/13/25 06:19 150 MCG Diagnostic Test (Pha) 1 strip ACHS 05/09/25 17:00 05/13/25 06:23 1 STRIP Insulin Human Regular ACHS SC 05/09/25 17:00 05/12/25 22:26 2 UNITS Dextrose 50 ml UD PRN IV 05/09/25 15:00 Sodium Chloride 10 ml Q8HR IV 05/09/25 22:00 05/13/25 06:24 10 ML Acetaminophen/ Hydrocodone Bitart 1 tab Q4HP PRN PO 05/09/25 15:00 05/11/25 09:40 1 TAB Ondansetron HCl 4 mg Q4HP PRN IV 05/09/25 15:00 Docusate Sodium 100 mg BIDPRN PRN PO 05/09/25 15:00 05/13/25 09:39 100 MG Acetaminophen 650 mg Q6HP PRN PO 05/09/25 15:00 Nitroglycerin 0.4 mg Q5MINP PRN SL 05/09/25 16:15 Morphine Sulfate 2 mg Q30M PRN IV 05/09/25 16:15 Furosemide 40 mg DAILY PO 05/11/25 10:00 05/13/25 09:39 40 MG Hydralazine HCl 25 mg QID PO 05/10/25 18:00 05/13/25 06:20 25 MG Metoprolol Tartrate 25 mg BID PO 05/10/25 22:00 05/13/25 09:40 25 MG Ferrous Sulfate 325 mg DAILY PO 05/11/25 10:00 05/13/25 09:39 325 MG Levothyroxine Sodium 150 mcg QAM PO 05/11/25 07:00 UNV Nifedipine 90 mg DAILY PO 05/11/25 10:00 Hold Examination: GENERAL:Abnormal, LUNGS:Abnormal, CVS:Normal laboratory and microbiology Laboratory Tests 05/11/25 05:56 05/10/25 05:57 Test 05/11/25 05:56 Range/Units Serum Glucose 91 74-106 mg/dL Problem List/Assessment/Plan Problem List/Assessment/Plan Admitted for chest pain after dialysis End-stage renal disease Hypertension unstable angina Dilated cardiomyopathy with EF 30% Hepatitis-B hx AFIB 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 reports chest pain after dialysis large volumes fluid restriction trops neg this admission HD today to resume schedule, small volume goal given consecutive treatments Given poor cardiac function rec more frequent outpatient will smaller UF goals to prevent symptoms dispo per primary team after HD if stable next HD after would be friday outpatient Plan discussed with: Patient My Orders My Orders Orders - DHEERAJ DAI MD Procedure Category Date Status Time Hemodialysis Orders ORDERS 05/12/25 Transmitted 12:15 Basic Metabolic Panel LAB 05/13/25 Logged 04:00 Total Time (mins): 36 DHEERAJ DAI MD May 13, 2025 12:06
[2025-05-13] MEDS ORDERED: SODIUM CHL 0.9% 1000 ML BAG XX ONE (12:15)
[2025-05-13 16:46] LABS: Chloride 99 mmol/L (98-107); Potassium 4.0 mmol/L (3.5-5.1); Sodium 139 mmol/L (136-145)
[2025-05-13 16:47] LABS: Anion Gap 10 (5-15); Calcium 8.8 mg/dL (8.7-10.4); Carbon Dioxide 30 mmol/L (20-31)
[2025-05-13 16:52] LABS: BUN/Creatinine Ratio 5.5 (10.0-20.0); Blood Urea Nitrogen 17 mg/dL (9-23)
[2025-05-13 16:56] LABS: Glucose 107 mg/dL (74-106)
--- NOTE | 2025-05-13 18:41 | DVHPN2 ---
Subjective No chest pain Reviewed: H&P, Labs Changes from previous H/P or p: No Changes Eyes: No Pain, No Vision change, No Conjunctivae inflammation, No Eyelid inflammation, No Other, No Redness ENT: No Ear pain, No Ear discharge, No Nose pain, No Nose discharge, No Nose congestion, No Mouth pain, No Mouth swelling, No Throat pain, No Throat swelling, No Other Cardiovascular: Chest Pain; No Palpitations, No Orthopnea, No Paroxysmal Noc. Dyspnea, No Edema, No Lt Headedness, No Other Respiratory: No Cough, No Dry, No Shortness of breath, No SOB with excertion, No Wheezing, No Hemoptysis, No Pleuritic Pain, No Sputum, No Other Gastrointestinal: No Nausea, No Vomiting, No Abdominal Pain, No Diarrhea, No Constipation, No Melena, No Hematochezia, No Other Genitourinary: No Dysuria, No Frequency, No Incontinence, No Hematuria, No Retention; Other (On hemodialysis) Musculoskeletal: other (Right upper extremity AV fistula); No neck pain, No shoulder pain, No arm pain, No back pain, No hand pain, No leg pain, No foot pain Skin: No Rash, No Lesions, No Jaundice, No Bruising, No Other Objective Vitals Vital Signs Date Time Temp Pulse Resp B/P (MAP) Pulse Ox O2 Delivery O2 Flow Rate FiO2 05/13/25 17:35 96/56 05/13/25 17:00 97.5 84 20 99 97.5 05/13/25 08:00 Nasal Cannula* 2 28 Intake/Output Intake and Output 05/13/25 07:00 Intake Total 650 ml Balance 650 ml Intake Oral 650 ml # Bowel Movements 1 General Appearance: Alert, Oriented X3, Cooperative HEENT: Atraumatic Lungs: Clear to auscultation Cardiovascular: Regular rate, Normal S1, Normal S2 Abdomen: Normal bowel sounds Medications Current Medications Medications Dose Ordered Sig/Iggy Route Start Time Stop Time Status Last Admin Dose Admin Aspirin 81 mg DAILY PO 05/10/25 10:00 05/13/25 09:38 81 MG Atorvastatin Calcium 10 mg HS PO 05/09/25 22:00 05/12/25 22:06 10 MG Amlodipine Besylate 5 mg DAILY PO 05/10/25 10:00 05/13/25 09:41 5 MG Hydralazine HCl 10 mg Q6HP PRN IV 05/09/25 15:00 Multivit/Ca Carb/ B Cmplx/FA/Prenat 1 tab DAILY PO 05/10/25 10:00 05/13/25 09:38 1 TAB Famotidine 20 mg DAILY IV 05/10/25 10:00 05/13/25 09:38 20 MG Levothyroxine Sodium 150 mcg QAM@0600 PO 05/10/25 06:00 05/13/25 06:19 150 MCG Diagnostic Test (Pha) 1 strip ACHS 05/09/25 17:00 05/13/25 17:00 1 STRIP Insulin Human Regular ACHS SC 05/09/25 17:00 05/12/25 22:26 2 UNITS Dextrose 50 ml UD PRN IV 05/09/25 15:00 Sodium Chloride 10 ml Q8HR IV 05/09/25 22:00 05/13/25 14:00 10 ML Acetaminophen/ Hydrocodone Bitart 1 tab Q4HP PRN PO 05/09/25 15:00 05/11/25 09:40 1 TAB Ondansetron HCl 4 mg Q4HP PRN IV 05/09/25 15:00 Docusate Sodium 100 mg BIDPRN PRN PO 05/09/25 15:00 05/13/25 09:39 100 MG Acetaminophen 650 mg Q6HP PRN PO 05/09/25 15:00 Nitroglycerin 0.4 mg Q5MINP PRN SL 05/09/25 16:15 Morphine Sulfate 2 mg Q30M PRN IV 05/09/25 16:15 Furosemide 40 mg DAILY PO 05/11/25 10:00 05/13/25 09:39 40 MG Hydralazine HCl 25 mg QID PO 05/10/25 18:00 05/13/25 06:20 25 MG Metoprolol Tartrate 25 mg BID PO 05/10/25 22:00 05/13/25 09:40 25 MG Ferrous Sulfate 325 mg DAILY PO 05/11/25 10:00 05/13/25 09:39 325 MG Levothyroxine Sodium 150 mcg QAM PO 05/11/25 07:00 UNV Nifedipine 90 mg DAILY PO 05/11/25 10:00 Hold Laboratory Results Laboratory Tests 05/10/25 05:57 05/13/25 16:00 Chemistry Test 05/13/25 16:00 Calcium Level 8.8 mg/dL (8.7-10.4) Assessment/Plan Assessment/Plan Unstable angina Pancytopenia Chronic renal failure Chronic kidney disease, stage 5 Generalized weakness Anemia of chronic disease End-stage renal disease on hemodialysis Echo with EF 30% Nephrology consulted continue HD today Dispo: Possible DC tomorrow Plan discussed with: Patient Date of Service: May 13, 2025 Billing Provider: ELI GREER MD Common Visit Codes: [id number] INP/OBS CARE(HIGH) ELI GREER MD May 13, 2025 18:41
[2025-05-14 01:00] VITALS: BP 98/70; PULSE 90; RESP 16; TEMP 97.8; O2SAT 97
[2025-05-14 05:00] VITALS: BP 104/61; PULSE 86; RESP 16; TEMP 98.1; O2SAT 100
[2025-05-14 08:00] VITALS: PULSE 86; PULSE 92; RESP 18; O2SAT 96
[2025-05-14 09:00] VITALS: BP_SYST 108; BP_SYST 125; BP_DIAS 68; BP_DIAS 75; PULSE 85; PULSE 91; RESP 18; RESP 20; TEMP 98.5; TEMP 98.7; O2SAT 92; O2SAT 95
--- NOTE | 2025-05-14 11:04 | DVHPN2 ---
Progress Note Date Seen: May 14, 2025 Medical Necessity Reason Pt with a Central, PICC or Fol: No Subjective Patient reports: Feels better Objective vital signs Vital Sign Date Time Temp Pulse Resp B/P (MAP) Pulse Ox O2 Delivery O2 Flow Rate FiO2 05/14/25 10:04 123 108/75 05/14/25 09:00 98.5 20 92 98.5 05/13/25 20:00 Nasal Cannula* 2 28 Total Intake and Output 05/13/25 05/13/25 05/14/25 15:00 23:00 07:00 Intake Total 1000 ml 100 ml Output Total 1200 ml 0 ml Balance -200 ml 100 ml medications Current Medications Medications Dose Ordered Sig/Iggy Route Start Time Stop Time Status Last Admin Dose Admin Aspirin 81 mg DAILY PO 05/10/25 10:00 05/14/25 10:04 81 MG Atorvastatin Calcium 10 mg HS PO 05/09/25 22:00 05/13/25 21:52 10 MG Amlodipine Besylate 5 mg DAILY PO 05/10/25 10:00 05/14/25 10:04 5 MG Hydralazine HCl 10 mg Q6HP PRN IV 05/09/25 15:00 Multivit/Ca Carb/ B Cmplx/FA/Prenat 1 tab DAILY PO 05/10/25 10:00 05/14/25 10:03 1 TAB Famotidine 20 mg DAILY IV 05/10/25 10:00 05/14/25 10:02 20 MG Levothyroxine Sodium 150 mcg QAM@0600 PO 05/10/25 06:00 05/14/25 06:11 150 MCG Diagnostic Test (Pha) 1 strip ACHS 05/09/25 17:00 05/14/25 06:05 1 STRIP Insulin Human Regular ACHS SC 05/09/25 17:00 05/13/25 21:54 2 UNITS Dextrose 50 ml UD PRN IV 05/09/25 15:00 Sodium Chloride 10 ml Q8HR IV 05/09/25 22:00 05/14/25 05:20 10 ML Acetaminophen/ Hydrocodone Bitart 1 tab Q4HP PRN PO 05/09/25 15:00 05/11/25 09:40 1 TAB Ondansetron HCl 4 mg Q4HP PRN IV 05/09/25 15:00 Docusate Sodium 100 mg BIDPRN PRN PO 05/09/25 15:00 05/13/25 09:39 100 MG Acetaminophen 650 mg Q6HP PRN PO 05/09/25 15:00 Nitroglycerin 0.4 mg Q5MINP PRN SL 05/09/25 16:15 Morphine Sulfate 2 mg Q30M PRN IV 05/09/25 16:15 Furosemide 40 mg DAILY PO 05/11/25 10:00 05/14/25 10:03 40 MG Hydralazine HCl 25 mg QID PO 05/10/25 18:00 05/13/25 06:20 25 MG Metoprolol Tartrate 25 mg BID PO 05/10/25 22:00 05/14/25 10:04 25 MG Ferrous Sulfate 325 mg DAILY PO 05/11/25 10:00 05/14/25 10:04 325 MG Levothyroxine Sodium 150 mcg QAM PO 05/11/25 07:00 UNV Nifedipine 90 mg DAILY PO 05/11/25 10:00 Hold Examination: GENERAL:Normal, CVS:Normal laboratory and microbiology Laboratory Tests 05/13/25 16:00 05/10/25 05:57 Test 05/13/25 16:00 Range/Units Serum Glucose 107 H 74-106 mg/dL Problem List/Assessment/Plan Problem List/Assessment/Plan Admitted for chest pain after dialysis End-stage renal disease Hypertension unstable angina Dilated cardiomyopathy with EF 30% Hepatitis-B hx AFIB fluid restriction next HD would be friday outpatient Plan discussed with: Patient My Orders My Orders Orders - DHEERAJ DAI MD Procedure Category Date Status Time Hemodialysis Orders ORDERS 05/13/25 Transmitted 12:06 Dialysis Nursing AMINATA 05/13/25 In Process Message 12:06 Document Fluid Input AMINATA 05/13/25 In Process And Outpu 12:06 DHEERAJ DAI MD May 14, 2025 11:04
[2025-05-14 12:34] VITALS: BP 120/71; PULSE 93; RESP 20; TEMP 98.6; O2SAT 98
[2025-05-14 13:00] VITALS: BP 120/71; PULSE 93; RESP 20; TEMP 98.6; O2SAT 98
== END 2025-05-14 14:40 | disposition home or self-care (01) | DRG 311 ==
LOC: EDBD 10:55 → ER 10:55 → OVERFLOW 16:08 → TELE-WESTW 20:51
PROVIDERS: ADMIT Hospitalist; ATTEND Hospitalist
PROC: 5A1D70Z Performance of Urinary Filtration, Intermittent, Less than 6 Hours Per Day (ICD-10-PCS; principal; 2025-05-10)
PROC: 5A1D70Z Performance of Urinary Filtration, Intermittent, Less than 6 Hours Per Day (ICD-10-PCS; 2025-05-11)
PROC: 5A1D70Z Performance of Urinary Filtration, Intermittent, Less than 6 Hours Per Day (ICD-10-PCS; 2025-05-12)
DX: I20.0 Unstable angina (principal); I50.23 Acute on chronic systolic (congestive) heart failure; N18.6 End stage renal disease; J96.01 Acute respiratory failure with hypoxia; I13.2 Hypertensive heart and chronic kidney disease with heart failure and with stage 5 chronic kidney disease, or end stage renal disease; D61.818 Other pancytopenia; B19.10 Unspecified viral hepatitis B without hepatic coma; I42.0 Dilated cardiomyopathy; D63.1 Anemia in chronic kidney disease; E11.22 Type 2 diabetes mellitus with diabetic chronic kidney disease; I48.91 Unspecified atrial fibrillation; Z99.2 Dependence on renal dialysis; Z79.2 Long term (current) use of antibiotics; Z79.01 Long term (current) use of anticoagulants; Z79.899 Other long term (current) drug therapy; Z90.49 Acquired absence of other specified parts of digestive tract; Z82.49 Family history of ischemic heart disease and other diseases of the circulatory system; Z98.891 History of uterine scar from previous surgery; Z86.73 Personal history of transient ischemic attack (TIA), and cerebral infarction without residual deficits; Z80.3 Family history of malignant neoplasm of breast
CPT/HCPCS: 36415; 36600; 71045; 76705; 80048; 80053; 80074; 82306; 82805; 82962; 83880; 83970; 84100; 84443; 84484; 85025; 90935; 93005; 93306; 97110; 97116; 97163; 99291; G0378; J1815; J3490; P9047

== ENCOUNTER 2025-05-18 21:08 | Inpatient (IN) | payer OTHER, MEDICAID ==
[~2025-05-18] VITALS: Ht 165.1 cm; Wt 80.3 kg
--- NOTE | 2025-05-18 21:17 | ECG ---
[facility] Test Date: 2025-05-18 Test Time: 21:09:30 Pat Name: [address] Department: ED Room: 0215T Gender: F Chemical Supervisor: JACOBY : 1955 Requested By: REDD CANDELARIO Order Number: [id number] Reading MD: Nasir Handy Measurements Intervals [place] Rate: 113 P: 0 [place]: 0 QRS: 115 QRSD: 97 T: -44 QT: 329 QTc: 451 Interpretive Statements Atrial fibrillation Paired ventricular premature complexes Left posterior fascicular block Low voltage, precordial leads Abnormal R-wave progression, late transition Borderline T abnormalities, diffuse leads Baseline wander in lead(s) I,aVR,aVL Electronically Signed On 05-25-2025 17:30:44 PDT by Nasir Handy Please click the below link to view image of tracing.
--- NOTE | 2025-05-18 21:20 | ED.PDOC ---
HPI Comments 70 year old female presents to the ED via EMS with a chief complaint of chest pain onset 2 weeks. Per EMS, patient has been experiencing chest pain for the past 2 weeks, pain worsened today. Patient's son told EMSl, patient recently had follow up appointment with specialist, was told she should be admitted, patient refused, went home. Patient rates pain 06/05, is on 2L O2 at home, according to EMS, EKG showed a-fib/RVR. Patient goes to dialysis Friday, Friday, Friday. E MS also states patient experiences similar pain when she is not complaint with her diet. PMHx CHF, anemia, DM, HTN, HLD, thyroid disease, liver disease, ESRD. No other associated symptoms, modifiers, recent injuries or sick contacts present at this time. Time Seen by MD: 21:10 Primary Care Provider: MEHREEN Reviewed Notes: Medications, Allergies Allergies: Coded Allergies: NO KNOWN ALLERGIES (Unverified , 12/02/19) Home Meds Active Scripts Cephalexin Monohydrate (Cephalexin) 500 Mg Cap, 500 MG PO BID for 7 Days, #14 CAP Prov:DEAN MASTERS RESIDENT 10/20/24 Amiodarone HCl (Amiodarone HCl) 200 Mg Tab, 200 MG PO BID for 30 Days, #60 TAB Prov:GERALDINE LACKEY MD 05/17/23 Apixaban Base (ELIQUIS) 2.5 Mg Tab, 2.5 MG PO BID for 30 Days, #60 TAB Prov:GERALDINE LACKEY MD 05/17/23 Sacubitril-Valsartan (Entresto 24-26 mg) 1 Tab Tab, 1 TAB PO BID for 30 Days, #60 TAB 2 Refills Prov:REBEL WRAY MD 06/20/22 Ferrous Sulfate (Iron) 325 Mg Tab, 325 MG PO DAILY for 30 Days, #30 TAB 3 Refills Prov:REBEL WRAY MD 12/30/21 Amlodipine Besylate (Amlodipine Besylate) 10 Mg Tab, 1 TAB PO DAILY for 30 Days, #30 TAB 5 Refills Prov:REBEL WRAY MD 12/30/21 Isosorbide Mononitrate (Isosorbide Mononitrate ER) 60 Mg Tab, 60 MG PO DAILY for 30 Days, #30 TAB Prov:RUBEN MCDERMOTT MD 10/12/21 Reported Medications Furosemide (Furosemide) 40 Mg Tab, 1 TAB PO DAILY for 90 Days, #90 10/19/24 Levothyroxine Sodium (Levothyroxine Sodium) 150 Mcg Tab, 1 TAB PO DAILY for 90 Days, #90 10/19/24 Hydralazine Hcl (Hydralazine Hcl) 25 Mg Tab, 1 TAB PO QID for 90 Days, #360 10/19/24 Albuterol Sulfate (Albuterol Sulfate Hfa) 108 Mcg/Act Aer, 108 MCG IN UD for 90 Days, #25.5 10/19/24 Entecavir Monohydrate (Entecavir) 0.5 Mg Tab, 1 TAB PO DAILY for 90 Days, #90 BEFORE MEALS 10/19/24 Metoprolol Tartrate (Lopressor) 25 Mg Tb, 1 TAB PO BID for 90 Days, #180 05/13/23 Nifedipine (Nifedipine Er) 90 Mg Tab, 1 TAB PO DAILY for 90 Days, #90 05/13/23 Calcium Acetate (Phosphate Bin (Calcium Acetate) 667 Mg Cap, 2001 CAP PO TID for 30 Days 05/13/23 Sevelamer Carbonate (Sevelamer Carbonate) 0.8 Gm Pow, 1 PKT PO TID 05/13/23 Prednisone (Prednisone) 5 Mg Tab, 5 MG PO, TAB 06/15/22 Simvastatin (Simvastatin) 20 Mg Tab, 20 MG PO HS for 30 Days 06/15/22 Cholecalciferol (VITAMIN D) 5,000 Unit Tab, 5000 UNIT PO DAILY, TAB 10/10/21 Beclomethasone Dipropionate (Qvar Redihaler) 80 Mcg/Act Aer, 2 INH PO BID, AER 10/10/21 Information Source: Patient, Emergency Med Personnel Mode of Arrival: EMS Severity: Moderate Timing: Weeks Duration: Since onset Prehospital treatment: Oxygen (2L) Location: Chest (L) Radiation: No Radiation Quality: Sharp Onset: At Rest Cardiac Risk Factors: Hyperlipidemia, HTN, Diabetes PE Risk Factors: None History of: Similar pain in past Modifying Factors: Nothing Past Medical History PAST MEDICAL HISTORY: Anemia, CHF, DM, ESRD, High Lipids, HTN, Liver, Thyroid Surgical History: Cholecystectomy, PEDIATRIC INTENSIVE PHYSICIAN History: No Pertinent PEDIATRIC INTENSIVE PHYSICIAN History Family History Family History: Reviewed,noncontributory to illness, Unknown, Family hx of HTN Social History Smoker: Unknown Alcohol: Denies ETOH Use Drugs: Denies Drug Use Lives In: Home Constitutional: denies: chills, diaphoresis, fatigue, fever, malaise, sweats, weakness, others EENTM: denies: blurred vision, double vision, ear bleeding, ear discharge, ear drainage, ear pain, ear ringing, eye pain, eye redness, hearing loss, mouth pain, mouth swelling, nasal discharge, nose bleeding, nose congestion, nose pain, photophobia, tearing, throat pain, throat swelling, voice changes, others Respiratory: denies: cough, hemoptysis, orthopnea, SOB at rest, shortness of breath, SOB with excertion, stridor, wheezing, others Cardiovascular: reports: chest pain (g); denies: dizzy spells, diaphoresis, Dyspnea on exertion, edema, irregular heart beat, left arm pain, lightheaded ness, palpitations, PND, syncope, others Gastrointestinal: denies: abdomen distended, abdominal pain, blood streaked bowels, constipated, diarrhea, dysphagia, difficulty swallowing, hematemesis, melena, nausea, poor appetite, poor fluid intake, rectal bleeding, rectal pain, vomiting, others Genitourinary: denies: abnormal vagina bleeding, burning, dyspareunia, dysuria, flank pain, frequency, hematuria, incontinence, pain, , vagina discharge, urgency, others Neurological: denies: dizziness, fainting, headache, left sided numbness, left sided weakness, numbness, paresthesia, pre-existing deficit, right sided numbness, right sided weakness, seizure, speech problems, tingling, tremors, wea kness, others Musculoskeletal: denies: back pain, gout, joint pain, joint swelling, muscle pain, muscle stiffness, neck pain, others Integumetry: denies: bruises, change in color, change in hair/nails, dryness, l aceration, lesions, lumps, rash, wounds, others Allergic/Immunocompromised: denies: Difficulty Healing, Frequent Infections, Hives, Itching, others Hematologic/Lymphatic: denies: anemia, blood clots, easy bleeding, easy bruising, swollen glands, others Endocrine: denies: excessive hunger, excessive sweating, excessive thirst, excessive urination, flushing, intolerance to cold, intolerance to heat, unexplained weight gain, unexplained weight loss, others Psychiatric: denies: anxiety, bipolar disorder, depression, hopeless, panic disorder, schizophrenia, sleepless, suicidal, others All Other Systems: Reviewed and Negative Physical Exam General Appearance: Normal HEENT: Normal ENT Inspection, Pharynx Normal, TMs Normal Neck: Full Range of Motion, Non-Tender, Normal, Normal Inspection Respiratory: Chest Non-Tender, Lungs Clear, No Accessory Muscle Use, No Respiratory Distress, Normal Breath Sounds Cardiovascular: No Edema, No JVD, No Murmur, No Gallop, Normal Peripheral Pulses, Regular Rate/Rhythm Breast Exam: Deferred Gastrointestinal: No Organomegaly, Non Tender, No Pulsatile Mass, Normal Bowel Sounds, Soft Genitalia: Deferred Pelvic: Deferred Rectal: Deferred Extremities: No calf tenderness, Normal capillary refill, Normal inspection, Normal range of motion, Non-tender, No pedal edema Musculoskeletal : Apperance: Normal Neurologic: Alert, psychologist social II-XII nml as Tested, No Motor Deficits, Normal Affect, Normal Mood, No Sensory Deficits Cerebellar Function: Normal Reflexes: Normal Skin: Dry, Normal Color, Warm Lymphatic: No Adenopathy Was a procedure done? Was a procedure done?: No CP Differential Dx Differential Diagnosis: MAT, NE Differential Diagnosis: Medical NonCompliance, Induced Differential Diagnosis: Myocardial Infarction, Pericarditis X-Ray, Labs, Meds, VS Vital Signs Date Time Temp Pulse Resp B/P (MAP) Pulse Ox O2 Delivery O2 Flow Rate FiO2 05/19/25 00:00 99 19 113/69 (84) 92 05/19/25 00:00 85 05/18/25 23:55 106 16 113/69 (84) 94 05/18/25 22:18 114 05/18/25 21:57 128 05/18/25 21:55 111 20 95 Nasal Cannula* 3 32 05/18/25 21:55 98.7 111 20 111/71 (84) 95 98.7 05/18/25 21:12 98.6 113 24 110/77 (88) 95 98.6 05/18/25 21:09 113 Lab Test 05/18/25 22:35 05/18/25 21:48 Range/Units Troponin I High Sensitivity 26 26 </=34 ng/L White Blood Count 3.1 L 4.4-10.8 10^3/uL Red Blood Count 2.82 L 4.0-5.20 10^6/uL Hemoglobin 9.3 L 12.2-16.2 g/dL Hematocrit 28.6 L 36.0-46.0 % Mean Corpuscular Volume 101.2 H 80.0-100.0 fL Mean Corpuscular Hemoglobin 33.0 H 28.0-32.0 pg Mean Corpuscular Hemoglobin Concent 32.6 32.0-36.0 g/dL Red Cell Distribution Width 19.1 H 11.8-14.3 % Platelet Count 75 L 140-450 10^3/uL Mean Platelet Volume 8.9 6.9-10.8 fL Neutrophils (%) (Auto) 69.2 37.0-80.0 % Lymphocytes (%) (Auto) 17.0 10.0-50.0 % Monocytes (%) (Auto) 8.1 0.0-12.0 % Eosinophils (%) (Auto) 4.9 0.0-7.0 % Basophils (%) (Auto) 0.8 0.0-2.0 % Neutrophils # (Auto) 2.1 1.6-8.6 10 ^3/uL Lymphocytes # (Auto) 0.5 0.4-5.4 10 ^3/uL Monocytes # (Auto) 0.2 0-1.3 10 ^3/uL Eosinophils # (Auto) 0.1 0-0.8 10 ^3/uL Basophils # (Auto) 0 0-0.2 10 ^3/uL Nucleated Red Blood Cells 0.0 % Platelet Estimate Decreased Macrocytosis Slight Sodium Level 144 # 136-145 mmol/L Potassium Level 3.4 L 3.5-5.1 mmol/L Chloride Level 103 98-107 mmol/L Carbon Dioxide Level 31 20-31 mmol/L Anion Gap 10 5-15 Blood Urea Nitrogen 12 9-23 mg/dL Creatinine 3.57 H 0.550-1.02 mg/dL Glomerular Filtration Rate Calc 13 >90 mL/min BUN/Creatinine Ratio 3.4 L 10.0-20.0 Serum Glucose 144 H 74-106 mg/dL Calcium Level 8.7 8.7-10.4 mg/dL B-Type Natriuretic Peptide 1123.04 0-100 pg/mL Thyroid Stimulating Hormone (TSH) 97.32 H 0.55-4.78 uIU/mL Time of 1ST Reevaluation: 21:40 Reevaluation 1ST: Unchanged Patient Education/Counseling: Diagnosis, Treatment, Prognosis Family Education/Counseling: No Family Present SEPSIS Sepsis Screen Physician Orders Chest Portable (05/18/25 21:19) R Breast Ultrasound (05/19/25 12:00) Vital Signs Date Time Temp Pulse Resp B/P (MAP) Pulse Ox O2 Delivery O2 Flow Rate FiO2 05/19/25 00:00 99 19 113/69 (84) 92 05/19/25 00:00 85 05/18/25 23:55 106 16 113/69 (84) 94 05/18/25 22:18 114 05/18/25 21:57 128 05/18/25 21:55 111 20 95 Nasal Cannula* 3 32 05/18/25 21:55 98.7 111 20 111/71 (84) 95 98.7 05/18/25 21:12 98.6 113 24 110/77 (88) 95 98.6 05/18/25 21:09 113 Laboratory Tests Test 05/18/25 21:48 White Blood Count 3.1 10^3/uL (4.4-10.8) L Departure 1 Departure Time of Disposition: 06:06 (Patient presented with chest pain that was concerning for possible STEMI, ACS, PE, Pneumonia, Muscle Strain, COPD, Dissection. Data: 1. I ordered and reviewed the result of at least 3 labs including a CBC, BMP, and Troponin. 2. I independently interpreted the following tests: EKG which shows sinus arrhythmia and Chest X-ray which shows benign chest.Risk:This patient has a high risk of morbidity due to further diagnostic testing or treatment and may suffer from an acute cardiac or respiratory disorder. Workup reveals concern for ACS and patient should be admitted for further workup and possible expert consultation. ) Impression: Primary Impression: Acute chest pain Disposition: 09 ADMITTED INPATIENT Admit to: Med Surg Condition: Serious Critical Care Note Critical Care Time?: Yes Critical care comment: Acute chest pain Authorized and Performed by: Redd Abdalla MD Total critical care time: Approximately 38 minutes Due to a high probability of clinically significant, life threatening deterioration, the patient required my highest level of preparedness to intervene emergently and I personally spent this critical care time directly and personally managing the patient. This critical care time included obtaining a history; examining the patient; pulse oximetry; ordering and review of studies; arranging urgent treatment with development of a management plan; evaluation of patient's response to treatment; frequent reassessment; and, discussions with other providers. This critical care time was performed to assess and manage the high probability of imminent, life-threatening deterioration that could result in multi-organ failure. It was exclusive of separately billable procedures and treating other patients and teaching time. Please see my other sections and the rest of the note for further information on patient assessment and treatment. Stability Stability form required: No Heart Score Heart Score: Heart Score Response (Comments) Value History Moderate Suspicious 1 EKG Repolarization Disturb 1 Age >65 2 Risk Factors >3 or Hx ASHD 2 Troponin >3 x's Normal limit 2 Total 8 I personally scribed for REDD ABDALLA MD ([email or web address]) on 05/18/25 at 21:20. Electronically submitted by Anel Dewey ([email or web address]). REDD ABDALLA MD May 18, 2025 21:20
[2025-05-18 21:55] VITALS: PULSE 111; RESP 20; O2SAT 95
[2025-05-18 22:03] LABS: Hematocrit 28.6 % (36.0-46.0); Hemoglobin 9.3 g/dL (12.2-16.2); Mean Corpuscular Hemoglobin 33.0 pg (28.0-32.0); Mean Corpuscular Volume 101.2 fL (80.0-100.0); Nucleated Red Blood Cells % 0.0 %
[2025-05-18 22:13] LABS: Chloride 103 mmol/L (98-107); Sodium 144 mmol/L (136-145)
[2025-05-18 22:14] LABS: Anion Gap 10 (5-15); Carbon Dioxide 31 mmol/L (20-31); Potassium 3.4 mmol/L (3.5-5.1)
--- NOTE | 2025-05-18 22:17 | DVH ---
CHEST RADIOGRAPH Indication: chest pain Technique: Single frontal view of the chest was obtained COMPARISON: XY CHEST PORTABLE on DOS: 05/12/25, XY CHEST PORTABLE on DOS: 05/09/25, XY CHEST XRAY 1 VIE W on DOS: 05/16/23, XY CHEST XRAY 1 VIEW on DOS: 05/13/23, XY CHEST PORTABLE on DOS: 04/23/23 FINDINGS: Lines and Tubes: None Lungs: Diffuse increased prominence of the pulmonary vasculature and interstitium. Small bilateral p leural effusions. No pneumothorax. Cardiomediastinal contours: Cardiomegaly. Atherosclerotic vascular calcifications. Bones: Unremarkable IMPRESSION: 1. Cardiomegaly, diffuse increased prominence of the pulmonary vasculature and interstitium and small bilateral pleural effusions.
[2025-05-18 22:19] LABS: Calcium 8.7 mg/dL (8.7-10.4); Glucose 144 mg/dL (74-106)
[2025-05-18 22:20] LABS: BUN/Creatinine Ratio 3.4 (10.0-20.0); Blood Urea Nitrogen 12 mg/dL (9-23); Macrocytosis Slight
--- NOTE | 2025-05-18 23:57 | ECG ---
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
[2025-05-19] VITALS (15 sets, daily range): BP systolic 111–132; BP diastolic 65–98; PULSE 85–115; RESP 18–21; TEMP 97.8–98.9; O2SAT 92–100
[2025-05-19] MEDS ORDERED: NITROGLYCERIN 0.4 MG SL TAB SL PRN (00:15)
[2025-05-19] MEDS ORDERED: ONDANSETRON HCL 4 MG/2 ML VIAL IV PRN (00:15)
[2025-05-19] MEDS ORDERED: MORPHINE SULFATE INJ 2 MG/ml SYRG IV PRN (00:15)
[2025-05-19] MEDS ORDERED: DEXTROSE (50%) 50ML SYRG IV PRN (00:15)
--- NOTE | 2025-05-19 00:19 | DVHHP2 ---
History of Present Illness Reason for Visit: Chest pain History of Present Illness 70-year-old female presents for evaluation of chest pain. Patient presents with a two week history of worsening chest pain with shortness for breath. On arrival patient was noted to be in AFib with RVR. Before getting any treatment the patient converted. Patient also reports having a right breast mass for approximately two months. Denies cough or fever. No other acute complaints. Review of Systems Review of Systems Review of systems are currently negative otherwise addressed in HPI. Allergies: Coded Allergies: NO KNOWN ALLERGIES (Unverified , 12/02/19) Exam Vital Signs Vital Signs Date Time Temp Pulse Resp B/P (MAP) Pulse Ox O2 Delivery O2 Flow Rate FiO2 05/18/25 21:57 128 05/18/25 21:55 20 95 Nasal Cannula* 3 32 05/18/25 21:55 98.7 111/71 (84) 98.7 Exam Gen: 70-year-old female in mild distress Skin: Warm, dry, normal color and texture, no rash. HEENT: Normocephalic atraumatic, mucous membranes moist and pink. Neck: Cervical and supraclavicular nodes normal without enlargement, trachea is midline, thyroid gland is normal without masses. Pulmonary: Clear to auscultation and percussion bilaterally. Cardiac: Regular rate and rhythm. No murmur Abdomen: Soft, nontender, nondistended, bowel sounds present all 4 quadrants, no guarding, no rigidity, right breast mass Extremities: No cyanosis, clubbing, no edema Neuro: Cranial nerves II through XII grossly intact, normal affect and speech, no focal motor deficits. Labs/Xrays ORDERING PHYSICIAN: DHEERAJ DAI MD PROCEDURE(s): ECIDC - ECHO 2D MODE CARDIAC DOP REASON: CHF ORDER NUMBER(s): [id number], ACCESSION NUMBER(s): [id number] APPROVED REPORT EXAM: Two-dimensional and M-mode echocardiogram with Doppler and color Doppler. Blood Pressure: 113/83 mmHg INDICATION Heart Failure RISK FACTORS Height: 5'3", Weight: 179 DIMENSIONS LVDd 5.0 (3.8-5.7cm) LA (2D) 5.5 (1.9-4.0cm) Aortic Root 3.2 (2.0- 3.7cm) LVDs 3.9 (2.5-4.0cm) LA (MM) (1.9-4.0cm) Aortic Cusp Exc 1.9 (1.5- 2.0cm) EF (%) 45.0 (55-70%) Rt. Atrium 6.2 (1.9-4.0cm) Asc. Aorta 3.5 cm IVSd 1.3 (0.7-1.1cm) RV (D) 4.9 (1.8-2.4cm) PWd 1.4 (0.7-1.1cm) Mitral Valve Mitral Mitral Stenosis E/A ratio 0.0 2D MVA cm2 Aortic Valve Aortic Valve Aortic Stenosis V1 0.79m/s AO Mean GR. 3mmHg V2 1.12m/s AO Peak GR. 5mmHg LVOT Diameter 2.1 (1.8-2.4cm) Doppler MARCE 2.44cm2 Pulmonic Valve V2 0.81m/s Tricuspid Valve TR Velocity 2.58m/s RVSP 42mmHg Conclusion DILATED LV GLOBAL LV HYPOKINESIS LV EF IN RANGE OF ONLY 30% MODERATELY DILATED RV,RA SIGNIFICANTLY DILATED LA DYSKINESIS OF IVS MILD POSTERIOR PERICARDIAL EFFUSION SEVERE MR MODERATE DEGREE TR MODERATE DEGREE PULMONARY HYPERTENSION STUDY SUGGEST END STAGE DILATED CARDIOMYOPATHY SIGNED BY: AJAY MERCEDES MD ORDERING PHYSICIAN: REDD CANDELARIO MD PROCEDURE(s): CXRP - CHEST PORTABLE REASON: chest pain ORDER NUMBER(s): [id number], ACCESSION NUMBER(s): [id number] CHEST RADIOGRAPH Indication: chest pain Technique: Single frontal view of the chest was obtained COMPARISON: XY CHEST PORTABLE on DOS: 05/12/25, XY CHEST PORTABLE on DOS: 05/09/25, XY CHEST XRAY 1 VIEW on DOS: 05/16/23, XY CHEST XRAY 1 VIEW on DOS: 05/13/23, XY CHEST PORTABLE on DOS: 04/23/23 FINDINGS: Lines and Tubes: None Lungs: Diffuse increased prominence of the pulmonary vasculature and interstitium. Small bilateral pleural effusions. No pneumothorax. Cardiomediastinal contours: Cardiomegaly. Atherosclerotic vascular calcifications. Bones: Unremarkable IMPRESSION: 1. Cardiomegaly, diffuse increased prominence of the pulmonary vasculature and interstitium and small bilateral pleural effusions. Labs Test 05/18/25 22:35 05/18/25 21:48 Range/Units Troponin I High Sensitivity 26 </=34 ng/L White Blood Count 3.1 L 4.4-10.8 10^3/uL Red Blood Count 2.82 L 4.0-5.20 10^6/uL Hemoglobin 9.3 L 12.2-16.2 g/dL Hematocrit 28.6 L 36.0-46.0 % Mean Corpuscular Volume 101.2 H 80.0-100.0 fL Mean Corpuscular Hemoglobin 33.0 H 28.0-32.0 pg Mean Corpuscular Hemoglobin Concent 32.6 32.0-36.0 g/dL Red Cell Distribution Width 19.1 H 11.8-14.3 % Platelet Count 75 L 140-450 10^3/uL Mean Platelet Volume 8.9 6.9-10.8 fL Neutrophils (%) (Auto) 69.2 37.0-80.0 % Lymphocytes (%) (Auto) 17.0 10.0-50.0 % Monocytes (%) (Auto) 8.1 0.0-12.0 % Eosinophils (%) (Auto) 4.9 0.0-7.0 % Basophils (%) (Auto) 0.8 0.0-2.0 % Neutrophils # (Auto) 2.1 1.6-8.6 10 ^3/uL Lymphocytes # (Auto) 0.5 0.4-5.4 10 ^3/uL Monocytes # (Auto) 0.2 0-1.3 10 ^3/uL Eosinophils # (Auto) 0.1 0-0.8 10 ^3/uL Basophils # (Auto) 0 0-0.2 10 ^3/uL Nucleated Red Blood Cells 0.0 % Platelet Estimate Decreased Macrocytosis Slight Sodium Level 144 # 136-145 mmol/L Potassium Level 3.4 L 3.5-5.1 mmol/L Chloride Level 103 98-107 mmol/L Carbon Dioxide Level 31 20-31 mmol/L Anion Gap 10 5-15 Blood Urea Nitrogen 12 9-23 mg/dL Creatinine 3.57 H 0.550-1.02 mg/dL Glomerular Filtration Rate Calc 13 >90 mL/min BUN/Creatinine Ratio 3.4 L 10.0-20.0 Serum Glucose 144 H 74-106 mg/dL Calcium Level 8.7 8.7-10.4 mg/dL B-Type Natriuretic Peptide 1123.04 0-100 pg/mL SEPSIS Sepsis Screen Date sepsis recognized/suspect: May 18, 2025 Time Sepsis recognized/suspect: 2341 Recent Procedure: No On Antibiotic Therapy: No Respiratory Rate >20: No Heart Rate >90: Yes Temp<36 C (96.8 F) or >38.3 C: No SBP <90 or MAP <65 mmHG: No New Acute Mental Status Change: No Is the patient on CPAP, BIPAP,: No Physician Orders Electrocardigram (05/19/25 00:12) Chest Portable (05/18/25 21:19) Troponin-I Hs (05/19/25 00:19) R Breast Ultrasound (05/18/25 23:48) Admit (05/19/25 00:07) Nitroglycerin Sublingual (Ntrostat Subli (05/19/25 00:15) Morphine Sulfate Injection (05/19/25 00:15) Stat Ekg For Chest Pain (05/19/25 00:07) Notify Md Of Changes From Base (05/19/25 00:07) Director Of Purchasing For 24 Hours (05/19/25 00:07) Emergency Dysrhythmia Protocol (05/19/25 00:07) Rhythm Strips Once Every Shift (05/19/25 00:07) Oxygen By Nasal Cannula (05/19/25 00:07) Vital Signs Date Time Temp Pulse Resp B/P (MAP) Pulse Ox O2 Delivery O2 Flow Rate FiO2 05/18/25 21:57 128 05/18/25 21:55 111 20 95 Nasal Cannula* 3 32 05/18/25 21:55 98.7 111 20 111/71 (84) 95 98.7 05/18/25 21:12 98.6 113 24 110/77 (88) 95 98.6 05/18/25 21:09 113 Laboratory Tests Test 05/18/25 21:48 White Blood Count 3.1 10^3/uL (4.4-10.8) L Assessment/Plan Assessment/Plan Assessment Acute on chronic hypoxic respiratory failure AFib with RVR End-stage renal disease, dialysis dependent Acute on chronic congestive heart failure Right breast mass Diabetes mellitus Plan Admit the patient to telemetry to the hospitalist Nephrology consultation Oncology consult Right breast ultrasound pending Resume home medications Continue treatment per orders. Plan discussed with: Patient My Orders Orders - JOHANA RESENDEZ Procedure Category Date Status Time R Breast Ultrasound US 05/18/25 Logged 23:48 Admit ADMIT 05/19/25 Transmitted 00:07 Nitroglycerin PHA 05/19/25 Transmitted Sublingual (Ntrostat 00:15 Morphine Sulfate PHA 05/19/25 Transmitted Injection 00:15 Stat Ekg For Chest [facility] 05/19/25 Transmitted Pain 00:07 Notify Md Of Changes [facility] 05/19/25 Transmitted From Base 00:07 Director Of Purchasing For [facility] 05/19/25 Transmitted 24 Hours 00:07 Emergency Dysrhythmia [facility] 05/19/25 Transmitted Protocol 00:07 Rhythm Strips Once [facility] 05/19/25 Transmitted Every Shift 00:07 Oxygen By Nasal RT 05/19/25 Transmitted Cannula 00:07 Date of Service: May 19, 2025 Billing Provider: JOHANA RESENDEZ Common Visit Codes: 10556-[id number] INP/OBS CARE (HIGH) JOHANA RESENDEZ May 19, 2025 00:19
--- NOTE | 2025-05-19 00:43 | ECG ---
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
[2025-05-19] MEDS: AMIODARONE HCL 200 MG TAB PO ONE (01:01)
[2025-05-19] MEDS: FUROSEMIDE 40 MG/4 ML VIAL IV ONE (01:01)
[2025-05-19] MEDS: ALBUTEROL SULF 2.5 MG/0.5ML(0.5%) NEB SOLN NEB PRN (02:01)
--- NOTE | 2025-05-19 04:30 | DVH ---
US OF THE RIGHT BREAST INDICATION: Breast lump TECHNIQUE: All 4 quadrants, subareolar region and axillary region of the RIGHT breast were evaluated with ultrasound COMPARISON: None FINDINGS: Irregular hypoechoic cystic structure in the 3 o'clock position measures 2.8 x 2.8 x 2.7 cm. No malignant adenopathy. No dominant cysts are present. IMPRESSION: Abscess versus irregular mass of the 3 o'clock position of the right breast measures 2.8 x 2.7 cm. Cl inical correlation advised. Bilateral breast diagnostic mammography recommended. ACR Bi Rads Category:Category 0-"INCOMPLETE" (Needs Additional Imaging Evaluation))
[2025-05-19 06:23] LABS: Chloride 104 mmol/L (98-107); Potassium 3.7 mmol/L (3.5-5.1); Sodium 142 mmol/L (136-145)
[2025-05-19 06:24] LABS: Anion Gap 9 (5-15); Carbon Dioxide 29 mmol/L (20-31)
[2025-05-19 06:29] LABS: BUN/Creatinine Ratio 3.6 (10.0-20.0); Blood Urea Nitrogen 14 mg/dL (9-23)
[2025-05-19 06:35] LABS: Calcium 8.7 mg/dL (8.7-10.4); Glucose 120 mg/dL (74-106)
[2025-05-19] MEDS: LEVOTHYROXINE SODIUM 50 MCG TAB PO SCH (06:48)
[2025-05-19] MEDS: ACCU-CHEK COMFORT CURVE STRIP VI SCH (06:48)
[2025-05-19] MEDS: InsuLIN REG 1unit/0.01ml Soln (100units/ml) SC SCH (06:56)
[2025-05-19] MEDS: SEVELAMER 800 MG TAB PO SCH (08:21)
[2025-05-19] MEDS: AMIODARONE HCL 200 MG TAB PO SCH (08:22)
[2025-05-19] MEDS: CALCIUM ACETATE 667 MG CAP PO SCH (08:22)
[2025-05-19] MEDS: SACUBITRIL-VALSARTAN 24mg/26mg TAB PO SCH (08:22)
[2025-05-19] MEDS: METOPROLOL TARTRATE 25 MG TAB PO SCH (08:23)
[2025-05-19] MEDS: FUROSEMIDE 40 MG TAB PO SCH (08:23)
[2025-05-19] MEDS: APIXABAN 2.5 MG TAB PO SCH (08:23)
--- NOTE | 2025-05-19 13:18 | DVHINCON2 ---
Date of service: May 19, 2025 Reason for Consultation ESRD History of Present Illness 70-year-old [place] female with past medical history of end-stage renal disease on hemodialysis, congestive heart failure with low ejection fraction, atrial fibrillation, diabetes presents to the hospital complaining of shortness of breath and chest pain. Patient was hospitalized nearly five days ago with similar presentation and required consecutive dialysis treatment for fluid removal. Nephrology consulted for continued dialysis treatment. Patient's last hemodialysis treatment was on Friday as per her normal schedule Allergies: Coded Allergies: NO KNOWN ALLERGIES (Unverified , 12/02/19) Home Meds Active Scripts Cephalexin Monohydrate (Cephalexin) 500 Mg Cap, 500 MG PO BID for 7 Days, #14 CAP Prov:DEAN MASTERS 10/20/24 Amiodarone HCl (Amiodarone HCl) 200 Mg Tab, 200 MG PO BID for 30 Days, #60 TAB Prov:GERALDINE LACKEY MD 05/17/23 Apixaban Base (ELIQUIS) 2.5 Mg Tab, 2.5 MG PO BID for 30 Days, #60 TAB Prov:GERALDINE LACKEY MD 05/17/23 Sacubitril-Valsartan (Entresto 24-26 mg) 1 Tab Tab, 1 TAB PO BID for 30 Days, #60 TAB 2 Refills Prov:REBEL WRAY MD 06/20/22 Ferrous Sulfate (Iron) 325 Mg Tab, 325 MG PO DAILY for 30 Days, #30 TAB 3 Refills Prov:REBEL WRAY MD 12/30/21 Amlodipine Besylate (Amlodipine Besylate) 10 Mg Tab, 1 TAB PO DAILY for 30 Days, #30 TAB 5 Refills Prov:REBEL WRAY MD 12/30/21 Isosorbide Mononitrate (Isosorbide Mononitrate ER) 60 Mg Tab, 60 MG PO DAILY for 30 Days, #30 TAB Prov:RUBEN MCDERMOTT MD 10/12/21 Reported Medications Furosemide (Furosemide) 40 Mg Tab, 1 TAB PO DAILY for 90 Days, #90 10/19/24 Levothyroxine Sodium (Levothyroxine Sodium) 150 Mcg Tab, 1 TAB PO DAILY for 90 Days, #90 10/19/24 Hydralazine Hcl (Hydralazine Hcl) 25 Mg Tab, 1 TAB PO QID for 90 Days, #360 10/19/24 Albuterol Sulfate (Albuterol Sulfate Hfa) 108 Mcg/Act Aer, 108 MCG IN UD for 90 Days, #25.5 10/19/24 Entecavir Monohydrate (Entecavir) 0.5 Mg Tab, 1 TAB PO DAILY for 90 Days, #90 BEFORE MEALS 10/19/24 Metoprolol Tartrate (Lopressor) 25 Mg Tb, 1 TAB PO BID for 90 Days, #180 05/13/23 Nifedipine (Nifedipine Er) 90 Mg Tab, 1 TAB PO DAILY for 90 Days, #90 05/13/23 Calcium Acetate (Phosphate Bin (Calcium Acetate) 667 Mg Cap, 2001 CAP PO TID for 30 Days 05/13/23 Sevelamer Carbonate (Sevelamer Carbonate) 0.8 Gm Pow, 1 PKT PO TID 05/13/23 Prednisone (Prednisone) 5 Mg Tab, 5 MG PO, TAB 06/15/22 Simvastatin (Simvastatin) 20 Mg Tab, 20 MG PO HS for 30 Days 06/15/22 Cholecalciferol (VITAMIN D) 5,000 Unit Tab, 5000 UNIT PO DAILY, TAB 10/10/21 Beclomethasone Dipropionate (Qvar Redihaler) 80 Mcg/Act Aer, 2 INH PO BID, AER 10/10/21 Current Medications Current Medications Medications (Trade) Dose Ordered Sig/Iggy Route PRN Reason Start Time Stop Time Status Last Admin Nitroglycerin (Ntrostat Sublingual) 0.4 mg Q5MINP PRN SL FOR CHEST PAIN 05/19/25 00:15 Morphine Sulfate 2 mg Q30M PRN IV FOR CHEST PAIN 05/19/25 00:15 Amiodarone HCl (Cordarone Tablet) 200 mg Q12HR PO 05/19/25 10:00 05/19/25 08:22 Albuterol (Ventolin Medneb) 2.5 mg Q6HPRN PRN NEB SHORTNESS OF BREATH 05/19/25 00:15 05/19/25 02:01 Apixaban (Eliquis) 2.5 mg BID PO 05/19/25 10:00 05/19/25 08:23 Calcium Acetate (Phoslo Capsule) 667 mg TIDWMEALS PO 05/19/25 08:00 05/19/25 12:27 Furosemide (Lasix Tablet) 40 mg DAILY PO 05/19/25 10:00 05/19/25 08:23 Hydralazine HCl (Apresoline Tablet) 25 mg Q8HR PO 05/19/25 06:00 05/19/25 06:48 Levothyroxine Sodium (Synthroid Tablet) 150 mcg QAM@0600 PO 05/19/25 06:00 05/19/25 06:48 Metoprolol Tartrate (Lopressor Tablet) 25 mg BID PO 05/19/25 10:00 05/19/25 08:23 Sacubitril/ Valsartan (Entresto 24-26 Mg tab) 1 tab BID PO 05/19/25 10:00 05/19/25 08:22 Atorvastatin Calcium (Lipitor) 20 mg HS PO 05/19/25 22:00 Diagnostic Test (Pha) (Accu-Chek Comfort Curve T) 1 strip ACHS 05/19/25 07:00 05/19/25 11:30 Insulin Human Regular (InsuLIN R) ACHS SC 05/19/25 07:00 05/19/25 06:56 Dextrose 50 ml UD PRN IV Blood Sugar LESS THAN 60 05/19/25 00:15 Ondansetron HCl (Zofran) 4 mg Q4HP PRN IV NAUSEA / VOMITING 05/19/25 00:15 Acetaminophen (Tylenol Tablet) 650 mg Q6HP PRN PO PAIN SCALE 1-3 OR TEMP>100.4 05/19/25 00:15 Sevelamer HCl (Renagel) 800 mg TIDWM PO 05/19/25 08:00 05/19/25 12:27 Family History: FH: HTN (hypertension) G8 FATHER FH: breast cancer G8 MOTHER FH: breast cancer G8 MOTHER Hypercholesterolemia G8 MOTHER G8 FATHER Review of Systems Chest pain and palpitations H&P Exam Vital Signs/I&O Vital Sign Date Time Temp Pulse Resp B/P (MAP) Pulse Ox O2 Delivery O2 Flow Rate FiO2 05/19/25 12:43 97.9 85 21 111/65 (80) 100 97.9 05/19/25 10:00 Nasal Cannula 3.0 05/19/25 10:00 32 Intake and Output 05/18/25 05/19/25 19:00 07:00 Intake Total 100 ml Balance 100 ml Intake Oral 100 ml Physical Exam Elderly [place] female Not in overt distress Irregular rate and rhythm Abdomen is soft No pitting edema Left arm AV fistula Labs/Diagnostic Data Labs/Diagnostic Data Laboratory Tests Test 05/19/25 12:25 05/19/25 06:10 05/19/25 04:58 05/19/25 00:50 Range/Units POC Glucose 98 145 H 70-106 mg/dl Sodium Level 142 136-145 mmol/L Potassium Level 3.7 3.5-5.1 mmol/L Chloride Level 104 98-107 mmol/L Carbon Dioxide Level 29 20-31 mmol/L Anion Gap 9 5-15 Blood Urea Nitrogen 14 9-23 mg/dL Creatinine 3.85 H 0.550-1.02 mg/dL Glomerular Filtration Rate Calc 12 >90 mL/min BUN/Creatinine Ratio 3.6 L 10.0-20.0 Serum Glucose 120 H 74-106 mg/dL Calcium Level 8.7 8.7-10.4 mg/dL Troponin I High Sensitivity 3 L </=34 ng/L Test 05/18/25 22:35 05/18/25 21:48 Range/Units Troponin I High Sensitivity 26 26 </=34 ng/L White Blood Count 3.1 L 4.4-10.8 10^3/uL Red Blood Count 2.82 L 4.0-5.20 10^6/uL Hemoglobin 9.3 L 12.2-16.2 g/dL Hematocrit 28.6 L 36.0-46.0 % Mean Corpuscular Volume 101.2 H 80.0-100.0 fL Mean Corpuscular Hemoglobin 33.0 H 28.0-32.0 pg Mean Corpuscular Hemoglobin Concent 32.6 32.0-36.0 g/dL Red Cell Distribution Width 19.1 H 11.8-14.3 % Platelet Count 75 L 140-450 10^3/uL Mean Platelet Volume 8.9 6.9-10.8 fL Neutrophils (%) (Auto) 69.2 37.0-80.0 % Lymphocytes (%) (Auto) 17.0 10.0-50.0 % Monocytes (%) (Auto) 8.1 0.0-12.0 % Eosinophils (%) (Auto) 4.9 0.0-7.0 % Basophils (%) (Auto) 0.8 0.0-2.0 % Neutrophils # (Auto) 2.1 1.6-8.6 10 ^3/uL Lymphocytes # (Auto) 0.5 0.4-5.4 10 ^3/uL Monocytes # (Auto) 0.2 0-1.3 10 ^3/uL Eosinophils # (Auto) 0.1 0-0.8 10 ^3/uL Basophils # (Auto) 0 0-0.2 10 ^3/uL Nucleated Red Blood Cells 0.0 % Platelet Estimate Decreased Macrocytosis Slight Sodium Level 144 # 136-145 mmol/L Potassium Level 3.4 L 3.5-5.1 mmol/L Chloride Level 103 98-107 mmol/L Carbon Dioxide Level 31 20-31 mmol/L Anion Gap 10 5-15 Blood Urea Nitrogen 12 9-23 mg/dL Creatinine 3.57 H 0.550-1.02 mg/dL Glomerular Filtration Rate Calc 13 >90 mL/min BUN/Creatinine Ratio 3.4 L 10.0-20.0 Serum Glucose 144 H 74-106 mg/dL Calcium Level 8.7 8.7-10.4 mg/dL B-Type Natriuretic Peptide 1123.04 0-100 pg/mL Thyroid Stimulating Hormone (TSH) 97.32 H 0.55-4.78 uIU/mL Assessment 70-year-old female past medical history of end-stage renal disease, and ischemic cardiomyopathy congestive heart failure with low ejection fraction presents to the hospital complaining of shortness of breath and chest pain in the context of atrial fibrillation rapid ventricular response End-stage renal disease Congestive heart failure with low ejection fraction Atrial fibrillation Chest pain Patient has persistent chest pain related to dialysis treatments due to poor cardiac function. Treatments have been extended with lower blood flow to reduced cardiac stenting and cardiac strain however patient's poor compliance with fluid restriction has limited effectiveness. Gold therapy rate control Maintain mean arterial pressure greater than 65 Fluid restriction less than 1 L per day Next hemodialysis treatment will be arranged for tomorrow with conservative fluid goals and avoid high blood flow rates to prevent ischemia Cardiology Renal diet Rest of care as per primary medical team Care time 57 minutes Plan discussed with: Patient KRISTIANBulmaroDHEERAJ MD May 19, 2025 13:18
[2025-05-19] MEDS: ATORVASTATIN 20 MG TAB PO SCH (21:33)
[2025-05-20] VITALS (10 sets, daily range): BP systolic 102–123; BP diastolic 60–77; PULSE 80–109; RESP 18–20; TEMP 97.6–98.5; O2SAT 93–100
[2025-05-20 05:35] LABS: Hematocrit 30.9 % (36.0-46.0); Hemoglobin 10.2 g/dL (12.2-16.2); Mean Corpuscular Hemoglobin 33.1 pg (28.0-32.0); Mean Corpuscular Volume 100.0 fL (80.0-100.0); Nucleated Red Blood Cells % 0.0 %
[2025-05-20 05:42] LABS: Chloride 101 mmol/L (98-107); Potassium 4.2 mmol/L (3.5-5.1); Sodium 140 mmol/L (136-145)
[2025-05-20 05:43] LABS: Anion Gap 10 (5-15); Calcium 9.4 mg/dL (8.7-10.4); Carbon Dioxide 29 mmol/L (20-31)
[2025-05-20 05:48] LABS: BUN/Creatinine Ratio 5.0 (10.0-20.0); Iron 59.0 ug/dL (50-170)
[2025-05-20 05:49] LABS: Blood Urea Nitrogen 26 mg/dL (9-23); Glucose 114 mg/dL (74-106)
[2025-05-20 06:00] LABS: Total Iron Binding Capacity 213.0 ug/dL (250-425)
[2025-05-20] MEDS ORDERED: SODIUM CHL 0.9% 1000 ML BAG XX ONE (07:00)
[2025-05-20 10:27] LABS: Hepatitis C Antibody Negative (Negative)
[2025-05-20 10:30] LABS: Hepatitis B Surface Antigen Positive (Negative)
--- NOTE | 2025-05-20 11:02 | DVHPN2 ---
Progress Note - Dictate Date Seen: May 20, 2025 Medical Necessity Reason Pt with a Central, PICC or Fol: No Subjective Reports abdominal distention. vital signs Vital Sign Date Time Temp Pulse Resp B/P (MAP) Pulse Ox O2 Delivery O2 Flow Rate FiO2 05/20/25 10:00 96 Nasal Cannula* 2 28 05/20/25 09:56 92 110/77 05/20/25 09:00 97.8 18 97.8 Total Intake and Output 05/19/25 05/19/25 05/20/25 15:00 23:00 07:00 Intake Total 560 ml 350 ml Balance 560 ml 350 ml medications Current Medications Medications Dose Ordered Sig/Iggy Route Start Time Stop Time Status Last Admin Dose Admin Nitroglycerin 0.4 mg Q5MINP PRN SL 05/19/25 00:15 Morphine Sulfate 2 mg Q30M PRN IV 05/19/25 00:15 Amiodarone HCl 200 mg Q12HR PO 05/19/25 10:00 05/20/25 09:53 200 MG Albuterol 2.5 mg Q6HPRN PRN NEB 05/19/25 00:15 05/19/25 02:01 2.5 MG Apixaban 2.5 mg BID PO 05/19/25 10:00 05/20/25 09:53 2.5 MG Calcium Acetate 667 mg TIDWMEALS PO 05/19/25 08:00 05/20/25 09:53 667 MG Furosemide 40 mg DAILY PO 05/19/25 10:00 05/20/25 09:53 40 MG Hydralazine HCl 25 mg Q8HR PO 05/19/25 06:00 05/20/25 05:59 25 MG Levothyroxine Sodium 150 mcg QAM@0600 PO 05/19/25 06:00 05/20/25 05:59 150 MCG Metoprolol Tartrate 25 mg BID PO 05/19/25 10:00 05/19/25 21:34 25 MG Sacubitril/ Valsartan 1 tab BID PO 05/19/25 10:00 05/20/25 09:52 1 TAB Atorvastatin Calcium 20 mg HS PO 05/19/25 22:00 05/19/25 21:33 20 MG Diagnostic Test (Pha) 1 strip ACHS 05/19/25 07:00 05/20/25 06:03 1 STRIP Insulin Human Regular ACHS SC 05/19/25 07:00 05/19/25 06:56 2 UNITS Dextrose 50 ml UD PRN IV 05/19/25 00:15 Ondansetron HCl 4 mg Q4HP PRN IV 05/19/25 00:15 Acetaminophen 650 mg Q6HP PRN PO 05/19/25 00:15 Sevelamer HCl 800 mg TIDWM PO 05/19/25 08:00 05/20/25 09:53 800 MG objective Gen: Communicative heent: nc/at, mmm lungs: cta anteriorly cvs: no rub abd: Distended, bowel sounds diminished ext: no edema laboratory and microbiology Laboratory Tests 05/20/25 05:14 Test 05/20/25 05:14 Range/Units Serum Glucose 114 H 74-106 mg/dL Assessment/Plan End-stage renal disease Congestive heart failure with low ejection fraction Atrial fibrillation Chest pain - dialysis today, UF as hemodynamics permit - KUB as initial diagnostic test to evaluate abdominal distention - discussed with patient and patient's son. Plan discussed with: Patient, Son DECLAN VERDE MD May 20, 2025 11:02
--- NOTE | 2025-05-20 11:33 | DVH ---
Exam: XY KUB ABDOMEN SINGLE VIEW Indication: Severe abdominal distention Comparison: None Technique: 2 radiographic views of the abdomen. Findings: Nonspecific bowel-gas pattern. Distended stomach. There is no definite evidence for pneumoperitoneum. No abnormal calcifications noted. Impression: Nonspecific bowel-gas pattern. Distended stomach.
[2025-05-20 12:21] LABS: Alanine Aminotransferase < 9 U/L (7-40); Albumin 3.9 g/dL (3.2-4.8); Alkaline Phosphatase 35 U/L (46-116); Bilirubin, Direct 0.3 mg/dL (<0.3); Bilirubin, Total 0.6 mg/dL (0.2-1.0); Total Protein 7.1 g/dL (5.7-8.2)
--- NOTE | 2025-05-20 12:23 | DVHPN2 ---
Subjective The patient seen and examined at bedside. Complains of shortness of breath. Reviewed: Care Plan, H&P, Labs, Medications, Previous Orders, Radiology Changes from previous H/P or p: No Changes Objective Vitals Vital Signs Date Time Temp Pulse Resp B/P (MAP) Pulse Ox O2 Delivery O2 Flow Rate FiO2 05/20/25 10:00 96 Nasal Cannula* 2 28 05/20/25 09:56 92 110/77 05/20/25 09:00 97.8 18 97.8 Intake/Output Intake and Output 05/20/25 07:00 Intake Total 910 ml Balance 910 ml Intake Oral 910 ml # Bowel Movements 5 General Appearance: Alert, Oriented X3, Cooperative, No acute distress HEENT: Atraumatic, PERRLA, EOMI, Mucous membr. moist/pink Neck: Supple Lungs: Clear to auscultation, Normal air movement Cardiovascular: Regular rate, Normal S1, Normal S2, No murmurs, Gallops, Rubs Neuro: Cranial nerves 3-12 NL Psych/Mental Status: Mental status NL Medications Current Medications Medications Dose Ordered Sig/Iggy Route Start Time Stop Time Status Last Admin Dose Admin Nitroglycerin 0.4 mg Q5MINP PRN SL 05/19/25 00:15 Morphine Sulfate 2 mg Q30M PRN IV 05/19/25 00:15 Amiodarone HCl 200 mg Q12HR PO 05/19/25 10:00 05/20/25 09:53 200 MG Albuterol 2.5 mg Q6HPRN PRN NEB 05/19/25 00:15 05/19/25 02:01 2.5 MG Apixaban 2.5 mg BID PO 05/19/25 10:00 05/20/25 09:53 2.5 MG Calcium Acetate 667 mg TIDWMEALS PO 05/19/25 08:00 05/20/25 11:59 667 MG Furosemide 40 mg DAILY PO 05/19/25 10:00 05/20/25 09:53 40 MG Hydralazine HCl 25 mg Q8HR PO 05/19/25 06:00 05/20/25 05:59 25 MG Levothyroxine Sodium 150 mcg QAM@0600 PO 05/19/25 06:00 05/20/25 05:59 150 MCG Metoprolol Tartrate 25 mg BID PO 05/19/25 10:00 05/19/25 21:34 25 MG Sacubitril/ Valsartan 1 tab BID PO 05/19/25 10:00 05/20/25 09:52 1 TAB Atorvastatin Calcium 20 mg HS PO 05/19/25 22:00 05/19/25 21:33 20 MG Diagnostic Test (Pha) 1 strip ACHS 05/19/25 07:00 05/20/25 06:03 1 STRIP Insulin Human Regular ACHS SC 05/19/25 07:00 05/19/25 06:56 2 UNITS Dextrose 50 ml UD PRN IV 05/19/25 00:15 Ondansetron HCl 4 mg Q4HP PRN IV 05/19/25 00:15 Acetaminophen 650 mg Q6HP PRN PO 05/19/25 00:15 Sevelamer HCl 800 mg TIDWM PO 05/19/25 08:00 05/20/25 11:59 800 MG Laboratory Results Laboratory Tests 05/20/25 05:14 Chemistry Test 05/20/25 05:14 Albumin 3.9 g/dL (3.2-4.8) Calcium Level 9.4 mg/dL (8.7-10.4) Total Protein 7.1 g/dL (5.7-8.2) LFT Test 05/20/25 05:14 Alanine Aminotransferase (ALT) < 9 U/L (7-40) Alkaline Phosphatase 35 U/L (46-116) L Aspartate Amino Transferase (AST) 18 U/L (13-40) Direct Bilirubin 0.3 mg/dL (<0.3) Total Bilirubin 0.6 mg/dL (0.2-1.0) Microbiology Microbiology Date/Time Source Procedure Growth Status 05/19/25 04:10 Nose MRSA Screen - Final Complete Assessment/Plan Assessment/Plan Acute on chronic hypoxic respiratory failure AFib with RVR End-stage renal disease, dialysis dependent Acute on chronic congestive heart failure Right breast mass Diabetes mellitus Continue current management Continue anticoagulation. Continue HD Continue SSI Regarding to her breast mass, will order mammogram. If it confirm a mass, will biopsy. Patient may need to do mammogram as outpatient if the hospital did not have mammogram machine. Per patient she has 2 sisters with breast cancer. Plan discussed with: Patient Date of Service: May 20, 2025 Billing Provider: LORETTA ESTEVES MD Common Visit Codes: [id number] INP/OBS CARE(HIGH) LORETTA ESTEVES MD May 20, 2025 12:23
--- NOTE | 2025-05-20 13:07 | DVHINCON2 ---
GI Consult Consult Note GI consult note Date of Consultation: 05/20/2025 Chief Complaint: Abdominal distention Referring Physician: Dr. Adamson H&P: 70-year-old female presented to ER with complains of chest pain. Patient was noted to be in AFib with RVR, and since been converted. Patient also complaining of abdominal distention. No nausea vomiting. Denies hematemesis. Three bowel movements yesterday. So far patient has had one bowel movement a small amount. No melena or red blood in stool. Patient has history of hepatitis-B diagnosed in the . Unsure of any paracentesis done in the past for patient Past Medical History: Anemia, CHF, DM, ESRD, High Lipids, HTN, Liver, Thyroid Past Surgical History: Cholecystectomy, Social History: NO smoking, drinking ETOH and use of illegal drugs. Family History: Noncontributory Review of Systems: Constitutional: no fever, chill, weight loss HEENT: no eye pain, no hearing loss, no oral lesion, no scleral icterus Heart: no chest pain, no chest pressure Lung: no cough, no dyspnea with exertion Abdomen: see HPI Physical exam: General: NAD, AAOX3 Chest: lung whalen clear to auscultation Heart: RRR, no murmur Abdomen: Moderate-distended, +BS Labs: Chemistry Test 05/20/25 05:14 Albumin 3.9 g/dL (3.2-4.8) Calcium Level 9.4 mg/dL (8.7-10.4) Total Protein 7.1 g/dL (5.7-8.2) LFT Test 05/20/25 05:14 Alanine Aminotransferase (ALT) < 9 U/L (7-40) Alkaline Phosphatase 35 U/L (46-116) L Aspartate Amino Transferase (AST) 18 U/L (13-40) Direct Bilirubin 0.3 mg/dL (<0.3) Total Bilirubin 0.6 mg/dL (0.2-1.0) Microbiology Microbiology Date/Time Source Procedure Growth Status 05/19/25 04:10 Nose MRSA Screen - Final Complete Imaging: Chest abdominal x-ray Impression: Nonspecific bowel-gas pattern. Distended stomach. Assessment: ESRD on dialysis CHF AFib History of hepatitis-B Plan: Discussed with Dr. Rhoades Abdominal ultrasound Monitor lab Protonix Consider NG-tube if ultrasound is negative for ascites for the abdominal distention Review old records for any EGD colonoscopy results Discussed plan with patient and RN Thank you for this consult Date of Service: May 20, 2025 Billing Provider: ONEYDA TUCKER Common Visit Codes: CONSULT ONLY Consultation Codes: [id number] CONSULT <60MIN ONEYDA TUCKER May 20, 2025 13:07
[2025-05-20 14:55] LABS: INR 1.19 (0.9-1.15); Prothrombin Time 12.4 sec (9.3-11.8)
--- NOTE | 2025-05-20 19:02 | DVH ---
Technique: Real-time ultrasound imaging of the abdomen was performed with grayscale and color Doppler . Indication: abd distension. Hx Hep B Comparison: US ABDOMEN LIMITED on DOS: 05/11/25, KIDUS on DOS: 06/19/22 Findings: Cirrhotic morphology liver. Small to moderate volume of ascites fluid present. Right pleural effusion. Impression: As above
[2025-05-21] VITALS (11 sets, daily range): BP systolic 86–113; BP diastolic 51–74; PULSE 63–103; RESP 17–18; TEMP 97.7–98.6; O2SAT 96–99
--- NOTE | 2025-05-21 15:50 | DVHPN2 ---
Subjective The patient seen and examined at bedside. Complains of shortness of breath. Reviewed: Care Plan, H&P, Labs, Medications, Previous Orders, Radiology Changes from previous H/P or p: No Changes Objective Vitals Vital Signs Date Time Temp Pulse Resp B/P (MAP) Pulse Ox O2 Delivery O2 Flow Rate FiO2 05/21/25 12:45 81 100/63 05/21/25 12:44 97.8 18 98 97.8 05/21/25 10:00 Nasal Cannula* 3 32 Intake/Output Intake and Output 05/21/25 07:00 Intake Total 2050 ml Balance 2050 ml Intake Oral 2050 ml # Bowel Movements 2 General Appearance: Alert, Oriented X3, Cooperative, No acute distress HEENT: Atraumatic, PERRLA, EOMI, Mucous membr. moist/pink Neck: Supple Lungs: Clear to auscultation, Normal air movement Cardiovascular: Regular rate, Normal S1, Normal S2, No murmurs, Gallops, Rubs Neuro: Cranial nerves 3-12 NL Psych/Mental Status: Mental status NL Medications Current Medications Medications Dose Ordered Sig/Iggy Route Start Time Stop Time Status Last Admin Dose Admin Nitroglycerin 0.4 mg Q5MINP PRN SL 05/19/25 00:15 Morphine Sulfate 2 mg Q30M PRN IV 05/19/25 00:15 Amiodarone HCl 200 mg Q12HR PO 05/19/25 10:00 05/21/25 09:55 200 MG Albuterol 2.5 mg Q6HPRN PRN NEB 05/19/25 00:15 05/19/25 02:01 2.5 MG Apixaban 2.5 mg BID PO 05/19/25 10:00 05/21/25 09:56 2.5 MG Calcium Acetate 667 mg TIDWMEALS PO 05/19/25 08:00 05/21/25 12:43 667 MG Furosemide 40 mg DAILY PO 05/19/25 10:00 05/21/25 09:56 40 MG Hydralazine HCl 25 mg Q8HR PO 05/19/25 06:00 05/20/25 21:49 25 MG Levothyroxine Sodium 150 mcg QAM@0600 PO 05/19/25 06:00 05/21/25 05:49 150 MCG Metoprolol Tartrate 25 mg BID PO 05/19/25 10:00 05/21/25 09:56 25 MG Sacubitril/ Valsartan 1 tab BID PO 05/19/25 10:00 05/21/25 09:55 1 TAB Atorvastatin Calcium 20 mg HS PO 05/19/25 22:00 05/20/25 21:48 20 MG Diagnostic Test (Pha) 1 strip ACHS 05/19/25 07:00 05/21/25 11:21 1 STRIP Insulin Human Regular ACHS SC 05/19/25 07:00 05/19/25 06:56 2 UNITS Dextrose 50 ml UD PRN IV 05/19/25 00:15 Ondansetron HCl 4 mg Q4HP PRN IV 05/19/25 00:15 Acetaminophen 650 mg Q6HP PRN PO 05/19/25 00:15 Sevelamer HCl 800 mg TIDWM PO 05/19/25 08:00 05/21/25 12:43 800 MG Laboratory Results Laboratory Tests 05/20/25 05:14 Microbiology Microbiology Date/Time Source Procedure Growth Status 05/19/25 04:10 Nose MRSA Screen - Final Complete Labs and/or images reviewed: Labs reviewed by me Assessment/Plan Assessment/Plan Acute on chronic hypoxic respiratory failure AFib with RVR End-stage renal disease, dialysis dependent Acute on chronic congestive heart failure Right breast mass Diabetes mellitus Abdominal ascites Hepatitis B positive Continue current management Continue anticoagulation. Continue HD Continue SSI Regarding to her breast mass, the patient needs outpatient mammogram since the hospital does not have the mammogram machine to be done in house The patient needs to follow up with her primary care physician to take care of this issue as soon as possible. I spoke with the patient and the son on the phone stressed to them that is very important to get this done as soon as they can. I will order ultrasound-guided paracentesis for ascites Per patient she has 2 sisters with breast cancer. This medical document was created using an electronic medical record system with [employer] direct computerized dictation system. Although this document has been carefully reviewed, there may still be some phonetic and typographical errors. These areas are purely typographical due to imperfections of the software programs, and do not reflect any compromise in the patient's medical care. Plan discussed with: Patient, Son Date of Service: May 21, 2025 Billing Provider: LORETTA ESTEVES MD Common Visit Codes: [id number] INP/OBS CARE(HIGH) LORETTA ESTEVES MD May 21, 2025 15:50
--- NOTE | 2025-05-21 16:28 | DVHPN2 ---
Progress Note Date Seen: May 21, 2025 Medical Necessity Reason Pt with a Central, PICC or Fol: No Subjective Review of Systems Pt reports after HD yesterday she felt that the abdominal pain she was experiencing subsided. States she feels better. No new complaints today. Patient reports: No new complaints, Feels better Objective vital signs Vital Sign Date Time Temp Pulse Resp B/P (MAP) Pulse Ox O2 Delivery O2 Flow Rate FiO2 05/21/25 12:45 81 100/63 05/21/25 12:44 97.8 18 98 97.8 05/21/25 10:00 Nasal Cannula* 3 32 Total Intake and Output 05/20/25 05/20/25 05/21/25 15:00 23:00 07:00 Intake Total 750 ml 1300 ml Balance 750 ml 1300 ml medications Current Medications Medications Dose Ordered Sig/Iggy Route Start Time Stop Time Status Last Admin Dose Admin Nitroglycerin 0.4 mg Q5MINP PRN SL 05/19/25 00:15 Morphine Sulfate 2 mg Q30M PRN IV 05/19/25 00:15 Amiodarone HCl 200 mg Q12HR PO 05/19/25 10:00 05/21/25 09:55 200 MG Albuterol 2.5 mg Q6HPRN PRN NEB 05/19/25 00:15 05/19/25 02:01 2.5 MG Apixaban 2.5 mg BID PO 05/19/25 10:00 05/21/25 09:56 2.5 MG Calcium Acetate 667 mg TIDWMEALS PO 05/19/25 08:00 05/21/25 12:43 667 MG Furosemide 40 mg DAILY PO 05/19/25 10:00 05/21/25 09:56 40 MG Hydralazine HCl 25 mg Q8HR PO 05/19/25 06:00 05/20/25 21:49 25 MG Levothyroxine Sodium 150 mcg QAM@0600 PO 05/19/25 06:00 05/21/25 05:49 150 MCG Metoprolol Tartrate 25 mg BID PO 05/19/25 10:00 05/21/25 09:56 25 MG Sacubitril/ Valsartan 1 tab BID PO 05/19/25 10:00 05/21/25 09:55 1 TAB Atorvastatin Calcium 20 mg HS PO 05/19/25 22:00 05/20/25 21:48 20 MG Diagnostic Test (Pha) 1 strip ACHS 05/19/25 07:00 05/21/25 11:21 1 STRIP Insulin Human Regular ACHS SC 05/19/25 07:00 05/19/25 06:56 2 UNITS Dextrose 50 ml UD PRN IV 05/19/25 00:15 Ondansetron HCl 4 mg Q4HP PRN IV 05/19/25 00:15 Acetaminophen 650 mg Q6HP PRN PO 05/19/25 00:15 Sevelamer HCl 800 mg TIDWM PO 05/19/25 08:00 05/21/25 12:43 800 MG Examination Gen: NAD, appears stated age Lungs: CTA, bilateral air entry Heart: RRR, normal S1 anad S2 Ext: No edema Neuro: Alert and oriented x 4 laboratory and microbiology Laboratory Tests 05/20/25 05:14 Test 05/20/25 05:14 Range/Units Serum Glucose 114 H 74-106 mg/dL Microbiology Date/Time Source Procedure Growth Status 05/19/25 04:10 Nose MRSA Screen - Final Complete Labs and/or images reviewed: Labs reviewed by nv Problem List/Assessment/Plan Problem List/Assessment/Plan IMP End-stage renal disease on HD- last HD 05/20 Congestive heart failure with low ejection fraction Atrial fibrillation Chest pain REC - Chemistry panel - HD tentatively 05/23 - Strict I&O - Blood pressure control -Will continue to follow Plan discussed with: Patient EMELINA AGUILAR FLAME G[employer]GER May 21, 2025 16:28
[2025-05-22] VITALS (13 sets, daily range): BP systolic 100–121; BP diastolic 62–89; PULSE 76–95; RESP 16–20; TEMP 97.4–98.2; O2SAT 94–100
[2025-05-22 06:36] LABS: Anion Gap 11 (5-15); Calcium 9.2 mg/dL (8.7-10.4); Carbon Dioxide 27 mmol/L (20-31); Chloride 101 mmol/L (98-107); Potassium 4.4 mmol/L (3.5-5.1); Sodium 139 mmol/L (136-145)
[2025-05-22 06:43] LABS: BUN/Creatinine Ratio 6.0 (10.0-20.0); Glucose 103 mg/dL (74-106)
[2025-05-22 06:46] LABS: Blood Urea Nitrogen 33 mg/dL (9-23)
[2025-05-22 10:01] LABS: Hematocrit 29.0 % (36.0-46.0); Hemoglobin 9.6 g/dL (12.2-16.2); Mean Corpuscular Hemoglobin 32.9 pg (28.0-32.0); Mean Corpuscular Volume 99.5 fL (80.0-100.0); Nucleated Red Blood Cells % 0.1 %
--- NOTE | 2025-05-22 12:35 | DVHPN2 ---
Subjective The patient seen and examined at bedside. Complains of shortness of breath. Complains of abdominal distended. Reviewed: Care Plan, H&P, Labs, Medications, Previous Orders, Radiology Changes from previous H/P or p: No Changes Objective Vitals Vital Signs Date Time Temp Pulse Resp B/P (MAP) Pulse Ox O2 Delivery O2 Flow Rate FiO2 05/22/25 12:07 100/69 05/22/25 10:42 85 05/22/25 10:00 99 Nasal Cannula* 3 32 05/22/25 09:00 97.4 16 97.4 Intake/Output Intake and Output 05/22/25 07:00 Intake Total 1850 ml Balance 1850 ml Intake Oral 1850 ml # Bowel Movements 2 General Appearance: Alert, Oriented X3, Cooperative, No acute distress HEENT: Atraumatic, PERRLA, EOMI, Mucous membr. moist/pink Neck: Supple Lungs: Clear to auscultation, Normal air movement Cardiovascular: Regular rate, Normal S1, Normal S2, No murmurs, Gallops, Rubs Neuro: Cranial nerves 3-12 NL Psych/Mental Status: Mental status NL Medications Current Medications Medications Dose Ordered Sig/Iggy Route Start Time Stop Time Status Last Admin Dose Admin Nitroglycerin 0.4 mg Q5MINP PRN SL 05/19/25 00:15 Morphine Sulfate 2 mg Q30M PRN IV 05/19/25 00:15 Amiodarone HCl 200 mg Q12HR PO 05/19/25 10:00 05/22/25 09:41 200 MG Albuterol 2.5 mg Q6HPRN PRN NEB 05/19/25 00:15 05/19/25 02:01 2.5 MG Apixaban 2.5 mg BID PO 05/19/25 10:00 05/22/25 09:42 2.5 MG Calcium Acetate 667 mg TIDWMEALS PO 05/19/25 08:00 05/22/25 12:14 667 MG Furosemide 40 mg DAILY PO 05/19/25 10:00 05/22/25 09:42 40 MG Hydralazine HCl 25 mg Q8HR PO 05/19/25 06:00 05/22/25 06:00 25 MG Levothyroxine Sodium 150 mcg QAM@0600 PO 05/19/25 06:00 05/22/25 06:00 150 MCG Metoprolol Tartrate 25 mg BID PO 05/19/25 10:00 05/22/25 09:42 25 MG Sacubitril/ Valsartan 1 tab BID PO 05/19/25 10:00 05/22/25 09:41 1 TAB Atorvastatin Calcium 20 mg HS PO 05/19/25 22:00 05/21/25 21:34 20 MG Diagnostic Test (Pha) 1 strip ACHS 05/19/25 07:00 05/22/25 11:33 1 STRIP Insulin Human Regular ACHS SC 05/19/25 07:00 05/19/25 06:56 2 UNITS Dextrose 50 ml UD PRN IV 05/19/25 00:15 Ondansetron HCl 4 mg Q4HP PRN IV 05/19/25 00:15 Acetaminophen 650 mg Q6HP PRN PO 05/19/25 00:15 Sevelamer HCl 800 mg TIDWM PO 05/19/25 08:00 05/22/25 12:14 800 MG Laboratory Results Laboratory Tests 05/22/25 05:02 Chemistry Test 05/22/25 05:02 Calcium Level 9.2 mg/dL (8.7-10.4) Microbiology Microbiology Date/Time Source Procedure Growth Status 05/19/25 04:10 Nose MRSA Screen - Final Complete Labs and/or images reviewed: Labs reviewed by me Assessment/Plan Assessment/Plan Acute on chronic hypoxic respiratory failure AFib with RVR End-stage renal disease, dialysis dependent Acute on chronic congestive heart failure Right breast mass Diabetes mellitus Abdominal ascites Hepatitis B positive Continue current management Continue anticoagulation. Continue HD Continue SSI Regarding to her breast mass, the patient needs outpatient mammogram since the hospital does not have the mammogram machine to be done in house The patient needs to follow up with her primary care physician to take care of this issue as soon as possible. I spoke with the patient and the son on the phone stressed to them that is very important to get this done as soon as they can. I will order ultrasound-guided paracentesis for ascites Per patient she has 2 sisters with breast cancer. This medical document was created using an electronic medical record system with [employer] direct computerized dictation system. Although this document has been carefully reviewed, there may still be some phonetic and typographical errors. These areas are purely typographical due to imperfections of the software programs, and do not reflect any compromise in the patient's medical care. This medical document was created using an electronic medical record system with [employer] direct computerized dictation system. Although this document has been carefully reviewed, there may still be some phonetic and typographical errors. These areas are purely typographical due to imperfections of the software programs, and do not reflect any compromise in the patient's medical care. Plan discussed with: Patient My Orders Orders - LORETTA ESTEVES MD Procedure Category Date Status Time * Radiologist Consult CONS 05/21/25 Transmitted 16:32 Date of Service: May 22, 2025 Billing Provider: LORETTA ESTEVES MD Common Visit Codes: [id number] INP/OBS CARE(HIGH) LORETTA ESTEVES MD May 22, 2025 12:35
--- NOTE | 2025-05-22 18:09 | DVHPN2 ---
Progress Note Date Seen: May 22, 2025 Medical Necessity Reason Pt with a Central, PICC or Fol: No Subjective Review of Systems Patient resting in bed. Patient reports: No new complaints, Feels better Objective vital signs Vital Sign Date Time Temp Pulse Resp B/P (MAP) Pulse Ox O2 Delivery O2 Flow Rate FiO2 05/22/25 17:00 97.4 81 18 101/74 (83) 95 97.4 05/22/25 10:00 Nasal Cannula* 3 32 Total Intake and Output 05/21/25 05/21/25 05/22/25 15:00 23:00 07:00 Intake Total 900 ml 300 ml 650 ml Balance 900 ml 300 ml 650 ml medications Current Medications Medications Dose Ordered Sig/Iggy Route Start Time Stop Time Status Last Admin Dose Admin Nitroglycerin 0.4 mg Q5MINP PRN SL 05/19/25 00:15 Morphine Sulfate 2 mg Q30M PRN IV 05/19/25 00:15 Amiodarone HCl 200 mg Q12HR PO 05/19/25 10:00 05/22/25 09:41 200 MG Albuterol 2.5 mg Q6HPRN PRN NEB 05/19/25 00:15 05/19/25 02:01 2.5 MG Apixaban 2.5 mg BID PO 05/19/25 10:00 05/22/25 09:42 2.5 MG Calcium Acetate 667 mg TIDWMEALS PO 05/19/25 08:00 05/22/25 17:32 667 MG Furosemide 40 mg DAILY PO 05/19/25 10:00 05/22/25 09:42 40 MG Hydralazine HCl 25 mg Q8HR PO 05/19/25 06:00 05/22/25 06:00 25 MG Levothyroxine Sodium 150 mcg QAM@0600 PO 05/19/25 06:00 05/22/25 06:00 150 MCG Metoprolol Tartrate 25 mg BID PO 05/19/25 10:00 05/22/25 09:42 25 MG Sacubitril/ Valsartan 1 tab BID PO 05/19/25 10:00 05/22/25 09:41 1 TAB Atorvastatin Calcium 20 mg HS PO 05/19/25 22:00 05/21/25 21:34 20 MG Diagnostic Test (Pha) 1 strip ACHS 05/19/25 07:00 05/22/25 11:33 1 STRIP Insulin Human Regular ACHS SC 05/19/25 07:00 05/19/25 06:56 2 UNITS Dextrose 50 ml UD PRN IV 05/19/25 00:15 Ondansetron HCl 4 mg Q4HP PRN IV 05/19/25 00:15 Acetaminophen 650 mg Q6HP PRN PO 05/19/25 00:15 Sevelamer HCl 800 mg TIDWM PO 05/19/25 08:00 05/22/25 17:32 800 MG Examination Gen: NAD, appears stated age Lungs: CTA, bilateral air entry Heart: RRR, normal S1 anad S2 Ext: No edema Neuro: Alert and oriented x 4 laboratory and microbiology Laboratory Tests 05/22/25 05:02 Test 05/22/25 05:02 Range/Units Serum Glucose 103 74-106 mg/dL Microbiology Date/Time Source Procedure Growth Status 05/19/25 04:10 Nose MRSA Screen - Final Complete Labs and/or images reviewed: Labs reviewed by me Problem List/Assessment/Plan Problem List/Assessment/Plan IMP End-stage renal disease on HD- last HD 05/20 Congestive heart failure with low ejection fraction Atrial fibrillation Chest pain REC - HD tentatively 05/23 -chemistry panel - Strict I&O - Blood pressure control -Will continue to follow Plan discussed with: Patient Dietary Evaluation Review Recommendations by RD: Dietary education by RD Comments: 1) Encourage optimal PO intake 2) Refer to outpatient RD/CDCES for weight management 3) Follow-up with cardiology, pulmonology, and nephrology 4) Continue to monitor I&O, labs, and skin integrity Expected Outcomes/Goals: 1) appetite and labs to improve 2) f/u in 3-5 days EMELINA AGUILAR May 22, 2025 18:08
[2025-05-23] VITALS (12 sets, daily range): BP systolic 96–127; BP diastolic 59–79; PULSE 65–117; RESP 16–20; TEMP 97.2–98.6; O2SAT 92–100
[2025-05-23 05:37] LABS: Hematocrit 29.3 % (36.0-46.0); Hemoglobin 9.6 g/dL (12.2-16.2); Mean Corpuscular Hemoglobin 32.7 pg (28.0-32.0); Mean Corpuscular Volume 100.0 fL (80.0-100.0); Nucleated Red Blood Cells % 0.1 %
[2025-05-23 05:49] LABS: INR 1.22 (0.9-1.15); Prothrombin Time 12.7 sec (9.3-11.8)
[2025-05-23 05:51] LABS: Chloride 102 mmol/L (98-107); Potassium 4.7 mmol/L (3.5-5.1); Sodium 138 mmol/L (136-145)
[2025-05-23 05:52] LABS: Anion Gap 11 (5-15); Carbon Dioxide 25 mmol/L (20-31)
[2025-05-23 05:53] LABS: Calcium 9.2 mg/dL (8.7-10.4)
[2025-05-23 05:57] LABS: Glucose 99 mg/dL (74-106)
[2025-05-23 05:58] LABS: BUN/Creatinine Ratio 6.4 (10.0-20.0)
[2025-05-23 06:00] LABS: Blood Urea Nitrogen 41 mg/dL (9-23)
--- NOTE | 2025-05-23 11:29 | DVHPN2 ---
Subjective The patient seen and examined at bedside. Complains of shortness of breath. 5 L of fluid removed from abdomen Reviewed: Care Plan, H&P, Labs, Medications, Previous Orders, Radiology Changes from previous H/P or p: No Changes Objective Vitals Vital Signs Date Time Temp Pulse Resp B/P (MAP) Pulse Ox O2 Delivery O2 Flow Rate FiO2 05/23/25 10:00 97 Nasal Cannula 3.0 05/23/25 10:00 32 05/23/25 09:13 117 114/78 05/23/25 08:45 97.7 19 97.7 Intake/Output Intake and Output 05/23/25 07:00 Intake Total 480 ml Balance 480 ml Intake Oral 480 ml # Bowel Movements 2 General Appearance: Alert, Oriented X3, Cooperative, No acute distress HEENT: Atraumatic, PERRLA, EOMI, Mucous membr. moist/pink Neck: Supple Lungs: Clear to auscultation, Normal air movement Cardiovascular: Regular rate, Normal S1, Normal S2, No murmurs, Gallops, Rubs Neuro: Cranial nerves 3-12 NL Psych/Mental Status: Mental status NL Medications Current Medications Medications Dose Ordered Sig/Iggy Route Start Time Stop Time Status Last Admin Dose Admin Nitroglycerin 0.4 mg Q5MINP PRN SL 05/19/25 00:15 Morphine Sulfate 2 mg Q30M PRN IV 05/19/25 00:15 Amiodarone HCl 200 mg Q12HR PO 05/19/25 10:00 05/23/25 09:12 200 MG Albuterol 2.5 mg Q6HPRN PRN NEB 05/19/25 00:15 05/19/25 02:01 2.5 MG Apixaban 2.5 mg BID PO 05/19/25 10:00 05/23/25 09:12 2.5 MG Calcium Acetate 667 mg TIDWMEALS PO 05/19/25 08:00 05/23/25 09:12 667 MG Furosemide 40 mg DAILY PO 05/19/25 10:00 05/23/25 09:12 40 MG Hydralazine HCl 25 mg Q8HR PO 05/19/25 06:00 05/23/25 05:24 25 MG Levothyroxine Sodium 150 mcg QAM@0600 PO 05/19/25 06:00 05/23/25 05:24 150 MCG Metoprolol Tartrate 25 mg BID PO 05/19/25 10:00 05/23/25 09:13 25 MG Sacubitril/ Valsartan 1 tab BID PO 05/19/25 10:00 05/23/25 09:11 1 TAB Atorvastatin Calcium 20 mg HS PO 05/19/25 22:00 05/22/25 21:09 20 MG Diagnostic Test (Pha) 1 strip ACHS 05/19/25 07:00 05/23/25 05:24 1 STRIP Insulin Human Regular ACHS SC 05/19/25 07:00 05/19/25 06:56 2 UNITS Dextrose 50 ml UD PRN IV 05/19/25 00:15 Ondansetron HCl 4 mg Q4HP PRN IV 05/19/25 00:15 Acetaminophen 650 mg Q6HP PRN PO 05/19/25 00:15 Sevelamer HCl 800 mg TIDWM PO 05/19/25 08:00 05/23/25 09:13 800 MG Laboratory Results Laboratory Tests 05/23/25 05:09 Chemistry Test 05/23/25 05:09 Calcium Level 9.2 mg/dL (8.7-10.4) Coagulation Test 05/23/25 05:09 Prothrombin Time 12.7 sec (9.3-11.8) H Prothrombin Time INR 1.22 (0.9-1.15) H Microbiology Microbiology Date/Time Source Procedure Growth Status 05/19/25 04:10 Nose MRSA Screen - Final Complete Labs and/or images reviewed: Labs reviewed by me Assessment/Plan Assessment/Plan Acute on chronic hypoxic respiratory failure AFib with RVR End-stage renal disease, dialysis dependent Acute on chronic congestive heart failure Right breast mass Diabetes mellitus Abdominal ascites Hepatitis B positive Ascites Continue current management Continue anticoagulation. Continue HD Continue SSI Regarding to her breast mass, the patient needs outpatient mammogram since the hospital does not have the mammogram machine to be done in house The patient needs to follow up with her primary care physician to take care of this issue as soon as possible. I spoke with the patient and the son on the phone stressed to them that is very important to get this done as soon as they can. status post paracentesis with 5 L of fluid removed. Discharge planning Per patient she has 2 sisters with breast cancer. This medical document was created using an electronic medical record system with [employer] computerized dictation system. Although this document has been carefully reviewed, there may still be some phonetic and typographical errors. These areas are purely typographical due to imperfections of the software programs, and do not reflect any compromise in the patient's medical care. Plan discussed with: Patient My Orders Orders - LORETTA ESTEVES MD Procedure Category Date Status Time Paracentesis 05/23/25 Taken Date of Service: May 23, 2025 Billing Provider: LORETTA ESTEVES MD Common Visit Codes: [id number] INP/OBS CARE(HIGH) LORETTA ESTEVES MD May 23, 2025 11:29
--- NOTE | 2025-05-23 11:31 | DVH ---
US PARACENTESIS, HISTORY: ASCITES PROCEDURE: Informed consent was obtained. The patient was placed in supine position. A limited locali zation ultrasound of the abdomen was obtained, and the skin site over the largest pocket of fluid was marked and entry site was prepped with chlorhexidine which was allowed to dry and draped in the usua l sterile fashion. Time out was performed. Following administration of 1% lidocaine local anesthetic, a 5 [place] centesis needle catheter was percutaneously inserted into the peritoneal collection until fluid was aspirated. The catheter was advanced into the fluid collection and the needle removed. Abo ut 5050 cc of fluid was aspirated and specimen sent for appropriate cultures/cytology/cultures and cy tology. The catheter was then removed and a sterile dressing applied. No immediate complication was identified. FINDINGS: Limited ultrasound imaging demonstrates mild ascites. Aspirated fluid was clear and serous. IMPRESSION: US-guided paracentesis with 5.1L removed.
--- NOTE | 2025-05-23 14:45 | DVHPN2 ---
Progress Note Date Seen: May 23, 2025 Medical Necessity Reason Pt with a Central, PICC or Fol: No Subjective Patient reports: No new complaints, Feels better Review of Systems: HEENT:Abnormal, GI:Abnormal, MSK:Abnormal, NEURO:Normal Objective vital signs Vital Sign Date Time Temp Pulse Resp B/P (MAP) Pulse Ox O2 Delivery O2 Flow Rate FiO2 05/23/25 14:00 108/68 05/23/25 13:15 97.2 81 17 92 97.2 05/23/25 10:00 Nasal Cannula 3.0 05/23/25 10:00 32 Total Intake and Output 05/22/25 05/22/25 05/23/25 15:00 23:00 07:00 Intake Total 100 ml 380 ml Balance 100 ml 380 ml medications Current Medications Medications Dose Ordered Sig/Iggy Route Start Time Stop Time Status Last Admin Dose Admin Nitroglycerin 0.4 mg Q5MINP PRN SL 05/19/25 00:15 Morphine Sulfate 2 mg Q30M PRN IV 05/19/25 00:15 Amiodarone HCl 200 mg Q12HR PO 05/19/25 10:00 05/23/25 09:12 200 MG Albuterol 2.5 mg Q6HPRN PRN NEB 05/19/25 00:15 05/19/25 02:01 2.5 MG Apixaban 2.5 mg BID PO 05/19/25 10:00 05/23/25 09:12 2.5 MG Calcium Acetate 667 mg TIDWMEALS PO 05/19/25 08:00 05/23/25 12:05 667 MG Furosemide 40 mg DAILY PO 05/19/25 10:00 05/23/25 09:12 40 MG Hydralazine HCl 25 mg Q8HR PO 05/19/25 06:00 05/23/25 05:24 25 MG Levothyroxine Sodium 150 mcg QAM@0600 PO 05/19/25 06:00 05/23/25 05:24 150 MCG Metoprolol Tartrate 25 mg BID PO 05/19/25 10:00 05/23/25 09:13 25 MG Sacubitril/ Valsartan 1 tab BID PO 05/19/25 10:00 05/23/25 09:11 1 TAB Atorvastatin Calcium 20 mg HS PO 05/19/25 22:00 05/22/25 21:09 20 MG Ondansetron HCl 4 mg Q4HP PRN IV 05/19/25 00:15 Acetaminophen 650 mg Q6HP PRN PO 05/19/25 00:15 Sevelamer HCl 800 mg TIDWM PO 05/19/25 08:00 05/23/25 12:05 800 MG Examination: GENERAL:Abnormal, ABDOMEN:Abnormal, MSK:Abnormal, NEURO:Normal laboratory and microbiology Laboratory Tests 05/23/25 05:09 Test 05/23/25 05:09 Range/Units Serum Glucose 99 74-106 mg/dL Microbiology Date/Time Source Procedure Growth Status 05/19/25 04:10 Nose MRSA Screen - Final Complete Problem List/Assessment/Plan Problem List/Assessment/Plan End-stage renal disease on HD- last HD 05/20 Congestive heart failure with low ejection fraction Atrial fibrillation Chest pain Cirrhosis chronic Hep B on entecavir rheumatoid arthritis hyperkalemia recs HD today uf as tolerated s/p paracentesis Plan discussed with: Patient, Son Dietary Evaluation Review Recommendations by RD: Dietary education by RD Comments: 1) Encourage optimal PO intake 2) Refer to outpatient RD/CDCES for weight management 3) Follow-up with cardiology, pulmonology, and nephrology 4) Continue to monitor I&O, labs, and skin integrity Expected Outcomes/Goals: 1) appetite and labs to improve 2) f/u in 3-5 days REBEL WRAY MD May 23, 2025 14:45
[2025-05-23] MEDS ORDERED: ALBUMIN 25% 100 ML IV PRN (15:30)
--- NOTE | 2025-05-23 17:38 | DVHPN2 ---
Progress Note Date Seen: May 23, 2025 Resident Creating Document: ESMER CLARK RESIDENT Has the PT tested + for MRSA If YES, has PT been informed?: No Medical Necessity Reason Pt with a Central, PICC or Fol: No Subjective Review of Systems Today, the patient reports improvement in abdominal bloating and distension following a large-volume paracentesis (5.05 L removed). Denies fever, chills, nausea, vomiting, hematemesis, or melena. Reports positive bowel movement. No new chest pain or dyspnea beyond baseline. Todays Progress & Relevant Findings * Paracentesis: 5.05 L clear yellow fluid removed; specimen sent for culture, cytology, and biochemical analysis. * Ascitic Fluid Studies: WBC 642/mm (predominantly mononuclear), RBC 1739, pH 8.0; protein and LDH pending. Suggestive of non-infectious etiology; SBP not confirmed (culture pending). * Abdominal Ultrasound: Cirrhotic morphology liver, small to moderate ascites, right pleural effusion. * KUB: Nonspecific bowel gas, distended stomach, no pneumoperitoneum. * Chest X-ray: Cardiomegaly, bilateral pleural effusions, vascular congestion. * Labs: Creatinine 6.38, BUN 41, albumin pending; anemia (Hgb 9.6), thrombocytopenia (Plt 110K). * Right Breast US: 2.8 2.8 2.7 cm irregular hypoechoic lesion (abscess vs irregular mass); BI-RADS 0 ? needs diagnostic mammography. * Weight: Increased to 84.7 kg (fluid retention). * Vitals: BP stable (66674/6670), HR 7481, O? sat 94044% on 23L NC. Review of Systems * GI: Mild abdominal distension, no tenderness, positive bowel movement. * Constitutional: No fever or chills. * Respiratory: Dyspnea stable on O?. * Cardiac: No new chest pain. * Other systems: Negative. Objective vital signs Vital Sign Date Time Temp Pulse Resp B/P (MAP) Pulse Ox O2 Delivery O2 Flow Rate FiO2 05/23/25 16:44 97.7 74 19 98/70 (79) 100 97.7 05/23/25 10:00 Nasal Cannula 3.0 05/23/25 10:00 32 Total Intake and Output 05/22/25 05/22/25 05/23/25 15:00 23:00 07:00 Intake Total 100 ml 380 ml Balance 100 ml 380 ml medications Current Medications Medications Dose Ordered Sig/Iggy Route Start Time Stop Time Status Last Admin Dose Admin Nitroglycerin 0.4 mg Q5MINP PRN SL 05/19/25 00:15 Morphine Sulfate 2 mg Q30M PRN IV 05/19/25 00:15 Amiodarone HCl 200 mg Q12HR PO 05/19/25 10:00 05/23/25 09:12 200 MG Albuterol 2.5 mg Q6HPRN PRN NEB 05/19/25 00:15 05/19/25 02:01 2.5 MG Apixaban 2.5 mg BID PO 05/19/25 10:00 05/23/25 09:12 2.5 MG Calcium Acetate 667 mg TIDWMEALS PO 05/19/25 08:00 05/23/25 12:05 667 MG Furosemide 40 mg DAILY PO 05/19/25 10:00 05/23/25 09:12 40 MG Hydralazine HCl 25 mg Q8HR PO 05/19/25 06:00 05/23/25 05:24 25 MG Levothyroxine Sodium 150 mcg QAM@0600 PO 05/19/25 06:00 05/23/25 05:24 150 MCG Metoprolol Tartrate 25 mg BID PO 05/19/25 10:00 05/23/25 09:13 25 MG Sacubitril/ Valsartan 1 tab BID PO 05/19/25 10:00 05/23/25 09:11 1 TAB Atorvastatin Calcium 20 mg HS PO 05/19/25 22:00 05/22/25 21:09 20 MG Ondansetron HCl 4 mg Q4HP PRN IV 05/19/25 00:15 Acetaminophen 650 mg Q6HP PRN PO 05/19/25 00:15 Sevelamer HCl 800 mg TIDWM PO 05/19/25 08:00 05/23/25 12:05 800 MG Albumin Human 100 ml @ 100 mls/hr Q1HR PRN IV 05/23/25 15:30 05/23/25 18:59 Examination * General: Alert, oriented, no acute distress. * Abdomen: Mild residual distension, soft, non-tender, no rebound/guarding, fluid wave reduced. * Cardiac: Irregular rhythm, no new murmurs. * Respiratory: Diminished breath sounds at bases, no rales. * Skin: No jaundice. * Extremities: Trace edema bilaterally. laboratory and microbiology Laboratory Tests 05/23/25 05:09 Test 05/23/25 05:09 Range/Units Serum Glucose 99 74-106 mg/dL Microbiology Date/Time Source Procedure Growth Status 05/19/25 04:10 Nose MRSA Screen - Final Complete Problem List/Assessment/Plan Problems(with codes): (1) Cardiac ascites (2) Spontaneous bacterial peritonitis (3) Afib (4) Cirrhosis (5) ESRD (end stage renal disease) on dialysis (6) Chronic anemia (7) Thrombocytopenia Problem List/Assessment/Plan Assessment Spontaneous Bacterial Peritonitis 1. Cardiac (Congestive) Ascites improving post-paracentesis; likely secondary to decompensated CHF with low EF and concomitant ESRD. 2. 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 3. ESRD on Hemodialysis fluid retention; dialysis scheduled. 4. Atrial Fibrillation rate controlled on PO amiodarone. 5. Right Breast Mass vs Abscess requires further diagnostic imaging (mammography, possible biopsy). 6. Chronic Anemia and Thrombocytopenia stable. Treatment Plan 1. Ascites * Monitor for recurrence; daily abdominal girth and weight. * Await fluid SAAG, total protein, LDH, glucose, and culture results. Starting Rocephin 1gm IV daily. * Continue albumin infusion post-paracentesis. * Maintain low sodium (<2g/day) and fluid restriction. 2. Cirrhotic Features * Monitor liver function tests and coagulation profile. * Evaluate for portal hypertension complications (varices, encephalopathy). * Avoid hepatotoxic drugs. 3. Additional GI Measures * Continue bowel regimen as needed. * GI prophylaxis with PPI to prevent upper GI bleed. * Avoid NSAIDs. Plan discussed with: Patient Dietary Evaluation Review Recommendations by RD: Dietary education by RD Comments: 1) Encourage optimal PO intake 2) Refer to outpatient RD/CDCES for weight management 3) Follow-up with cardiology, pulmonology, and nephrology 4) Continue to monitor I&O, labs, and skin integrity Expected Outcomes/Goals: 1) appetite and labs to improve 2) f/u in 3-5 days ESMER CLARK RESIDENT May 23, 2025 17:38
[2025-05-23 19:47] LABS: Hematocrit 31.1 % (36.0-46.0); Hemoglobin 10.4 g/dL (12.2-16.2); Mean Corpuscular Hemoglobin 33.8 pg (28.0-32.0); Mean Corpuscular Volume 100.7 fL (80.0-100.0); Nucleated Red Blood Cells % 0.2 %
[2025-05-23] MEDS: ALBUMIN 25% 100 ML IV PRN (22:17)
[2025-05-24] VITALS (8 sets, daily range): BP systolic 89–106; BP diastolic 52–69; PULSE 60–104; RESP 17–20; TEMP 97.6–98.3; O2SAT 94–99
[2025-05-24] MEDS: ACETAMINOPHEN 325 MG TAB PO PRN (00:40)
[2025-05-24] MEDS ORDERED: ALBUMIN 25% 100 ML IV PRN (08:30)
[2025-05-24] MEDS: cefTRIAXone 1GM/50ML D5W 50 ML IV SCH (09:08)
--- NOTE | 2025-05-24 10:40 | DVH ---
Right Upper Extremity Arterial Duplex Clinical History: PAIN IN FISTULA Comparison: None Technique: Duplex Doppler evaluation including color Doppler and spectral/pulsed waveform analysis of the upper extremity arteries was performed. Findings: RIGHT: Peak systolic velocities are as follows: Subclavian 146 cm/s Axillary 117 cm/s Brachial 127 cm/s Radial 77 cm/s Ulnar 59 cm/s There is a patent anastomosis between the brachial artery and cephalic vein. Peak systolic velocities within the fistula range between 304 100 cm/sec; nonspecific. The waveforms are multiphasic. IMPRESSION: No hemodynamically significant stenosis based on peak systolic velocity criteria. Patent right upper extremity brachial artery to cephalic vein fistula. Nonemergent fistulogram could be considered to further evaluate if clinically indicated. Clinical correlation advised. REFERENCE VALUES, [facility]) vascular Imaging Lab Criteria: Peak systolic velocity rang es (in cm/sec) are as follows: <150 cm/s - <20 % stenosis 150-200 cm/s - 20-49% stenosis 200-300 cm/s - 50-75% stenosis >300 cm/s -> 75% stenosis
--- NOTE | 2025-05-24 11:25 | DVHDS2 ---
Discharge Summary Date of Admission May 19, 2025 at 00:07 Date of Discharge: May 24, 2025 Admitting Diagnosis Acute on chronic hypoxic respiratory failure AFib with RVR End-stage renal disease, dialysis dependent Acute on chronic congestive heart failure Right breast mass Diabetes mellitus Abdominal ascites Hepatitis B positive Ascites Labs/Diagnostic Data: Laboratory Results Test 05/23/25 19:37 05/23/25 09:10 05/23/25 05:26 05/23/25 05:09 White Blood Count 4.6 10^3/uL (4.4-10.8) Red Blood Count 3.09 10^6/uL (4.0-5.20) Hemoglobin 10.4 g/dL (12.2-16.2) Hematocrit 31.1 % (36.0-46.0) Mean Corpuscular Volume 100.7 fL (80.0-100.0) Mean Corpuscular Hemoglobin 33.8 pg (28.0-32.0) Mean Corpuscular Hemoglobin Concent 33.5 g/dL (32.0-36.0) Red Cell Distribution Width 18.9 % (11.8-14.3) Platelet Count 135 10^3/uL (140-450) Mean Platelet Volume 9.8 fL (6.9-10.8) Neutrophils (%) (Auto) 64.4 % (37.0-80.0) Lymphocytes (%) (Auto) 23.1 % (10.0-50.0) Monocytes (%) (Auto) 6.9 % (0.0-12.0) Eosinophils (%) (Auto) 4.5 % (0.0-7.0) Basophils (%) (Auto) 1.1 % (0.0-2.0) Neutrophils # (Auto) 3.0 10 ^3/uL (1.6-8.6) Lymphocytes # (Auto) 1.1 10 ^3/uL (0.4-5.4) Monocytes # (Auto) 0.3 10 ^3/uL (0-1.3) Eosinophils # (Auto) 0.2 10 ^3/uL (0-0.8) Basophils # (Auto) 0.1 10 ^3/uL (0-0.2) Nucleated Red Blood Cells 0.2 % Body Fluid Source Peritoneal fluid Body Fluid pH 8.0 Body Fluid WBC (Manual) 642 CUMM (0-200) Body Fluid RBC (Manual) 1739 CUMM (0-2000) Body Fluid Mononuclear Cells 98 % Body Fluid Polymorphonuclear Cells 2 % (0-25) POC Glucose 98 mg/dl (70-106) Prothrombin Time 12.7 sec (9.3-11.8) Prothrombin Time INR 1.22 (0.9-1.15) Sodium Level 138 mmol/L (136-145) Potassium Level 4.7 mmol/L (3.5-5.1) Chloride Level 102 mmol/L (98-107) Carbon Dioxide Level 25 mmol/L (20-31) Anion Gap 11 (5-15) Blood Urea Nitrogen 41 mg/dL (9-23) Creatinine 6.38 mg/dL (0.550-1.02) Glomerular Filtration Rate Calc 7 mL/min (>90) BUN/Creatinine Ratio 6.4 (10.0-20.0) Serum Glucose 99 mg/dL (74-106) Calcium Level 9.2 mg/dL (8.7-10.4) Test 05/20/25 05:14 05/19/25 00:50 05/18/25 21:48 Iron Level 59 ug/dL (50-170) Total Iron Binding Capacity 213 ug/dL (250-425) Percent Iron Saturation 27.7 % (15-50) Ferritin 466.4 ng/mL (10-291) Total Bilirubin 0.6 mg/dL (0.2-1.0) Direct Bilirubin 0.3 mg/dL (<0.3) Aspartate Amino Transferase (AST) 18 U/L (13-40) Alanine Aminotransferase (ALT) < 9 U/L (7-40) Alkaline Phosphatase 35 U/L (46-116) Total Protein 7.1 g/dL (5.7-8.2) Albumin 3.9 g/dL (3.2-4.8) Hepatitis A IgM Antibody Negative Hepatitis B Surface Antigen Positive (Negative) Hepatitis B Core IgM Antibody Negative (Negative) Hepatitis C Antibody Negative (Negative) Troponin I High Sensitivity 3 ng/L (</=34) Platelet Estimate Decreased Macrocytosis Slight B-Type Natriuretic Peptide 1123.04 pg/mL (0-100) Thyroid Stimulating Hormone (TSH) 97.32 uIU/mL (0.55-4.78) Other Laboratory Tests 05/23/25 19:37 05/23/25 05:09 Brief Hx & Hospital Course: This is a 70 years old female came to emergency department because of chest pain. Patient said the chest pain worsening whenever she takes a deep breath. She had shortness for breath. She has hemodialysis and had been compliance with dialysis. Patient was found to have fluid overload, atrial fibrillation with RVR. Before getting any treatment for AFib she converted to normal sinus rhythm. The patient also reported to have a right breast mass approximately for two months no workup yet. Patient had two sister with breast cancer. The patient did not have any mammogram for a long time. The patient was admitted. Hemodialysis was done. Patient shortness for breath improved. No complain of chest pain. Ultrasound of the breast showed:Abscess versus irregular mass of the 3 o'clock position of the right breast measures 2.8 x 2.7 cm. Clinical correlation advised. Bilateral breast diagnostic mammography recommended. We attempted to get the mammogram in the hospital however unable to do so because we do not have the equipment for mammogram in the hospital. Advised her to have a mammogram done as soon as possible and further workup for the right breast mass. The patient received hemodialysis during this hospitalization. The patient subsequently doing better however complain of abdominal distention. The patient was found to have ascites and paracentesis was done with 5 L of fluid removal from her peritoneal cavity. Patient feel better today. The patient will be discharged home. Advised the patient to see her primary care physician as soon as possible from a mammogram. Advised the patient to follow up with primary care physician 1-2 weeks. Follow up with dialysis per schedule. Activity as tolerated. Diet per home diet. Recommend renal diet. I also called and discussed her breast mass with her son and stressed with him that his mom need to see her primary care physician as soon as possible for a mammogram because she needs to have mammogram to rule out malignancy of her right breast. Physical exam: HEENT: Normocephalic atraumatic pupils equal react to light and accommodation. Extraocular muscles intact, conjunctiva pink, oropharynx moist, no thrush, no exudate. Lymphatic: No lymphadenopathy Cardiovascular exam: S1, S2 was heard. No murmurs, rubs, gallops Lung: Clear on auscultation bilaterally, no wheeze, rale, rhonchi. GI: Abdominal soft, nondistended, nontenderness, positive bowel sounds. Extremity: No crepitus, cyanosis, edema. Pedal pulses present bilateral. Full range of motion. Skin: Normal turgor, no rash. Psych: Alert, oriented x3. Neurology: No focal deficits, cranial nerve II to XII grossly intact. This medical document was created using an electronic medical record system with [employer] computerized dictation system. Although this document has been carefully reviewed, there may still be some phonetic and typographical errors. These areas are purely typographical due to imperfections of the software programs, and do not reflect any compromise in the patient's medical care. Condition at Discharge: Stable Final Diagnosis/Problems List Acute on chronic hypoxic respiratory failure AFib with RVR End-stage renal disease, dialysis dependent Acute on chronic congestive heart failure Right breast mass Diabetes mellitus Abdominal ascites Hepatitis B positive Ascites Discharge Disposition: Home Discharge Instruct/Medications Diet: Renal Activity: No Restrictions, As Tolerated Follow Up/Referral: pcp 1-2 weeks Need outpatient mamogram as soon as possible for work up for right breast mass, please talk to your PCP. Medications: Resume home meds. Scheduled Albuterol Sulfate (Albuterol Sulfate Hfa), 108 MCG IN UD, (Reported) Amiodarone HCl (Amiodarone HCl), 200 MG PO BID Amlodipine Besylate (Amlodipine Besylate), 1 TAB PO DAILY Apixaban Base (Eliquis), 2.5 MG PO BID Beclomethasone Dipropionate (Qvar Redihaler), 2 INH PO BID, (Reported) Calcium Acetate (Phosphate Bin (Calcium Acetate), 2,001 CAP PO TID, (Reported) Cephalexin Monohydrate (Cephalexin), 500 MG PO BID Cholecalciferol (Vitamin D), 5,000 UNIT PO DAILY, (Reported) Entecavir Monohydrate (Entecavir), 1 TAB PO DAILY, (Reported) Ferrous Sulfate (Iron), 325 MG PO DAILY Furosemide (Furosemide), 1 TAB PO DAILY, (Reported) Hydralazine Hcl (Hydralazine Hcl), 1 TAB PO QID, (Reported) Isosorbide Mononitrate (Isosorbide Mononitrate ER), 60 MG PO DAILY Levothyroxine Sodium (Levothyroxine Sodium), 1 TAB PO DAILY, (Reported) Metoprolol Tartrate (Lopressor), 1 TAB PO BID, (Reported) Nifedipine (Nifedipine Er), 1 TAB PO DAILY, (Reported) Omeprazole (Omeprazole Dr), 40 MG PO DAILY Sacubitril-Valsartan (Entresto 24-26 mg), 1 TAB PO BID Sevelamer Carbonate (Sevelamer Carbonate), 1 PKT PO TID, (Reported) Simvastatin (Simvastatin), 20 MG PO HS, (Reported) Miscellaneous Medications Prednisone (Prednisone), 5 MG PO, (Reported) Discharge Statement: "Patient was advised to return to the ER or call 911 if any headaches, dizziness, shortness of breath, chest pain, abdominal pain, bleeding, fevers, or worsening of medical condition. Patient was counseled about treatment plan, medications, possible side effects, patientverbalized understanding. All questions were answered to the best of my ability. This discharge took greater then 30 minutes in planning, reviewing documentation, counseling the patient, and discussing with other team members." ASSESSMENT ASSESSMENT Assessment ascites Breast mass ESRD on HD Fluid overload Date of Service: May 24, 2025 Billing Provider: LORETTA ESTEVES MD Common Visit Codes: 65064-WNW/OBS DISCH DAY >30min LORETTA ESTEVES MD May 24, 2025 11:25
[2025-05-24] MEDS ORDERED: OMEP-448 PO (11:30)
--- NOTE | 2025-05-24 13:55 | DVHPN2 ---
Progress Note Date Seen: May 24, 2025 Resident Creating Document: ESMER CLARK RESIDENT Has the PT tested + for MRSA If YES, has PT been informed?: No Medical Necessity Reason Pt with a Central, PICC or Fol: No Subjective Review of Systems 05/24/25 The patient was examined at bedside. She reports improvement in abdominal distension since paracentesis (5.05 L removed). She denies abdominal pain, nausea, vomiting, melena, or hematemesis. She is eating well, tolerating feeds, and had two bowel movements yesterday. No new GI complaints.?She underwent partial dialysis yesterday night and is scheduled for a full dialysis session today. She remains on O? supplementation (3 L NC), which she also uses at home. No episodes of confusion or GI bleeding. The patient is being discharged today in stable condition following significant improvement in abdominal distension after therapeutic paracentesis. The ascites is most likely cardiac in origin, secondary to end-stage cardiomyopathy and associated fluid overload. No evidence of spontaneous bacterial peritonitis was found, and cultures remain negative. The patient will continue with sodium and fluid restriction, routine hemodialysis, and her current medical regimen. She is advised to schedule and attend an outpatient follow-up appointment with Dr. Rhoades (Gastroenterology) for continued evaluation and management of her ascites and underlying liver findings. Brief Gist of Todays Progress, Treatment, Labs, Imaging, and Plan * Paracentesis fluid analysis: WBC 642/mm (mononuclear predominant), RBC 1739, pH 8.0, Gram stain: no organisms, culture: no growth to date ? no SBP. * Ultrasound abdomen: cirrhotic liver morphology, small to moderate ascites, right pleural effusion. * KUB: nonspecific bowel gas, distended stomach, no pneumoperitoneum. * CXR: cardiomegaly, bilateral pleural effusions. * Labs: stable anemia (Hgb 9.6), thrombocytopenia (Plt 110K), creatinine 6.38, BUN 41. * Breast ultrasound: irregular hypoechoic lesion (2.8 cm) needs outpatient mammography. * GI Status: stable, improved ascites, tolerating diet. Review of Systems (GI Specific) * GI: No nausea, vomiting, abdominal pain, melena, hematemesis. Positive bowel movements. * Constitutional: No fever or chills. * Other systems: as per primary team. Objective vital signs Vital Sign Date Time Temp Pulse Resp B/P (MAP) Pulse Ox O2 Delivery O2 Flow Rate FiO2 05/24/25 10:08 78 122/62 05/24/25 10:00 97 Nasal Cannula 3.0 05/24/25 10:00 32 05/24/25 08:47 97.9 19 97.9 Total Intake and Output 05/23/25 05/23/25 05/24/25 15:00 23:00 07:00 Intake Total 600 ml 280 ml Balance 600 ml 280 ml medications Current Medications Medications Dose Ordered Sig/Iggy Route Start Time Stop Time Status Last Admin Dose Admin Nitroglycerin 0.4 mg Q5MINP PRN SL 05/19/25 00:15 Morphine Sulfate 2 mg Q30M PRN IV 05/19/25 00:15 Amiodarone HCl 200 mg Q12HR PO 05/19/25 10:00 05/24/25 09:09 200 MG Albuterol 2.5 mg Q6HPRN PRN NEB 05/19/25 00:15 05/19/25 02:01 2.5 MG Apixaban 2.5 mg BID PO 05/19/25 10:00 05/24/25 09:09 2.5 MG Calcium Acetate 667 mg TIDWMEALS PO 05/19/25 08:00 05/24/25 12:42 667 MG Furosemide 40 mg DAILY PO 05/19/25 10:00 05/23/25 09:12 40 MG Hydralazine HCl 25 mg Q8HR PO 05/19/25 06:00 05/23/25 05:24 25 MG Levothyroxine Sodium 150 mcg QAM@0600 PO 05/19/25 06:00 05/24/25 06:22 150 MCG Metoprolol Tartrate 25 mg BID PO 05/19/25 10:00 05/24/25 09:09 25 MG Sacubitril/ Valsartan 1 tab BID PO 05/19/25 10:00 05/24/25 09:08 1 TAB Atorvastatin Calcium 20 mg HS PO 05/19/25 22:00 05/24/25 00:40 20 MG Ondansetron HCl 4 mg Q4HP PRN IV 05/19/25 00:15 Acetaminophen 650 mg Q6HP PRN PO 05/19/25 00:15 05/24/25 00:40 650 MG Sevelamer HCl 800 mg TIDWM PO 05/19/25 08:00 05/24/25 12:42 800 MG Ceftriaxone Sodium 50 ml @ 100 mls/hr DAILY@09 IV 05/24/25 09:00 05/24/25 09:08 100 MLS/HR Albumin Human 100 ml @ 100 mls/hr Q1HP PRN IV 05/24/25 08:30 Examination * Abdomen: Mild residual distension, soft, non-tender, no rebound or guarding. No hepatosplenomegaly palpated. Post-paracentesis site clean and dry. Bowel sounds present. * Other findings: Unremarkable in GI context. laboratory and microbiology Laboratory Tests 05/23/25 19:37 05/23/25 05:09 Test 05/23/25 05:09 Range/Units Serum Glucose 99 74-106 mg/dL Microbiology Date/Time Source Procedure Growth Status 05/23/25 09:10 Ascities Fluid Gram Stain - Final Resulted 05/23/25 09:10 Ascities Fluid Body Fluid Culture - Preliminary Resulted 05/19/25 04:10 Nose MRSA Screen - Final Complete Problem List/Assessment/Plan Problem List/Assessment/Plan Assessment Cardiac/CHF-Related Ascites improved post-paracentesis. Likely secondary to end-stage cardiomyopathy with EF 30% and fluid overload from ESRD. 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 Rule Out SBP low suspicion; cultures negative. Right Breast Mass (incidental) needs outpatient diagnostic workup. ESRD on Hemodialysis fluid retention; dialysis scheduled. Atrial Fibrillation rate controlled on PO amiodarone. Right Breast Mass vs Abscess requires further diagnostic imaging (mammography, possible biopsy). Chronic Anemia and Thrombocytopenia stable. Treatment Plan GI-Specific Treatment Plan 1. Ascites No further paracentesis needed at this time; monitor for reaccumulation. Continue sodium restriction (<2 g/day) and fluid restriction. Albumin infusion completed post-paracentesis. Monitor abdominal girth, daily weight. Continue scheduled hemodialysis for volume control. 2. Cirrhotic Features Monitor LFTs and coagulation profile. Avoid hepatotoxic medications. Outpatient follow-up for further liver evaluation (consider FibroScan or elastography). 3. Additional GI Measures Continue PPI for upper GI bleed prophylaxis. Continue bowel regimen as needed to prevent constipation. The patient is being discharged today in stable condition following significant improvement in abdominal distension after therapeutic paracentesis. The ascites is most likely cardiac in origin, secondary to end-stage cardiomyopathy and associated fluid overload. No evidence of spontaneous bacterial peritonitis was found, and cultures remain negative. The patient will continue with sodium and fluid restriction, routine hemodialysis, and her current medical regimen. She is advised to schedule and attend an outpatient follow-up appointment with Dr. Rhoades (Gastroenterology) for continued evaluation and management of her ascites and underlying liver findings. Case discussed in detail with the attending physician, including the clinical presentation, diagnostic workup, and comprehensive management plan. The patient was present for the discussion and demonstrated understanding of her condition and the proposed plan. Plan discussed with: Patient My Orders My Orders Orders - ESMER CLARK RESIDENT Procedure Category Date Status Time Ceftriaxone 1gm/50ml PHA 05/24/25 In Process D5w (Rocephin) 09:00 Dietary Evaluation Review Recommendations by RD: Dietary education by RD Comments: 1) Encourage optimal PO intake 2) Refer to outpatient RD/CD[facility] for weight management 3) Follow-up with cardiology, pulmonology, and nephrology 4) Continue to monitor I&O, labs, and skin integrity Expected Outcomes/Goals: 1) appetite and labs to improve 2) f/u in 3-5 days ESMER CLARK RESIDENT May 24, 2025 13:55
[2025-05-24 14:07] LABS: Glucose, Body Fluid 112.0 mg/dL (.); LD, Body Fluid 122.0 IU/L (.)
== END 2025-05-24 19:08 | disposition home or self-care (01) | DRG 291 ==
LOC: EDBD 21:08 → ER 21:08 → OVERFLOW 05-19 00:07 → TELE-CENTR 05-19 02:42
PROVIDERS: ADMIT Internal Medicine; ATTEND Internal Medicine
PROC: 5A1D70Z Performance of Urinary Filtration, Intermittent, Less than 6 Hours Per Day (ICD-10-PCS; 2025-05-20)
PROC: 0W9G3ZX Drainage of Peritoneal Cavity, Percutaneous Approach, Diagnostic (ICD-10-PCS; principal; 2025-05-23)
PROC: 5A1D70Z Performance of Urinary Filtration, Intermittent, Less than 6 Hours Per Day (ICD-10-PCS; 2025-05-23)
PROC: 5A1D70Z Performance of Urinary Filtration, Intermittent, Less than 6 Hours Per Day (ICD-10-PCS; 2025-05-24)
DX: I13.2 Hypertensive heart and chronic kidney disease with heart failure and with stage 5 chronic kidney disease, or end stage renal disease (principal); I50.23 Acute on chronic systolic (congestive) heart failure; K65.2 Spontaneous bacterial peritonitis; J96.21 Acute and chronic respiratory failure with hypoxia; N18.6 End stage renal disease; R18.8 Other ascites; S32.592A Other specified fracture of left pubis, initial encounter for closed fracture; B18.1 Chronic viral hepatitis B without delta-agent; K74.60 Unspecified cirrhosis of liver; E11.22 Type 2 diabetes mellitus with diabetic chronic kidney disease; I48.91 Unspecified atrial fibrillation; N63.10 Unspecified lump in the right breast, unspecified quadrant; D69.6 Thrombocytopenia, unspecified; D64.9 Anemia, unspecified; M06.9 Rheumatoid arthritis, unspecified; E87.5 Hyperkalemia; Z79.2 Long term (current) use of antibiotics; Z79.01 Long term (current) use of anticoagulants; Z99.2 Dependence on renal dialysis; Z90.49 Acquired absence of other specified parts of digestive tract; Z98.891 History of uterine scar from previous surgery; Z82.49 Family history of ischemic heart disease and other diseases of the circulatory system; Z80.3 Family history of malignant neoplasm of breast; Z95.5 Presence of coronary angioplasty implant and graft
CPT/HCPCS: 36415; 49083; 71045; 74018; 76642; 76705; 76942; 80048; 80074; 80076; 82728; 82962; 83540; 83550; 83880; 83986; 84443; 84484; 85025; 85610; 87081; 87205; 89051; 90935; 93005; 94640; 96374; G0378; J1642; J1815; P9047

== ENCOUNTER 2025-05-30 11:13 | Inpatient (IN) | payer OTHER, MEDICAID ==
[~2025-05-30] VITALS: Ht 160 cm; Wt 77.7 kg
[~2025-05-30 11:13] MED LIST changes: +OMEP-448 PO
--- NOTE | 2025-05-30 11:49 | ED.PDOC ---
HPI Comments This is a 70 year old female KMA presenting to the ED with chief complaint of generalized weakness. EMS reports that the patient was in the middle of dialysis today when she suddenly became hypotensive with a systolic BP in the 80s/70s. EMS relays that the patient on scene was 91% on 2L of O2, being bumped up to 3L brought her to 100%. EMS states patient has been experiencing associated symptoms of generalized weakness, chest pain with radiation to the back, and cough. Patient denies any SOB, dizziness, headache, fever, chills, or N/V. Chief Complaint: Chest Pain Time Seen by MD: 11:46 Primary Care Provider: MEHREEN Reviewed Notes: Nurses Notes, Weather Clerk Notes, Medications, Allergies Allergies: Coded Allergies: NO KNOWN ALLERGIES (Unverified , 12/02/19) Home Meds Active Scripts Omeprazole (Omeprazole Dr) 40 Mg Cap, 40 MG PO DAILY, #90 CAP 5 Refills Prov:LORETTA ESTEVES MD 05/24/25 Cephalexin Monohydrate (Cephalexin) 500 Mg Cap, 500 MG PO BID for 7 Days, #14 CAP Prov:DEAN MASTERS 10/20/24 Amiodarone HCl (Amiodarone HCl) 200 Mg Tab, 200 MG PO BID for 30 Days, #60 TAB Prov:GERALDINE LACKEY MD 05/17/23 Apixaban Base (ELIQUIS) 2.5 Mg Tab, 2.5 MG PO BID for 30 Days, #60 TAB Prov:GERALDINE LACKEY MD 05/17/23 Sacubitril-Valsartan (Entresto 24-26 mg) 1 Tab Tab, 1 TAB PO BID for 30 Days, #60 TAB 2 Refills Prov:REBEL WRAY MD 06/20/22 Ferrous Sulfate (Iron) 325 Mg Tab, 325 MG PO DAILY for 30 Days, #30 TAB 3 Refills Prov:REBEL WRAY MD 12/30/21 Amlodipine Besylate (Amlodipine Besylate) 10 Mg Tab, 1 TAB PO DAILY for 30 Days, #30 TAB 5 Refills Prov:REBEL WRAY MD 12/30/21 Isosorbide Mononitrate (Isosorbide Mononitrate ER) 60 Mg Tab, 60 MG PO DAILY for 30 Days, #30 TAB Prov:RUBEN MCDERMOTT MD 10/12/21 Reported Medications Furosemide (Furosemide) 40 Mg Tab, 1 TAB PO DAILY for 90 Days, #90 10/19/24 Levothyroxine Sodium (Levothyroxine Sodium) 150 Mcg Tab, 1 TAB PO DAILY for 90 Days, #90 10/19/24 Hydralazine Hcl (Hydralazine Hcl) 25 Mg Tab, 1 TAB PO QID for 90 Days, #360 10/19/24 Albuterol Sulfate (Albuterol Sulfate Hfa) 108 Mcg/Act Aer, 108 MCG IN UD for 90 Days, #25.5 10/19/24 Entecavir Monohydrate (Entecavir) 0.5 Mg Tab, 1 TAB PO DAILY for 90 Days, #90 BEFORE MEALS 10/19/24 Metoprolol Tartrate (Lopressor) 25 Mg Tb, 1 TAB PO BID for 90 Days, #180 05/13/23 Nifedipine (Nifedipine Er) 90 Mg Tab, 1 TAB PO DAILY for 90 Days, #90 05/13/23 Calcium Acetate (Phosphate Bin (Calcium Acetate) 667 Mg Cap, 2001 CAP PO TID for 30 Days 05/13/23 Sevelamer Carbonate (Sevelamer Carbonate) 0.8 Gm Pow, 1 PKT PO TID 05/13/23 Prednisone (Prednisone) 5 Mg Tab, 5 MG PO, TAB 06/15/22 Simvastatin (Simvastatin) 20 Mg Tab, 20 MG PO HS for 30 Days 06/15/22 Cholecalciferol (VITAMIN D) 5,000 Unit Tab, 5000 UNIT PO DAILY, TAB 10/10/21 Beclomethasone Dipropionate (Qvar Redihaler) 80 Mcg/Act Aer, 2 INH PO BID, AER 10/10/21 Information Source: Patient, Emergency Med Personnel Mode of Arrival: EMS Severity: Moderate Timing: Hours Duration: Since onset Prehospital treatment: None Location: Substernal Radiation: Back Quality: Sharp Onset: At Rest Cardiac Risk Factors: HTN, Diabetes Past Medical History PAST MEDICAL HISTORY: Anemia, CHF, DM, ESRD, High Lipids, HTN, Liver, Thyroid Surgical History: Cholecystectomy, 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 ADMINISTRATIVE ASSISTANT History: No Pertinent 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 ADMINISTRATIVE ASSISTANT History Family History Family History: Reviewed,noncontributory to illness, Unknown, Family hx of HTN Social History Smoker: Unknown Alcohol: Denies ETOH Use Drugs: Denies Drug Use Lives In: Home Constitutional: reports: weakness; denies: chills, diaphoresis, fatigue, fever, malaise, sweats, others EENTM: denies: blurred vision, double vision, ear bleeding, ear discharge, ear drainage, ear pain, ear ringing, eye pain, eye redness, hearing loss, mouth pain, mouth swelling, nasal discharge, nose bleeding, nose congestion, nose pain, photophobia, tearing, throat pain, throat swelling, voice changes, others Respiratory: reports: cough; denies: hemoptysis, orthopnea, SOB at rest, shortness of breath, SOB with excertion, stridor, wheezing, others Cardiovascular: reports: chest pain; denies: dizzy spells, diaphoresis, Dyspnea on exertion, edema, irregular heart beat, left arm pain, lightheadedness, palpitations, PND, syncope, others Gastrointestinal: denies: abdomen distended, abdominal pain, blood streaked bowels, constipated, diarrhea, dysphagia, difficulty swallowing, hematemesis, melena, nausea, poor appetite, poor fluid intake, rectal bleeding, rectal pain, vomiting, others Genitourinary: denies: abnormal vagina bleeding, burning, dyspareunia, dysuria, flank pain, frequency, hematuria, incontinence, pain, , vagina discharge, urgency, others Neurological: denies: dizziness, fainting, headache, left sided numbness, left sided weakness, numbness, paresthesia, pre-existing deficit, right sided numbness, right sided weakness, seizure, speech problems, tingling, tremors, weakness, others Musculoskeletal: denies: back pain, gout, joint pain, joint swelling, muscle pain, muscle stiffness, neck pain, others Integumetry: denies: bruises, change in color, change in hair/nails, dryness, laceration, lesions, lumps, rash, wounds, others Allergic/Immunocompromised: denies: Difficulty Healing, Frequent Infections, Hives, Itching, others Hematologic/Lymphatic: denies: anemia, blood clots, easy bleeding, easy bruising, swollen glands, others Endocrine: denies: excessive hunger, excessive sweating, excessive thirst, excessive urination, flushing, intolerance to cold, intolerance to heat, unexplained weight gain, unexplained weight loss, others Psychiatric: denies: anxiety, bipolar disorder, depression, hopeless, panic disorder, schizophrenia, sleepless, suicidal, others All Other Systems: Reviewed and Negative Physical Exam General Appearance: Moderate Distress, Normal HEENT: Normal ENT Inspection, Pharynx Normal, TMs Normal Neck: Full Range of Motion, Non-Tender, Normal, Normal Inspection Respiratory: Chest Non-Tender, Lungs Clear, No Accessory Muscle Use, No Respiratory Distress, Normal Breath Sounds Cardiovascular: No Edema, No JVD, No Murmur, No Gallop, Normal Peripheral Pulses, Regular Rate/Rhythm Breast Exam: Deferred Gastrointestinal: No Organomegaly, Non Tender, No Pulsatile Mass, Normal Bowel Sounds, Soft Genitalia: Deferred Pelvic: Deferred Rectal: Deferred Extremities: No calf tenderness, Normal capillary refill, Normal inspection, N ormal range of motion, Non-tender, No pedal edema Musculoskeletal : Apperance: Normal Neurologic: Alert, financial reporting accountant II-XII nml as Tested, No Motor Deficits, Normal Affect, Normal Mood, No Sensory Deficits Cerebellar Function: NOT DONE Reflexes: NOT DONE Skin: Dry, Normal Color, Warm Lymphatic: No Adenopathy EKG EKG : Pulse Rate (adult): 78 [place]: Normal Cardiac Rhythm: Afib Block: None Hypertrophy: None ST: Normal Was a procedure done? Was a procedure done?: No CP Differential Dx Differential Diagnosis: A-fib, A-Flutter, Angina, Anxiety / Panic Attack, Atrial Dysrhythmia, Electrolyte Disorder X-Ray, Labs, Meds, VS Vital Signs Date Time Temp Pulse Resp B/P (MAP) Pulse Ox O2 Delivery O2 Flow Rate FiO2 05/30/25 18:15 80 14 97 Nasal Cannula* 4 36 05/30/25 17:40 80 14 97/53 (68) 96 05/30/25 16:12 81 05/30/25 14:58 97 Nasal Cannula* 4 36 05/30/25 14:58 79 18 104/60 (75) 97 05/30/25 14:58 79 18 97 Nasal Cannula* 4 36 05/30/25 13:40 82 20 98/62 (74) 98 05/30/25 12:19 65 05/30/25 11:49 78 05/30/25 11:28 77 19 83/54 (64) 99 05/30/25 11:23 98.0 73 20 84/60 100 98.0 05/30/25 11:18 78 Lab Test 05/30/25 14:38 05/30/25 12:19 Range/Units White Blood Count 3.3 #L 4.4-10.8 10^3/uL Red Blood Count 2.83 L 4.0-5.20 10^6/uL Hemoglobin 9.5 L 12.2-16.2 g/dL Hematocrit 28.4 L 36.0-46.0 % Mean Corpuscular Volume 100.3 H 80.0-100.0 fL Mean Corpuscular Hemoglobin 33.6 H 28.0-32.0 pg Mean Corpuscular Hemoglobin Concent 33.5 32.0-36.0 g/dL Red Cell Distribution Width 19.0 H 11.8-14.3 % Platelet Count 114 L 140-450 10^3/uL Mean Platelet Volume 8.8 6.9-10.8 fL Neutrophils (%) (Auto) 63.6 37.0-80.0 % Lymphocytes (%) (Auto) 22.7 10.0-50.0 % Monocytes (%) (Auto) 5.7 0.0-12.0 % Eosinophils (%) (Auto) 6.8 0.0-7.0 % Basophils (%) (Auto) 1.2 0.0-2.0 % Neutrophils # (Auto) 2.1 1.6-8.6 10 ^3/uL Lymphocytes # (Auto) 0.7 0.4-5.4 10 ^3/uL Monocytes # (Auto) 0.2 0-1.3 10 ^3/uL Eosinophils # (Auto) 0.2 0-0.8 10 ^3/uL Basophils # (Auto) 0 0-0.2 10 ^3/uL Nucleated Red Blood Cells 0.1 % Sodium Level 144 136-145 mmol/L Potassium Level 3.4 L 3.5-5.1 mmol/L Chloride Level 102 98-107 mmol/L Carbon Dioxide Level 29 20-31 mmol/L Anion Gap 13 5-15 Blood Urea Nitrogen 21 9-23 mg/dL Creatinine 3.70 H 0.550-1.02 mg/dL Glomerular Filtration Rate Calc 13 >90 mL/min BUN/Creatinine Ratio 5.7 L 10.0-20.0 Serum Glucose 98 74-106 mg/dL Calcium Level 8.6 L 8.7-10.4 mg/dL Patient was hypotensive at dialysis. Answering questions. Anemic. Chronic kidney disease. Moving all extremities. Continue to monitor. Nephrology consultation. Time of 1ST Reevaluation: 12:45 Reevaluation 1ST: Unchanged Patient Education/Counseling: Diagnosis, Treatment Family Education/Counseling: No Family Present SEPSIS Sepsis Screen Date sepsis recognized/suspect: May 30, 2025 Time Sepsis recognized/suspect: 1114 Recent Procedure: No On Antibiotic Therapy: No Respiratory Rate >20: No Heart Rate >90: No Temp<36 C (96.8 F) or >38.3 C: No SBP <90 or MAP <65 mmHG: No New Acute Mental Status Change: No Is the patient on CPAP, BIPAP,: No Physician Orders Electrocardigram (05/30/25 11:49) Electrocardigram (05/30/25 12:49) Electrocardigram (05/30/25 14:49) Urinalysis (05/30/25 11:55) Troponin-I Hs (05/30/25 17:50) Troponin-I Hs (05/30/25 20:50) Amlodipine Tablet (Norvasc Tablet) (05/31/25 10:00) Metoprolol Tartrate Tablet (Lopressor Ta (05/30/25 22:00) Levothyroxine Tablet (Synthroid Tablet) (05/31/25 06:00) Thyroid Stimulating Hormone (05/30/25 17:50) Famotidine Injection (Pepcid Injection) (05/30/25 22:00) Calcium Acetate Capsule (Phoslo Capsule) (05/30/25 18:00) Cholecalciferol Tablet (Vitamin D3 Table (05/31/25 10:00) Apixaban (Eliquis) (05/30/25 22:00) Glucose Blood (Accu-Chek Comfort Curve T (05/30/25 22:00) Insulin R (Human) (Insulin R) (05/30/25 22:00) Dextrose 50% Syringe (05/30/25 18:00) Allergies (05/30/25 17:50) Code Status (05/30/25 17:50) Renal Standard(2gna,3gk,Lopho) (05/30/25 Dinner) Sodium Chloride Lock (Saline Lock Ns) (05/30/25 22:00) Oxygen Per Hour (05/30/25 17:50) Hydrocodone-Acet 5/325mg Tab ([place] 32 (05/30/25 18:00) Ondansetron Hcl (Zofran) (05/30/25 18:00) Docusate Sodium Capsule (Colace Capsule) (05/30/25 18:00) Complete Blood Count (05/31/25 04:00) Comprehensive Metabolic Panel (05/31/25 04:00) Condition: Serious (05/30/25 17:50) Acetaminophen Tablet (Tylenol Tablet) (05/30/25 18:00) Bedrest With Bathroom Privileg (05/30/25 17:50) Sequential Compression Device (05/30/25 ) *Dr. Adamson [facility] (05/30/25 18:22) Vital Signs Date Time Temp Pulse Resp B/P (MAP) Pulse Ox O2 Delivery O2 Flow Rate FiO2 05/30/25 18:15 80 14 97 Nasal Cannula* 4 36 05/30/25 17:40 80 14 97/53 (68) 96 05/30/25 16:12 81 05/30/25 14:58 97 Nasal Cannula* 4 36 05/30/25 14:58 79 18 104/60 (75) 97 05/30/25 14:58 79 18 97 Nasal Cannula* 4 36 05/30/25 13:40 82 20 98/62 (74) 98 05/30/25 12:19 65 05/30/25 11:49 78 05/30/25 11:28 77 19 83/54 (64) 99 05/30/25 11:23 98.0 73 20 84/60 100 98.0 05/30/25 11:18 78 Laboratory Tests Test 05/30/25 14:38 White Blood Count 3.3 10^3/uL (4.4-10.8) #L Departure 1 Departure Time of Disposition: 18:33 Impression: Primary Impression: Acute exacerbation of CHF (congestive heart failure) Qualified Codes: I50.43 - Acute on chronic combined systolic (congestive) and diastolic (congestive) heart failure Additional Impression: ESRD (end stage renal disease) on dialysis Disposition: ADMITTED INPATIENT Admit to: Med Surg Condition: Guarded Critical Care Note Critical Care Time?: Yes (90 min-critical care time only) Stability Stability form required: No Heart Score Heart Score: Heart Score Response (Comments) Value History Moderate Suspicious 1 EKG Repolarization Disturb 1 Age >65 2 Risk Factors >3 or Hx ASHD 2 Troponin Normal limit 0 Total 6 I personally scribed for OUMOU TAYLOR MD ([email or web address]) on 05/30/25 at 11:48. Electronically submitted by Seth Bhardwaj ([email or web address]). OUMOU TAYLOR MD May 30, 2025 11:48
[2025-05-30 12:45] LABS: Chloride 102 mmol/L (98-107); Sodium 144 mmol/L (136-145)
[2025-05-30 12:46] LABS: Anion Gap 13 (5-15); Carbon Dioxide 29 mmol/L (20-31)
[2025-05-30 12:47] LABS: Calcium 8.6 mg/dL (8.7-10.4); Potassium 3.4 mmol/L (3.5-5.1)
[2025-05-30 12:51] LABS: BUN/Creatinine Ratio 5.7 (10.0-20.0); Blood Urea Nitrogen 21 mg/dL (9-23); Glucose 98 mg/dL (74-106)
[2025-05-30 14:50] LABS: Hematocrit 28.4 % (36.0-46.0); Hemoglobin 9.5 g/dL (12.2-16.2); Mean Corpuscular Hemoglobin 33.6 pg (28.0-32.0); Mean Corpuscular Volume 100.3 fL (80.0-100.0); Nucleated Red Blood Cells % 0.1 %
[2025-05-30 14:58] VITALS: PULSE 79; RESP 18; O2SAT 97
[2025-05-30] MEDS ORDERED: ACETAMINOPHEN 325 MG TAB PO PRN (18:00)
[2025-05-30] MEDS ORDERED: DOCUSATE SOD 100 MG CAP PO PRN (18:00)
[2025-05-30] MEDS ORDERED: DEXTROSE (50%) 50ML SYRG IV PRN (18:00)
[2025-05-30] MEDS ORDERED: HYDROcodone-ACET 5/325MG TAB PO PRN (18:00)
[2025-05-30] MEDS ORDERED: ONDANSETRON HCL 4 MG/2 ML VIAL IV PRN (18:00)
[2025-05-30 18:15] VITALS: PULSE 79; PULSE 80; RESP 14; RESP 18; O2SAT 97
--- NOTE | 2025-05-30 18:48 | ECG ---
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
[2025-05-30 19:30] VITALS: RESP 16; O2SAT 97
[2025-05-30] MEDS: CALCIUM ACETATE 667 MG CAP PO SCH (19:35)
--- NOTE | 2025-05-30 19:50 | DVHHP2 ---
History of Present Illness Reason for Visit: ESRD (end stage renal disease) on dialysis History of Present Illness The patient is a 70-year-old female with multiple past medical history including CHF, end-stage renal disease on hemodialysis M-W+F, thyroid disease, and hypertension who presented to [facility] ED with complaint of generalized. As reported by EMS, patient was seen dialysis session today when she suddenly became hypotensive with systolic blood pressure in the 80s/70s, distended abdomen, shortness of breaths, hypoxic with O2 saturation at 90, was given oxygen 2 L/min via nasal cannula and O2 saturation improved to 100%. Patient was seen and evaluated in the ED, laboratory data shows WBC 3.3, hemoglobin 9.5, hematocrit 28.4, platelets 114, sodium 144, potassium 3.4, BUN 21, creatinine 3.70, glucose 98, calcium 8.6, blood pressure 104/60, heart rate 79, temperature 98.0 F, O2 saturation 97% on oxygen. Abdomen/pelvis CT revealing moderate to large volume ascites, colonic diverticulosis with limited evaluation for diverticulitis given ascites, mild pneumobilia; moderate atrophy of bilateral kidney, no hydronephrosis bilaterally; moderate to severe cardiomegaly with small to moderate pericardial effusion; ground-glass opacities of the lungs bases with small right sided pleural effusion be from congestive heart failure. Please see medication orders section in the computer. On my assessment, patient denied chest pain, no headache, no dizziness, currently on oxygen, no diaphoresis, no abdominal pain, no diarrhea, no nausea, no vomiting, no fever, no chills. Patient was admitted for further evaluation and medical management. Past Medical History Anemia, CHF, DM, ESRD, High Lipids, HTN, Liver, Thyroid Past Surgical History Dialysis access RUE, Cholecystectomy, Family History Reviewed, noncontributory to the management of this case. Past Social History The patient lives at home, denies smoking, alcohol or illicit drugs abuse. Review of Systems Constitutional: Yes: Weakness; No: Fever, Chills, Sweats, Malaise, Other Eyes: No: Pain, Vision change, Conjunctivae inflammation, Eyelid inflammation, Other, Redness ENT: No: Ear pain, Ear discharge, Nose pain, Nose discharge, Nose congestion, Mouth pain, Mouth swelling, Throat pain, Throat swelling, Other Respiratory: Cough, Shortness of breath; No: Dry, SOB with excertion, Wheezing, Hemoptysis, Pleuritic Pain, Sputum, Wheezing, Other Cardiovascular: No: Chest Pain, Palpitations, Orthopnea, Paroxysmal Noc. Dyspnea, Edema, Lt Headedness, Other Gastrointestinal: Other (Distended abdomen); No: Nausea, Vomiting, Abdominal Pain, Diarrhea, Constipation, Melena, Hematochezia Genitourinary: No Dysuria, No Frequency, No Incontinence, No Hematuria, No Retention; Other (On dialysis access upper extremity) Musculoskeletal: No: other, neck pain, shoulder pain, arm pain, back pain, hand pain, leg pain, foot pain Skin: No: Rash, Lesions, Jaundice, Bruising, Other Allergies: Coded Allergies: NO KNOWN ALLERGIES (Unverified , 12/02/19) Medications Current Medications Medications Dose Ordered Sig/Iggy Route Start Time Stop Time Status Last Admin Dose Admin Amlodipine Besylate 5 mg DAILY PO 05/31/25 10:00 Metoprolol Tartrate 25 mg BID PO 05/30/25 22:00 Levothyroxine Sodium 150 mcg QAM@0600 PO 05/31/25 06:00 Famotidine 20 mg Q12HR IV 05/30/25 22:00 UNV Calcium Acetate 667 mg TIDWMEALS PO 05/30/25 18:00 05/30/25 19:35 667 MG Cholecalciferol 4,000 unit DAILY PO 05/31/25 10:00 Apixaban 2.5 mg BID PO 05/30/25 22:00 Diagnostic Test (Pha) 1 strip ACHS 05/30/25 22:00 Insulin Human Regular ACHS SC 05/30/25 22:00 Dextrose 50 ml UD PRN IV 05/30/25 18:00 Sodium Chloride 10 ml Q8HR IV 05/30/25 22:00 Acetaminophen/ Hydrocodone Bitart 1 tab Q4HP PRN PO 05/30/25 18:00 Ondansetron HCl 4 mg Q4HP PRN IV 05/30/25 18:00 Docusate Sodium 100 mg BIDPRN PRN PO 05/30/25 18:00 Acetaminophen 650 mg Q6HP PRN PO 05/30/25 18:00 Exam Vital Signs Vital Signs Date Time Temp Pulse Resp B/P (MAP) Pulse Ox O2 Delivery O2 Flow Rate FiO2 05/30/25 18:15 80 14 97 Nasal Cannula* 4 36 05/30/25 17:40 97/53 (68) 05/30/25 11:23 98.0 98.0 General Appearance: Alert, Oriented X3, Cooperative, No acute distress HEENT: Atraumatic, PERRLA, EOMI, Mucous membr. moist/pink Respiratory: Normal air movement, Other (Diminished breath sounds) Cardiovascular: Regular rate, Normal S1, No murmurs Abdominal: Normal bowel sounds, Soft, No hepatospenomegaly, No masses, Other (Tenderness) Extremities: No clubbing, No cyanosis, No edema, Normal pulses, No tenderness/swelling Skin: No rashes, No breakdown, No significant lesion Neuro: Normal speech, Normal tone, Sensation intact, Cranial nerves 3-12 NL, Reflexes 2+, Other (Generalized weakness) Psych/Mental Status: Mental status NL, Mood NL Labs/Xrays Labs Test 05/30/25 19:11 05/30/25 14:38 05/30/25 12:19 Range/Units White Blood Count 3.3 #L 4.4-10.8 10^3/uL Red Blood Count 2.83 L 4.0-5.20 10^6/uL Hemoglobin 9.5 L 12.2-16.2 g/dL Hematocrit 28.4 L 36.0-46.0 % Mean Corpuscular Volume 100.3 H 80.0-100.0 fL Mean Corpuscular Hemoglobin 33.6 H 28.0-32.0 pg Mean Corpuscular Hemoglobin Concent 33.5 32.0-36.0 g/dL Red Cell Distribution Width 19.0 H 11.8-14.3 % Platelet Count 114 L 140-450 10^3/uL Mean Platelet Volume 8.8 6.9-10.8 fL Neutrophils (%) (Auto) 63.6 37.0-80.0 % Lymphocytes (%) (Auto) 22.7 10.0-50.0 % Monocytes (%) (Auto) 5.7 0.0-12.0 % Eosinophils (%) (Auto) 6.8 0.0-7.0 % Basophils (%) (Auto) 1.2 0.0-2.0 % Neutrophils # (Auto) 2.1 1.6-8.6 10 ^3/uL Lymphocytes # (Auto) 0.7 0.4-5.4 10 ^3/uL Monocytes # (Auto) 0.2 0-1.3 10 ^3/uL Eosinophils # (Auto) 0.2 0-0.8 10 ^3/uL Basophils # (Auto) 0 0-0.2 10 ^3/uL Nucleated Red Blood Cells 0.1 % Sodium Level 144 136-145 mmol/L Potassium Level 3.4 L 3.5-5.1 mmol/L Chloride Level 102 98-107 mmol/L Carbon Dioxide Level 29 20-31 mmol/L Anion Gap 13 5-15 Blood Urea Nitrogen 21 9-23 mg/dL Creatinine 3.70 H 0.550-1.02 mg/dL Glomerular Filtration Rate Calc 13 >90 mL/min BUN/Creatinine Ratio 5.7 L 10.0-20.0 Serum Glucose 98 74-106 mg/dL Calcium Level 8.6 L 8.7-10.4 mg/dL PATIENT: ARIANAROBINSON ACCT: [id number] UNIT: [id number] : 1955 LOC: OVERFLOW ROOM / BED: [address] [place] [address] AGE / SEX: 70 / F ADM STATUS: ADM IN SERVICE 45 ORDERING PHYSICIAN: GISSELL MEDINA DNP PROCEDURE(s): ABPL - CT AB PEL WO CON-NO ORAL OR IV REASON: Ascites ORDER NUMBER(s): [id number], ACCESSION NUMBER(s): [id number] Exam: CT CT AB PEL WO CON-NO ORAL OR IV History: Ascites Comparison Study: US ABDOMEN LIMITED on DOS: 05/20/25, XY KUB ABDOMEN SINGLE VIEW on DOS: 05/20/25, US ABDOMEN LIMITED on DOS: 05/11/25 TECHNIQUE: Multidetector CT of the abdomen pelvis without IV contrast. Axial, coronal and sagittal multiplanar reformats were obtained from the axial data set by the technologist. Radiation Dose Information: CT Dose: CTDI volume is 20.76 mGy. Dose-length product is 3.92 mGy*cm FINDINGS: Chronic interstitial lung disease of the lung bases. Bibasilar ground-glass opacities with small right-sided pleural effusion and bilateral dependent atelectasis. Moderate to severe cardiomegaly with small to moderate pericardial effusion. Status post cholecystectomy. Mild pneumobilia. Mild hepatomegaly. Recanalization of the umbilical vein. Mild splenomegaly with no focal splenic lesions. Pancreas and right adrenal glands unremarkable. Limited evaluation of the left adrenal gland. Moderate atrophy of bilateral kidneys. Bilateral ureters unremarkable. Urinary bladder is decompressed. 2.1 cm suggested uterine fibroid. Otherwise, the uterus is unremarkable. Limited evaluation of the adnexa. Ingested material within the mildly distended stomach. Small bowel loops unremarkable. Appendix is unremarkable. Colonic diverticulosis with limited evaluation for diverticulitis given ascites. Small to moderate amount of fecal material within the colon. Moderate to large volume ascites. No evidence of intraperitoneal free air. No evidence of aortic aneurysm. Moderate atherosclerotic calcification of the aorta and bilateral iliacs. No significant lymphadenopathy. Tiny fat containing umbilical hernia. [id number] body wall edema. Chronic appearing compression fracture of L2 with about 7 mm retropulsion of the posterior superior vertebral body of L2 into the spinal canal causing severe spinal canal stenosis. Sclerotic foci over the right pelvic bone and left femoral head which may represent bone islands with blastic lesions not excluded. IMPRESSION: Moderate to large volume ascites. Colonic diverticulosis with Limited evaluation for diverticulitis given ascites. Mild pneumobilia. Moderate Atrophy of Bilateral Kidneys. No hydro nephrosis bilaterally. Moderate to severe cardiomegaly with small to moderate pericardial effusion. Ground-glass opacities of the lung bases with small right-sided pleural effusion be from congestive heart failure. Bibasilar chronic interstitial lung disease. Additional findings as above. SEPSIS Sepsis Screen Date sepsis recognized/suspect: May 30, 2025 Time Sepsis recognized/suspect: 1115 Recent Procedure: No On Antibiotic Therapy: No Respiratory Rate >20: No Heart Rate >90: No Temp<36 C (96.8 F) or >38.3 C: No SBP <90 or MAP <65 mmHG: No New Acute Mental Status Change: No Is the patient on CPAP, BIPAP,: No Physician Orders Urinalysis (05/30/25 11:55) Troponin-I Hs (05/30/25 20:50) Amlodipine Tablet (Norvasc Tablet) (05/31/25 10:00) Metoprolol Tartrate Tablet (Lopressor Ta (05/30/25 22:00) Levothyroxine Tablet (Synthroid Tablet) (05/31/25 06:00) Thyroid Stimulating Hormone (05/30/25 17:50) Famotidine Injection (Pepcid Injection) (05/30/25 22:00) Calcium Acetate Capsule (Phoslo Capsule) (05/30/25 18:00) Cholecalciferol Tablet (Vitamin D3 Table (05/31/25 10:00) Apixaban (Eliquis) (05/30/25 22:00) Glucose Blood (Accu-Chek Comfort Curve T (05/30/25 22:00) Insulin R (Human) (Insulin R) (05/30/25 22:00) Dextrose 50% Syringe (05/30/25 18:00) Allergies (05/30/25 17:50) Code Status (05/30/25 17:50) Renal Standard(2gna,3gk,Lopho) (05/30/25 Dinner) Sodium Chloride Lock (Saline Lock Ns) (05/30/25 22:00) Oxygen Per Hour (05/30/25 17:50) Hydrocodone-Acet 5/325mg Tab (Foreman 5/32 (05/30/25 18:00) Ondansetron Hcl (Zofran) (05/30/25 18:00) Docusate Sodium Capsule (Colace Capsule) (05/30/25 18:00) Complete Blood Count (05/31/25 04:00) Comprehensive Metabolic Panel (05/31/25 04:00) Condition: Serious (05/30/25 17:50) Acetaminophen Tablet (Tylenol Tablet) (05/30/25 18:00) Bedrest With Bathroom Privileg (05/30/25 17:50) Sequential Compression Device (05/30/25 ) *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 (05/30/25 19:46) Emergency Dysrhythmia Protocol (05/30/25 19:46) Rhythm Strips Once Every Shift (05/30/25 19:46) Oxygen By Nasal Cannula (05/30/25 19:46) Vital Signs Date Time Temp Pulse Resp B/P (MAP) Pulse Ox O2 Delivery O2 Flow Rate FiO2 05/30/25 18:15 80 14 97 Nasal Cannula* 4 36 05/30/25 17:40 80 14 97/53 (68) 96 05/30/25 16:12 81 05/30/25 14:58 97 Nasal Cannula* 4 36 05/30/25 14:58 79 18 104/60 (75) 97 05/30/25 14:58 79 18 97 Nasal Cannula* 4 36 05/30/25 13:40 82 20 98/62 (74) 98 05/30/25 12:19 65 Laboratory Tests Test 05/30/25 14:38 White Blood Count 3.3 10^3/uL (4.4-10.8) #L Medications Medications Dose Ordered Sig/Iggy Route Start Time Stop Time Status Last Admin Dose Admin Calcium Acetate 667 mg TIDWMEALS PO 05/30/25 18:00 05/30/25 19:35 667 MG Assessment/Plan Assessment/Plan Acute exacerbation of congestive heart failure Large ascites Pancytopenia Anemia of chronic disease Acute respiratory failure Generalized weakness ESRD (end stage renal disease) on dialysis Plan 1. Admit to telemetry unit 2. Breathing treatment 3. Pain control management 4. Management of fluids and electrolytes 5. Consultation for Nephrology 6. Diagnostic tests abdomen/pelvis CT 7. DVT prophylaxis on Eliquis 8. Repeat labs CBC, CMP in a.m. 9. Continue with current medical management 10. Treatment plan discussed with patient and RN. Patient verbalized understanding. Plan discussed with: Patient, Other (RN) My Orders Orders - GISSELL MEDINA DNP Procedure Category Date Status Time Troponin-I Hs LAB 05/30/25 In Process 20:50 Amlodipine Tablet PHA 05/31/25 In Process (Norvasc Tablet) 10:00 Metoprolol Tartrate PHA 05/30/25 In Process Tablet (Lopressor Ta 22:00 Levothyroxine Tablet PHA 05/31/25 In Process (Synthroid Tablet) 06:00 Thyroid Stimulating LAB 05/30/25 In Process Hormone 17:50 Famotidine Injection PHA 05/30/25 Logged (Pepcid Injection) 22:00 Calcium Acetate PHA 05/30/25 In Process Capsule (Phoslo 18:00 Cholecalciferol PHA 05/31/25 In Process Tablet (Vitamin D3 10:00 Apixaban (Eliquis) PHA 05/30/25 In Process 22:00 Glucose Blood PHA 05/30/25 In Process (Accu-Chek Comfort 22:00 Insulin R (Human) PHA 05/30/25 In Process (Insulin R) 22:00 Dextrose 50% Syringe PHA 05/30/25 In Process 18:00 Allergies AMINATA 05/30/25 In Process 17:50 Code Status CODE 05/30/25 Transmitted 17:50 Renal DIET 05/30/25 Transmitted Standard(2gna,3gk,Lopho) Dinner Sodium Chloride Lock PHA 05/30/25 In Process (Saline Lock Ns) 22:00 Oxygen Per Hour RT 05/30/25 Transmitted 17:50 Hydrocodone-Acet PHA 05/30/25 In Process 5/325mg Tab (Foreman 18:00 Ondansetron Hcl PHA 05/30/25 In Process (Zofran) 18:00 Docusate Sodium PHA 05/30/25 In Process Capsule (Colace 18:00 Complete Blood Count LAB 05/31/25 Verified 04:00 Comprehensive LAB 05/31/25 Verified Metabolic Panel 04:00 Condition: Serious AMINATA 05/30/25 In Process 17:50 Acetaminophen Tablet PHA 05/30/25 In Process (Tylenol Tablet) 18:00 Bedrest With Bathroom AMINATA 05/30/25 In Process Privileg 17:50 Sequential AMINATA 05/30/25 In Process Compression Device *[facility] CONS 05/30/25 Transmitted -[place] 18:22 Ct Ab Pel Wo Con-No CT 05/30/25 Verified Oral Or Iv 19:46 Admit ADMIT 05/30/25 Verified 19:46 Nitroglycerin PHA 05/30/25 Verified Sublingual (Ntrostat 20:00 Morphine Sulfate PHA 05/30/25 Verified Injection 20:00 Stat Ekg For Chest AMINATA 05/30/25 Verified Pain 19:46 Notify Of Changes AMINATA 05/30/25 Verified From Base 19:46 Clerical Production Worker For AMINATA 05/30/25 Verified 24 Hours 19:46 Emergency Dysrhythmia AMINATA 05/30/25 Verified Protocol 19:46 Rhythm Strips Once AMINATA 05/30/25 Verified Every Shift 19:46 Oxygen By Nasal RT 05/30/25 Verified Cannula 19:46 Problem List: (1) End-stage renal disease on hemodialysis (2) Ascites (3) Pancytopenia (4) Acute respiratory failure (5) Anemia of chronic disease (6) Generalized weakness (7) Acute exacerbation of congestive heart failure Date of Service: May 30, 2025 Billing Provider: GISSELL MEDINA DNP Common Visit Codes: 69282-[id number] INP/OBS CARE (HIGH) GISSELL MEDINA DNP May 30, 2025 19:50
[2025-05-30] MEDS ORDERED: NITROGLYCERIN 0.4 MG SL TAB SL PRN (20:00)
[2025-05-30] MEDS ORDERED: MORPHINE SULFATE INJ 2 MG/ml SYRG IV PRN (20:00)
--- NOTE | 2025-05-30 20:50 | DVH ---
Exam: CT CT AB PEL WO CON-NO ORAL OR IV History: Ascites Comparison Study: US ABDOMEN LIMITED on DOS: 05/20/25, XY KUB ABDOMEN SINGLE VIEW on DOS: 05/20/25, US ABDOMEN LIMITED on DOS: 05/11/25 TECHNIQUE: Multidetector CT of the abdomen pelvis without IV contrast. Axial, coronal and sagittal mu ltiplanar reformats were obtained from the axial data set by the technologist. Radiation Dose Information: CT Dose: CTDI volume is 20.76 mGy. Dose-length product is 3.92 mGy*cm FINDINGS: Chronic interstitial lung disease of the lung bases . Bibasilar ground-glass opacities with small rig ht-sided pleural effusion and bilateral dependent atelectasis. Moderate to severe cardiomegaly with s mall to moderate pericardial effusion. Status post cholecystectomy. Mild pneumobilia. Mild hepatomegaly. Recanalization of the umbilical vei n. Mild splenomegaly with no focal splenic lesions. Pancreas and right adrenal glands unremarkable. Limited evaluation of the left adrenal gland. Moderate atrophy of bilateral kidneys. Bilateral ureters unremarkable. Urinary bladder is decompress ed. 2.1 cm suggested uterine fibroid. Otherwise, the uterus is unremarkable. Limited evaluation of t he adnexa. Ingested material within the mildly distended stomach. Small bowel loops unremarkable. Appendix is u nremarkable. Colonic diverticulosis with limited evaluation for diverticulitis given ascites. Small t o moderate amount of fecal material within the colon. Moderate to large volume ascites. No evidence of intraperitoneal free air. No evidence of aortic aneurysm. Moderate atherosclerotic calcification of the aorta and bilateral horace acs. No significant lymphadenopathy. Tiny fat containing umbilical hernia. Gioe-dr-mvanllyw body wall edema. Chronic appearing compression fracture of L2 with about 7 mm retropulsion of the posterior superior vertebral body of L2 into the spinal canal causing severe spinal canal stenosis. Sclerotic foci over the right pelvic bone and left femoral head which may represent bone islands with blastic lesions not excluded. IMPRESSION: Moderate to large volume ascites. Colonic diverticulosis with Limited evaluation for diverticulitis given ascites. Mild pneumobilia. Moderate Atrophy of Bilateral Kidneys. No hydro nephrosis bilaterally. Moderate to severe cardiomegaly with small to moderate pericardial effusion. Ground-glass opacities of the lung bases with small right-sided pleural effusion be from congestive h eart failure. Bibasilar chronic interstitial lung disease. Additional findings as above.
[2025-05-30] MEDS: InsuLIN REG 1unit/0.01ml Soln (100units/ml) SC SCH (22:00)
[2025-05-30] MEDS ORDERED: FAMOTIDINE (10MG/ML) 2ML VL IV SCH (22:00)
[2025-05-30] MEDS: METOPROLOL TARTRATE 25 MG TAB PO SCH (22:00)
[2025-05-30] MEDS: SODIUM CHLOR 0.9% PF (SALINE LOCK) 10ML VIAL/SYR IV SCH (22:06)
[2025-05-30] MEDS: ACCU-CHEK COMFORT CURVE STRIP VI SCH (22:06)
[2025-05-30] MEDS: APIXABAN 2.5 MG TAB PO SCH (22:31)
--- NOTE | 2025-05-30 22:50 | DVH ---
INDICATION: FLUID CHECK TECHNIQUE: Multiple real-time sonographic images of the abdomen were obtained. COMPARISON: US PARACENTESIS on DOS: 05/23/25, US ABDOMEN LIMITED on DOS: 05/20/25, US ABDOMEN LIMITED o n DOS: 05/11/25 Findings/IMPRESSION: [id number] ascites seen within all 4 quadrants.
[2025-05-30 23:06] VITALS: PULSE 84; RESP 22; O2SAT 97
[2025-05-30 23:27] LABS: INR 1.18 (0.9-1.15); Partial Thromboplastin Time 27.4 SEC (24.5-34.5); Prothrombin Time 12.3 sec (9.3-11.8)
[2025-05-30 23:30] VITALS: BP 129/74; PULSE 84; RESP 22; TEMP 98; O2SAT 97
[2025-05-31 05:00] VITALS: BP 107/59; PULSE 92; RESP 18; TEMP 98; O2SAT 100
[2025-05-31] MEDS: LEVOTHYROXINE SODIUM 50 MCG TAB PO SCH (05:50)
[2025-05-31 07:51] LABS: Hematocrit 28.2 % (36.0-46.0); Hemoglobin 9.5 g/dL (12.2-16.2); Mean Corpuscular Hemoglobin 33.7 pg (28.0-32.0); Mean Corpuscular Volume 99.8 fL (80.0-100.0); Nucleated Red Blood Cells % 0.2 %
[2025-05-31 08:00] VITALS: PULSE 97; RESP 18; O2SAT 97
[2025-05-31 08:07] LABS: Albumin 3.9 g/dL (3.2-4.8); Anion Gap 11 (5-15); BUN/Creatinine Ratio 5.4 (10.0-20.0); Bilirubin, Total 0.7 mg/dL (0.2-1.0); Carbon Dioxide 29 mmol/L (20-31); Chloride 102 mmol/L (98-107); Potassium 3.9 mmol/L (3.5-5.1); Sodium 142 mmol/L (136-145); Total Protein 6.8 g/dL (5.7-8.2)
[2025-05-31 08:09] LABS: Alanine Aminotransferase < 9 U/L (7-40); Alkaline Phosphatase 33 U/L (46-116); Blood Urea Nitrogen 27 mg/dL (9-23); Calcium 8.5 mg/dL (8.7-10.4); Glucose 110 mg/dL (74-106)
[2025-05-31] MEDS: CHOLECALCIFEROL (VITD3) 1,000UNIT=25mCg TAB PO SCH (08:50)
[2025-05-31 09:00] VITALS: BP 130/65; PULSE 94; PULSE 97; RESP 18; TEMP 98.2; TEMP 98.7; O2SAT 97; O2SAT 99
--- NOTE | 2025-05-31 12:47 | DVHINCON2 ---
Date of service: May 31, 2025 Reason for Consultation End-stage renal disease History of Present Illness 70-year-old Dominican female past medical history of end-stage renal disease on hemodialysis, severe congestive heart failure/cardiomyopathy, hypotension, diabetes with multiple hospitalizations complaining of chest pain and fluid overload due to hypotension on dialysis presents to the hospital complaining of weakness and shortness of breath. Patient was found to have abdominal distention concerning for ascites. She was admitted and Nephrology was consulted for missed hemodialysis treatment her schedule is Friday at [facility] Allergies: Coded Allergies: NO KNOWN ALLERGIES (Unverified , 12/02/19) Home Meds Active Scripts Omeprazole (Omeprazole Dr) 40 Mg Cap, 40 MG PO DAILY, #90 CAP 5 Refills Prov:LORETTA ESTEVES MD 05/24/25 Cephalexin Monohydrate (Cephalexin) 500 Mg Cap, 500 MG PO BID for 7 Days, #14 CAP Prov:DEAN MASTERS 10/20/24 Amiodarone HCl (Amiodarone HCl) 200 Mg Tab, 200 MG PO BID for 30 Days, #60 TAB Prov:GERALDINE LACKEY MD 05/17/23 Apixaban Base (ELIQUIS) 2.5 Mg Tab, 2.5 MG PO BID for 30 Days, #60 TAB Prov:GERALDINE LACKEY MD 05/17/23 Sacubitril-Valsartan (Entresto 24-26 mg) 1 Tab Tab, 1 TAB PO BID for 30 Days, #60 TAB 2 Refills Prov:REBEL WRAY MD 06/20/22 Ferrous Sulfate (Iron) 325 Mg Tab, 325 MG PO DAILY for 30 Days, #30 TAB 3 Refills Prov:REBEL WRAY MD 12/30/21 Amlodipine Besylate (Amlodipine Besylate) 10 Mg Tab, 1 TAB PO DAILY for 30 Days, #30 TAB 5 Refills Prov:REBEL WRAY MD 12/30/21 Isosorbide Mononitrate (Isosorbide Mononitrate ER) 60 Mg Tab, 60 MG PO DAILY for 30 Days, #30 TAB Prov:RUBEN MCDERMOTT MD 10/12/21 Reported Medications Furosemide (Furosemide) 40 Mg Tab, 1 TAB PO DAILY for 90 Days, #90 10/19/24 Levothyroxine Sodium (Levothyroxine Sodium) 150 Mcg Tab, 1 TAB PO DAILY for 90 Days, #90 10/19/24 Hydralazine Hcl (Hydralazine Hcl) 25 Mg Tab, 1 TAB PO QID for 90 Days, #360 10/19/24 Albuterol Sulfate (Albuterol Sulfate Hfa) 108 Mcg/Act Aer, 108 MCG IN UD for 90 Days, #25.5 10/19/24 Entecavir Monohydrate (Entecavir) 0.5 Mg Tab, 1 TAB PO DAILY for 90 Days, #90 BEFORE MEALS 10/19/24 Metoprolol Tartrate (Lopressor) 25 Mg Tb, 1 TAB PO BID for 90 Days, #180 05/13/23 Nifedipine (Nifedipine Er) 90 Mg Tab, 1 TAB PO DAILY for 90 Days, #90 05/13/23 Calcium Acetate (Phosphate Bin (Calcium Acetate) 667 Mg Cap, 2001 CAP PO TID for 30 Days 05/13/23 Sevelamer Carbonate (Sevelamer Carbonate) 0.8 Gm Pow, 1 PKT PO TID 05/13/23 Prednisone (Prednisone) 5 Mg Tab, 5 MG PO, TAB 06/15/22 Simvastatin (Simvastatin) 20 Mg Tab, 20 MG PO HS for 30 Days 06/15/22 Cholecalciferol (VITAMIN D) 5,000 Unit Tab, 5000 UNIT PO DAILY, TAB 10/10/21 Beclomethasone Dipropionate (Qvar Redihaler) 80 Mcg/Act Aer, 2 INH PO BID, AER 10/10/21 Current Medications Current Medications Medications (Trade) Dose Ordered Sig/Iggy Route PRN Reason Start Time Stop Time Status Last Admin Amlodipine Besylate (Norvasc Tablet) 5 mg DAILY PO 05/31/25 10:00 05/31/25 08:51 Metoprolol Tartrate (Lopressor Tablet) 25 mg BID PO 05/30/25 22:00 05/31/25 08:53 Levothyroxine Sodium (Synthroid Tablet) 150 mcg QAM@0600 PO 05/31/25 06:00 05/31/25 05:50 Famotidine (Pepcid Injection) 20 mg Q12HR IV 05/30/25 22:00 05/30/25 19:53 DC Calcium Acetate (Phoslo Capsule) 667 mg TIDWMEALS PO 05/30/25 18:00 05/31/25 12:32 Cholecalciferol (Vitamin D3 Tablet) 4,000 unit DAILY PO 05/31/25 10:00 05/31/25 08:50 Apixaban (Eliquis) 2.5 mg BID PO 05/30/25 22:00 05/31/25 08:48 Diagnostic Test (Pha) (Accu-Chek Comfort Curve T) 1 strip ACHS 05/30/25 22:00 05/31/25 06:24 Insulin Human Regular (InsuLIN R) ACHS SC 05/30/25 22:00 Dextrose 50 ml UD PRN IV Blood Sugar LESS THAN 60 05/30/25 18:00 Sodium Chloride (Saline Lock Ns) 10 ml Q8HR IV 05/30/25 22:00 05/31/25 05:50 Acetaminophen/ Hydrocodone Bitart ([place] 5/325MG Tab) 1 tab Q4HP PRN PO MODERATE PAIN (4-6 PAIN SCALE) 05/30/25 18:00 Ondansetron HCl (Zofran) 4 mg Q4HP PRN IV NAUSEA / VOMITING 05/30/25 18:00 Docusate Sodium (Colace Capsule) 100 mg BIDPRN PRN PO FOR CONSTIPATION 05/30/25 18:00 Acetaminophen (Tylenol Tablet) 650 mg Q6HP PRN PO PAIN SCALE 1-3 OR TEMP>100.4 05/30/25 18:00 Nitroglycerin (Ntrostat Sublingual) 0.4 mg Q5MINP PRN SL FOR CHEST PAIN 05/30/25 20:00 Morphine Sulfate 2 mg Q30M PRN IV FOR CHEST PAIN 05/30/25 20:00 Epoetin Rufino-epbx (Retacrit) 10,000 unit TUTHSA SC 05/31/25 10:00 Family History: FH: HTN (hypertension) G8 FATHER FH: breast cancer G8 MOTHER FH: breast cancer G8 MOTHER Hypercholesterolemia G8 MOTHER G8 FATHER Review of Systems Abdominal distention weakness and shortness of breath H&P Exam Vital Signs/I&O Vital Sign Date Time Temp Pulse Resp B/P (MAP) Pulse Ox O2 Delivery O2 Flow Rate FiO2 05/31/25 09:53 89 133/62 05/31/25 09:00 98.7 18 97 98.7 8/5/25 08:00 Nasal Cannula* 4 36 Intake and Output 05/30/25 05/31/25 19:00 07:00 Intake Total 80 ml Balance 80 ml Intake Oral 80 ml Physical Exam Elderly Dominican female Shortness of breath Left AV fistula Trace bilateral edema Labs/Diagnostic Data Labs/Diagnostic Data Laboratory Tests Test 05/31/25 07:14 05/31/25 06:02 05/30/25 23:02 05/30/25 22:07 Range/Units White Blood Count 4.1 L 4.4-10.8 10^3/uL Red Blood Count 2.83 L 4.0-5.20 10^6/uL Hemoglobin 9.5 L 12.2-16.2 g/dL Hematocrit 28.2 L 36.0-46.0 % Mean Corpuscular Volume 99.8 80.0-100.0 fL Mean Corpuscular Hemoglobin 33.7 H 28.0-32.0 pg Mean Corpuscular Hemoglobin Concent 33.7 32.0-36.0 g/dL Red Cell Distribution Width 19.0 H 11.8-14.3 % Platelet Count 128 L 140-450 10^3/uL Mean Platelet Volume 8.7 6.9-10.8 fL Neutrophils (%) (Auto) 62.3 37.0-80.0 % Lymphocytes (%) (Auto) 23.4 10.0-50.0 % Monocytes (%) (Auto) 6.3 0.0-12.0 % Eosinophils (%) (Auto) 7.1 H 0.0-7.0 % Basophils (%) (Auto) 0.9 0.0-2.0 % Neutrophils # (Auto) 2.6 1.6-8.6 10 ^3/uL Lymphocytes # (Auto) 1.0 0.4-5.4 10 ^3/uL Monocytes # (Auto) 0.3 0-1.3 10 ^3/uL Eosinophils # (Auto) 0.3 0-0.8 10 ^3/uL Basophils # (Auto) 0 0-0.2 10 ^3/uL Nucleated Red Blood Cells 0.2 % Sodium Level 142 136-145 mmol/L Potassium Level 3.9 3.5-5.1 mmol/L Chloride Level 102 98-107 mmol/L Carbon Dioxide Level 29 20-31 mmol/L Anion Gap 11 5-15 Blood Urea Nitrogen 27 H 9-23 mg/dL Creatinine 5.00 #H 0.550-1.02 mg/dL Glomerular Filtration Rate Calc 9 >90 mL/min BUN/Creatinine Ratio 5.4 L 10.0-20.0 Serum Glucose 110 H 74-106 mg/dL Calcium Level 8.5 L 8.7-10.4 mg/dL Total Bilirubin 0.7 0.2-1.0 mg/dL Aspartate Amino Transferase (AST) 15 13-40 U/L Alanine Aminotransferase (ALT) < 9 7-40 U/L Alkaline Phosphatase 33 L 46-116 U/L Total Protein 6.8 5.7-8.2 g/dL Albumin 3.9 3.2-4.8 g/dL POC Glucose 134 H 120 H 70-106 mg/dl Prothrombin Time 12.3 H 9.3-11.8 sec Prothrombin Time INR 1.18 H 0.9-1.15 Activated Partial Thromboplast Time 27.4 24.5-34.5 SEC Test 05/30/25 19:11 05/30/25 14:38 05/30/25 12:19 Range/Units Troponin I High Sensitivity 24 21 </=34 ng/L White Blood Count 3.3 #L 4.4-10.8 10^3/uL Red Blood Count 2.83 L 4.0-5.20 10^6/uL Hemoglobin 9.5 L 12.2-16.2 g/dL Hematocrit 28.4 L 36.0-46.0 % Mean Corpuscular Volume 100.3 H 80.0-100.0 fL Mean Corpuscular Hemoglobin 33.6 H 28.0-32.0 pg Mean Corpuscular Hemoglobin Concent 33.5 32.0-36.0 g/dL Red Cell Distribution Width 19.0 H 11.8-14.3 % Platelet Count 114 L 140-450 10^3/uL Mean Platelet Volume 8.8 6.9-10.8 fL Neutrophils (%) (Auto) 63.6 37.0-80.0 % Lymphocytes (%) (Auto) 22.7 10.0-50.0 % Monocytes (%) (Auto) 5.7 0.0-12.0 % Eosinophils (%) (Auto) 6.8 0.0-7.0 % Basophils (%) (Auto) 1.2 0.0-2.0 % Neutrophils # (Auto) 2.1 1.6-8.6 10 ^3/uL Lymphocytes # (Auto) 0.7 0.4-5.4 10 ^3/uL Monocytes # (Auto) 0.2 0-1.3 10 ^3/uL Eosinophils # (Auto) 0.2 0-0.8 10 ^3/uL Basophils # (Auto) 0 0-0.2 10 ^3/uL Nucleated Red Blood Cells 0.1 % B-Type Natriuretic Peptide 1116.55 0-100 pg/mL Sodium Level 144 136-145 mmol/L Potassium Level 3.4 L 3.5-5.1 mmol/L Chloride Level 102 98-107 mmol/L Carbon Dioxide Level 29 20-31 mmol/L Anion Gap 13 5-15 Blood Urea Nitrogen 21 9-23 mg/dL Creatinine 3.70 H 0.550-1.02 mg/dL Glomerular Filtration Rate Calc 13 >90 mL/min BUN/Creatinine Ratio 5.7 L 10.0-20.0 Serum Glucose 98 74-106 mg/dL Calcium Level 8.6 L 8.7-10.4 mg/dL Thyroid Stimulating Hormone (TSH) 40.49 H 0.55-4.78 uIU/mL Assessment 70-year-old female past medical history of cardiomyopathy and end-stage renal disease presents to the hospital with fluid overload. 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
[2025-05-31] MEDS: EPOETIN ALFA-EPBX 10,000 UNIT/1ML VIAL SC SCH (12:54)
[2025-05-31 13:00] VITALS: BP 139/79; PULSE 79; RESP 18; TEMP 98.6; O2SAT 95
--- NOTE | 2025-05-31 13:13 | DVH ---
PROCEDURE: ULTRASOUND GUIDED PARACENTESIS HISTORY: 70 Female requiring paracentesis. TECHNIQUE: The risks and benefits of the procedure including but not limited to bleeding, infection and injury t o abdominal organs were explained to the patient and written informed consent was obtained. Optimal site for puncture was determined using ultrasound and the area sterilized and draped. Using a 5 Lao Eyetronicseh catheter, paracentesis was performed in the right lower abdomen. Approximately 3 li ters of straw colored fluid was removed. The patient tolerated the procedure well. There were no imm ediate complications. IMPRESSION: Ultrasound-guided paracentesis with no immediate complications.
--- NOTE | 2025-05-31 14:26 | DVHPN2 ---
Subjective Patient is going down to radiology department per paracentesis. Patient is evaluated by leading firefighter. Changes from previous H/P or p: No Changes Respiratory: Cough, Shortness of breath Gastrointestinal: Other (Distended abdomen) Genitourinary: Other (On dialysis access upper extremity) Objective Vitals Vital Signs Date Time Temp Pulse Resp B/P (MAP) Pulse Ox O2 Delivery O2 Flow Rate FiO2 05/31/25 09:53 89 133/62 05/31/25 09:00 98.7 18 97 98.7 05/31/25 08:00 Nasal Cannula* 4 36 Intake/Output Intake and Output 05/31/25 07:00 Intake Total 80 ml Balance 80 ml Intake Oral 80 ml Exam Alert awake oriented x3. Comfortable in bed without distress. HEENT neck supple no JVD. Heart regular rate and rhythm S1-S2. Lungs without rales wheezes. Abdomen distended soft positive bowel sounds nontender. Extremities trace edema. Medications Current Medications Medications Dose Ordered Sig/Iggy Route Start Time Stop Time Status Last Admin Dose Admin Amlodipine Besylate 5 mg DAILY PO 05/31/25 10:00 05/31/25 08:51 5 MG Metoprolol Tartrate 25 mg BID PO 05/30/25 22:00 05/31/25 08:53 25 MG Levothyroxine Sodium 150 mcg QAM@0600 PO 05/31/25 06:00 05/31/25 05:50 150 MCG Calcium Acetate 667 mg TIDWMEALS PO 05/30/25 18:00 05/31/25 12:32 667 MG Cholecalciferol 4,000 unit DAILY PO 05/31/25 10:00 05/31/25 08:50 4,000 UNIT Apixaban 2.5 mg BID PO 05/30/25 22:00 05/31/25 08:48 2.5 MG Diagnostic Test (Pha) 1 strip ACHS 05/30/25 22:00 05/31/25 06:24 1 STRIP Insulin Human Regular ACHS SC 05/30/25 22:00 Dextrose 50 ml UD PRN IV 05/30/25 18:00 Sodium Chloride 10 ml Q8HR IV 05/30/25 22:00 05/31/25 05:50 10 ML Acetaminophen/ Hydrocodone Bitart 1 tab Q4HP PRN PO 05/30/25 18:00 Ondansetron HCl 4 mg Q4HP PRN IV 05/30/25 18:00 Docusate Sodium 100 mg BIDPRN PRN PO 05/30/25 18:00 Acetaminophen 650 mg Q6HP PRN PO 05/30/25 18:00 Nitroglycerin 0.4 mg Q5MINP PRN SL 05/30/25 20:00 Morphine Sulfate 2 mg Q30M PRN IV 05/30/25 20:00 Epoetin Rufino-epbx 10,000 unit TUTHSA SC 05/31/25 10:00 05/31/25 12:54 10,000 UNIT Laboratory Results Laboratory Tests 05/31/25 07:14 Chemistry Test 05/31/25 07:14 Albumin 3.9 g/dL (3.2-4.8) Calcium Level 8.5 mg/dL (8.7-10.4) L Total Protein 6.8 g/dL (5.7-8.2) Coagulation Test 05/30/25 23:02 Prothrombin Time 12.3 sec (9.3-11.8) H Prothrombin Time INR 1.18 (0.9-1.15) H Activated Partial Thromboplast Time 27.4 SEC (24.5-34.5) Cardiac Markers Test 05/30/25 14:38 B-Type Natriuretic Peptide 1116.55 pg/mL (0-100) LFT Test 05/31/25 07:14 Alanine Aminotransferase (ALT) < 9 U/L (7-40) Alkaline Phosphatase 33 U/L (46-116) L Aspartate Amino Transferase (AST) 15 U/L (13-40) Total Bilirubin 0.7 mg/dL (0.2-1.0) Microbiology Microbiology Date/Time Source Procedure Growth Status 05/31/25 02:20 Nose MRSA Screen - Final Complete Assessment/Plan Assessment/Plan End-stage renal disease on hemodialysis End-stage dilated cardiomyopathy with EF 30% and severe pulmonary hypertension Ascites presently likely secondary to cardiac disease Hypotension Recurrent chest pain Anemia due to chronic kidney disease Proceed with hemodialysis for Nephrology recommendations. Meantime proceed with a paracentesis by Interventional Radiology. We will send fluid for cultures and cell count. Otherwise continue rest of supportive care and treatment. Further clinical management per clinical course and recommendations from the consultants Plan discussed with: Other Problem List: (1) Acute respiratory failure (2) Accelerated hypertension (3) Recurrent left pleural effusion (4) Anemia of chronic disease (5) Dyspnea and respiratory abnormalities (6) Ascites Date of Service: May 31, 2025 Billing Provider: SUSHMA GALVEZ MD Common Visit Codes: [id number] INP/OBS CARE(MOD) SUSHMA GALVEZ MD May 31, 2025 14:26
[2025-05-31] MEDS: SODIUM CHL 0.9% 1000 ML BAG XX ONE (17:51)
[2025-05-31 20:00] VITALS: PULSE 84; PULSE 87; RESP 18; O2SAT 98
[2025-05-31 21:00] VITALS: BP_SYST 103; BP_SYST 142; BP_DIAS 63; BP_DIAS 73; PULSE 79; PULSE 87; RESP 18; RESP 20; TEMP 97.3; TEMP 98; O2SAT 94; O2SAT 98
[2025-06-01] VITALS (8 sets, daily range): BP systolic 109–140; BP diastolic 63–80; PULSE 47–74; RESP 18–20; TEMP 97.4–98.6; O2SAT 96–100
[2025-06-01 07:38] LABS: Potassium 3.8 mmol/L (3.5-5.1); Sodium 139 mmol/L (136-145)
[2025-06-01 07:39] LABS: Anion Gap 9 (5-15)
[2025-06-01 07:44] LABS: BUN/Creatinine Ratio 5.1 (10.0-20.0); Blood Urea Nitrogen 22 mg/dL (9-23); Glucose 99 mg/dL (74-106)
[2025-06-01 07:47] LABS: Calcium 8.2 mg/dL (8.7-10.4); Carbon Dioxide 33 mmol/L (20-31); Chloride 97 mmol/L (98-107)
[2025-06-01 11:36] LABS: Hepatitis C Antibody Negative (Negative)
[2025-06-01 11:43] LABS: Hepatitis B Surface Antigen Positive (Negative)
[2025-06-01 12:07] LABS: Glucose, Body Fluid 126.0 mg/dL (.); LD, Body Fluid 97.0 IU/L (.)
[2025-06-01] MEDS ORDERED: VANCOMYCIN PER PHARMACY 0 MG IV SCH (12:15)
[2025-06-01] MEDS ORDERED: levoFLOXacin 500 MG TAB PO SCH (12:15)
--- NOTE | 2025-06-01 13:18 | ECG ---
[facility] Test Date: 2025-05-30 Test Time: 11:18:42 Pat Name: [address] Department: ED Room: [facility]0T B Gender: F Manager Communication: norbert : 1955 Requested By: OUMOU TAYLOR Order Number: [id number] Reading MD: Nasir Handy Measurements Intervals [place] Rate: 78 P: 0 WA: 0 QRS: 119 QRSD: 103 T: 245 QT: 591 QTc: 674 Interpretive Statements Atrial fibrillation Anteroseptal infarct, age indeterminate Prolonged QT interval Baseline wander in lead(s) V4 Electronically Signed On 06-06-2025 17:17:37 PDT by Nasir Handy Please click the below link to view image of tracing.
[2025-06-01] MEDS: VANCOMYCIN 1GM/200ML PM 200 ML IV ONE (15:42)
[2025-06-01] MEDS ORDERED: LEVO250T58 PO (15:44)
--- NOTE | 2025-06-01 15:45 | DVHDS2 ---
Discharge Summary Date of Admission May 30, 2025 at 19:46 Date of Discharge: Jun 01, 2025 Labs/Diagnostic Data: Laboratory Results Test 06/01/25 06:09 06/01/25 04:57 05/31/25 12:20 05/31/25 07:14 POC Glucose 120 mg/dl (70-106) Sodium Level 139 mmol/L (136-145) Potassium Level 3.8 mmol/L (3.5-5.1) Chloride Level 97 mmol/L (98-107) Carbon Dioxide Level 33 mmol/L (20-31) Anion Gap 9 (5-15) Blood Urea Nitrogen 22 mg/dL (9-23) Creatinine 4.31 mg/dL (0.550-1.02) Glomerular Filtration Rate Calc 11 mL/min (>90) BUN/Creatinine Ratio 5.1 (10.0-20.0) Serum Glucose 99 mg/dL (74-106) Calcium Level 8.2 mg/dL (8.7-10.4) Body Fluid Source Peritoneal fluid Body Fluid pH 8.0 Body Fluid WBC (Manual) 456 CUMM (0-200) Body Fluid RBC (Manual) 819 CUMM (0-2000) Body Fluid Mononuclear Cells 95 % Body Fluid Polymorphonuclear Cells 5 % (0-25) Body Fluid Glucose 126 mg/dL (.) Body Fluid Total Protein 4.1 g/dL (.) Body Fluid Lactate Dehydrogenase 97 IU/L (.) White Blood Count 4.1 10^3/uL (4.4-10.8) Red Blood Count 2.83 10^6/uL (4.0-5.20) Hemoglobin 9.5 g/dL (12.2-16.2) Hematocrit 28.2 % (36.0-46.0) Mean Corpuscular Volume 99.8 fL (80.0-100.0) Mean Corpuscular Hemoglobin 33.7 pg (28.0-32.0) Mean Corpuscular Hemoglobin Concent 33.7 g/dL (32.0-36.0) Red Cell Distribution Width 19.0 % (11.8-14.3) Platelet Count 128 10^3/uL (140-450) Mean Platelet Volume 8.7 fL (6.9-10.8) Neutrophils (%) (Auto) 62.3 % (37.0-80.0) Lymphocytes (%) (Auto) 23.4 % (10.0-50.0) Monocytes (%) (Auto) 6.3 % (0.0-12.0) Eosinophils (%) (Auto) 7.1 % (0.0-7.0) Basophils (%) (Auto) 0.9 % (0.0-2.0) Neutrophils # (Auto) 2.6 10 ^3/uL (1.6-8.6) Lymphocytes # (Auto) 1.0 10 ^3/uL (0.4-5.4) Monocytes # (Auto) 0.3 10 ^3/uL (0-1.3) Eosinophils # (Auto) 0.3 10 ^3/uL (0-0.8) Basophils # (Auto) 0 10 ^3/uL (0-0.2) Nucleated Red Blood Cells 0.2 % Total Bilirubin 0.7 mg/dL (0.2-1.0) Aspartate Amino Transferase (AST) 15 U/L (13-40) Alanine Aminotransferase (ALT) < 9 U/L (7-40) Alkaline Phosphatase 33 U/L (46-116) Total Protein 6.8 g/dL (5.7-8.2) Albumin 3.9 g/dL (3.2-4.8) Hepatitis A IgM Antibody Negative Hepatitis B Surface Antigen Positive (Negative) Hepatitis B Core IgM Antibody Negative (Negative) Hepatitis C Antibody Negative (Negative) Test 05/30/25 23:02 05/30/25 19:11 05/30/25 14:38 05/30/25 12:19 Prothrombin Time 12.3 sec (9.3-11.8) Prothrombin Time INR 1.18 (0.9-1.15) Activated Partial Thromboplast Time 27.4 SEC (24.5-34.5) Troponin I High Sensitivity 24 ng/L (</=34) B-Type Natriuretic Peptide 1116.55 pg/mL (0-100) Thyroid Stimulating Hormone (TSH) 40.49 uIU/mL (0.55-4.78) Other Laboratory Tests 06/01/25 04:57 05/31/25 07:14 Brief Hx & Hospital Course: The patient is a 70-year-old female with multiple past medical history including CHF, end-stage renal disease on hemodialysis M-W+F, thyroid disease, and hypertension who presented to [facility] ED with complaint of generalized. As reported by EMS, patient was seen dialysis session today when she suddenly became hypotensive with systolic blood pressure in the 80s/70s, distended abdomen, shortness of breaths, hypoxic with O2 saturation at 90, was given oxygen 2 L/min via nasal cannula and O2 saturation improved to 100%. Patient was seen and evaluated in the ED, laboratory data shows WBC 3.3, hemoglobin 9.5, hematocrit 28.4, platelets 114, sodium 144, potassium 3.4, BUN 21, creatinine 3.70, glucose 98, calcium 8.6, blood pressure 104/60, heart rate 79, temperature 98.0 F, O2 saturation 97% on oxygen. Abdomen/pelvis CT revealing moderate to large volume ascites, colonic diverticulosis with limited evaluation for diverticulitis given ascites, mild pneumobilia; moderate atrophy of bilateral kidney, no hydronephrosis bilaterally; moderate to severe cardiomegaly with small to moderate pericardial effusion; ground-glass opacities of the lungs bases with small right sided pleural effusion be from congestive heart failure. Please see medication orders section in the computer. On my assessment, patient denied chest pain, no headache, no dizziness, currently on oxygen, no diaphoresis, no abdominal pain, no diarrhea, no nausea, no vomiting, no fever, no chills. Patient was admitted for further evaluation She is admitted and evaluated by commissary agent. Patient underwent a successful hemodialysis while in the hospital. Patient noted to have ascites therefore she had Interventional Radiology remove ascitic fluid with a paracentesis. Fluid cultures did not grow any obvious organisms preliminary report. However her white cell count is mildly elevated in the 400 range therefore she is empirically started on antibiotics. Otherwise patient is clinically stable. Feeling better. Oxygenation and shortness for breath have improved. Patient is counseled and educated regarding compliance with her hemodialysis Friday 3 times a week as outpatient basis. She is advised to continue her home oxygen. Otherwise have a close follow up with her PCP and commissary agent. Given the patient's symptoms have improved and having had necessary workup and evaluations it is felt she could be safely discharged home. Patient verbalized understanding over hospital diagnosis, treatment she received, discharge medications, discharge instructions and agree with the follow up plan of care as outlined. Operations or Procedures REASON: ASCITES ORDER NUMBER(s): [id number], ACCESSION NUMBER(s): [id number] PROCEDURE: ULTRASOUND GUIDED PARACENTESIS HISTORY: 70 Female requiring paracentesis. TECHNIQUE: The risks and benefits of the procedure including but not limited to bleeding, infection and injury to abdominal organs were explained to the patient and written informed consent was obtained. Optimal site for puncture was determined using ultrasound and the area sterilized and draped. Using a 5 [place] Yueh catheter, paracentesis was performed in the right lower abdomen. Approximately 3 liters of straw colored fluid was removed. The patient tolerated the procedure well. There were no immediate complications. IMPRESSION: Ultrasound-guided paracentesis with no immediate complications. Condition at Discharge: Stable Final Diagnosis/Problems List END-STAGE RENAL DISEASE ON HEMODIALYSIS, SCDS STATUS POST PARACENTESIS, HYPERTENSION, ANEMIA OF CHRONIC DISEASE, PHYSICAL DECONDITIONING, ACUTE ON CHRONIC HYPOXEMIC RESPIRATORY FAILURE ON HOME O2 Discharge Disposition: Home Discharge Instruct/Medications Diet: Consistent carbohydrate, Cardiac 2g Na,low cholest Activity: No Restrictions, As Tolerated Follow Up/Referral: DIALYSIS Friday. Medications: FINISH ANTIBIOTIC PRESCRIBED. OTHER HOME MEDICATIONS YOU WERE TAKING Scheduled Albuterol Sulfate (Albuterol Sulfate Hfa), 108 MCG IN UD, (Reported) Amiodarone HCl (Amiodarone HCl), 200 MG PO BID Amlodipine Besylate (Amlodipine Besylate), 1 TAB PO DAILY Apixaban Base (Eliquis), 2.5 MG PO BID Beclomethasone Dipropionate (Qvar Redihaler), 2 INH PO BID, (Reported) Calcium Acetate (Phosphate Bin (Calcium Acetate), 2,001 CAP PO TID, (Reported) Cephalexin Monohydrate (Cephalexin), 500 MG PO BID Cholecalciferol (Vitamin D), 5,000 UNIT PO DAILY, (Reported) Entecavir Monohydrate (Entecavir), 1 TAB PO DAILY, (Reported) Ferrous Sulfate (Iron), 325 MG PO DAILY Furosemide (Furosemide), 1 TAB PO DAILY, (Reported) Hydralazine Hcl (Hydralazine Hcl), 1 TAB PO QID, (Reported) Isosorbide Mononitrate (Isosorbide Mononitrate ER), 60 MG PO DAILY Levofloxacin Hemihydrate (Levofloxacin), 250 MG PO DAILY@BREAKFAST Levothyroxine Sodium (Levothyroxine Sodium), 1 TAB PO DAILY, (Reported) Metoprolol Tartrate (Lopressor), 1 TAB PO BID, (Reported) Nifedipine (Nifedipine Er), 1 TAB PO DAILY, (Reported) Omeprazole (Omeprazole Dr), 40 MG PO DAILY Sacubitril-Valsartan (Entresto 24-26 mg), 1 TAB PO BID Sevelamer Carbonate (Sevelamer Carbonate), 1 PKT PO TID, (Reported) Simvastatin (Simvastatin), 20 MG PO HS, (Reported) Miscellaneous Medications Prednisone (Prednisone), 5 MG PO, (Reported) Discharge Statement: "Patient was advised to return to the ER or call 911 if any headaches, dizziness, shortness of breath, chest pain, abdominal pain, bleeding, fevers, or worsening of medical condition. Patient was counseled about treatment plan, medications, possible side effects, patientverbalized understanding. All questions were answered to the best of my ability. This discharge took greater then 30 minutes in planning, reviewing documentation, counseling the patient, and discussing with other team members." ASSESSMENT ASSESSMENT Assessment END-STAGE RENAL DISEASE ON HEMODIALYSIS, SCDS STATUS POST PARACENTESIS, HYPERTENSION, ANEMIA OF CHRONIC DISEASE, PHYSICAL DECONDITIONING, ACUTE ON CHRONIC HYPOXEMIC RESPIRATORY FAILURE ON HOME O2 Date of Service: Jun 01, 2025 Billing Provider: SUSHMA GALVEZ MD Common Visit Codes: 80345-RVE/[id number] DISCH DAY <30MIN SUSHMA GALVEZ MD Jun 01, 2025 15:45
--- NOTE | 2025-06-01 19:11 | DVHPN2 ---
Progress Note Date Seen: Jun 01, 2025 Medical Necessity Reason Pt with a Central, PICC or Fol: No Subjective Patient reports: No new complaints, Feels better Review of Systems: Deferred Objective vital signs Vital Sign Date Time Temp Pulse Resp B/P (MAP) Pulse Ox O2 Delivery O2 Flow Rate FiO2 06/01/25 17:21 98.6 69 18 134/80 (98) 96 98.6 05/31/25 20:00 Nasal Cannula* 4 36 Total Intake and Output 05/31/25 05/31/25 06/01/25 15:00 23:00 07:00 Intake Total 300 ml Balance 300 ml medications Current Medications Medications Dose Ordered Sig/Iggy Route Start Time Stop Time Status Last Admin Dose Admin Amlodipine Besylate 5 mg DAILY PO 05/31/25 10:00 06/01/25 10:07 5 MG Metoprolol Tartrate 25 mg BID PO 05/30/25 22:00 06/01/25 10:07 25 MG Levothyroxine Sodium 150 mcg QAM@0600 PO 05/31/25 06:00 06/01/25 05:42 150 MCG Calcium Acetate 667 mg TIDWMEALS PO 05/30/25 18:00 06/01/25 12:27 667 MG Cholecalciferol 4,000 unit DAILY PO 05/31/25 10:00 06/01/25 10:08 4,000 UNIT Apixaban 2.5 mg BID PO 05/30/25 22:00 06/01/25 10:07 2.5 MG Diagnostic Test (Pha) 1 strip ACHS 05/30/25 22:00 06/01/25 06:21 1 STRIP Insulin Human Regular ACHS SC 05/30/25 22:00 Dextrose 50 ml UD PRN IV 05/30/25 18:00 Sodium Chloride 10 ml Q8HR IV 05/30/25 22:00 06/01/25 14:00 10 ML Acetaminophen/ Hydrocodone Bitart 1 tab Q4HP PRN PO 05/30/25 18:00 Ondansetron HCl 4 mg Q4HP PRN IV 05/30/25 18:00 Docusate Sodium 100 mg BIDPRN PRN PO 05/30/25 18:00 Acetaminophen 650 mg Q6HP PRN PO 05/30/25 18:00 Nitroglycerin 0.4 mg Q5MINP PRN SL 05/30/25 20:00 Morphine Sulfate 2 mg Q30M PRN IV 05/30/25 20:00 Epoetin Rufino-epbx 10,000 unit TUTHSA SC 05/31/25 10:00 05/31/25 12:54 10,000 UNIT Vancomycin HCl 0 ml @ 0 mls/hr UD IV 06/01/25 12:15 Levofloxacin 250 mg DAILY PO 06/01/25 12:15 Hold Examination: GENERAL:Abnormal, LUNGS:Abnormal, MSK:Abnormal laboratory and microbiology Laboratory Tests 06/01/25 04:57 05/31/25 07:14 Test 06/01/25 04:57 Range/Units Serum Glucose 99 74-106 mg/dL Microbiology Date/Time Source Procedure Growth Status 05/31/25 12:20 Ascities Fluid Gram Stain - Final Resulted 05/31/25 12:20 Ascities Fluid Body Fluid Culture - Preliminary Resulted 05/31/25 02:20 Nose MRSA Screen - Final Complete Problem List/Assessment/Plan Problem List/Assessment/Plan End-stage renal disease on hemodialysis 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
== END 2025-06-01 20:45 | disposition home or self-care (01) | DRG 312 ==
LOC: EDUNIT# 11:13 → ER 11:13 → EDSEX 11:13 → EDBD 11:13 → OVERFLOW 19:46 → TELE-WESTW 23:17
PROVIDERS: ADMIT Hospitalist; ATTEND Hospitalist
PROC: 0W9G3ZZ Drainage of Peritoneal Cavity, Percutaneous Approach (ICD-10-PCS; principal; 2025-05-31)
PROC: 5A1D70Z Performance of Urinary Filtration, Intermittent, Less than 6 Hours Per Day (ICD-10-PCS; 2025-05-31)
DX: I95.3 Hypotension of hemodialysis (principal); I50.23 Acute on chronic systolic (congestive) heart failure; J96.21 Acute and chronic respiratory failure with hypoxia; N18.6 End stage renal disease; I13.2 Hypertensive heart and chronic kidney disease with heart failure and with stage 5 chronic kidney disease, or end stage renal disease; D61.818 Other pancytopenia; R18.8 Other ascites; K57.32 Diverticulitis of large intestine without perforation or abscess without bleeding; I42.0 Dilated cardiomyopathy; D63.1 Anemia in chronic kidney disease; I50.9 Heart failure, unspecified; E11.22 Type 2 diabetes mellitus with diabetic chronic kidney disease; I27.20 Pulmonary hypertension, unspecified; Z79.2 Long term (current) use of antibiotics; Z79.01 Long term (current) use of anticoagulants; Z79.899 Other long term (current) drug therapy; Z90.49 Acquired absence of other specified parts of digestive tract; Z98.891 History of uterine scar from previous surgery; Z82.49 Family history of ischemic heart disease and other diseases of the circulatory system; Z99.81 Dependence on supplemental oxygen; Z99.2 Dependence on renal dialysis; Z80.3 Family history of malignant neoplasm of breast
CPT/HCPCS: 36415; 49083; 74176; 76700; 76942; 80048; 80053; 80074; 82962; 83880; 83986; 84443; 84484; 85025; 85610; 85730; 87081; 87205; 89051; 90935; 93005; 99291; 99292; G0378